=== PATIENT | female | born 2000 | race Caucasian/White ===

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

== ENCOUNTER → 2022-05-02 17:58 | Outpatient (BNVA) | payer MEDICAID, SELFPAY | PROVIDERS: PCP Family Medicine; Visit Provider Emergency Medicine | DX: Z11.3 Encounter for screening for infections with a predominantly sexual mode of transmission (principal); Z20.2 Contact with and (suspected) exposure to infections with a predominantly sexual mode of transmission | CPT/HCPCS: 87491; 87591; 87661 ==

== ENCOUNTER → 2022-05-05 16:13 | Outpatient (BNVA) | payer MEDICAID, SELFPAY | PROVIDERS: PCP Family Medicine; Visit Provider Family Medicine | DX: Z20.2 Contact with and (suspected) exposure to infections with a predominantly sexual mode of transmission (principal); F41.9 Anxiety disorder, unspecified; F19.94 Other psychoactive substance use, unspecified with psychoactive substance-induced mood disorder; Z51.81 Encounter for therapeutic drug level monitoring | CPT/HCPCS: 80053; 85025; 86705; 86706; 86803; 87340; 87491; 87591; 87661; 87806 ==

== ENCOUNTER → 2022-07-01 11:48 | Outpatient (BNVA) | payer BC, MEDICAID, SELFPAY | PROVIDERS: PCP Family Medicine; Visit Provider Registered Nurse | DX: Z79.899 Other long term (current) drug therapy (principal); F19.94 Other psychoactive substance use, unspecified with psychoactive substance-induced mood disorder; F10.10 Alcohol abuse, uncomplicated; F19.10 Other psychoactive substance abuse, uncomplicated | CPT/HCPCS: 80053; 80061; 82306; 82607; 83036; 84443; 85025 ==

== ENCOUNTER → 2022-07-08 11:35 | Outpatient (BNVA) | payer BC, MEDICAID, SELFPAY | PROVIDERS: PCP Family Medicine; Visit Provider Registered Nurse | DX: Z79.899 Other long term (current) drug therapy (principal) | CPT/HCPCS: 80178 ==

== ENCOUNTER → 2022-10-15 15:14 | Outpatient (BNVA) | payer BC, MEDICAID, SELFPAY | PROVIDERS: PCP Family Medicine; Visit Provider Registered Nurse | DX: Z79.899 Other long term (current) drug therapy (principal) | CPT/HCPCS: 80306 ==

== ENCOUNTER 2022-11-21 20:11 | Inpatient (IN) | payer BC, SELFPAY ==
[2022-11-21 20:17] VITALS: BP 131/66; PULSE 61; RESP 18; TEMP 36.9; O2SAT 97
--- NOTE | 2022-11-21 20:18 | W.ED.PSYCHS ---
HPI - Psych General: Chief Complaint: Psychiatric Symptoms Stated Complaint: PARANOID Time Seen by Provider: 11/21/22 20:18 History of Present Illness: Ms. Fong is a 22-year-old lady with history of substance abuse and bipolar disorder presenting to the emergency department for suicidal ideation and paranoia. She reports increased suicidality including overdose on lithium 2 days ago and cutting herself superficially on the left anterior forearm and right thigh. She did these with hopes of dying. She became more upset this evening as her mother did not take her to dinner for some reason. Patient reports being concerned that somebody is bugged her phone and she is adversely involved with a gang who thinks she is in the [employer] gang and they have been tracking her. Intensity symptoms is moderate to severe. Course has worsened. No other specific changes in health, exacerbating, or alleviating factors identified. Onset (ago): day(s) Duration: getting worse History of same: Yes Relieving factors: none Exacerbating factors: none Associated psychiatric symptoms: depression, suicidal ideation, delusions and other If self harm: admits thoughts of self harm, has plan, has acted on plan and intentional overdose Review of Systems General: Reports: 10 or more systems reviewed and unremarkable except in HPI and below PFSH ED PFSH: Medical History Alcohol abuse in remission Bipolar 1 disorder with psychosis History of use of contraceptive intrauterine device (IUD) Psychiatric care Psychiatric disturbance Substance abuse in remission Substance induced mood disorder Social History Smoking and tobacco status: never smoked Female Reproductive History: Spontaneous abortions: No Physical Exam Const: COMMON NORMALS: alert GENERAL APPEARANCE: cooperative and well developed HENMT: COMMON NORMALS: normocephalic and atraumatic HEAD & SCALP: normocephalic and atraumatic Eye: COMMON NORMALS: conjunctivae normal CONJUNCTIVA: Yes conjunctivae normal SCLERA: sclerae normal Neck/C-Spine: COMMON NORMALS: supple GENERAL: Yes trachea midline Resp: COMMON NORMALS: normal respiratory effort EFFORT & INSPECTION: Yes able to speak in complete sentences Cardio: COMMON NORMALS: regular rate and regular rhythm RATE: regular rate RHYTHM: regular rhythm GI: COMMON NORMALS: Soft to palpation PALPATION: Yes Soft to palpation and No Tenderness to palpation present (GI) PERCUSSION: normal to percussion Extremity: GENERAL: Yes normal exam except as noted and No edema Neuro: COMMON NORMALS: moves all extremities SENSORIUM/ORIENTATION: Yes alert and No Orientation impaired Psych: ATTITUDE: Yes paranoid and Yes Withdrawn affect present MOOD & AFFECT: Yes depressed mood INSIGHT: Fair insight present (Psych) JUDGEMENT: Poor judgement present (Psych) Skin: NARRATIVE SKIN EXAM: Superficial lacerations not requiring intervention. Course Vital Signs: Vital signs: Vital Signs Temperature 98.5 F 12/06/22 14:00 Pulse Rate 90 12/06/22 14:00 Respiratory Rate 18 12/06/22 14:00 Blood Pressure 106/65 12/06/22 14:00 Pulse Oximetry 96 12/06/22 14:00 Oxygen Delivery Me thod 12/05/22 22:00 MDM - Psych Medical Decision Making 22-year-old female presenting to the emergency department for suicidal ideation and reported overdose on lithium 2 days ago. Patient is nontoxic in appearance. No obvious toxidrome present. EKG notable for sinus rhythm with bradycardia. Normal axis and intervals, no STEMI. Labs with no significant hematologic or metabolic abnormalities. Toxic ingestions. Urine drug screen positive for only THC. [place] level is nontoxic. Most likely etiology of patient's symptoms is psychosis with suicidal attempt/ideation. Based on ED evaluation at this point there is no obvious condition that would preclude the patient from inpatient management psychiatric concerns/symptoms. The results of ED evaluation were discussed with the patient including plan for admission due to requirement for level of care not available if discharged to prevent significant worsening/deterioration. Patient agreeable with plan. Discussed with psychiatry service who was agreeable to admit patient. Medical Records I reviewed the patient's medical records. Lab Data I reviewed the patient's lab results. 11/21/22 20:40 11/21/22 20:40 Laboratory Results WBC 6.8 10^3/uL (4.5-13.0) 11/21/22 20:40 RBC 5.21 10^6/uL (4.1-5.3) 11/21/22 20:40 Hgb 13.9 g/dL (11.5-15.3) 11/21/22 20:40 Hct 44.1 % (37.0-47.0) 11/21/22 20:40 MCV 84.6 fl (81-99) 11/21/22 20:40 MCH 26.7 pg (28.0-34.0) L 11/21/22 20:40 MCHC 31.5 g/dL (30.0-36.0) 11/21/22 20:40 RDW 13.7 % (12.1-15.1) 11/21/22 20:40 Plt Count 340 10^3/cmm (130-400) 11/21/22 20:40 MPV 10.1 fL (7.4-10.4) 11/21/22 20:40 Neut % (Auto) 61.7 % 11/21/22 20:40 Lymph % (Auto) 26.5 % 11/21/22 20:40 [place] % (Auto) 8.2 % 11/21/22 20:40 Eos % (Auto) 3.1 % 11/21/22 20:40 Baso % (Auto) 0.4 % 11/21/22 20:40 Neut # (Auto) 4.20 10^3/uL (1.8-8.0) 11/21/22 20:40 Lymph # (Auto) 1.8 10^3/uL (1.5-6.5) 11/21/22 20:40 [place] # (Auto) 0.6 10^3/uL (0.2-0.9) 11/21/22 20:40 Eos # (Auto) 0.2 10^3/uL (0.0-0.8) 11/21/22 20:40 Baso # (Auto) 0.0 10^3/uL (0.0-0.1) 11/21/22 20:40 Nucleated RBC % (auto) 0 % 11/21/22 20:40 Nucleated RBCs # 0.0 /100WBC 11/21/22 20:40 Sodium 139 mmol/L (136-145) 11/21/22 20:40 Potassium 3.8 mmol/L (3.5-5.1) 11/21/22 20:40 Chloride 104 mmol/L (98-107) 11/21/22 20:40 Carbon Dioxide 27 mmol/L (22-29) 11/21/22 20:40 Anion Gap 11.8 (5-19) 11/21/22 20:40 BUN 9 mg/dL (6-20) 11/21/22 20:40 Creatinine 0.8 mg/dL (0.5-0.9) 11/21/22 20:40 GFR Calculation 91.4 mL/min (90-130) 11/21/22 20:40 Glucose 71 mg/dL (65-115) 11/21/22 20:40 Calculated Osmolality 285 mOsm/kg (285-295) 11/21/22 20:40 Calcium 9.7 mg/dL (8.5-10.5) 11/21/22 20:40 Total Bilirubin 0.6 mg/dL (0.15-1.2) 11/21/22 20:40 AST 14 U/L (0-32) 11/21/22 20:40 ALT 14 U/L (0-33) 11/21/22 20:40 Alkaline Phosphatase 79 U/L (35-105) 11/21/22 20:40 Total Protein 7.3 g/dL (6.6-8.7) 11/21/22 20:40 Albumin 4.4 g/dL (3.5-5.2) 11/21/22 20:40 Globulin 2.9 g/dL (1.3-4.6) 11/21/22 20:40 TSH 1.57 uIU/mL (0.27-4.20) 11/21/22 20:40 HCG, Qual Negative (Negative) 11/21/22 20:44 Salicylates < 0.3 mg/dL (3-10) L 11/21/22 20:40 Urine Opiates Screen Negative ng/mL (Negative) 11/21/22 20:24 Acetaminophen < 5.0 ug/mL (10-30) L 11/21/22 20:40 Ur Barbiturates Screen Negative ng/mL (Negative) 11/21/22 20:24 Ur Phencyclidine Scrn Negative ng/mL (Negative) 11/21/22 20:24 Ur Amphetamines Screen Negative ng/mL (Negative) 11/21/22 20:24 U Benzodiazepines Scrn Negative ng/mL (Negative) 11/21/22 20:24 [place] 0.2 mmol/L (0.6-1.2) L 11/21/22 20:40 Urine Cocaine Screen Negative ng/mL (Negative) 11/21/22 20:24 U Marijuana (THC) Screen Positive ng/mL (Negative) H 11/21/22 20:24 Ethyl Alcohol < 10 mg/dL (0-10) 11/21/22 20:40 Discharge Plan Discharge Patient Disposition: Admitted As Inpatient Admit Provider: Parth Michael Clinical Impression: Acute psychosis, Suicidal ideation, Drug overdose, intentional, Paranoia Condition: Stable Coding Level of Care Code ED Floriculture Professor for Simone Arreguin
--- NOTE | 2022-11-21 20:30 | ECG_ITS ---
[facility] Test Date: 2022-11-21 Pat Name: Miranda Fong Department: Room: Gender: Female Agricultural Extension Specialist: : 2000 Requested By: William Clark Order Number: [id number] Wu MD: Patrick Dominique M.D. Measurements Intervals [place] Rate: 48 P: 61 GA: 178 QRS: 75 QRSD: 112 T: 56 QT: 418 QTc: 377 Interpretive Statements SINUS BRADYCARDIA MODERATE INTRAVENTRICULAR CONDUCTION DELAY [110+ ms QRS DURATION] No previous ECG available for comparison Electronically Signed On 11-22-2022 12:16:34 STANDARD MACHINE STITCHER by Patrick Dominique M.D. [id number]
[2022-11-21 20:47] LABS: Basophils % 0.4 %; Eosinophils # 0.2 10^3/uL (0.0-0.8); Eosinophils % 3.1 %; Hematocrit 44.1 % (37.0-47.0); Hemoglobin 13.9 g/dL (11.5-15.3); Lymphocytes # 1.8 10^3/uL (1.5-6.5); Lymphocytes % 26.5 %; Mean Corpuscular HGB Conc 31.5 g/dL (30.0-36.0); Mean Corpuscular Hemoglobin 26.7 pg (28.0-34.0); Mean Corpuscular Volume 84.6 fl (81-99); Mean Platelet Volume 10.1 fL (7.4-10.4); Monocytes # 0.6 10^3/uL (0.2-0.9); Monocytes % 8.2 %; Neutrophils % 61.7 %; Nucleated Red Blood Cells % 0 %; Platelet Count 340 10^3/cmm (130-400); Red Blood Count 5.21 10^6/uL (4.1-5.3); Red Cell Distribution Width 13.7 % (12.1-15.1); White Blood Count 6.8 10^3/uL (4.5-13.0)
[2022-11-21 21:08] LABS: Amphetamines Screen Urine Negative (Negative); Barbiturates Screen Urine Negative (Negative); Benzodiazepines Screen Urine Negative (Negative); Cocaine Screen Urine Negative (Negative); Opiate Screen Urine Negative (Negative); PCP Screen Urine Negative (Negative); THC Screen Urine Positive (Negative)
[2022-11-21 21:11] LABS: Alanine Aminotransferase 14 U/L (0-33); Albumin Level 4.4 g/dL (3.5-5.2); Alkaline Phosphatase 79 U/L (35-105); Anion Gap 11.8 (5-19); Aspartate Amino Transferase 14 U/L (0-32); Blood Urea Nitrogen 9 mg/dL (6-20); Calcium 9.7 mg/dL (8.5-10.5); Carbon Dioxide 27 mmol/L (22-29); Chloride 104 mmol/L (98-107); Globulin 2.9 g/dL (1.3-4.6); Glomerular Filtration Rate 91.4 mL/min (90-130); Glucose 71 mg/dL (65-115); Osmolality Calculated 285 mOsm/kg (285-295); Potassium 3.8 mmol/L (3.5-5.1); Sodium 139 mmol/L (136-145); Thyroid Stimulating Hormone 1.57 uIU/mL (0.27-4.20); Total Bilirubin 0.6 mg/dL (0.15-1.2); Total Protein 7.3 g/dL (6.6-8.7)
[2022-11-21 21:12] LABS: Acetaminophen < 5.0 ug/mL (10-30); Alcohol Level < 10 mg/dL (0-10); Salicylate < 0.3 mg/dL (3-10)
[2022-11-21 21:12] LABS: HCG Qualitative Urine. Negative (Negative)
[2022-11-21] MEDS: LORazepam 1 mg Tablet PO (21:45)
--- NOTE | 2022-11-21 23:12 | PC.NURSE ---
Rights of Involuntary Patient was read to patient by myself, Jamison Lebron RN, Plant Physiology Teacher. Halle Michael, motor equipment commanding officer was present at bedside. Patient verbally acknowledges understanding of the same. A copy was given to patient.
[2022-11-21 23:20] LABS: Lithium 0.2 mmol/L (0.6-1.2)
[2022-11-22 00:22] VITALS: BP 106/56; PULSE 55; RESP 16; O2SAT 97
[2022-11-22 02:10] VITALS: BP 134/87; PULSE 80; RESP 17; TEMP 36.9; O2SAT 96
[2022-11-22 06:00] VITALS: BP 82/48; PULSE 53; RESP 16; TEMP 36.7; O2SAT 98
[2022-11-22 14:00] VITALS: BP 111/68; PULSE 76; RESP 20; TEMP 36.6; O2SAT 97
--- NOTE | 2022-11-22 15:11 | P.NPUHP_ITS ---
Providers/Chief Complaint Admitting Physician: Parth Michael MD Primary Care Provider: Carmen Michael MD Chief Complaint: PARANOID HPI NPU History of Present Illness Miranda Fong is a 22 year old female who presented to the emergency department with the following report: Chief Complaint: Psychiatric Symptoms Stated Complaint: PARANOID Time Seen by Provider: 11/21/22 20:18 History of Present Illness: Ms. Fong is a 22-year-old lady with history of substance abuse and bipolar disorder presenting to the emergency department for suicidal ideation and paranoia. She reports increased suicidality including overdose on lithium 2 days ago and cutting herself superficially on the left anterior forearm and right thigh. She did these with hopes of dying. She became more upset this evening as her mother did not take her to dinner for some reason. Patient reports being concerned that somebody is bugged her phone and she is adversely involved with a gang who thinks she is in the [employer] gang and they have been tracking her. Intensity symptoms is moderate to severe. Course has worsened. No other specific changes in health, exacerbating, or alleviating factors identified. She was admitted to the neuropsychiatric unit for definitive treatment of those issues. She presents today reporting that she has been hospitalized at least 7 times. In [facility], [facility] and here. She reports that she had been on Seroquel and Vistaril but that someone stopped her medication. She reports that she last went to [facility] inpatient and they changed things that had been helping but probably needed just to be increased. She reports that over the last 3 days leading up to the hospitalization she was feeling increasingly suicidal. She was drinking, took some pills including lithium, and had cut herself superficially. She reports that she has had at least 22 suicide attempts in her life. She reports that she has had follow-up in [place]. She reports she has been on lots of different medications. She reports that she is down to 1 cigarette or a couple puffs a day. She reports she tried to stop drinking alcohol but does not drink much. She reports she smokes marijuana daily. She reports that she does not use any other illicit drugs and that has been the case for over a year but back when she was using methamphetamine and opiates for the problem. She reports she thinks she does have 1 DUI but denied other charges. She reports she is been having challenges since she was a teen that she has had a history of cutting. She reports that recently she and her mom have had conflicts because she struggles with her behavior. She reports that her mother endorses that she is more aggressive than she should be. She reports that recently she has been staying with her mom's ex because she and her mom cannot get along. She reports she is having some legal problems and that she has an outstanding warrant from not showing up to court about 4 times. She continues to report being heterosexual with her longest relationship being off and on for 3 years. Never been , has not had children never been in the and reports she is affiliated with the [employer]. She is not currently working. An excerpt of her last hospitalization here in March 2021 is included below for context. We discussed the risk benefits and alternatives of resuming some Seroquel at night to help with sleep and to start Invega as a mood stabilizer before considering an antidepressant. Per her 04/21/2021 [facility] inpatient psychiatric evaluation: History of Present Illness Miranda Fong is a 20 year old female who presented to the emergency department with the following report: Chief Complaint: Psychiatric Symptoms Stated Complaint: SI Time Seen by Provider: 04/20/21 21:32 History of Present Illness:?? HPI Narrative: 20-year-old female comes in today with complaints of depression, suicidal thoughts, hearing voices and seeing people watching her.? Patient reports that she has been hearing the voices that have been telling her that they are going to get her and cut her in half with a chainsaw and other various torture.? Patient has been started on citalopram 1 month ago and Seroquel 1 week ago for complaints of depression.? Patient reports that the voices have been going on for 1 to 2 months.? Patient has recently m elizabeth to [place] from [facility] 2 months ago to live near her biological grandparents.? Patient has been on sertraline in the past but was taken off of the medication due to taking too many of the pills as she states it.? Patient is also has had 1 state last August while in [facility] for suicidal thoughts in which she stayed overnight in the hospital.? Patient has poor eye contact during interview. Associated symptoms: Reports auditory hallucinations, visual hallucinations, delusions, depression and suicidal ideation. She was admitted to the neuropsychiatric unit for definitive treatment of those issues.? Patient presents today reporting she is [facility] but has been in outpatient services.? She had medications before including Seroquel but she denies ever having Abilify.? She endorses having a suicide attempt but it was unclear whether she meant September of this year or 2019.? She reports that she vapes but does not alcohol somewhat regularly she denies smoking marijuana or any other illicit drugs.? She never been to rehab and denied having a DUI.? She reports that the reason why she is here is at her family's behest as she continued to have voices in her head reports that she feels like somebody is going to kill her.? She reports that the voices tell her the people are after her that are going to kill her.? We discussed the risk-bene fit and alternatives of starting Abilify and she understood agreed to proceed as is documented in this note. Psychiatric history: As above. Substance abuse history: As above. Family history: Endorses mental health issues on her mother side, addiction issues on her father side denies any suicide attempts or completions in her family which is aware of. Developmental history: There were no problems with the , or delivery, learned to walk and talk and met developmental milestones on time, and denies need for speech therapy, learning support, emotional support or special education classes.? She did later report that she might have been a slow reader. Psychosocial history: She reports that her mother and father were together when she was born and that she has 2 younger sisters that are a product of that same union.? She states is a half sibling through her father but avoid and her mother did have another child was stillborn.? She reports her childhood was good she denies any emotional, physical or sexual abuse.? She does report that when her parents split her dad was overly protective and her mom more or less allowed her to do whatever she wanted.? She reports that she did get into some addictive behavior secondary to the looseness of control.? She alluded to some possible trauma and PTSD type symptoms but did not discuss them with clearly enough to draw an u nderstanding.? She did graduate from high school.? She endorses being bisexual with a long relationship being 2 years.? She has never been , she has never had children, she has never been in the , and she endorses being Mandaen.? Her longest was 3 months.? She reports he lives in a camper with a younger sister outside of family members home. Legal history: Denied. Medical history: Please see ED note for full details but endorses being on control pills. Meds NPU Home Medications Medication Instructions Recorded Confirmed Last Taken Type docusate sodium 100 mg capsule 100 mg PO BID PRN Constipation 05/27/22 11/22/22 Unknown History lumateperone 42 mg capsule 42 mg PO DAILY #30 caps 10/29/22 11/22/22 Unknown Rx (Caplyta) Allergies Allergy/AdvReac Type Severity Reaction Status Date / Time hydrocortisone Allergy rash Verified 08/13/22 07:27 Milk Containing Products AdvReac Severe ADR-Flatule Verified 08/13/22 07:27 nce PFSH NPU PFSH: Medical History Alcohol abuse in remission Bipolar 1 disorder with psychosis History of use of contraceptive intrauterine device (IUD) Psychiatric care Psychiatric disturbance Substance abuse in remission Substance induced mood disorder Social History Smoking and tobacco status: never smoked Female Reproductive History: Spontaneous abortions: No Mental Status Exam MSE Comments: This is a well-nourished, well-developed white female in hospital scrubs with adequate grooming and eye contact. No abnormal movements except for mild psychomotor agitation.. Cooperative with exam in mild distress. Speech was slightly increased rate and normal volume but not quite pressured.. Mood described as a little down. Affect hypomanic. Thought process mostly organized. Thought content: Patient endorsed recent suicidal but deniedhomicidal ideation, there were no delusions noted except for possible mild grandiosity but she did endorse some paranoia, she reported having some auditory hallucinations but denied visual hallucinations. Attention and concentration appeared mostly intact and memory was somewhat reliable but none were formally tested. Alert and oriented x3. Insight and judgment are limited, impulse control is limited. Vitals/I&O/Wt Last Vital Signs Temp 98 F 11/22/22 14:00 Pulse 76 11/22/22 14:00 Resp 20 H 11/22/22 14:00 BP 111/68 11/22/22 14:00 Pulse Ox 97 11/22/22 14:00 O2 Del Method 11/22/22 06:00 Weight last 48 hrs Weight 77.111 kg Data NPU 11/21/22 20:40 11/21/22 20:40 A&P Assessment and plan (1) Acute psychosis: (2) Suicidal ideation: (3) Drug overdose, intentional: (4) Bipolar 1 disorder: Plan This is a 22-year-old white female with a history of significant mental health challenges including question of bipolar disorder significant suicidal tendencies who presents with acute psychosis in the form of hypomania with a history of possible substance use, odd affect who presents open to a trial of medication. 1.? Continue current medication.? Start Invega 3 mg p.o. daily and Seroquel 50 mg p.o. nightly 2.? Continue every 15 minute checks for safety. 3.? Encourage individual, group and milieu therapies. 4.? Encourage sober living treatment after discharge at the highest level of car e to which he is willing to commit. Involuntary Hold Information 96 Hour Hold: 96 Hour Involuntary Admission: Yes 96 Hour Hold Ending Date: 11/27/22 96 Hour Hold Ending Time: 22:00 Attestations NPU 2 Medical Necessity Statement*: Inpatient hospitalization is medically necessary and the clinically appropriate intervention at this time. We will monitor medic ations and make changes as indicated. Patient will be in the hospital for over two midnights. Likely length of stay 4-6 days. Coding Level of Care Code Acute Code for Chg Fwd Diagnoses Acute psychosis F23 Suicidal ideation R45.851 Drug overdose, intentional T50.902A Bipolar 1 disorder F31.9
[2022-11-22] MEDS: nicotine 2 mg Gum BUCCAL (16:15)
[2022-11-22 20:01] VITALS: BP 114/71; PULSE 62; RESP 20; TEMP 36.7; O2SAT 98
[2022-11-22] MEDS: blistex lip oint 7 gm Tube 1 APPLIC TOPICAL (21:06)
[2022-11-22] MEDS: trazodone 50 mg Tablet PO (22:20)
[2022-11-23 06:00] VITALS: BP 100/63; PULSE 76; RESP 18; TEMP 36.3; O2SAT 95
[2022-11-23] MEDS: blistex lip oint 7 gm Tube 1 APPLIC TOPICAL (12:23)
[2022-11-23] MEDS: paliperidone ER 3 mg Tablet PO (12:23)
[2022-11-23 14:00] VITALS: BP 116/72; PULSE 85; RESP 20; TEMP 36.9; O2SAT 95
[2022-11-23] MEDS: hyDROXYzine 25 mg Capsule 50 MG PO (14:29)
[2022-11-23] MEDS: nicotine 2 mg Gum BUCCAL (14:29)
--- NOTE | 2022-11-23 18:45 | W.PM.NPUPNS ---
Subjective NPU Subjective: Patient presented today reporting that she has sleeping better and denied any thoughts from the medication she is getting. She received the morning dose of Invega and denied any current problems with it thus far. She denied any changes in her mood or any new concerns. Mental Status Exam MSE Comments: This is a well-nourished, well-developed white female in hospital scrubs with adequate grooming and eye contact. No abnormal movements except for mild psychomotor agitation. Cooperative with exam in mild distress. Speech was slightly increased rate and normal volume but not quite pressured.. Mood described as okay. Affect hypomanic. Thought process mostly organized. Thought content: Patient endorsed recent suicidal but deniedhomicidal ideation, there were no delusions noted except for possible mild grandiosity but she did endorse some paranoia, she reported having some auditory hallucinations but denied visual hallucinations. Attention and concentration appeared mostly intact and memory was somewhat reliable but none were formally tested. Alert and oriented x3. Insight and judgment are limited, impulse control is limited. Vitals/I&O/Wt Last Vital Signs Temp 97.9 F 11/23/22 20:06 Pulse 68 11/23/22 20:06 Resp 16 11/23/22 20:06 BP 98/59 11/23/22 20:06 Pulse Ox 99 11/23/22 20:06 O2 Del Method 11/22/22 06:00 Weight last 48 hrs Weight 105.324 kg Data NPU 11/21/22 20:40 11/21/22 20:40 A&P Assessment and plan (1) Acute psychosis: (2) Suicidal ideation: (3) Drug overdose, intentional: (4) Bipolar 1 disorder: Plan This is a 22-year-old white female with a history of significant mental health challenges including question of bipolar disorder significant suicidal tendencies who presents with acute psychosis in the form of hypomania with a history of possible substance use, odd affect who presents open to a trial of medication. 1.? Continue current medication.? Started Invega 3 mg p.o. daily and Seroquel 50 mg p.o. nightly 2.? Continue every 15 minute checks for safety. 3.? Encourage individual, group and milieu therapies. 4.? Encourage sober living treatment after discharge at the highest level of care to which he is willing to commit. Involuntary Hold Information 96 Hour Hold: 96 Hour Involuntary Admission: Yes 96 Hour Hold Ending Date: 11/27/22 96 Hour Hold Ending Time: 22:00 Attestations NPU Medical Necessity Statement*: Inpatient hospitalization is medically necessary and the clinically appropriate intervention at this time. We will monitor medications and make changes as indicated. Likely length of stay 3-5 days. Coding Level of Care Code Acute Code for Chg Fwd Diagnoses Acute psychosis F23 Suicidal ideation R45.851 Drug overdose, intentional T50.902A Bipolar 1 disorder F31.9
[2022-11-23 20:06] VITALS: BP 98/59; PULSE 68; RESP 16; TEMP 36.6; O2SAT 99
[2022-11-23] MEDS: quetiapine 25 mg Tablet 50 MG PO (21:09)
[2022-11-24 06:00] VITALS: BP 105/69; PULSE 51; RESP 16; O2SAT 97
[2022-11-24] MEDS: paliperidone ER 3 mg Tablet PO ×3 (08:34→20:28)
[2022-11-24] MEDS: nicotine 2 mg Gum BUCCAL ×5 (11:59→20:41)
[2022-11-24 14:00] VITALS: BP 156/90; PULSE 105; RESP 18; TEMP 36.3; O2SAT 97
[2022-11-24] MEDS: ondansetron 4 MG Tablet PO (16:30)
--- NOTE | 2022-11-24 16:33 | W.PM.NPUPNS ---
Subjective NPU Subjective: Patient presents today reporting that her impulsive behaviors is part of her behavior pattern. She had removed and from a male patient due to their attempts to interact socially. We will lengthy discussion and she reports that her mother says that her bipolar disorder the next those decisions. We discussed the fact that people do often have that as a consequence of the illness. We discussed the risks, benefits and alternatives of increasing her Invega to 6 mg p.o. every morning and she understood and agreed proceed as documented in this note. Mental Status Exam MSE Comments: This is an overweight versus obese white female in hospital scrubs with limited grooming but adequate eye contact. No abnormal movements except for mild psychomotor agitation. Cooperative with exam in mild distress. Speech was slightly increased rate and normal volume but not quite pressured.. Mood described as okay. Affect hypomanic. Thought process mostly organized. Thought content: Patient endorsed recent suicidal but denied homicidal ideation, there were no delusions noted except for possible mild grandiosity and some hypersexuality and she did endorse some paranoia, she reported having some auditory hallucinations but denied visual hallucinations. Attention and concentration appeared mostly intact and memory was somewhat reliable but none were formally tested. Alert and oriented x3. Insight and judgment are limited, impulse control is impaired. Vitals/I&O/Wt Last Vital Signs Temp 97.9 F 11/23/22 20:06 Pulse 51 L 11/24/22 06:00 Resp 16 11/24/22 06:00 BP 105/69 11/24/22 06:00 Pulse Ox 97 11/24/22 06:00 O2 Del Method 11/22/22 06:00 Weight last 48 hrs Weight 105.324 kg Data NPU 11/21/22 20:40 11/21/22 20:40 A&P Assessment and plan (1) Acute psychosis: (2) Suicidal ideation: (3) Drug overdose, intentional: (4) Bipolar 1 disorder: Plan This is a 22-year-old white female with a history of significant mental health challenges including question of bipolar disorder significant suicidal tendencies who presents with acute psychosis in the form of hypomania with a history of possible substance use, odd affect who presents open to a trial of medication. 1.? Continue current medication.? Started Invega 3 mg p.o. daily and Seroquel 50 mg p.o. nightly. Increase Invega to 6 mg p.o. daily. 2.? Continue every 15 minute checks for safety. 3.? Encourage individual, group and milieu therapies. 4.? Encourage sober living treatment after discharge at the highest level of care to which he is willing to commit. Involuntary Hold Information 96 Hour Hold: 96 Hour Involuntary Admission: Yes 96 Hour Hold Ending Date: 11/27/22 96 Hour Hold Ending Time: 22:00 Attestations NPU Medical Necessity Statement*: Inpatient hospitalization is medically necessary and the clinically appropriate intervention at this time. We will monitor medications and make changes as indicated. Likely length of stay 3-5 days. Coding Level of Care Code Acute Code for g Fwd Diagnoses Acute psychosis F23 Suicidal ideation R45.851 Drug overdose, intentional T50.902A Bipolar 1 disorder F31.9
[2022-11-24 20:11] VITALS: BP 129/78; PULSE 97; RESP 16; TEMP 36.7; O2SAT 99
[2022-11-24] MEDS: quetiapine 25 mg Tablet 50 MG PO (20:28)
[2022-11-25 06:00] VITALS: BP 112/72; PULSE 60; RESP 16; TEMP 36.4; O2SAT 99
[2022-11-25] MEDS: paliperidone ER 6 mg Tablet PO (09:09)
[2022-11-25] MEDS: ondansetron 4 MG Tablet PO (09:57)
--- NOTE | 2022-11-25 10:14 | PC.NURSE ---
THIS EVENT HAPPENED YESTERDAY ON 11/24/22 DAWN STOCKTON WAS COMPLETING 15 MINUTE ROUNDS ON THE [facility] WHEN SHE FOUND THIS PT AND A MALE PT IN A ROOM TOGETHER. THEY WERE FOUND IN ROOM 155 IN THE BATHROOM. THE PT WAS UP AGAINST THE WALL AND THE MALE PATIENT WAS PERFORMING ORAL SEX ON HER. MAHIN IMMEDIATELY INTERVENED AND THEM. THIS PT WAS PLACED ON 1:1 BY THIS NURSE AND DID NOT GET OUT OF STAFFS SITE. PT WAS IMMEDIATELY MOVED TO THE [facility] IN ROOM 126. SECURITY, PRODUCTION ENGINE REPAIRER, DR. CASTILLO AND DIRECTOR WAS NOTIFIED. UPON CAMERA REVIEW BOTH PTS ENTERED ROOM 155 AT 1520 AND BOTH EXITED THE ROOM AT 1532 AFTER BEING FOUND BY STAFF.
[2022-11-25] MEDS: nicotine 2 mg Gum BUCCAL ×4 (11:48→19:14)
[2022-11-25] MEDS: hyDROXYzine 25 mg Capsule 50 MG PO (12:15)
--- NOTE | 2022-11-25 13:15 | W.PM.NPUPNS ---
Subjective NPU Subjective: Patient presented today reporting that she was to go home. Discussed the fact that she has been in this hypersexual state, but she just had the Invega increased to 6 mg, and I would like to see her overall affect started to dissipate in energy before also comfortable about discharge. Mental Status Exam MSE Comments: This is an overweight versus obese white female in hospital scrubs with limited grooming but adequate eye contact. No abnormal movements except for mild psychomotor agitation. Cooperative with exam in mild distress. Speech was slightly increased rate and normal volume but not quite pressured. Mood described as okay. Affect hypomanic. Thought process mostly organized. Thought content: Patient endorsed recent suicidal but denied homicidal ideation, there were no delusions noted except for possible mild grandiosity and some hypersexuality and she did endorse some paranoia, she reported having some auditory hallucinations but denied visual hallucinations. Attention and concentration appeared mostly intact and memory was somewhat reliable but none were formally tested. Alert and oriented x3. Insight and judgment are limited, impulse control is impaired. Vitals/I&O/Wt Last Vital Signs Temp 98.0 F 11/24/22 20:11 Pulse 97 11/24/22 20:11 Resp 16 11/24/22 20:11 BP 129/78 11/24/22 20:11 Pulse Ox 99 11/24/22 20:11 O2 Del Method 11/22/22 06:00 Data NPU 11/21/22 20:40 11/21/22 20:40 A&P Assessment and plan (1) Acute psychosis: (2) Suicidal ideation: (3) Drug overdose, intentional: (4) Bipolar 1 disorder: Plan This is a 22-year-old white female with a history of significant mental health challenges including question of bipolar disorder significant suicidal tendencies who presents with acute psychosis in the form of hypomania with a history of possible substance use, odd affect who presents open to a trial of medication. 1.? Continue current medication.? Started Invega 3 mg p.o. daily and Seroquel 50 mg p.o. nightly. Increased Invega to 6 mg p.o. daily. 2.? Continue every 15 minute checks for safety. 3.? Encourage individual, group and milieu therapies. 4.? Encourage sober living treatment after discharge at the highest level of care to which he is willing to commit. Involuntary Hold Information 96 Hour Hold: 96 Hour Involuntary Admission: Yes 96 Hour Hold Ending Date: 11/27/22 96 Hour Hold Ending Time: 22:00 Attestations NPU Medical Necessity Statement*: Inpatient hospitalization is medically necessary and the clinically appropriate intervention at this time. We will monitor medications and make changes as indicated. Likely length of stay 2-4 days. Coding Level of Care Code Acute Code for Chg Fwd Diagnoses Acute psychosis F23 Suicidal ideation R45.851 Drug overdose, intentional T50.902A Bipolar 1 disorder F31.9
[2022-11-25 14:00] VITALS: BP 128/83; PULSE 83; RESP 20; TEMP 36.7; O2SAT 97
[2022-11-25] MEDS: ibuprofen 600 mg Tablet PO (20:17)
[2022-11-25] MEDS: quetiapine 25 mg Tablet 50 MG PO (20:18)
[2022-11-25 20:23] VITALS: BP 132/76; PULSE 87; RESP 17; TEMP 36.6; O2SAT 97
[2022-11-26 06:00] VITALS: BP 106/63; PULSE 76; RESP 18; TEMP 36.9; O2SAT 96
--- NOTE | 2022-11-26 08:28 | PC.NURSE ---
P0T IN BED RESTING, AROUSES TO VOICE. DENIES SI/HI AND AVH AT THIS TIME. PT DENIES PAIN. REPORTS BM 11/24/22. CONTINUES 15 MINUTE CHECKS FOR SI.
[2022-11-26] MEDS: paliperidone ER 6 mg Tablet PO (09:21)
[2022-11-26] MEDS: nicotine 2 mg Gum BUCCAL ×5 (09:21→20:24)
--- NOTE | 2022-11-26 12:08 | W.PM.NPUPNS ---
Subjective NPU Subjective: Patient presented today reporting that she is feeling a little better. Staff reporting less hyperkinetic behavior and she appears less activated. She denies having any hypersexual urges and is focusing on discharging sooner rather than later. We discussed reaching out to her mother and finding out how her mother feels she is doing. She denied any side effects to the increased Invega. Mental Status Exam MSE Comments: This is an overweight versus obese white female in hospital scrubs with limited grooming but adequate eye contact. No abnormal movements except for mild psychomotor retardation. Cooperative with exam in mild distress. Speech was more normal rate and volume. Mood described as okay. Affect appeared more calm. Thought process mostly organized. Thought content: Patient denied suicidal or homicidal ideation, there were no delusions noted except for possible mild grandiosity and some hypersexuality and she did endorse some paranoia, she reported having some auditory hallucinations but denied visual hallucinations. Attention and concentration appeared mostly intact and memory was somewhat reliable but none were formally tested. Alert and oriented x3. Insight and judgment are limited, impulse control is impaired. Vitals/I&O/Wt Last Vital Signs Temp 98.4 F 11/26/22 06:00 Pulse 76 11/26/22 06:00 Resp 18 11/26/22 06:00 BP 106/63 11/26/22 06:00 Pulse Ox 96 11/26/22 06:00 O2 Del Method 11/26/22 06:00 Data NPU 11/21/22 20:40 11/21/22 20:40 A&P Assessment and plan (1) Acute psychosis: (2) Suicidal ideation: (3) Drug overdose, intentional: (4) Bipolar 1 disorder: Plan This is a 22-year-old white female with a history of significant mental health challenges including question of bipolar disorder significant suicidal tendencies who presents with acute psychosis in the form of hypomania with a history of possible substance use, odd affect who presents open to a trial of medication. 1.? Continue current medication.? Started Invega 3 mg p.o. daily and Seroquel 50 mg p.o. nightly. Increased Invega to 6 mg p.o. daily. 2.? Continue every 15 minute checks for safety. 3.? Encourage individual, group and milieu therapies. 4.? Encourage sober living treatment after discharge at the highest level of care to which he is willing to commit. Involuntary Hold Information 96 Hour Hold: 96 Hour Involuntary Admission: Yes 96 Hour Hold Ending Date: 11/27/22 96 Hour Hold Ending Time: 22:00 Attestations NPU Medical Necessity Statement*: Inpatient hospitalization is medically necessary and the clinically appropriate intervention at this time. We will monitor medications and make changes as indicated. Likely length of stay 2-4 days. Will evaluate for need for 21-day hold. Coding Level of Care Code Acute Code for [facility] Fwd Diagnoses Acute psychosis F23 Suicidal ideation R45.851 Drug overdose, intentional T50.902A Bipolar 1 disorder F31.9
[2022-11-26 14:00] VITALS: BP 126/84; PULSE 106; RESP 18; TEMP 36.8; O2SAT 94
[2022-11-26] MEDS: quetiapine 25 mg Tablet 50 MG PO (20:23)
[2022-11-26] MEDS: hyDROXYzine 25 mg Capsule 50 MG PO (20:23)
[2022-11-26] MEDS: trazodone 50 mg Tablet PO (20:23)
[2022-11-26 22:00] VITALS: BP 106/69; PULSE 97; RESP 17; TEMP 36.6; O2SAT 98
[2022-11-27 06:00] VITALS: BP 107/67; PULSE 52; RESP 15; TEMP 36.6; O2SAT 98
[2022-11-27] MEDS: paliperidone ER 6 mg Tablet PO (10:23)
[2022-11-27] MEDS: nicotine 2 mg Gum BUCCAL ×5 (11:57→20:26)
--- NOTE | 2022-11-27 13:28 | W.PM.NPUPNS ---
Subjective NPU Subjective: Patient presented today reporting that she would like to go home. However she was having significant hyperreligious conversation. Reporting that she prays sometimes 2 to 3 hours a day and prays about each finger and toe she wants blessed. We discussed that that might be a bit too long. We discussed a plan to consider the Invega Sustenna discussing the risks, benefits and alternatives and she understood and agreed to proceed as is documented in his note. We talked about maybe doing the shot tomorrow. We also discussed that we would submit the 21-day hold but we are hopeful that with the injection her time here will be short. Mental Status Exam MSE Comments: This is an overweight versus obese white female in hospital scrubs with limited grooming but adequate eye contact. No abnormal movements except for mild psychomotor retardation. Cooperative with exam in mild distress. Speech was more normal rate and volume. Mood described as better I think. Affect appeared more calm. Thought process mostly organized. Thought content: Patient denied suicidal or homicidal ideation, there were no delusions noted except for possible mild grandiosity, hyperreligiousness and possible lessening hypersexuality and she did endorse some paranoia, she reported having some auditory hallucinations but denied visual hallucinations. Attention and concentration appeared mostly intact and memory was somewhat reliable but none were formally tested. Alert and oriented x3. Insight and judgment are limited, impulse control is impaired. Vitals/I&O/Wt Last Vital Signs Temp 97.8 F 11/27/22 06:00 Pulse 52 L 11/27/22 06:00 Resp 15 11/27/22 06:00 BP 107/67 11/27/22 06:00 Pulse Ox 98 11/27/22 06:00 O2 Del Method 11/27/22 06:00 Data NPU 11/21/22 20:40 11/21/22 20:40 A&P Assessment and plan (1) Acute psychosis: (2) Suicidal ideation: (3) Drug overdose, intentional: (4) Bipolar 1 disorder: Plan This is a 22-year-old white female with a history of significant mental health challenges including question of bipolar disorder significant suicidal tendencies who presents with acute psychosis in the form of hypomania with a history of possible substance use, odd affect who presents open to a trial of medication. 1.? Continue current medication.? Started Invega 3 mg p.o. daily and Seroquel 50 mg p.o. nightly. Increased Invega to 6 mg p.o. daily. Consider Invega Sustenna to 34 mg IM loading dose to the deltoid tomorrow if available. 2.? Continue every 15 minute checks for safety. 3.? Encourage individual, group and milieu therapies. 4.? Encourage sober living treatment after discharge at the highest level of care to which he is willing to commit. 5. Filed for 21-day hold. Involuntary Hold Information 96 Hour Hold: 96 Hour Involuntary Admission: Yes 96 Hour Hold Ending Date: 11/27/22 96 Hour Hold Ending Time: 22:00 Attestations NPU Medical Necessity Statement*: Inpatient hospitalization is medically necessary and the clinically appropriate intervention at this time. We will monitor medications and make changes as indicated. Likely length of stay 3-5 days. Will evaluate for need for 21-day hold. Coding Level of Care Code Acute Code for [facility] Fwd Diagnoses Acute psychosis F23 Suicidal ideation R45.851 Drug overdose, intentional T50.902A Bipolar 1 disorder F31.9
[2022-11-27 14:00] VITALS: BP 114/80; PULSE 83; RESP 18; TEMP 36.3; O2SAT 98
[2022-11-27] MEDS: quetiapine 25 mg Tablet 50 MG PO (21:21)
[2022-11-27 22:00] VITALS: BP 108/71; PULSE 131; RESP 18; TEMP 36.7; O2SAT 98
[2022-11-28 06:00] VITALS: BP 99/61; PULSE 58; RESP 15; TEMP 36.8; O2SAT 98
[2022-11-28] MEDS: nicotine 2 mg Gum BUCCAL ×4 (11:14→21:11)
[2022-11-28] MEDS: paliperidone ER 6 mg Tablet PO (11:16)
[2022-11-28] MEDS: paliperidone palmitate 234 mg Syringe IM (11:59)
--- NOTE | 2022-11-28 13:00 | W.PM.NPUPNS ---
Subjective NPU Subjective: Patient presented today reporting that she is doing fine. She received her Invega Sustenna 234 mg IM to the deltoid initial loading dose. She denied any issues with the shot. She was served for her 21-day hold and was meeting with the airworthiness inspector for her hearing. She denied any current challenges and is eating fine and sleeping a little better. Mental Status Exam MSE Comments: This is an overweight versus obese white female in hospital scrubs with limited grooming but adequate eye contact. No abnormal movements except for mild psychomotor retardation. Cooperative with exam in mild distress. Speech was more normal rate and volume. Mood described as getting better. Affect appeared more calm. Thought process mostly organized. Thought content: Patient denied suicidal or homicidal ideation, there were no delusions noted except for possible mild grandiosity, hyperreligiousness and possible lessening hypersexuality and she did endorse some paranoia, she reported having some auditory hallucinations but denied visual hallucinations. Attention and concentration appeared mostly intact and memory was somewhat reliable but none were formally tested. Alert and oriented x3. Insight and judgment are limited, impulse control is impaired. Vitals/I&O/Wt Last Vital Signs Temp 98.2 F 11/28/22 06:00 Pulse 58 L 11/28/22 06:00 Resp 15 11/28/22 06:00 BP 99/61 11/28/22 06:00 Pulse Ox 98 11/28/22 06:00 O2 Del Method 11/28/22 06:00 Data NPU 11/21/22 20:40 11/21/22 20:40 A&P Assessment and plan (1) Acute psychosis: (2) Suicidal ideation: (3) Drug overdose, intentional: (4) Bipolar 1 disorder: Plan This is a 22-year-old white female with a history of significant mental health challenges including question of bipolar disorder significant suicidal tendencies who presents with acute psychosis in the form of hypomania with a history of possible substance use, odd affect who presents open to a trial of medication. 1.? Continue current medication.? Started Invega 3 mg p.o. daily and Seroquel 50 mg p.o. nightly. Increased Invega to 6 mg p.o. daily. Given Invega Sustenna 234 mg IM loading dose to the deltoid 11/28/2022. 2.? Continue every 15 minute checks for safety. 3.? Encourage individual, group and milieu therapies. 4.? Encourage sober living treatment after discharge at the highest level of care to which he is willing to commit. 5. 21-day hold hearing 12/01/2022 at 2:45 PM. Involuntary Hold Information 96 Hour Hold: 96 Hour Involuntary Admission: Yes 96 Hour Hold Ending Date: 11/27/22 96 Hour Hold Ending Time: 22:00 Attestations NPU Medical Necessity Statement*: Inpatient hospitalization is medically necessary and the clinically appropriate intervention at this time. We will monitor medications and make changes as indicated. Likely length of stay 3-5 days. Will evaluate for need for 21-day hold. Coding Level of Care Code Acute Code for [facility] Fwd Diagnoses Acute psychosis F23 Suicidal ideation R45.851 Drug overdose, intentional T50.902A Bipolar 1 disorder F31.9
[2022-11-28 14:00] VITALS: BP 114/76; PULSE 94; RESP 20; TEMP 36.8; O2SAT 97
[2022-11-28] MEDS: trazodone 50 mg Tablet PO (21:10)
[2022-11-28] MEDS: quetiapine 25 mg Tablet 50 MG PO (21:10)
[2022-11-28] MEDS: hyDROXYzine 25 mg Capsule 50 MG PO (21:11)
[2022-11-28 22:00] VITALS: BP 96/60; PULSE 102; RESP 16; TEMP 36.7; O2SAT 97
[2022-11-29 06:00] VITALS: BP 88/51; PULSE 56; RESP 17; TEMP 36.6; O2SAT 98
[2022-11-29] MEDS: nicotine 2 mg Gum BUCCAL ×4 (08:41→21:05)
[2022-11-29] MEDS: paliperidone ER 6 mg Tablet PO (08:41)
--- NOTE | 2022-11-29 09:46 | P.NPUPN_ITS ---
Subjective NPU Subjective: Patient is in today reporting that she is feeling okay. She denies any sequela from her Invega Sustenna injection. We discussed the process of going to the shot only. We discussed the possibility of her mother coming tomorrow and us meeting about how she was doing as well as discharge planning. Otherwise he denied any issues or new concerns. Mental Status Exam MSE Comments: This is an overweight versus obese white female in hospital scrubs with limited grooming but adequate eye contact. No abnormal movements except for mild psychomotor retardation. Cooperative with exam in no acute dist ress. Speech was more normal rate and volume. Mood described as getting better. Affect appeared more calm. Thought process mostly organized. Thought content: Patient denied suicidal or homicidal ideation, there were no delusions noted except for possible mild grandiosity, hyperreligiousness and possible lessening hypersexuality and she did endorse some paranoia, she reported having some auditory hallucinations but denied visual hallucinations. Attention and concentration appeared mostly intact and memory was somewhat reliable but none were formally tested. Alert and oriented x3. Insight and judgment are limited, impulse control is impaired. Vitals/I&O/Wt Last Vital Signs Temp 97.9 F 11/29/22 06:00 Pulse 56 L 11/29/22 06:00 Resp 17 11/29/22 06:00 BP 88/51 11/29/22 06:00 Pulse Ox 98 11/29/22 06:00 O2 Del Method 11/28/22 22:00 Data NPU 11/21/22 20:40 11/21/22 20:40 A&P Assessment and plan (1) Acute psychosis: (2) Suicidal ideation: (3) Drug overdose, intentional: (4) Bipolar 1 disorder: Plan This is a 22-year-old white female with a history of significant mental health challenges including question of bipolar disorder significant suicidal tendencies who presents with acute psychosis in the form of hypomania with a history of possible substance use, odd affect who presents open to a trial of m edication. 1.? Continue current medication.? Started Invega 3 mg p.o. daily and Seroquel 50 mg p.o. nightly. Increased Invega to 6 mg p.o. daily. Given Invega Sustenna 234 mg IM loading dose to the deltoid 11/28/2022. 2.? Continue every 15 minute checks for safety. 3.? Encourage individual, group and milieu therapies. 4.? Encourage sober living treatment after discharge at the highest level of ca re to which he is willing to commit. 5. 21-day hold hearing 12/01/2022 at 2:45 PM. Involuntary Hold Information 96 Hour Hold: 96 Hour Involuntary Admission: Yes 96 Hour Hold Ending Date: 11/27/22 96 Hour Hold Ending Time: 22:00 Attestations NPU Medical Necessity Statement*: Inpatient hospitalization is medically necessary and the clinically appropriate intervention at this time. We will monitor medications and make changes as indicated. Likely length of stay 3-5 days. . Coding Level of Care Code Acute Code for g Fwd Diagnoses Acute psychosis F23 Suicidal ideation R45.851 Drug overdose, intentional T50.902A Bipolar 1 disorder F31.9
[2022-11-29 14:00] VITALS: RESP 16
[2022-11-29] MEDS: quetiapine 25 mg Tablet 50 MG PO (20:19)
[2022-11-29 20:29] VITALS: BP 146/98; PULSE 107; RESP 18; TEMP 36.9; O2SAT 97
[2022-11-30 05:58] VITALS: BP 107/70; PULSE 64; RESP 16; TEMP 36.4; O2SAT 96
[2022-11-30] MEDS: paliperidone ER 6 mg Tablet PO (10:01)
[2022-11-30] MEDS: nicotine 2 mg Gum BUCCAL ×4 (13:32→20:38)
[2022-11-30 13:38] VITALS: BP 103/66; PULSE 85; RESP 17; TEMP 36.5; O2SAT 97
--- NOTE | 2022-11-30 13:48 | W.PM.NPUPNS ---
Subjective NPU Subjective: Patient presented today reporting that she just tried to get some rest. She was lying in her bed without any reported concerns. No concerns reported by staff and she is eating and sleeping better. Continuing to deny any issues related to medication. And we discussed that we would reach out to her mother if she did not come to visit today. Mental Status Exam MSE Comments: This is an overweight versus obese white female in hospital scrubs with limited grooming but adequate eye contact. No abnormal movements except for mild psychomotor retardation. Cooperative with exam in no acute distress. Speech was more normal rate and volume. Mood described as okay. Affect appeared more calm. Thought process mostly organized. Thought content: Patient denied suicidal or homicidal ideation, there were no delusions noted except for possible mild grandiosity, hyperreligiousness and lessening hypersexuality and she did endorse some paranoia, she reported having some diminishing auditory hallucinations but denied visual hallucinations. Attention and concentration appeared mostly intact and memory was somewhat reliable but none were formally tested. Alert and oriented x3. Insight and judgment are limited, impulse control is limited but improving. Vitals/I&O/Wt Last Vital Signs Temp 97.5 F L 11/30/22 20:20 Pulse 124 H 11/30/22 20:20 Resp 18 11/30/22 20:20 BP 119/79 11/30/22 20:20 Pulse Ox 96 11/30/22 20:20 O2 Del Method 11/28/22 22:00 Weight last 48 hrs Weight 106.594 kg Data NPU 11/21/22 20:40 11/21/22 20:40 A&P Assessment and plan (1) Acute psychosis: (2) Suicidal ideation: (3) Drug overdose, intentional: (4) Bipolar 1 disorder: Plan This is a 22-year-old white female with a history of significant mental health challenges including question of bipolar disorder significant suicidal tendencies who presents with acute psychosis in the form of hypomania with a history of possible substance use, odd affect who presents open to a trial of medication. 1.? Continue current medication.? Started Invega 3 mg p.o. daily and Seroquel 50 mg p.o. nightly. Increased Invega to 6 mg p.o. daily. Given Invega Sustenna 234 mg IM loading dose to the deltoid 11/28/2022. 2.? Continue every 15 minute checks for safety. 3.? Encourage individual, group and milieu therapies. 4.? Encourage sober living treatment after discharge at the highest level of care to which he is willing to commit. 5. 21-day hold hearing 12/01/2022 at 2:45 PM. 6. Reach out to mother for collateral information. Involuntary Hold Information 96 Hour Hold: 96 Hour Involuntary Admission: Yes 96 Hour Hold Ending Date: 11/27/22 96 Hour Hold Ending Time: 22:00 Attestations NPU Medical Necessity Statement*: Inpatient hospitalization is medically necessary and the clinically appropriate intervention at this time. We will monitor medications and make changes as indicated. Likely length of stay 2-5 days. . Coding Level of Care Code Acute Code for [facility] Fwd Diagnoses Acute psychosis F23 Suicidal ideation R45.851 Drug overdose, intentional T50.902A Bipolar 1 disorder F31.9
[2022-11-30] MEDS: hyDROXYzine 25 mg Capsule 50 MG PO (14:32)
[2022-11-30] MEDS: acetaminophen 325 mg Tablet 650 MG PO ×2 (14:32→21:02)
[2022-11-30 20:20] VITALS: BP 119/79; PULSE 124; RESP 18; TEMP 36.4; O2SAT 96
[2022-11-30] MEDS: quetiapine 25 mg Tablet 50 MG PO (20:38)
--- NOTE | 2022-11-30 21:00 | PC.NURSE ---
Patient c/o H/A. Rating pain at a 3/10. PRN tylenol offered and taken. Suggested patient go to room and rest. Patient returned to room. VS wnl.
--- NOTE | 2022-12-01 03:52 | PC.NURSE ---
Patient had no further c/o pain. Has been resting quietly in bed with eyes closed during night. No signs of distress present.
[2022-12-01 06:00] VITALS: BP 103/68; PULSE 56; RESP 16; TEMP 36.8; O2SAT 96
[2022-12-01] MEDS: paliperidone ER 6 mg Tablet PO (08:52)
--- NOTE | 2022-12-01 11:50 | W.PM.NPUPNS ---
Subjective NPU Subjective: Patient presented today reporting that she is going to the [facility] for her 21-day hold. She was somewhat cagey about what her thoughts were regarding staying longer. We discussed the fact that it appears she is having improvement in relation to her ta and that that portends well for a shorter stay but that we would take it a day at a time. We discussed our argument to the court about why she needs to stay longer. Had an opportunity to speak to mother who discussed her material nature and the impulsive choices during these periods of poor sleep and increased activity. Discussed some feelings of almost skin crawling. We discussed the possibility of akathisia and the risks, benefits and alternatives of adding Ativan 0.5 mg p.o. twice daily and she understood and agreed to proceed as is documented in this note. Mental Status Exam MSE Comments: This is an overweight versus obese white female in hospital scrubs with limited grooming but adequate eye contact. No abnormal movements except for mild psychomotor retardation. Cooperative with exam in no acute distress. Speech was more normal rate and volume. Mood described as okay. Affect appeared more calm. Thought process mostly organized. Thought content: Patient denied suicidal or homicidal ideation, there were no delusions noted except for possible mild grandiosity, hyperreligiousness and lessening hypersexuality and she did endorse some paranoia, she reported having some diminishing auditory hallucinations but denied visual hallucinations. Attention and concentration appeared mostly intact and memory was somewhat reliable but none were formally tested. Alert and oriented x3. Insight and judgment are limited, impulse control is limited but improving. Vitals/I&O/Wt Last Vital Signs Temp 98.2 F 12/01/22 06:00 Pulse 56 L 12/01/22 06:00 Resp 16 12/01/22 06:00 BP 103/68 12/01/22 06:00 Pulse Ox 96 12/01/22 06:00 O2 Del Method 11/28/22 22:00 Weight last 48 hrs Weight 106.594 kg Data NPU 11/21/22 20:40 11/21/22 20:40 A&P Assessment and plan (1) Acute psychosis: (2) Suicidal ideation: (3) Drug overdose, intentional: (4) Bipolar 1 disorder: Plan This is a 22-year-old white female with a history of significant mental health challenges including question of bipolar disorder significant suicidal tendencies who presents with acute psychosis in the form of hypomania with a history of possible substance use, odd affect who presents open to a trial of medication. 1.? Continue current medication.? Started Invega 3 mg p.o. daily and Seroquel 50 mg p.o. nightly. Increased Invega to 6 mg p.o. daily. Given Invega Sustenna 234 mg IM loading dose to the deltoid 11/28/2022. We will give second injection 12/04/2022. Start Ativan 0.5 mg p.o. twice daily 2.? Continue every 15 minute checks for safety. 3.? Encourage individual, group and milieu therapies. 4.? Encourage sober living treatment after discharge at the highest level of care to which he is willing to commit. 5. 21-day hold hearing today, 12/01/2022 at 2:45 PM. 6. Reach out to mother for collateral information. Involuntary Hold Information 96 Hour Hold: 96 Hour Involuntary Admission: Yes 96 Hour Hold Ending Date: 11/27/22 96 Hour Hold Ending Time: 22:00 Attestations NPU Medical Necessity Statement*: Inpatient hospitalization is medically necessary and the clinically appropriate intervention at this time. We will monitor medications and make changes as indicated. Likely length of stay 2-5 days. . Coding Level of Care Code Acute Code for [facility] Fwd Diagnoses Acute psychosis F23 Suicidal ideation R45.851 Drug overdose, intentional T50.902A Bipolar 1 disorder F31.9
[2022-12-01] MEDS: blistex lip oint 7 gm Tube 1 APPLIC TOPICAL (12:12)
[2022-12-01] MEDS: nicotine 2 mg Gum BUCCAL ×3 (13:00→19:55)
[2022-12-01 14:00] VITALS: BP 142/72; PULSE 104; RESP 16; TEMP 36.5; O2SAT 97
[2022-12-01] MEDS: acetaminophen 325 mg Tablet 650 MG PO (15:45)
--- NOTE | 2022-12-01 17:21 | PC.NURSE ---
pt up at nurses station stating per her mother pt is going to commit suicide while in here. sports broadcaster destiney attempted to let pt know we will keep her safe while she is at our facility pt stated no I will do it while i am here. pt then walked away from nurses station sean cabello informed staff of incident. pt back up to nurses station requesting a snack. spoke to patient about her statement to sean pt stated yes this is true I meant it. I have to stay here for 21 days and no one is going to tell me what to do. .
[2022-12-01] MEDS: quetiapine 25 mg Tablet 50 MG PO (19:55)
[2022-12-01] MEDS: LORazepam 0.5 mg Tablet PO (19:56)
[2022-12-01 21:06] VITALS: BP 121/73; PULSE 88; RESP 17; TEMP 36.8; O2SAT 98
[2022-12-02 06:00] VITALS: BP 106/72; PULSE 98; RESP 16; TEMP 36.4; O2SAT 96
[2022-12-02] MEDS: paliperidone ER 6 mg Tablet PO (09:19)
[2022-12-02] MEDS: LORazepam 0.5 mg Tablet PO ×2 (09:19→17:45)
[2022-12-02] MEDS: nicotine 2 mg Gum BUCCAL ×4 (13:12→20:12)
--- NOTE | 2022-12-02 13:52 | P.NPUPN_ITS ---
Subjective NPU Subjective: Patient presented today reporting that she is feeling better with the addition of the Ativan. We discussed the purpose of the medication. We discussed her future plans and how able to get better order in her life by creating a more regimented schedule. We also discussed her getting her next injection in the next couple of days. Mental Status Exam MSE Comments: This is an overweight versus obese white female in hospital scrubs with limited grooming but adequate eye contact. No abnormal movements except for mild psychomotor retardation. Cooperative with exam in no acute distress. Speech was more normal rate and volume. Mood described as a little better. Affect appeared more calm. Thought process mostly organized. Thought content: Patient denied suicidal or homicidal ideation, there were no delusions noted except for possible mild grandiosity, hyperreligiousness and lessening hyp ersexuality and she did endorse some paranoia, she reported having some diminishing auditory hallucinations but denied visual hallucinations. Attention and concentration appeared mostly intact and memory was somewhat reliable but none were formally tested. Alert and oriented x3. Insight and judgment are limited, impulse control is limited but improving. Vitals/I&O/Wt Last Vital Signs Temp 97.6 F 12/02/22 06:00 Pulse 98 12/02/22 06:00 Resp 16 12/02/22 06:00 BP 106/72 12/02/22 06:00 Pulse Ox 96 12/02/22 06:00 O2 Del Method 12/02/22 06:00 Data NPU 11/21/22 20:40 11/21/22 20:40 A&P Assessment and plan (1) Acute psychosis: (2) Suicidal ideation: (3) Drug overdose, intentional: (4) Bipolar 1 disorder: Plan This is a 22-year-old white female with a history of significant mental health challenges including question of bipolar disorder significant suicidal tendencies who presents with acute psychosis in the form of hypomania with a history of possible substance use, odd affect who presents open to a trial of medication. 1.? Continue current medication.? Started Invega 3 mg p.o. daily and Seroquel 50 mg p.o. nightly. Increased Invega to 6 mg p.o. daily. Given Invega Sustenna 234 mg IM loading dose to the deltoid 11/28/2022. We will give second injection 12/05/2022. Start Ativan 0.5 mg p.o. twice daily 2.? Continue every 15 minute checks for safety. 3.? Encourage individual, group and milieu therapies. 4.? Encourage sober living treatment after discharge at the highest level of care to which he is willing to commit. 5. 21-day hold granted 12/01/2022. Involuntary Hold Information 96 Hour Hold: 96 Hour Involuntary Admission: Yes 96 Hour Hold Ending Date: 11/27/22 96 Hour Hold Ending Time: 22:00 Attestations NPU Medical Necessity Statement*: Inpatient hospitalization is medically necessary and the clinically appropriate intervention at this time. We will monitor medications and make changes as indicated. Likely length of stay 2-5 days. . Coding Level of Care Code Acute Code for [facility] Fwd Diagnoses Acute psychosis F23 Suicidal ideation R45.851 Drug overdose, intentional T50.902A Bipolar 1 disorder F31.9
[2022-12-02 14:00] VITALS: BP 110/63; PULSE 113; RESP 16; TEMP 36.6; O2SAT 98
[2022-12-02] MEDS: hyDROXYzine 25 mg Capsule 50 MG PO (15:28)
[2022-12-02] MEDS: quetiapine 25 mg Tablet 50 MG PO (20:09)
[2022-12-02 21:54] VITALS: BP 138/75; PULSE 89; RESP 16; TEMP 36.6; O2SAT 98
[2022-12-03 06:00] VITALS: BP 79/46; PULSE 63; RESP 17; TEMP 36.4; O2SAT 97
[2022-12-03] MEDS: nicotine 2 mg Gum BUCCAL ×4 (08:37→18:46)
[2022-12-03] MEDS: paliperidone ER 6 mg Tablet PO (09:01)
[2022-12-03] MEDS: LORazepam 0.5 mg Tablet PO ×2 (09:01→18:29)
[2022-12-03 14:00] VITALS: BP 97/72; PULSE 93; RESP 18; TEMP 36.7; O2SAT 97
--- NOTE | 2022-12-03 16:10 | P.NPUPN_ITS ---
Subjective NPU Subjective: Patient presented today reporting that things were going fairly well. We discussed the risk benefits and alternatives of initiating Depakote and she understood and agreed to proceed as is documented in this note. She is having a positive social experience here on the unit and we discussed ways for her to carry that forward outpatient. We discussed the importance of age- appropriate challenges. She had several goals she wanted to accomplish. We discussed the importance of her probably having a manager of case management to keep an eye on her progress and help her prioritize needs and follow through. Mental Status Exam MSE Comments: This is an overweight versus obese white female in hospital scrubs with limited grooming but adequate eye contact. No abnormal movements except for mild psychomotor retardation. Cooperative with exam in no acute distress. Speech was more normal rate and volume. Mood described as a little better. Affect appeared more calm. Thought process mostly organized. Thought content: Patient denied suicidal or homicidal ideation, there were no delusions noted except for possible mild grandiosity, hyperreligiousness and lessening hypersexuality and she did endorse some paranoia, she reported having some diminishing auditory hallucinations but denied visual hallucinations. Attention and concentration appeared mostly intact and memory was somewhat reliable but none were formally tested. Alert and oriented x3. Insight and judgment are limited, impulse control is limited but improving. Vitals/I&O/Wt Last Vital Signs Temp 98.0 F 12/03/22 14:00 Pulse 93 12/03/22 14:00 Resp 18 12/03/22 14:00 BP 97/72 12/03/22 14:00 Pulse Ox 97 12/03/22 14:00 O2 Del Method 12/03/22 06:00 Data NPU 11/21/22 20:40 11/21/22 20:40 A&P Assessment and plan (1) Acute psychosis: (2) Suicidal ideation: (3) Drug overdose, intentional: (4) Bipolar 1 disorder: Plan This is a 22-year-old white female with a history of significant mental health challenges including question of bipolar disorder significant suicidal tendencies who presents with acute psychosis in the form of hypomania with a history of possible substance use, odd affect who presents open to a trial of medication. 1.? Continue current medication.? Started Invega 3 mg p.o. daily and Seroquel 50 mg p.o. nightly. Increased Invega to 6 mg p.o. daily. Given Invega Sustenna 234 mg IM loading dose to the deltoid 11/28/2022. We will give second injection 12/05/2022. Start Ativan 0.5 mg p.o. twice daily. Consider Depakote 500 mg p.o. twice daily. 2.? Continue every 15 minute checks for safety. 3.? Encourage individual, group and milieu therapies. 4.? Encourage sober living treatment after discharge at the highest level of care to which he is willing to commit. 5. 21-day hold granted 12/01/2022. Involuntary Hold Information 96 Hour Hold: 96 Hour Involuntary Admission: Yes 96 Hour Hold Ending Date: 11/27/22 96 Hour Hold Ending Time: 22:00 Attestations NPU Medical Necessity Statement*: Inpatient hospitalization is medically necessary and the clinically appropriate intervention at this time. We will monitor medications and make changes as indicated. Likely length of stay 2-5 days. . Coding Level of Care Code Acute Code for [facility] Fwd Diagnoses Acute psychosis F23 Suicidal ideation R45.851 Drug overdose, intentional T50.902A Bipolar 1 disorder F31.9
[2022-12-03] MEDS: quetiapine 25 mg Tablet 50 MG PO (20:57)
[2022-12-03] MEDS: trazodone 50 mg Tablet PO (20:57)
[2022-12-03] MEDS: hyDROXYzine 25 mg Capsule 50 MG PO (20:57)
[2022-12-03] MEDS: nicotine 4 mg lozenge MUCOUS MEM (20:58)
[2022-12-03 21:09] VITALS: BP 115/78; PULSE 107; RESP 16; TEMP 36.8; O2SAT 98
--- NOTE | 2022-12-03 23:00 | PC.NURSE ---
Trazadone 50 mg PO and Vistaril 50MG requested for sleep and anxiety. Both given with HS meds with good results.
[2022-12-04 06:00] VITALS: BP 116/81; PULSE 98; RESP 17; TEMP 36.6; O2SAT 97
[2022-12-04] MEDS: LORazepam 0.5 mg Tablet PO ×2 (09:06→17:37)
[2022-12-04] MEDS: nicotine 4 mg lozenge MUCOUS MEM ×4 (09:07→21:05)
[2022-12-04] MEDS: paliperidone ER 6 mg Tablet PO (09:07)
[2022-12-04] MEDS: divalproex DR 500 mg Tablet PO ×2 (09:26→17:37)
[2022-12-04 14:00] VITALS: BP 129/81; PULSE 96; RESP 18; O2SAT 99
--- NOTE | 2022-12-04 15:40 | P.NPUPN_ITS ---
Subjective NPU Subjective: Patient presented today reporting a desire for discharge sooner rather than later. And wondering about the specifics of how we would know when she was ready for discharge. We have discussed the risks, benefits and alternatives of initiating Depakote and she understood and agreed to proceed as is documented in this note. We talked about her lack of a filter and the things that she says which she reports is baseline but it is unclear whether that is true. We will look to reach out to mom and see what mom feels is baseline versus where she is currently and monitor her improvement on the new medication. Mental Status Exam MSE Comments: This is an overweight versus obese white female in hospital scrubs with limited grooming but adequate eye contact. No abnormal movements except for mild psychomotor retardation. Cooperative with exam in no acute distress. Speech was more normal rate and volume. Mood described as a little better. Affect appeared more calm. Thought process mostly organized. Thought content: Patient denied suicidal or homicidal ideation, there were no delusions noted except for possible mild grandiosity, hyperreligiousness and lessening hypersexuality and she did endorse some paranoia, she reported having some diminishing auditory hallucinations but denied visual hallucinations. Attention and concentration appeared mostly intact and memory was somewhat reliable but none were formally tested. Alert and oriented x3. Insight and judgment are limited, impulse control is limited but improving. Vitals/I&O/Wt Last Vital Signs Temp 97.8 F 12/04/22 06:00 Pulse 96 12/04/22 14:00 Resp 18 12/04/22 14:00 BP 129/81 12/04/22 14:00 Pulse Ox 99 12/04/22 14:00 O2 Del Method 12/04/22 06:00 Data NPU 11/21/22 20:40 11/21/22 20:40 A&P Assessment and plan (1) Acute psychosis: (2) Suicidal ideation: (3) Drug overdose, intentional: (4) Bipolar 1 disorder: Plan This is a 22-year-old white female with a history of significant mental health challenges including question of bipolar disorder significant suicidal tendencies who presents with acute psychosis in the form of hypomania with a history of possible substance use, odd affect who presents open to a trial of medication. 1.? Continue current medication.? Started Invega 3 mg p.o. daily and Seroquel 50 mg p.o. nightly. Increased Invega to 6 mg p.o. daily. Given Invega Sustenna 234 mg IM loading dose to the deltoid 11/28/2022. We will give second injection 12/05/2022. Start Ativan 0.5 mg p.o. twice daily. Consider Depakote 500 mg p.o. twice daily. 2.? Continue every 15 minute checks for safety. 3.? Encourage individual, group and milieu therapies. 4.? Encourage sober living treatment after discharge at the highest level of care to which he is willing to commit. 5. 21-day hold granted 12/01/2022. Involuntary Hold Information 96 Hour Hold: 96 Hour Involuntary Admission: Yes 96 Hour Hold Ending Date: 11/27/22 96 Hour Hold Ending Time: 22:00 Attestations NPU Medical Necessity Statement*: Inpatient hospitalization is medically necessary and the clinically appropriate intervention at this time. We will monitor medications and make changes as indicated. Likely length of stay 2-5 days. . Coding Level of Care Code Acute Code for [facility] Fwd Diagnoses Acute psychosis F23 Suicidal ideation R45.851 Drug overdose, intentional T50.902A Bipolar 1 disorder F31.9
[2022-12-04] MEDS: ibuprofen 600 mg Tablet PO (18:41)
[2022-12-04 19:57] VITALS: BP 125/82; PULSE 92; RESP 18; TEMP 36.7; O2SAT 98
[2022-12-04] MEDS: quetiapine 25 mg Tablet 50 MG PO (21:04)
[2022-12-04] MEDS: hyDROXYzine 25 mg Capsule 50 MG PO (21:05)
[2022-12-04] MEDS: trazodone 50 mg Tablet PO ×2 (21:05→22:20)
[2022-12-05 06:00] VITALS: BP 92/56; PULSE 84; RESP 16; TEMP 36.9; O2SAT 94
[2022-12-05] MEDS: LORazepam 0.5 mg Tablet PO ×2 (09:02→17:48)
[2022-12-05] MEDS: divalproex DR 500 mg Tablet PO ×2 (09:02→17:48)
[2022-12-05] MEDS: paliperidone ER 6 mg Tablet PO (09:02)
[2022-12-05] MEDS: nicotine 4 mg lozenge MUCOUS MEM ×3 (09:02→13:43)
--- NOTE | 2022-12-05 12:55 | P.NPUPN_ITS ---
Subjective NPU Subjective: Patient presented today endorsing a desire to discharge sooner rather than later. She spoke to her mother and got her mother schedule over the next few days. We discussed her slow improvement in her having a decrease in the odd silliness that she would be having. We talked about humor being okay but there was a strange way she would behave that seems to be diminishing with the Depakote. She suggests that her mother is fine with her discharging at any time. We will have the treatment team reach out to mom and see how she truly feels things are going. Mental Status Exam MSE Comments: This is an overweight versus obese white female in hospital scrubs with limited grooming but adequate eye contact. No abnormal movements except for mild psychomotor retardation. Cooperative with exam in no acute distress. Speech was more normal rate and volume. Mood described as a little better. Affect appeared more calm. Thought process mostly organized. Thought content: Patient denied suicidal or homicidal ideation, there were no delusions noted except for possible mild grandiosity, hyperreligiousness and lessening hypersexuality and she did endorse some paranoia, she reported having some diminishing auditory hallucinations but denied visual hallucinations. Attention and concentration appeared mostly intact and memory was somewhat reliable but none were formally tested. Alert and oriented x3. Insight and judgment are limited, impulse control is limited but improving. Vitals/I&O/Wt Last Vital Signs Temp 98.5 F 12/05/22 06:00 Pulse 84 12/05/22 06:00 Resp 16 12/05/22 06:00 BP 92/56 12/05/22 06:00 Pulse Ox 94 12/05/22 06:00 O2 Del Method 12/04/22 06:00 Data NPU 11/21/22 20:40 11/21/22 20:40 A&P Assessment and plan (1) Acute psychosis: (2) Suicidal ideation: (3) Drug overdose, intentional: (4) Bipolar 1 disorder: Plan This is a 22-year-old white female with a history of significant mental health challenges including question of bipolar disorder significant suicidal tendencies who presents with acute psychosis in the form of hypomania with a history of possible substance use, odd affect who presents open to a trial of medication. 1.? Continue current medication.? Started Invega 3 mg p.o. daily and Seroquel 50 mg p.o. nightly. Increased Invega to 6 mg p.o. daily. Plan to discontinue af ter second injection. Given Invega Sustenna 234 mg IM loading dose to the deltoid 11/28/2022. We will give second injection today, 12/05/2022. Start Ativan 0.5 mg p.o. twice daily. Started Depakote 500 mg p.o. twice daily. 2.? Continue every 15 minute checks for safety. 3.? Encourage individual, group and milieu therapies. 4.? Encourage sober living treatment after discharge at the highest level of care to which he is willing to commit. 5. 21-day hold granted 12/01/2022. Involuntary Hold Information 96 Hour Hold: 96 Hour Involuntary Admission: Yes 96 Hour Hold Ending Date: 11/27/22 96 Hour Hold Ending Time: 22:00 Attestations NPU Medical Necessity Statement*: Inpatient hospitalization is medically necessary and the clinically appropriate intervention at this time. We will monitor medications and make changes as indicated. Likely length of stay 2-5 days. . Coding Level of Care Code Acute Code for [facility] Fwd Diagnoses Acute psychosis F23 Suicidal ideation R45.851 Drug overdose, intentional T50.902A Bipolar 1 disorder F31.9
[2022-12-05 14:00] VITALS: BP 114/78; PULSE 96; RESP 20; TEMP 36.9; O2SAT 99
[2022-12-05] MEDS: ibuprofen 600 mg Tablet PO (14:07)
[2022-12-05] MEDS: paliperidone palmitate 156 mg Syringe IM (17:13)
[2022-12-05] MEDS: nicotine 2 mg Gum BUCCAL (19:18)
[2022-12-05] MEDS: quetiapine 25 mg Tablet 50 MG PO (20:30)
[2022-12-05 22:00] VITALS: BP 120/80; PULSE 99; RESP 16; TEMP 36.6; O2SAT 98
[2022-12-06 06:00] VITALS: BP 110/64; PULSE 68; RESP 16; TEMP 36.4; O2SAT 96
[2022-12-06] MEDS: divalproex DR 500 mg Tablet PO ×2 (09:16→17:32)
[2022-12-06] MEDS: LORazepam 0.5 mg Tablet PO ×2 (09:16→17:32)
[2022-12-06] MEDS: paliperidone ER 6 mg Tablet PO (09:16)
[2022-12-06 14:00] VITALS: BP 106/65; PULSE 90; RESP 18; TEMP 36.9; O2SAT 96
--- NOTE | 2022-12-06 17:43 | P.NPUPN_ITS ---
Subjective NPU Subjective: Patient presented today reporting a desire to go home but is understanding that this takes time. She is reporting is doing better on the Depakote and being less erratic in her behavior. We discussed the fact that likely will be discharged early next week and that Dr. Rojas would be in on Mo nday with a fresh set of eyes. She denies any side effects of the medication but does report she prefers the energetic aspect of her ta. Mental Status Exam MSE Comments: This is an overweight versus obese white female in hospital scrubs with limited grooming but adequate eye contact. No abnormal movements except for mild psychomotor retardation. Cooperative with exam in no acute distress. Speech was more normal rate and volume. Mood described as I think I am ready to go. Affect appeared more calm. Thought process mostly organized. Thought content: Patient denied suicidal or homicidal ideation, there were no delusions noted except for possible mild grandiosity, and she denied having aud itory or visual hallucinations. Attention and concentration appeared mostly intact and memory was somewhat reliable but none were formally tested. Alert and oriented x3. Insight and judgment are limited, impulse control is limited but improving. Vitals/I&O/Wt Last Vital Signs Temp 98.0 F 12/06/22 20:42 Pulse 93 12/06/22 20:42 Resp 18 12/06/22 20:42 BP 113/76 12/06/22 20:42 Pulse Ox 100 12/06/22 20:42 O2 Del Method 12/06/22 20:42 Weight last 48 hrs Weight 109.372 kg Data NPU 11/21/22 20:40 11/21/22 20:40 A&P Assessment and plan (1) Acute psychosis: (2) Suicidal ideation: (3) Drug overdose, intentional: (4) Bipolar 1 disorder: Plan This is a 22-year-old white female with a history of significant mental health challenges including question of bipolar disorder significant suicidal tendencies who presents with acute psychosis in the form of hypomania with a history of possible substance use, odd affect who presents open to a trial of medication. 1.? Continue current medication.? Started Invega 3 mg p.o. daily and Seroquel 50 mg p.o. nightly. Increased Invega to 6 mg p.o. daily. Plan to discontinue after second injection. Given Invega Sustenna 234 mg IM loading dose to the deltoid 11/28/2022. Second injection 12/05/2022. Started Ativan 0.5 mg p.o. twice daily. Started Depakote 500 mg p.o. twice daily. 2.? Continue every 15 minute checks for safety. 3.? Encourage individual, group and milieu therapies. 4.? Encourage sober living treatment after discharge at the highest level of care to which he is willing to commit. 5. 21-day hold granted 12/01/2022. Involuntary Hold Information 96 Hour Hold: 96 Hour Involuntary Admission: Yes 96 Hour Hold Ending Date: 11/27/22 96 Hour Hold Ending Time: 22:00 Attestations NPU 2 Medical Necessity Statement*: Inpatient hospitalization is medically necessary and the clinically appropriate intervention at this time. We will monitor medic ations and make changes as indicated. Likely length of stay 2-5 days. . Coding Level of Care Code Acute Code for [facility] Fwd Diagnoses Acute psychosis F23 Suicidal ideation R45.851 Drug overdose, intentional T50.902A Bipolar 1 disorder F31.9
[2022-12-06] MEDS: nicotine 2 mg Gum BUCCAL (17:52)
[2022-12-06] MEDS: ibuprofen 600 mg Tablet PO (18:33)
--- NOTE | 2022-12-06 20:31 | PC.NURSE ---
12/05/22 Seroquil 50mg dose was given on time(20:30) however did not save and or scan.
[2022-12-06] MEDS: quetiapine 25 mg Tablet 50 MG PO (20:33)
[2022-12-06] MEDS: hyDROXYzine 25 mg Capsule 50 MG PO (20:34)
[2022-12-06] MEDS: trazodone 50 mg Tablet PO (20:36)
[2022-12-06] MEDS: nicotine 4 mg lozenge MUCOUS MEM (20:37)
[2022-12-06 20:42] VITALS: BP 113/76; PULSE 93; RESP 18; TEMP 36.7; O2SAT 100; BMI 37.8
[2022-12-06] MEDS: OLANZapine 5 mg ODT PO (22:13)
[2022-12-07 06:00] VITALS: BP 100/58; PULSE 61; RESP 16; TEMP 36.5; O2SAT 97
--- NOTE | 2022-12-07 06:43 | W.PM.NPUPNS ---
Subjective NPU Subjective: Patient is in today reporting that she is a little tired but doing okay. We agreed there were no recent medication changes and the she would work with the treatment team tomorrow to start exploring safety for discharge. She denied any new or pressing issues. Mental Status Exam MSE Comments: This is an overweight versus obese white female in hospital scrubs with limited grooming but adequate eye contact. No abnormal movements except for mild psychomotor retardation. Cooperative with exam in no acute distress. Speech was more normal rate and volume. Mood described as okay but little tired. Affect appeared more calm. Thought process mostly organized. Thought content: Patient denied suicidal or homicidal ideation, there were no delusions noted except for possible mild grandiosity, and she denied having auditory or visual hallucinations. Attention and concentration appeared mostly intact and memory was somewhat reliable but none were formally tested. Alert and oriented x3. Insight and judgment are limited, impulse control is limited but improving. Vitals/I&O/Wt Last Vital Signs Temp 97.7 F 12/07/22 06:00 Pulse 61 12/07/22 06:00 Resp 16 12/07/22 06:00 BP 100/58 12/07/22 06:00 Pulse Ox 97 12/07/22 06:00 O2 Del Method 12/06/22 20:42 Weight last 48 hrs Weight 109.372 kg Data NPU 11/21/22 20:40 11/21/22 20:40 A&P Assessment and plan (1) Acute psychosis: (2) Suicidal ideation: (3) Drug overdose, intentional: (4) Bipolar 1 disorder: Plan This is a 22-year-old white female with a history of significant mental health challenges including question of bipolar disorder significant suicidal tendencies who presents with acute psychosis in the form of hypomania with a history of possible substance use, odd affect who presents open to a trial of medication. 1.? Continue current medication.? Started Invega 3 mg p.o. daily and Seroquel 50 mg p.o. nightly. Increased Invega to 6 mg p.o. daily. Plan to discontinue after second injection. Given Invega Sustenna 234 mg IM loading dose to the deltoid 11/28/2022. Second injection 12/05/2022. Started Ativan 0.5 mg p.o. twice daily. Started Depakote 500 mg p.o. twice daily. 2.? Continue every 15 minute checks for safety. 3.? Encourage individual, group and milieu therapies. 4.? Encourage sober living treatment after discharge at the highest level of care to which he is willing to commit. 5. 21-day hold granted 12/01/2022. Involuntary Hold Information 96 Hour Hold: 96 Hour Involuntary Admission: Yes 96 Hour Hold Ending Date: 11/27/22 96 Hour Hold Ending Time: 22:00 Attestations NPU Medical Necessity Statement*: Inpatient hospitalization is medically necessary and the clinically appropriate intervention at this time. We will monitor medications and make changes as indicated. Likely length of stay 1-3 days. Coding Level of Care Code Acute Code for [facility] Fwd Diagnoses Acute psychosis F23 Suicidal ideation R45.851 Drug overdose, intentional T50.902A Bipolar 1 disorder F31.9
[2022-12-07] MEDS: paliperidone ER 6 mg Tablet PO (09:28)
[2022-12-07] MEDS: divalproex DR 500 mg Tablet PO ×2 (09:28→17:48)
[2022-12-07] MEDS: LORazepam 0.5 mg Tablet PO ×2 (09:28→17:48)
[2022-12-07 14:00] VITALS: BP 100/63; PULSE 77; RESP 18; TEMP 36.9; O2SAT 96
[2022-12-07] MEDS: nicotine 2 mg Gum BUCCAL ×2 (17:48→20:50)
[2022-12-07] MEDS: trazodone 50 mg Tablet PO (21:59)
[2022-12-07] MEDS: hyDROXYzine 25 mg Capsule 50 MG PO (21:59)
[2022-12-07] MEDS: quetiapine 25 mg Tablet 50 MG PO (21:59)
[2022-12-07 22:00] VITALS: BP 138/84; PULSE 113; RESP 16; TEMP 36.6; O2SAT 97
[2022-12-08 06:00] VITALS: BP 105/60; PULSE 68; RESP 18; TEMP 36.5
[2022-12-08] MEDS: paliperidone ER 6 mg Tablet PO (08:57)
[2022-12-08] MEDS: LORazepam 0.5 mg Tablet PO ×2 (08:58→17:46)
[2022-12-08] MEDS: divalproex DR 500 mg Tablet PO ×2 (08:58→17:46)
[2022-12-08 14:00] VITALS: BP 117/81; PULSE 96; RESP 17; TEMP 36.6; O2SAT 98
--- NOTE | 2022-12-08 14:43 | P.NPUPN_ITS ---
Subjective NPU Subjective: Patient is a 22-year-old white female with a history of paranoia admitted with psychotic symptoms with a history of suicidality ideation auditory and visual hallucinations and depression. She had reported history of numerous hospitalizations. She had reported that she had problems with managing her anger and stated that she continued to struggle with managing her anger at home. She had reported an extended history of difficulties with being around other people since she was a child. 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 Mental Status Exam MSE Comments: This is an overweight versus obese white female in hospital scrubs with limited grooming but adequate eye contact. No abnormal movements except for mild psychomotor retardation. Cooperative with exam in no acute distress. Speech was more normal rate and volume. Mood described as better. Affect appeared labile and tearful at times. Her thought process mostly organized. Thought content: Patient denied suicidal or homicidal ideation, there were no delusions noted except for possible mild grandiosity, and she denied having auditory or visual hallucinations. Attention and concentration appeared mostly intact and memory was somewhat reliable but none were formally tested. Alert and oriented x3. Insight and judgment are limited, impulse control is limited but improving. Vitals/I&O/Wt Last Vital Signs Temp 97.7 F 12/08/22 06:00 Pulse 68 12/08/22 06:00 Resp 18 12/08/22 06:00 BP 105/60 12/08/22 06:00 Pulse Ox 97 12/07/22 22:00 O2 Del Method 12/08/22 06:00 Weight last 48 hrs Weight 109.372 kg Data NPU 11/21/22 20:40 11/21/22 20:40 A&P Assessment and plan (1) Acute psychosis: (2) Suicidal ideation: (3) Drug overdose, intentional: (4) Bipolar 1 disorder: Plan This is a 22-year-old white female with a history of significant mental health challenges including question of bipolar disorder significant suicidal tende ncies who presents with acute psychosis in the form of hypomania with a history of possible substance use, odd affect who presents open to a trial of medication. 1.? Continue Seroquel 50 mg p.o. nightly. Decrease Invega 3mg at night. Plan to discontinue after second injection. Given Invega Sustenna 234 mg IM loading dose to the deltoid 11/28/2022. Second injection 12/05/2022. Started Ativan 0.5 mg p.o. twice daily. Continue Depakote 500 mg p.o. twice daily. 2.? Continue every 15 minute checks for safety. 3.? Encourage individual, group and milieu therapies. 4.? Encourage sober living treatment after discharge at the highest level of care to which he is willing to commit. 5. 21-day hold granted 12/01/2022. Involuntary Hold Information 96 Hour Hold: 96 Hour Involuntary Admission: Yes 96 Hour Hold Ending Date: 11/27/22 96 Hour Hold Ending Time: 22:00 Attestations NPU Medical Necessity Statement*: Inpatient hospitalization is medically necessary and the clinically appropriate intervention at this time. We will monitor medications and make changes as indicated. Likely length of stay 1-3 days. Coding Level of Care Code Acute Code for [facility] Fwd Diagnoses Acute psychosis F23 Suicidal ideation R45.851 Drug overdose, intentional T50.902A Bipolar 1 disorder F31.9
[2022-12-08] MEDS: nicotine 2 mg Gum BUCCAL (16:04)
[2022-12-08] MEDS: quetiapine 25 mg Tablet 50 MG PO (20:25)
[2022-12-08] MEDS: nicotine 4 mg lozenge MUCOUS MEM (20:26)
[2022-12-08 20:39] VITALS: BP 98/63; PULSE 83; RESP 16; TEMP 36.7; O2SAT 98
[2022-12-08] MEDS: hyDROXYzine 25 mg Capsule 50 MG PO (21:30)
[2022-12-08] MEDS: trazodone 50 mg Tablet PO (22:27)
[2022-12-09 06:00] VITALS: BP 104/65; PULSE 64; RESP 17; TEMP 37.1; O2SAT 97
[2022-12-09] MEDS: paliperidone ER 3 mg Tablet PO (08:35)
[2022-12-09] MEDS: divalproex DR 500 mg Tablet PO ×2 (08:35→17:03)
[2022-12-09 08:39] LABS: Basophils % 0.5 %; Eosinophils # 0.3 10^3/uL (0.0-0.8); Eosinophils % 4.2 %; Hematocrit 40.4 % (37.0-47.0); Hemoglobin 12.8 g/dL (11.5-15.3); Lymphocytes % 30.9 %; Mean Corpuscular HGB Conc 31.7 g/dL (30.0-36.0); Mean Corpuscular Hemoglobin 27.5 pg (28.0-34.0); Mean Corpuscular Volume 86.9 fl (81-99); Mean Platelet Volume 10.9 fL (7.4-10.4); Monocytes # 0.5 10^3/uL (0.2-0.9); Monocytes % 8.2 %; Nucleated Red Blood Cells % 0 %; Platelet Count 254 10^3/cmm (130-400); Red Blood Count 4.65 10^6/uL (4.1-5.3); Red Cell Distribution Width 13.7 % (12.1-15.1); White Blood Count 6.6 10^3/uL (4.5-13.0)
[2022-12-09 08:58] LABS: Albumin Level 3.5 g/dL (3.5-5.2); Blood Urea Nitrogen 11 mg/dL (6-20); Calcium 8.6 mg/dL (8.5-10.5); Carbon Dioxide 19 mmol/L (22-29); Chloride 104 mmol/L (98-107); Glomerular Filtration Rate 127.5 mL/min (90-130); Glucose 90 mg/dL (65-115); Phosphorus 3.8 mg/dL (2.5-4.5); Sodium 137 mmol/L (136-145)
[2022-12-09 08:59] LABS: Anion Gap 18.1 (5-19); Potassium 4.1 mmol/L (3.5-5.1)
[2022-12-09] MEDS: nicotine 4 mg lozenge MUCOUS MEM ×3 (12:09→16:40)
[2022-12-09 14:00] VITALS: BP 111/73; PULSE 115; RESP 17; TEMP 36.4; O2SAT 96
--- NOTE | 2022-12-09 14:31 | P.NPUDS_ITS ---
Diagnoses at Discharge Discharge Diagnosis (1) Acute psychosis: Status: Acute (2) Suicidal ideation: Status: Acute (3) Drug overdose, intentional: Status: Acute (4) Bipolar 1 disorder: Status: Acute Permanent problem details: with psychosis Reason for Visit Reason for Visit: PARANOID Brief History: History of Present Illness Miranda Fong is a 22 year old female who presented to the emergency dep artment with the following report: Chief Complaint: Psychiatric Symptoms Stated Complaint: PARANOID Time Seen by Provider: 11/21/22 20:18 History of Present Illness:?? Ms. Fong is a 22-year-old lady with history of substance abuse and bipolar disorder presenting to the emergency department for suicidal ideation and paranoia.? She reports increased suicidality including overdose on lithium 2 days ago and cutting herself superficially on the left anterior forearm and right thigh.? She did these with hopes of dying.? She became more upset this evening as her mother did not take her to dinner for some reason.? Patient reports being concerned that somebody is bugged her phone and she is adversely involved with a gang who thinks she is in the [employer] gang and they have been tracking her.? Intensity symptoms is moderate to severe.? Course has worsened.? No other specific changes in health, exacerbating, or alleviating factors identified. She was admitted to the neuropsychiatric unit for definitive treatment of those issues.? She presents today reporting that she has been hospitalized at least 7 times.? In [facility], [facility] and here.? She reports that she had been on Seroquel and Vistaril but that someone stopped her medication.? She reports that she last went to [facility] inpatient and they changed things that had been helping but probably needed just to be increased.? She reports that over the last 3 days leading up to the hospitalization she was feeling increasingly suicidal.? She was drinking, took some pills including lithium, and had cut herself superficially.? She reports that she has had at least 22 suicide attempts in her life.? She reports that she has had follow-up in [place].? She reports she has been on lots of different medications.? She reports that she is down to 1 cigarette or a couple puffs a day.? She reports she tried to stop drinking alcohol but does not drink much.? She reports she smokes marijuana daily.? She reports that she does not use any other illicit drugs and that has been the case for over a year but back when she was using methamphetamine and opiates for the problem.? She reports she thinks she does have 1 DUI but denied other charges.? She reports she is been having challenges since she was a teen that she has had a history of cutting.? She reports that recently she and her mom have had conflicts because she struggles with her behavior.? She reports that her mother endorses that she is more aggressive than she should be.? She reports that recently she has been staying with her mom's ex because she and her mom cannot get along.? She reports she is having some legal problems and that she has an outstanding warrant from not showing up to court about 4 times.? She continues to report being heterosexual with her longest relationship being off and on for 3 years.? Never been , has not had children never been in the and reports she is affiliated with the [employer].? She is not currently working.? An excerpt of her last hospitalization here in March 2021 is included below for context.? We discussed the risk benefits and alternatives of resuming some Seroquel at night to help with sleep and to start Invega as a mood stabilizer before considering an antidepressant. Per her 04/21/2021 [facility] inpatient psychiatric evaluation: History of Present Illness Miranda Fong is a 20 year old female who presented to the emergency department with the following report: Chief Complaint: Psychiatric Symptoms Stated Complaint: SI Time Seen by Provider: 04/20/21 21:32 History of Present Illness:?? HPI Narrative: 20-year-old female comes in today with complaints of depression, suicidal thoughts, hearing voices and seeing people watching her.? Patient reports that she has been hearing the voices that have been telling her that they are going to get her and cut her in half with a chainsaw and other various torture.? Patient has been started on citalopram 1 month ago and Seroquel 1 week ago for complaints of depression.? Patient reports that the voices have been going on for 1 to 2 months.? Patient has recently moved to [place] from [facility] 2 months ago to live near her biological grandparents.? Patient has been on sertraline in the past but was taken off of the medication due to taking too many of the pills as she states it.? Patient is also has had 1 state last August while in [facility] for suicidal thoughts in which she stayed overnight in the hospital.? Patient has poor eye contact during interview. Associated symptoms: Reports auditory hallucinations, visual hallucinations, delusions, depression and suicidal ideation. She was admitted to the neuropsychiatric unit for definitive treatment of those issues.? Patient presents today reporting she is never been in a psychiatric hospital but has been in outpatient services.? She had medications before including Seroquel but she denies ever having Abilify.? She endorses having a suicide attempt but it was unclear whether she meant September of this year or 2019.? She reports that she vapes but does not alcohol somewhat regularly she denies smoking marijuana or any other illicit drugs.? She never been to rehab and denied having a DUI.? She reports that the reason why she is here is at her family's behest as she continued to have voices in her head reports that she feels like somebody is going to kill her.? She reports that the voices tell her the people are after her that are going to kill her.? We discussed the risk- benefit and alternatives of starting Abilify and she understood agreed to proceed as is documented in this note. Psychiatric history: As above. Substance abuse history: As above. Family history: Endorses mental health issues on her mother side, addiction issues on her father side denies any suicide attempts or completions in her family which is aware of. Developmental history: There were no problems with the , or delivery, learned to walk and talk and met developmental milestones on time, and denies need for speech therapy, learning support, emotional support or special education classes.? She did later report that she might have been a slow reader. Psychosocial history: She reports that her mother and father were together when she was born and that she has 2 younger sisters that are a product of that same union.? She states is a half sibling through her father but avoid and her mother did have another child was stillborn.? She reports her childhood was good she denies any emotional, physical or sexual abuse.? She does report that when her parents split her dad was overly protective and her mom more or less allowed her to do whatever she wanted.? She reports that she did get into some addictive behavior secondary to the looseness of control.? She alluded to some possible trauma and PTSD type symptoms but did not discuss them with clearly enough to draw an understanding.? She did graduate from high school.? She endorses being bisexual with a long relationship being 2 years.? She has never been , she has n ever had children, she has never been in the , and she endorses being Druze.? Her longest was 3 months.? She reports he lives in a camper with a younger sister outside of family members home. Legal history: Denied. Medical history: Please see ED note for full details but endorses being on control pills. docusate sodium 10 0 mg capsule 100 mg PO BID PRN Constipation 05/27/22 11/22/22 Unknown History lumateperone 42 mg capsule 42 mg PO DAILY #3 0 caps 10/29/22 11/22/22 Unknown Rx (Caplyta) ? ?B ? Hospital Course Hospital Course Discharge Summary: During the hospitalization, patient had routine laboratory studies which were within normal limits except for few outliers. Additionally there was a general medical evaluation which was also within normal limits and revealed no new acute processes. At the time of discharge, lethality was denied and psychosis was resolving. Mood and anxiety were well managed. Patient endorsed a plan to avoid all drugs of abuse and follow-up with the aftercare recommendations of the treatment team. Patient was evaluated and deemed to be absent credible lethality, and had achieved the maximum benefit from an inpatient hospitalization, so was discharged. She had appeared floridly manic and appeared significantly less psychotic with a reduction in ta with the initiation of invega sustenna after first initiating the oral invega. She was agreeable to receiving invega sustenna on a monthly basis upon discharge while continuing to take her depakote. Involuntary Hold Information 96 Hour Hold: 96 Hour Involuntary Admission: Yes 96 Hour Hold Ending Date: 11/27/22 96 Hour Hold Ending Time: 22:00 Mental Status Exam MSE Comments: This is an overweight versus obese white female in hospital scrubs with fair grooming and adequate eye contact. No abnormal movements noted or stereotypies. Cooperative with exam in no acute distress. She was immature. Speech was more normal in rate and volume with monotone speech Mood described as good. Affect appeared brighter with decreased lability noted. Her thought process was linear and organized. Thought content: Patient denied suicidal or homicidal ideation, there were no delusions noted and no grandiosity. She denied any auditory or visual hallucinations. Attention and concentration appeared mostly intact and memory was somewhat reliable but none were formally tested. Alert and oriented x3. Insight and judgment are limited, impulse control appeared improved. Discharge Data Studies Completed and Pending: Laboratory Results WBC 6.6 10^3/uL (4.5- 13.0) 12/09/22 07:58 RBC 4.65 10^6/uL (4.1 -5.3) 12/09/22 07:58 Hgb 12.8 g/dL (11.5-1 5.3) 12/09/22 07:58 Hct 40.4 % (37.0-47.0 ) 12/09/22 07:58 MCV 86.9 fl (81-99) 12/09/22 07:58 MCH 27.5 pg (28.0-34. 0) L 12/09/22 07:58 MCHC 31.7 g/dL (30.0-3 6.0) 12/09/22 07:58 RDW 13.7 % (12.1-15.1 ) 12/09/22 07:58 Plt Count 254 10^3/cmm (130 -400) 12/09/22 07:58 MPV 10.9 fL (7.4-10.4 ) H 12/09/22 07:58 Neut % (Auto) 56.0 % 12/09/22 07:58 Lymph % (Auto) 30.9 % 12/09/22 07:58 [place] % (Auto) 8.2 % 12/09/22 07:58 Eos % (Auto) 4.2 % 12/09/22 07:58 Baso % (Auto) 0.5 % 12/09/22 07:58 Neut # (Auto) 3.70 10^3/uL (1.8 -8.0) 12/09/22 07:58 Lymph # (Auto) 2.0 10^3/uL (1.5- 6.5) 12/09/22 07:58 [place] # (Auto) 0.5 10^3/uL (0.2- 0.9) 12/09/22 07:58 Eos # (Auto) 0.3 10^3/uL (0.0- 0.8) 12/09/22 07:58 Baso # (Auto) 0.0 10^3/uL (0.0- 0.1) 12/09/22 07:58 Nucleated RBC % (a uto) 0 % 12/09/22 07:58 Nucleated RBCs # 0.0 /100WBC 12/09/22 07:58 Sodium 137 mmol/L (136-1 45) 12/09/22 07:58 Potassium 4.1 mmol/L (3.5-5 .1) 12/09/22 07:58 Chloride 104 mmol/L (98-10 7) 12/09/22 07:58 Carbon Dioxide 19 mmol/L (22-29) L 12/09/22 07:58 Anion Gap 18.1 (5-19) 12/09/22 07:58 BUN 11 mg/dL (6-20) 12/09/22 07:58 Creatinine 0.6 mg/dL (0.5-0. 9) 12/09/22 07:58 GFR Calculation 127.5 mL/min (90- 130) 12/09/22 07:58 Glucose 90 mg/dL (65-115) 12/09/22 07:58 Calculated Osmolal ity 285 mOsm/kg (285- 295) 11/21/22 20:40 Calcium 8.6 mg/dL (8.5-10 .5) 12/09/22 07:58 Phosphorus 3.8 mg/dL (2.5-4. 5) 12/09/22 07:58 Total Bilirubin 0.6 mg/dL (0.15-1 .2) 11/21/22 20:40 AST 14 U/L (0-32) 11/21/22 20:40 ALT 14 U/L (0-33) 11/21/22 20:40 Alkaline Phosphata se 79 U/L (35-105) 11/21/22 20:40 Total Protein 7.3 g/dL (6.6-8.7 ) 11/21/22 20:40 Albumin 3.5 g/dL (3.5-5.2 ) 12/09/22 07:58 Globulin 2.9 g/dL (1.3-4.6 ) 11/21/22 20:40 TSH 1.57 uIU/mL (0.27 -4.20) 11/21/22 20:40 HCG, Qual Negative (Negati ve) 11/21/22 20:44 Salicylates < 0.3 mg/dL (3-10 ) L 11/21/22 20:40 Urine Opiates Scre en Negative ng/mL (N egative) 11/21/22 20:24 Acetaminophen < 5.0 ug/mL (10-3 0) L 11/21/22 20:40 Ur Barbiturates Sc reen Negative ng/mL (N egative) 11/21/22 20:24 Valproic Acid 41.0 ug/mL (50-10 0) L 12/09/22 07:58 Ur Phencyclidine S crn Negative ng/mL (N egative) 11/21/22 20:24 Ur Amphetamines Sc reen Negative ng/mL (N egative) 11/21/22 20:24 U Benzodiazepines Scrn Negative ng/mL (N egative) 11/21/22 20:24 [place] 0.2 mmol/L (0.6-1 .2) L 11/21/22 20:40 Urine Cocaine Scre en Negative ng/mL (N egative) 11/21/22 20:24 U Marijuana (THC) Screen Positive ng/mL (N egative) H 11/21/22 20:24 Ethyl Alcohol < 10 mg/dL (0-10) 11/21/22 20:40 Vitals: Last Vital Signs Temp 98.7 F 12/09/22 06:00 Pulse 64 12/09/22 06:00 Resp 17 12/09/22 06:00 BP 104/65 12/09/22 06:00 Pulse Ox 97 12/09/22 06:00 O2 Del Method 12/09/22 06:00 Discharge Plan Discharge Patient Disposition: Home Condition: Stable Prescriptions: New divalproex 500 mg Tablet,Delayed Release (Dr/Ec) 500 mg PO BID 30 Days Qty: 60 1RF quetiapine 25 mg Tablet 50 mg PO BEDTIME 30 Days Qty: 30 1RF Invega Sustenna 156 mg/mL syringe 156 mg IM Q30D Qty: 1 1RF Rx Instructions: Due date for next dose is December 02-November Discontinued docusate sodium 100 mg capsule 100 mg PO BID PRN (Reason: Constipation) Caplyta 42 mg capsule 42 mg PO DAILY Qty: 30 0RF Rx Instructions: PATIENT SAYS SHE HAS NOT TAKEN MED FOR FOUR WEEKS. Discharge Orders: Discharge Order (Routine); Ordered 12/09/22 Ordered By: Seth Rojas Referrals: [employer] [Other] Rosalie Beverly [Staff Physician] - 12/18/22 9:15 am (Follow up) Carmen Michael MD [Primary Care Provider] - 12/15/22 1:45 pm (Follow up) Discharge Diet: Advance as tolerated Discharge Activity: Resume usual activity Patient Instructions: Quetiapine (By mouth) (Seroquel, Seroquel XR, Seroquel XR 14-Day..., Psychotic Disorder (DC), Opioid Safety Discharge Attestations NPU Time Spent in Discharge Care*: less than 30 min Specific Discharge Activities: Specific discharge activities: educating patie nt, discussing with case making machine operator/social workers/dc planners, documenting/other paperwork and evaluating patient/reviewing data Coding Level of Care Code Acute Chg FW DC note Diagnoses Acute psychosis F23 Suicidal ideation R45.851 Drug overdose, intentional T50.902A Bipolar 1 disorder F31.9
[2022-12-09 14:37] VITALS: BP 104/65; PULSE 64; RESP 17; TEMP 37.1; O2SAT 97
== END 2022-12-09 17:20 | disposition home or self-care (01) | DRG 885 ==
LOC: ER 22:54 → ER IP 23:24 → NP 11-22 00:19
PROVIDERS: Psychiatry & Neurology Psychiatry; Admitting Provider Psychiatry & Neurology Psychiatry; Emergency Provider Emergency Medicine; PCP Family Medicine; Visit Provider Psychiatry & Neurology Psychiatry
DX: F31.9 Bipolar disorder, unspecified (principal); R45.851 Suicidal ideations; T43.596A Underdosing of other antipsychotics and neuroleptics, initial encounter; F17.210 Nicotine dependence, cigarettes, uncomplicated; F10.10 Alcohol abuse, uncomplicated; F12.90 Cannabis use, unspecified, uncomplicated
CPT/HCPCS: 36415; 80053; 80069; 80164; 80178; 80306; 80307; 81025; 84443; 85025; 93005; 96372; 97150; 97165; 99238; 99285; Q0162

== ENCOUNTER → 2022-12-25 11:17 | Outpatient (BNVA) | payer BC, MEDICAID, SELFPAY | PROVIDERS: PCP Family Medicine; Visit Provider Family Medicine | DX: Z72.51 High risk heterosexual behavior (principal); Z30.42 Encounter for surveillance of injectable contraceptive; M25.552 Pain in left hip; M25.551 Pain in right hip | CPT/HCPCS: 73523; 81025; 87491; 87591; 87661 ==

== ENCOUNTER → 2023-01-22 12:33 | Outpatient (BNVA) | payer BC, MEDICAID, SELFPAY | PROVIDERS: PCP Family Medicine; Visit Provider Registered Nurse | DX: Z79.899 Other long term (current) drug therapy (principal) | CPT/HCPCS: 80053; 80061; 80164; 82306; 82607; 83036; 85025 ==

== ENCOUNTER → 2023-05-27 10:16 | Outpatient (BNVA) | payer BC, SELFPAY ==
[2023-03-20 11:48] VITALS: BP 124/78; BMI 39.9
== END ==
PROVIDERS: PCP Family Medicine; Visit Provider Family Medicine
DX: R32 Unspecified urinary incontinence (principal)
CPT/HCPCS: 81000

== ENCOUNTER → 2023-08-19 09:19 | Outpatient (BNVA) | payer BC, SELFPAY ==
[2023-03-20 11:48] VITALS: BP 124/78; BMI 39.9
== END ==
PROVIDERS: PCP Family Medicine; Visit Provider Family Medicine
DX: N89.8 Other specified noninflammatory disorders of vagina (principal); Z20.2 Contact with and (suspected) exposure to infections with a predominantly sexual mode of transmission
CPT/HCPCS: 87491; 87591

== ENCOUNTER → 2023-11-18 09:34 | Outpatient (BNVA) | payer BC, SELFPAY ==
[2023-03-20 11:48] VITALS: BP 124/78; BMI 39.9
== END ==
PROVIDERS: PCP Family Medicine; Visit Provider Family Medicine
DX: Z30.42 Encounter for surveillance of injectable contraceptive (principal); Z30.09 Encounter for other general counseling and advice on contraception; F31.9 Bipolar disorder, unspecified; Z91.148 Patient's other noncompliance with medication regimen for other reason
CPT/HCPCS: 81025

== ENCOUNTER 2024-03-11 14:28 | Inpatient (IN) | payer BC, SELFPAY ==
[2023-03-20 11:48] VITALS: BP 124/78; BMI 39.9
[2024-03-11 14:33] VITALS: BP 137/67; PULSE 82; TEMP 36.8; O2SAT 97
--- NOTE | 2024-03-11 14:42 | W.ED.PSYCHS ---
Documented by User: MICHOACANO Chavez 03/11/24 15:57 HPI - Psych General: Chief Complaint: Psychiatric Symptoms Stated Complaint: MAG Time Seen by Provider: 03/11/24 14:41 Source: patient and family (mother) Mode of arrival: ambulatory Limitations: no limitations History of Present Illness: Patient is a 23-year-old female presents to ED today along with her mother for evaluation of mental health issues. Patient states she has a history of bipolar and schizophrenia. She is here stating her auditory and visual hallucinations are worsening. Patient is tearful stating that the voices are becoming increasingly more commanding and are telling her what she can and cannot do throughout the day. Mother feels like her meds are working really well over the past several months but states over the past several weeks they have seemed to be less effective. Mother states she herself has been working long hours and thinks that the longer hours are putting added stress on the patient as they live together. Patient states that she is not suicidal but states she does not feel like she can be alone with her current mental state. complaint: other (hallucinations) Onset (ago): day(s) Duration: getting worse History of same: Yes Relieving factors: medication Exacerbating factors: none Context: significant life stressor Associated psychiatric symptoms: auditory hallucinations and visual hallucinations Associated symptoms: Reports auditory hallucinations, visual hallucinations and depression; Deny homicidal ideation or suicidal ideation Treatments prior to arrival: none Review of Systems Const: Denies: fever(s) or chills Card: Denies: chest pain, palpitations, lightheadedness or syncope Resp: Denies: dyspnea GI: Denies: abdominal pain, nausea, vomiting or diarrhea Skin/Breast: Denies: rash Neuro: Denies: headache(s) Psych: Reports: depression, visual hallucinations and auditory hallucinations; Denies: anxiety, suicidal ideation or homicidal ideation [facility] ED PFSH: Medical History Insomnia H/O medication noncompliance Psychiatric disturbance Bipolar 1 disorder with psychosis History of use of contraceptive intrauterine device (IUD) Psychiatric care 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 Family History Other CAD (coronary artery disease) Diabetes Psychiatric illness Social History Smoking and tobacco/nicotine status: former use of tobacco/nicotine Quit status (tobacco/nicotine): has quit using Former quit date comment: recent Alcohol intake: former Substance/Drug Use: former Adopted: No Caregiver/support person: No Lives independently: Yes Household members: family Housing: House Marital status: Single Number of children: 0 Highest education level completed: High School Graduate Current occupational status: unemployed Pets and animals: Yes Pets & animals: cat(s), dog(s) and bird(s) Leisure activites: art and other Leisure activities details: Social Media Sexually active: No Do you think of yourself as: Straight/Heterosexual Current gender identity: Female Meagan/Christianity: Oriental Orthodox Special meagan needs: No Agree to transfusion: Yes Female Reproductive History: Spontaneous abortions: No Physical Exam Const: COMMON NORMALS: no acute distress, patient oriented x3, no limitations, alert and well nourished GENERAL APPEARANCE: cooperative NUTRITIONAL APPEARANCE: obese ORIENTATION/CONSCIOUSNESS: Yes awake, Yes oriented to person, Yes oriented to place and Yes oriented to time OTHER: acts much younger than stated age Resp: COMMON NORMALS: normal respiratory effort and clear to auscultation bilaterally AUSCULTATION: clear to auscultation bilaterally Cardio: COMMON NORMALS: regular rate and regular rhythm RATE: regular rate RHYTHM: regular rhythm Extremity: GENERAL: Yes normal exam except as noted Neuro: COMMON NORMALS: patient oriented x3 SENSORIUM/ORIENTATION: Yes alert, Yes oriented to person, Yes oriented to place and Yes oriented to time Psych: COMMON NORMALS: cooperative, activity/motor behavior normal, denies homicidal ideation and denies suicidal ideation APPEARANCE: Yes grossly normal ACTIVITY/MOTOR BEHAVIOR: No psychomotor agitation and Yes Avoids eye contact (attititude/behavior) SPEECH: Yes Other speech symptoms (speech inflection sounds much younger than stated age) MOOD & AFFECT: Yes tearful THOUGHT CONTENT: Yes Normal thought content present MEMORY/COGNITION: Yes memory grossly intact and Yes cognition grossly intact INSIGHT: Fair insight present (Psych) JUDGEMENT: Fair judgement present (Psych) Course Consultations: Consultation #1: Dr. Michael-accepts to NPU Vital Signs: Vital signs: Vital Signs Temperature 97.9 F 03/11/24 22:11 Pulse Rate 60 03/12/24 06:00 Respiratory Rate 16 03/12/24 06:00 Blood Pressure 95/59 03/12/24 06:00 Pulse Oximetry 98 03/12/24 06:00 Oxygen Delivery Me thod Room Air 03/12/24 06:00 MDM - Psych Medical Decision Making Patient will be an admit to NPU to Dr. Michael for treatment/evaluation of her acute psychosis schizophrenia. Medical Records I reviewed the patient's medical records. Lab Data I reviewed the patient's lab results. 03/11/24 15:23 03/11/24 15:23 Laboratory Results WBC 7.79 10^3/uL (3.29-11.43) 03/11/24 15:23 RBC 4.97 10^6/uL (3.85-5.65) 03/11/24 15: Hgb 14.40 g/dL (11.27-16.99) 03/11/24 15:23 Hct 41.0 % (36-47) 03/11/24 15: MCV 82.5 fl (85-98) L 03/11/24 15:23 MCH 29.0 pg (27-33) 03/11/24 15:23 MCHC 35.1 g/dL (30-55) 03/11/24 15: RDW 12.8 % (12.1-15.1) 03/11/24 15: Plt Count 287 10^3/cmm (157-399) 03/11/24 15:23 MPV 10.8 fL (7.4-10.4) H 03/11/24 15:23 Neut % (Auto) 64.1 % 03/11/24 15:23 Lymph % (Auto) 27.3 % 03/11/24 15:23 [place] % (Auto) 6.9 % 03/11/24 15:23 Eos % (Auto) 1.0 % 03/11/24 15:23 Baso % (Auto) 0.4 % 03/11/24 15:23 Neut # (Auto) 4.99 10^3/uL (1.8-7.7) 03/11/24 15:23 Lymph # (Auto) 2.1 10^3/uL (0.8-4.8) 03/11/24 15:23 [place] # (Auto) 0.5 10^3/uL (0.2-0.9) 03/11/24 15:23 Eos # (Auto) 0.1 10^3/uL (0.0-0.8) 03/11/24 15:23 Baso # (Auto) 0.0 10^3/uL (0.0-0.1) 03/11/24 15:23 Nucleated RBC % (auto) 0 % 03/11/24 15:23 Nucleated RBCs # 0.0 /100WBC 03/11/24 15:23 Sodium 137 mmol/L (136-145) 03/11/24 15:23 Potassium 4.0 mmol/L (3.5-5.1) 03/11/24 15:23 Chloride 104 mmol/L (98-107) 03/11/24 15:23 Carbon Dioxide 18 mmol/L (22-29) L 03/11/24 15:23 Anion Gap 19.0 (5-19) 03/11/24 15:23 BUN 5 mg/dL (6-20) L 03/11/24 15:23 Creatinine 0.6 mg/dL (0.5-0.9) 03/11/24 15:23 GFR Calculation 126.2 mL/min (90-130) 03/11/24 15:23 Glucose 105 mg/dL (65-115) 03/11/24 15:23 Calculated Osmolality 282 mOsm/kg (285-295) L 03/11/24 15:23 Calcium 9.1 mg/dL (8.5-10.5) 03/11/24 15:23 Total Bilirubin 0.2 mg/dL (0.15-1.2) 03/11/24 15:23 AST 15 U/L (0-32) 03/11/24 15:23 ALT 15 U/L (0-33) 03/11/24 15:23 Alkaline Phosphatase 83 U/L (35-105) 03/11/24 15:23 Total Protein 7.4 g/dL (6.6-8.7) 03/11/24 15:23 Albumin 3.8 g/dL (3.5-5.2) 03/11/24 15:23 Globulin 3.6 g/dL (1.3-4.6) 03/11/24 15:23 HCG, Qual Negative (Negative) 03/11/24 15:23 Salicylates < 0.3 mg/dL (3-10) L 03/11/24 15:23 Acetaminophen < 5.0 ug/mL (10-30) L 03/11/24 15:23 Ethyl Alcohol < 10 mg/dL (0-10) 03/11/24 15:23 No radiology studies performed this visit Discharge Plan Discharge Patient Disposition: Admitted As Inpatient Admit Provider: Parth Michael Clinical Impression: Psychiatric disturbance, Schizophrenia Condition: Stable Coding Level of Care Code ED Counter Professional for Chg Fwd Documented by User: Marino Siu DO 03/12/24 06:52 HPI - Psych General: Chief Complaint: Psychiatric Symptoms Stated Complaint: MAG Time Seen by Provider: 03/11/24 14:41 PFSH ED PFSH: Medical History Insomnia H/O medication noncompliance Psychiatric disturbance Bipolar 1 disorder with psychosis History of use of contraceptive intrauterine device (IUD) Psychiatric care 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 Family History Other CAD (coronary artery disease) Diabetes Psychiatric illness Social History Smoking and tobacco/nicotine status: former use of tobacco/nicotine Quit status (tobacco/nicotine): has quit using Former quit date comment: recent Alcohol intake: former Substance/Drug Use: former Adopted: No Caregiver/support person: No Lives independently: Yes Household members: family Housing: House Marital status: Single Number of children: 0 Highest education level completed: High School Graduate Current occupational status: unemployed Pets and animals: Yes Pets & animals: cat(s), dog(s) and bird(s) Leisure activites: art and other Leisure activities details: Social Media Sexually active: No Do you think of yourself as: Straight/Heterosexual Current gender identity: Female Meagan/Christianity: Oriental Orthodox Special meagan needs: No Agree to transfusion: Yes Course Vital Signs: Vital signs: Vital Signs Temperature 97.9 F 03/11/24 22:11 Pulse Rate 60 03/12/24 06:00 Respiratory Rate 16 03/12/24 06:00 Blood Pressure 95/59 03/12/24 06:00 Pulse Oximetry 98 03/12/24 06:00 Oxygen Delivery Me thod Room Air 03/12/24 06:00 MDM - Psych Medical Decision Making Patient will be an admit to NPU to Dr. Michael for treatment/evaluation of her acute psychosis schizophrenia. Chart reviewed and patient discussed with midlevel. Agree with assessment and plan. Lab Data 03/11/24 15:23 03/11/24 15:23 Laboratory Results WBC 7.79 10^3/uL (3.29-11.43) 03/11/24 15:23 RBC 4.97 10^6/uL (3.85-5.65) 03/11/24 15:23 Hgb 14.40 g/dL (11.27-16.99) 03/11/24 15:23 Hct 41.0 % (36-47) 03/11/24 15:23 MCV 82.5 fl (85-98) L 03/11/24 15:23 MCH 29.0 pg (27-33) 03/11/24 15:23 MCHC 35.1 g/dL (30-55) 03/11/24 15:23 RDW 12.8 % (12.1-15.1) 03/11/24 15:23 Plt Count 287 10^3/cmm (157-399) 03/11/24 15:23 MPV 10.8 fL (7.4-10.4) H 03/11/24 15:23 Neut % (Auto) 64.1 % 03/11/24 15:23 Lymph % (Auto) 27.3 % 03/11/24 15:23 [place] % (Auto) 6.9 % 03/11/24 15:23 Eos % (Auto) 1.0 % 03/11/24 15:23 Baso % (Auto) 0.4 % 03/11/24 15:23 Neut # (Auto) 4.99 10^3/uL (1.8-7.7) 03/11/24 15:23 Lymph # (Auto) 2.1 10^3/uL (0.8-4.8) 03/11/24 15:23 [place] # (Auto) 0.5 10^3/uL (0.2-0.9) 03/11/24 15:23 Eos # (Auto) 0.1 10^3/uL (0.0-0.8) 03/11/24 15:23 Baso # (Auto) 0.0 10^3/uL (0.0-0.1) 03/11/24 15:23 Nucleated RBC % (auto) 0 % 03/11/24 15:23 Nucleated RBCs # 0.0 /100WBC 03/11/24 15:23 Sodium 137 mmol/L (136-145) 03/11/24 15:23 Potassium 4.0 mmol/L (3.5-5.1) 03/11/24 15:23 Chloride 104 mmol/L (98-107) 03/11/24 15:23 Carbon Dioxide 18 mmol/L (22-29) L 03/11/24 15:23 Anion Gap 19.0 (5-19) 03/11/24 15:23 BUN 5 mg/dL (6-20) L 03/11/24 15:23 Creatinine 0.6 mg/dL (0.5-0.9) 03/11/24 15:23 GFR Calculation 126.2 mL/min (90-130) 03/11/24 15:23 Glucose 105 mg/dL (65-115) 03/11/24 15:23 Calculated Osmolality 282 mOsm/kg (285-295) L 03/11/24 15:23 Calcium 9.1 mg/dL (8.5-10.5) 03/11/24 15:23 Total Bilirubin 0.2 mg/dL (0.15-1.2) 03/11/24 15:23 AST 15 U/L (0-32) 03/11/24 15:23 ALT 15 U/L (0-33) 03/11/24 15:23 Alkaline Phosphatase 83 U/L (35-105) 03/11/24 15:23 Total Protein 7.4 g/dL (6.6-8.7) 03/11/24 15:23 Albumin 3.8 g/dL (3.5-5.2) 03/11/24 15:23 Globulin 3.6 g/dL (1.3-4.6) 03/11/24 15:23 HCG, Qual Negative (Negative) 03/11/24 15:23 Salicylates < 0.3 mg/dL (3-10) L 03/11/24 15:23 Acetaminophen < 5.0 ug/mL (10-30) L 03/11/24 15:23 Ethyl Alcohol < 10 mg/dL (0-10) 03/11/24 15:23 Discharge Plan Discharge Patient Disposition: Admitted As Inpatient Admit Provider: Parth Michael Clinical Impression: Psychiatric disturbance, Schizophrenia Condition: Stable Coding Level of Care Code ED Counter Professional for Simone Arreguin
[2024-03-11 15:29] LABS: Basophils % 0.4 %; Eosinophils # 0.1 10^3/uL (0.0-0.8); Lymphocytes # 2.1 10^3/uL (0.8-4.8); Lymphocytes % 27.3 %; Mean Corpuscular HGB Conc 35.1 g/dL (30-55); Mean Corpuscular Volume 82.5 fl (85-98); Mean Platelet Volume 10.8 fL (7.4-10.4); Monocytes # 0.5 10^3/uL (0.2-0.9); Monocytes % 6.9 %; Neutrophils # 4.99 10^3/uL (1.8-7.7); Neutrophils % 64.1 %; Nucleated Red Blood Cells % 0 %; Platelet Count 287 10^3/cmm (157-399); Red Blood Count 4.97 10^6/uL (3.85-5.65); Red Cell Distribution Width 12.8 % (12.1-15.1); White Blood Count 7.79 10^3/uL (3.29-11.43)
[2024-03-11 15:44] LABS: Alanine Aminotransferase 15 U/L (0-33); Albumin Level 3.8 g/dL (3.5-5.2); Alkaline Phosphatase 83 U/L (35-105); Aspartate Amino Transferase 15 U/L (0-32); Blood Urea Nitrogen 5 mg/dL (6-20); Calcium 9.1 mg/dL (8.5-10.5); Carbon Dioxide 18 mmol/L (22-29); Chloride 104 mmol/L (98-107); Creatinine Clr Calc Pharmacy 192.7451; Globulin 3.6 g/dL (1.3-4.6); Glomerular Filtration Rate 126.2 mL/min (90-130); Glucose 105 mg/dL (65-115); Osmolality Calculated 282 mOsm/kg (285-295); Sodium 137 mmol/L (136-145); Total Bilirubin 0.2 mg/dL (0.15-1.2); Total Protein 7.4 g/dL (6.6-8.7)
[2024-03-11 15:53] LABS: Acetaminophen < 5.0 ug/mL (10-30); Alcohol Level < 10 mg/dL (0-10); HCG, Serum Qual Negative (Negative); Salicylate < 0.3 mg/dL (3-10)
[2024-03-11 16:20] VITALS: BP 125/81; PULSE 83; RESP 18; TEMP 37.1; O2SAT 98
--- NOTE | 2024-03-11 17:22 | PC.NURSE ---
pt moved into room 9 @1722, this nurse assumed care.
[2024-03-11 17:45] VITALS: RESP 15
[2024-03-11] MEDS: nicotine 21 mg Patch 1 PATCH TRANSDERMA (18:09)
--- NOTE | 2024-03-11 18:39 | PC.NURSE ---
Assumed care from Laxmi CHANEL.
[2024-03-11 22:11] VITALS: BP 114/80; PULSE 71; RESP 17; TEMP 36.6; O2SAT 98
[2024-03-12 06:00] VITALS: BP 95/59; PULSE 60; RESP 16; O2SAT 98
--- NOTE | 2024-03-12 08:11 | PC.NURSE ---
IN BED RESTING, AROUSES TO VOICE. PT IS EVASIVE WITH ASSESSMENT. PT DENIES SI/HI AND AVH AT THIS TIME. RATES ANXIETY 0/10 AND DEPRESSION 8/10. PT STATES HER GOAL FOR THE DAY IS TO EAT FOOD, PT WAS ENCOURAGED TO GET UP AND EAT BREAKFAST BUT STAYED IN BED TO SLEEP. SUPPORT VOICED.
--- NOTE | 2024-03-12 11:47 | W.PM.NPUH&PS ---
Providers/Chief Complaint Admitting Physician: Parth Michael MD Primary Care Provider: Carmen Michael MD Chief Complaint: MHE HPI NPU History of Present Illness Miranda Fong is a 23 year old female who presented to the emergency department with the following report: Chief Complaint: Psychiatric Symptoms Stated Complaint: MAG Time Seen by Provider: 03/11/24 14:41 Source: patient and family (mother) Mode of arrival: ambulatory Limitations: no limitations History of Present Illness: Patient is a 23-year-old female presents to ED today along with her mother for evaluation of mental health issues. Patient states she has a history of bipolar and schizophrenia. She is here stating her auditory and visual hallucinations are worsening. Patient is tearful stating that the voices are becoming increasingly more commanding and are telling her what she can and cannot do throughout the day. Mother feels like her meds are working really well over the past several months but states over the past several weeks they have seemed to be less effective. Mother states she herself has been working long hours and thinks that the longer hours are putting added stress on the patient as they live together. Patient states that she is not suicidal but states she does not feel like she can be alone with her current mental state. complaint: other (hallucinations) Onset (ago): day(s) Duration: getting worse History of same: Yes Relieving factors: medication Exacerbating factors: none Context: significant life stressor Associated psychiatric symptoms: auditory hallucinations and visual hallucinations Associated symptoms: Reports auditory hallucinations, visual hallucinations and depression; Deny homicidal ideation or suicidal ideation Treatments prior to arrival: none. She was admitted to the neuropsychiatric unit for definitive treatment of those issues. She is known to the unit through inpatient services the last of which was 12/09/2022 an excerpt of that discharge summary is included below for history and context. Additionally she has had outpatient services consistently at [facility] [place] since then. She presents today reporting: Chief complaint Patient reports feeling distressed due to a recent breakup and ongoing conflict with her mother. She was admitted to the hospital after an episode of uncontrollable crying and expressing hatred towards her mother. History of the present complaint The patient, Ana, reported that she was brought to the hospital due to an emotional breakdown where she was unable to stop crying and expressed strong negative feelings towards her mother. This is not her first time in a psychiatric hospital, having been admitted 3-4 times before, with the last admission being approximately a year to a year and a half ago. Ana is currently going through a breakup, which has been a significant event for her as she had been in a relationship with the individual since February of the previous year. She also mentioned a change in her living situation, now residing at her mother's house as opposed to her mother's ex-boyfriend's house where she was living during her last admission. She reported having lost her driving license due to an incident where she was suspected of driving under the influence of drugs. However, she insists that she was not using drugs at the time of the incident. She also mentioned experiencing back pain, although she did not seem to consider it a significant health concern. Ana admitted to heavy tobacco use, stating that she smokes 24/7 and consumes about a pack to a pack and a half of puff bars (vapes) daily. She also reported that she had started drinking alcohol again after two years of abstinence, having had a drink at a social gathering the previous week. She has not used marijuana for about two months but acknowledged that it is something she used to do often. She denied using other drugs such as cocaine or methamphetamine. Ana reported hearing voices in her head, which seem to be causing conflict with her mother. She hears her mother saying negative things about her, which her mother denies, causing further distress. Despite being on medication, which she has been taking regularly as prescribed by Dr. Michael in [place], she has been struggling with these symptoms. She attributed the increased stress to her mother working a lot and her recent breakup. Mental health history Patient has been admitted to a psychiatric hospital 3-4 times, with the last admission being approximately a year to a year and a half ago. She is currently on medication, including Hand ( control) and a sleeping medicine. She has been prescribed these medications by Dr. Michael in [place]. She reports that the medications have been effective but seem less so recently due to increased stressors in her life. Social history Patient is currently living with her mother and their dogs. She was previously living at her mother's ex-boyfriend's house. She is not currently working and is in the process of applying for disability. She has lost her driving license due to a suspected drug-related incident. She has been smoking heavily (vaping) and recently started drinking alcohol again after two years of abstinence. She also reports using cannabis but has not used it for the past two months. She denies using other drugs such as cocaine or methamphetamine. Per her 12/09/2022 [place] inpatient psychiatric discharge summary: Discharge Diagnosis (1) Acute psychosis: Status: Acute (2) Suicidal ideation: Status: Acute (3) Drug overdose, intentional: Status: Acute (4) Bipolar 1 disorder: Status: Acute Permanent problem details: with psychosis Reason for Visit Reason for Visit: PARANOID Brief History: History of Present Illness Miranda Fong is a 22 year old female who presented to the emergency department with the following report: Chief Complaint: Psychiatric Symptoms Stated Complaint: PARANOID Time Seen by Provider: 11/21/22 20:18 History of Present Illness: Ms. Fong is a 22-year-old lady with history of substance abuse and bipolar disorder presenting to the emergency department for suicidal ideation and paranoia. She reports increased suicidality including overdose on lithium 2 days ago and cutting herself superficially on the left anterior forearm and right thigh. She did these with hopes of dying. She became more upset this evening as her mother did not take her to dinner for some reason. Patient reports being concerned that somebody is bugged her phone and she is adversely involved with a gang who thinks she is in the [employer] gang and they have been tracking her. Intensity symptoms is moderate to severe. Course has worsened. No other specific changes in health, exacerbating, or alleviating factors identified. She was admitted to the neuropsychiatric unit for definitive treatment of those issues. She presents today reporting that she has been hospitalized at least 7 times. In [facility], [facility] and here. She reports that she had been on Seroquel and Vistaril but that someone stopped her medication. She reports that she last went to [facility] inpatient and they changed things that had been helping but probably needed just to be increased. She reports that over the last 3 days leading up to the hospitalization she was feeling increasingly suicidal. She was drinking, took some pills including lithium, and had cut herself superficially. She reports that she has had at least 22 suicide attempts in her life. She reports that she has had follow-up in [place]. She reports she has been on lots of different medications. She reports that she is down to 1 cigarette or a couple puffs a day. She reports she tried to stop drinking alcohol but does not drink much. She reports she smokes marijuana daily. She reports that she does not use any other illicit drugs and that has been the case for over a year but back when she was using methamphetamine and opiates for the problem. She reports she thinks she does have 1 DUI but denied other charges. She reports she is been having challenges since she was a teen that she has had a history of cutting. She reports that recently she and her mom have had conflicts because she struggles with her behavior. She reports that her mother endorses that she is more aggressive than she should be. She reports that recently she has been staying with her mom's ex because she and her mom cannot get along. She reports she is having some legal problems and that she has an outstanding warrant from not showing up to court about 4 times. She continues to report being heterosexual with her longest relationship being off and on for 3 years. Never been , has not had children never been in the and reports she is affiliated with the [employer]. She is not currently working. An excerpt of her last hospitalization here in March 2021 is included below for context. We discussed the risk benefits and alternatives of resuming some Seroquel at night to help with sleep and to start Invega as a mood stabilizer before considering an antidepressant. Per her 04/21/2021 [facility] inpatient psychiatric evaluation: History of Present Illness Miranda Fong is a 20 year old female who presented to the emergency department with the following report: Chief Complaint: Psychiatric Symptoms Stated Complaint: SI Time Seen by Provider: 04/20/21 21:32 History of Present Illness: HPI Narrative: 20-year-old female comes in today with complaints of depression, suicidal thoughts, hearing voices and seeing people watching her. Patient reports that she has been hearing the voices that have been telling her that they are going to get her and cut her in half with a chainsaw and other various torture. Patient has been started on citalopram 1 month ago and Seroquel 1 week ago for complaints of depression. Patient reports that the voices have been going on for 1 to 2 months. Patient has recently moved to [place] from [facility] 2 months ago to live near her biological grandparents. Patient has been on sertraline in the past but was taken off of the medication due to taking too many of the pills as she states it. Patient is also has had 1 state last August while in [facility] for suicidal thoughts in which she stayed overnight in the hospital. Patient has poor eye contact during interview. Associated symptoms: Reports auditory hallucinations, visual hallucinations, delusions, depression and suicidal ideation. She was admitted to the neuropsychiatric unit for definitive treatment of those issues. Patient presents today reporting she is never been in a psychiatric hospital but has been in outpatient services. She had medications before including Seroquel but she denies ever having Abilify. She endorses having a suicide attempt but it was unclear whether she meant September of this year or 2019. She reports that she vapes but does not alcohol somewhat regularly she denies smoking marijuana or any other illicit drugs. She never been to rehab and denied having a DUI. She reports that the reason why she is here is at her family's behest as she continued to have voices in her head reports that she feels like somebody is going to kill her. She reports that the voices tell her the people are after her that are going to kill her. We discussed the risk-benefit and alternatives of starting Abilify and she understood agreed to proceed as is documented in this note. Psychiatric history: As above. Substance abuse history: As above. Family history: Endorses mental health issues on her mother side, addiction issues on her father side denies any suicide attempts or completions in her family which is aware of. Developmental history: There were no problems with the , or delivery, learned to walk and talk and met developmental milestones on time, and denies need for speech therapy, learning support, emotional support or special education classes. She did later report that she might have been a slow reader. Psychosocial history: She reports that her mother and father were together when she was born and that she has 2 younger sisters that are a product of that same union. She states is a half sibling through her father but avoid and her mother did have another child was stillborn. She reports her childhood was good she denies any emotional, physical or sexual abuse. She does report that when her parents split her dad was overly protective and her mom more or less allowed her to do whatever she wanted. She reports that she did get into some addictive behavior secondary to the looseness of control. She alluded to some possible trauma and PTSD type symptoms but did not discuss them with clearly enough to draw an understanding. She did graduate from high school. She endorses being bisexual with a long relationship being 2 years. She has never been , she has never had children, she has never been in the , and she endorses being Anabaptist. Her longest was 3 months. She reports he lives in a camper with a younger sister outside of family members home. Legal history: Denied. Medical history: Please see ED note for full details but endorses being on control pills. docusate sodium 10 0 mg capsule 100 mg PO BID PRN Constipation 05/27/22 11/22/22 Unknown History lumateperone 42 mg capsule 42 mg PO DAILY #3 0 caps 10/29/22 11/22/22 Unknown Rx (Caplyta) Hospital Course Discharge Summary: During the hospitalization, patient had routine laboratory studies which were within normal limits except for few outliers. Additionally there was a general medical evaluation which was also within normal limits and revealed no new acute processes. At the time of discharge, lethality was denied and psychosis was resolving. Mood and anxiety were well managed. Patient endorsed a plan to avoid all drugs of abuse and follow-up with the aftercare recommendations of the treatment team. Patient was evaluated and deemed to be absent credible lethality, and had achieved the maximum benefit from an inpatient hospitalization, so was discharged. She had appeared floridly manic and appeared significantly less psychotic with a reduction in ta with the initiation of invega sustenna after first initiating the oral invega. She was agreeable to receiving invega sustenna on a monthly basis upon discharge while continuing to take her depakote. Meds NPU Home Medications Medication Instructions Recorded Confirmed Last Taken Type ramelteon 8 mg tablet 8 mg PO .at bedtime PRN sleep #30 10/29/23 03/11/24 03/10/24 Rx tabs norgestimate 0.25 mg-ethinyl 1 tab PO DAILY #84 tabs 11/27/23 03/11/24 03/10/24 Rx estradiol 35 mcg tablet (Sprintec (28)) paliperidone 3 mg tablet,extended 3 mg PO QAM #30 tabs 12/11/23 03/11/24 03/10/24 Rx release 24 hr (Invega) divalproex 500 mg tablet,delayed 500 mg PO BID 03/11/24 03/11/24 03/10/24 History release Allergies Allergy/AdvReac Type Severity Reaction Status Date / Time hydrocortisone Allergy rash Verified 03/11/24 14:39 haloperidol AdvReac Severe Unconscious Verified 03/11/24 14:39 Milk Containing Products AdvReac Severe ADR-Flatule Verified 03/11/24 14:39 (Dairy) nce [Milk Containing Products] PFSH NPU PFSH: Medical History Insomnia H/O medication noncompliance Psychiatric disturbance Bipolar 1 disorder with psychosis History of use of contraceptive intrauterine device (IUD) Psychiatric care 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 Family History Other CAD (coronary artery disease) Diabetes Psychiatric illness Social History Smoking and tobacco/nicotine status: former use of tobacco/nicotine Quit status (tobacco/nicotine): has quit using Former quit date comment: recent Alcohol intake: former Substance/Drug Use: former Adopted: No Caregiver/support person: No Lives independently: Yes Household members: family Housing: House Marital status: Single Number of children: 0 Highest education level completed: High School Graduate Current occupational status: unemployed Pets and animals: Yes Pets & animals: cat(s), dog(s) and bird(s) Leisure activites: art and other Leisure activities details: Social Media Sexually active: No Do you think of yourself as: Straight/Heterosexual Current gender identity: Female Meagan/Evangelical: Mormon Special meagan needs: No Agree to transfusion: Yes Female Reproductive History: Spontaneous abortions: No Mental Status Exam MSE Comments: This is an obese versus morbidly obese white female in hospital scrubs with adequate grooming and eye contact. No abnormal movements except for psychomotor retardation. Cooperative with exam in mild to moderate distress. Speech was decreased rate and volume. Mood described as depressed. Affect congruent. Thought process mostly organized. Thought content: Patient endorsed recent suicidal but denied homicidal ideation, there were no delusions noted but she did endorse some paranoia, she reported having some auditory hallucinations but denied visual hallucinations. Patient reports hearing voices in her head that influence her behavior and perception of her mother. She describes a discrepancy between what her mother says and what she hears, suggesting possible auditory hallucinations. Attention and concentration appeared mostly intact and memory was somewhat reliable but none were formally tested. Alert and oriented x3. Insight and judgment are limited, impulse control is limited. Vitals/I&O/Wt Last Vital Signs Temp 97.9 F 03/11/24 22:11 Pulse 60 03/12/24 06:00 Resp 16 03/12/24 06:00 BP 95/59 03/12/24 06:00 Pulse Ox 98 03/12/24 06:00 O2 Del Method Room Air 03/12/24 06:00 Weight last 48 hrs Weight 113.398 kg Data NPU 03/11/24 15:23 03/11/24 15:23 A&P Assessment and plan (1) Acute psychosis: (2) Suicidal ideation: (3) Drug overdose, intentional: (4) Bipolar 1 disorder: (5) Cannabis use disorder: (6) Parent-child relational problem: Plan This is a 23-year-old white female who was seen in the past with a history of significant mental health challenges including question of bipolar disorder significant suicidal tendencies who presents with reports of a conflict with her mother and auditory hallucinations reporting she is currently adherent with her medications. 1.? Continue current medication.? Increase Invega to 6 mg p.o. daily. 2.? Continue every 15 minute checks for safety. 3.? Encourage individual, group and milieu therapies. 4.? Encourage sober living treatment after discharge at the highest level of care to which she is willing to commit. Involuntary Hold Information 96 Hour Hold: 96 Hour Involuntary Admission: No 96 Hour Hold Ending Date: 11/27/22 96 Hour Hold Ending Time: 22:00 Attestations NPU Medical Necessity Statement*: Inpatient hospitalization is medically necessary and the clinically appropriate intervention at this time. We will monitor medications and make changes as indicated. Patient will be in the hospital for over two midnights. Likely length of stay 4-6 days. Coding Level of Care Code Acute Code for Chg Fwd Diagnoses Acute psychosis F23 Suicidal ideation R45.851 Drug overdose, intentional T50.902A Bipolar 1 disorder F31.9 Cannabis use disorder F12.90 Parent-child relational problem Z62.820
[2024-03-12 14:00] VITALS: BP 92/55; PULSE 56; RESP 20; TEMP 36.8; O2SAT 96
[2024-03-12] MEDS: paliperidone ER 6 mg Tablet PO (14:47)
[2024-03-12 18:27] LABS: Amphetamines Screen Urine Negative (Negative); Barbiturates Screen Urine Negative (Negative); Benzodiazepines Screen Urine Negative (Negative); Cocaine Screen Urine Negative (Negative); Opiate Screen Urine Negative (Negative); PCP Screen Urine Negative (Negative); THC Screen Urine Positive (Negative)
[2024-03-12 19:42] VITALS: BP 106/56; PULSE 60; RESP 16; TEMP 36.6; O2SAT 97
[2024-03-12] MEDS: divalproex DR 500 mg Tablet PO (20:50)
[2024-03-12] MEDS: OLANZapine 5 mg ODT PO (20:50)
[2024-03-13 06:00] VITALS: BP 96/57; PULSE 52; RESP 15; O2SAT 98
--- NOTE | 2024-03-13 08:43 | PC.NURSE ---
Patient denies si/hi and vh. She does endorse hearing voices ttelling her what to do. Patient very flat in affect and mumbled several incoherent statements during morning shift assessment. States she slept okay. No needs at this time.
[2024-03-13] MEDS: divalproex DR 500 mg Tablet PO ×2 (09:50→20:47)
[2024-03-13] MEDS: paliperidone ER 6 mg Tablet PO (09:50)
--- NOTE | 2024-03-13 12:41 | P.NPUPN_ITS ---
Subjective NPU 2 Subjective: Patient presented today reporting that she is resting and doing all right at this time. We discussed the increase in Invega to 6 mg p.o. daily and she reports that she feels that might be helping to level her out. We discussed the social work team returning tomorrow on full force and that we could utilize them to assist her in identifying resources and making sure that she is connected to outpatient services. She denied any side effects to the medication. Mental Status Exam 2 MSE Comments: This is an obese versus morbidly obese white female in hospital scrubs with adequate grooming and eye contact. No abnormal movements except for psychomotor retardation. Cooperative with exam in mild to moderate distress. Speech was decreased rate and volume. Mood described as depressed. Affect congruent. Thought process mostly organized. Thought content: Patient endorsed recent suicidal but denied homicidal ideation, there were no delusions noted but she did endorse some paranoia, she reported having some auditory hallucinations but denied visual hallucinations. Patient reports hearing voices in her head that influence her behavior and perception of her mother. She describes a discrepancy between what her mother says and what she hears, suggesting possible auditory hallucinations. Attention and concentration appeared mostly intact and memory was somewhat reliable but none were formally tested. Alert and oriented x3. Insight and judgment are limited, impulse control is limited. Vitals/I&O/Wt Last Vital Signs Temp 97.9 F 03/12/24 19:42 Pulse 52 L 03/13/24 06:00 Resp 15 03/13/24 06:00 BP 96/57 03/13/24 06:00 Pulse Ox 98 03/13/24 06:00 O2 Del Method Room Air 03/13/24 06:00 Weight last 48 hrs Weight 122.583 kg Weight 113.398 kg Data NPU 03/11/24 15:23 03/11/24 15:23 A&P Assessment and plan (1) Acute psychosis: (2) Suicidal ideation: (3) Drug overdose, intentional: (4) Bipolar 1 disorder: (5) Cannabis use disorder: (6) Parent-child relational problem: Plan This is a 23-year-old white female who was seen in the past with a history of significant mental health challenges including question of bipolar disorder significant suicidal tendencies who presents with reports of a conflict with her mother and auditory hallucinations reporting she is currently adherent with her medications. 1.? Continue current medication.? Increase Invega to 6 mg p.o. daily. 2.? Continue every 15 minute checks for safety. 3.? Encourage individual, group and milieu therapies. 4.? Encourage sober living treatment after discharge at the highest level of care to which she is willing to commit. Involuntary Hold Information 2 96 Hour Hold: 96 Hour Involuntary Admission: No 96 Hour Hold Ending Date: 0 11/27/22 96 Hour Hold Ending Time: 22:00 Attestations NPU 2 Medical Necessity Statement*: Inpatient hospitalization is medically necessary and the clinically appropriate intervention at this time. We will monitor medications and make changes as indicated. Likely length of stay 3-5 days. Coding Level of Care Code Acute Code for [facility] Fwd Diagnoses Acute psychosis F23 Suicidal ideation R45.851 Drug overdose, intentional T50.902A Bipolar 1 disorder F31.9 Cannabis use disorder F12.90 Parent-child relational problem Z62.820
[2024-03-13 14:00] VITALS: BP 119/84; PULSE 83; RESP 20; TEMP 36.5; O2SAT 96
[2024-03-13] MEDS: nicotine 2 mg Gum BUCCAL (19:40)
[2024-03-13 19:57] VITALS: BP 115/75; PULSE 86; RESP 18; TEMP 36.5; O2SAT 97
[2024-03-13] MEDS: OLANZapine 5 mg ODT PO (20:47)
[2024-03-14 06:00] VITALS: BP 94/59; PULSE 52; RESP 15; O2SAT 98
[2024-03-14] MEDS: divalproex DR 500 mg Tablet PO ×2 (08:28→20:18)
[2024-03-14] MEDS: paliperidone ER 6 mg Tablet PO (08:28)
--- NOTE | 2024-03-14 11:30 | P.NPUPN_ITS ---
Subjective NPU 2 Subjective: Patient presented today reporting that she is feeling okay. She reports she feels somewhat loopy but she feels that is just adjusting to the new medication. She reports that she has not spoken to her mother but that she plans on talking to her today. She reports that it is her understanding that she has her next appointment with Dr. Castle in 3 days possibly. She reports that she is hopeful that she will be well enough to make that appointment. We discussed making vet at goal. She reports that she is unclear if she spoke to the social media assistant yet but we discussed making sure that they are aware of her situation and what her needs are. She denied any additional side effects to medications. Mental Status Exam 2 MSE Comments: This is an obese versus morbidly obese white female in hospital scrubs with adequate grooming and eye contact. No abnormal movements except for psychomotor retardation. Cooperative with exam in mild to moderate distress. Speech was decreased rate and volume. Mood described as depressed. Affect congruent. Thought process mostly organized. Thought content: Patient endorsed recent suicidal but denied homicidal ideation, there were no delusions noted but she did endorse some paranoia, she reported having some auditory hallucinations but denied visual hallucinations. Patient reports hearing voices in her head that influence her behavior and perception of her mother. She describes a discrepancy between what her mother says and what she hears, suggesting possible auditory hallucinations. Attention and concentration appeared mostly intact and memory was somewhat reliable but none were formally tested. Alert and oriented x3. Insight and judgment are limited, impulse control is limited. Vitals/I&O/Wt Last Vital Signs Temp 97.7 F 03/13/24 19:57 Pulse 52 L 03/14/24 06:00 Resp 15 03/14/24 06:00 BP 94/59 03/14/24 06:00 Pulse Ox 98 03/14/24 06:00 O2 Del Method Room Air 03/14/24 06:00 Weight last 48 hrs Weight 122.583 kg Data NPU 03/11/24 15:23 03/11/24 15:23 A&P Assessment and plan (1) Acute psychosis: (2) Suicidal ideation: (3) Drug overdose, intentional: (4) Bipolar 1 disorder: (5) Cannabis use disorder: (6) Parent-child relational problem: Plan This is a 23-year-old white female who was seen in the past with a history of significant mental health challenges including question of bipolar disorder significant suicidal tendencies who presents with reports of a conflict with her mother and auditory hallucinations reporting she is currently adherent with her medications. 1.? Continue current medication.? Increased Invega to 6 mg p.o. daily. 2.? Continue every 15 minute checks for safety. 3.? Encourage individual, group and milieu therapies. 4.? Encourage sober living treatment after discharge at the highest level of care to which she is willing to commit. Involuntary Hold Information 2 96 Hour Hold: 96 Hour Involuntary Admission: No 96 Hour Hold Ending Date: 0 11/27/22 96 Hour Hold Ending Time: 22:00 Attestations NPU 2 Medical Necessity Statement*: Inpatient hospitalization is medically necessary and the clinically appropriate intervention at this time. We will monitor medications and make changes as indicated. Likely length of stay 2-4 days. Coding Level of Care Code Acute Code for g Fwd Diagnoses Acute psychosis F23 Suicidal ideation R45.851 Drug overdose, intentional T50.902A Bipolar 1 disorder F31.9 Cannabis use disorder F12.90 Parent-child relational problem Z62.820
[2024-03-14 14:00] VITALS: BP 90/50; PULSE 74; RESP 16; O2SAT 97
[2024-03-14] MEDS: nicotine 2 mg Gum BUCCAL ×2 (17:54→20:18)
--- NOTE | 2024-03-14 18:05 | PC.NURSE ---
STAFF PERFORMED RANDOM ROOM CHECK. NO OUTSIDE CONTRABAND WAS FOUND IN PT ROOM OR AREA. PT WAS COOPERATIVE WITH ROOM SEARCH.
[2024-03-14] MEDS: OLANZapine 5 mg ODT PO (21:02)
[2024-03-14 21:10] VITALS: BP 121/81; PULSE 77; RESP 19; TEMP 36.2; O2SAT 96
[2024-03-15 06:00] VITALS: BP 99/59; PULSE 62; RESP 17; TEMP 36.3; O2SAT 97
--- NOTE | 2024-03-15 06:50 | P.NPUPN_ITS ---
Subjective NPU 2 Subjective: Patient presented today reporting that she is feeling better. We discussed finally being able to get a hold of her mother and mother was in agreement that things are moving in the right direction was open to her returning. We discussed her having some better connection to outpatient treatment. She denied any side effects of the medication and we discussed the likelihood of discharge in the morning. Mental Status Exam 2 MSE Comments: This is an obese versus morbidly obese white female in hospital scrubs with adequate grooming and eye contact. No abnormal movements except for psychomotor retardation. Cooperative with exam in mild to moderate distress. Speech was more normal rate and volume. Mood described as better. Affect congruent. Thought process mostly organized. Thought content: Patient endorsed recent suicidal but denied homicidal ideation, there were no delusions noted but she did endorse some paranoia, she reported having some auditory hallucinations but denied visual hallucinations. Patient reports hearing voices in her head that influence her behavior and perception of her mother. She describes a discrepancy between what her mother says and what she hears, suggesting possible auditory hallucinations. Attention and concentration appeared mostly intact and memory was somewhat reliable but none were formally tested. Alert and oriented x3. Insight and judgment are limited, impulse control is limited. Vitals/I&O/Wt Last Vital Signs Temp 97.4 F L 03/15/24 06:00 Pulse 62 03/15/24 06:00 Resp 17 03/15/24 06:00 BP 99/59 03/15/24 06:00 Pulse Ox 97 03/15/24 06:00 O2 Del Method Room Air 03/15/24 06:00 Data NPU 03/11/24 15:23 03/11/24 15:23 A&P Assessment and plan (1) Acute psychosis: (2) Suicidal ideation: (3) Drug overdose, intentional: (4) Bipolar 1 disorder: (5) Cannabis use disorder: (6) Parent-child relational problem: Plan This is a 23-year-old white female who was seen in the past with a history of significant mental health challenges including question of bipolar disorder significant suicidal tendencies who presents with reports of a conflict with her mother and auditory hallucinations reporting she is currently adherent with her medications. 1.? Continue current medication.? Increased Invega to 6 mg p.o. daily. 2.? Continue every 15 minute checks for safety. 3.? Encourage individual, group and milieu therapies. 4.? Encourage sober living treatment after discharge at the highest level of care to which she is willing to commit. Involuntary Hold Information 2 96 Hour Hold: 96 Hour Involuntary Admission: No 96 Hour Hold Ending Date: 0 11/27/22 96 Hour Hold Ending Time: 22:00 Attestations NPU 2 Medical Necessity Statement*: Inpatient hospitalization is medically necessary and the clinically appropriate intervention at this time. We will monitor medications and make changes as indicated. Likely length of stay 1-3 days. Coding Level of Care Code Acute Code for Chg Fwd Diagnoses Acute psychosis F23 Suicidal ideation R45.851 Drug overdose, intentional T50.902A Bipolar 1 disorder F31.9 Cannabis use disorder F12.90 Parent-child relational problem Z62.820
[2024-03-15] MEDS: paliperidone ER 6 mg Tablet PO (08:08)
[2024-03-15] MEDS: divalproex DR 500 mg Tablet PO ×2 (08:08→20:26)
[2024-03-15] MEDS: nicotine 2 mg Gum BUCCAL ×3 (12:49→20:26)
[2024-03-15 14:00] VITALS: BP 125/78; PULSE 84; RESP 18; TEMP 36.5; O2SAT 99
[2024-03-15] MEDS: OLANZapine 5 mg ODT PO (18:17)
--- NOTE | 2024-03-15 18:18 | PC.NURSE ---
PRN ZYPREXA ZYDIS 5 MG GIVEN PO PER PT C/O STATED ANXIETY. DOES NOT APPEAR ANXIOUS CURRENTLY, VOICE IS LOW & STEADY
[2024-03-15 19:43] VITALS: BP 109/70; PULSE 76; RESP 18; TEMP 36.7; O2SAT 98
[2024-03-16 06:00] VITALS: BP 112/72; PULSE 60; RESP 14; O2SAT 99
--- NOTE | 2024-03-16 07:49 | PC.NURSE ---
RESTING IN BED, AROUSES TO VOICE. DENIES SI/HI AND AVH AT THIS TIME. DENIES PAIN. RATES ANXIETY 12/05 AND DEPRESSION 10/07. PT CONTINUES TO HAVE FLAT AFFECT THIS AM. REPORTS SHE SLEPT WELL. STATES GOAL FOR THE DAY IS TO BE HAPPY. DISCHARGE IS ANTICIPATED TODAY. SUPPORT VOICED.
--- NOTE | 2024-03-16 08:21 | P.NPUDS_ITS ---
Diagnoses at Discharge Discharge Diagnosis (1) Acute psychosis: Status: Resolved (2) Suicidal ideation: Status: Resolved (3) Drug overdose, intentional: Status: Resolved (4) Bipolar 1 disorder: Status: Acute Permanent problem details: with psychosis (5) Cannabis use disorder: Status: Acute (6) Parent-child relational problem: Status: Acute Reason for Visit Reason for Visit: MHE Involuntary Hold Information 96 Hour Hold: 96 Hour Involuntary Admission: No 96 Hour Hold Ending Date: 11/27/22 96 Hour Hold Ending Time: 22:00 Mental Status Exam MSE Comments: This is an obese versus morbidly obese white female in hospital scrubs with adequate grooming and eye contact. No abnormal movements except for psychomotor retardation. Cooperative with exam in mild to moderate distress. Speech was more normal rate and volume. Mood described as better. Affect congruent. Thought process mostly organized. Thought content: Patient endorsed recent suicidal but denied homicidal ideation, there were no delusions noted but she did endorse some paranoia, she reported having some auditory hallucinations but denied visual hallucinations. Patient reports hearing voices in her head that influence her behavior and perception of her mother. She describes a discrepancy between what her mother says and what she hears, suggesting possible auditory hallucinations. Attention and concentration appeared mostly intact and memory was somewhat reliable but none were formally tested. Alert and oriented x3. Insight and judgment are limited, impulse control is limited. Discharge Data Studies Completed and Pending: Laboratory Results WBC 7.79 10^3/uL (3.2 9-11.43) 03/11/24 15:23 RBC 4.97 10^6/uL (3.8 5-5.65) 03/11/24 15:23 Hgb 14.40 g/dL (11.27 -16.99) 03/11/24 15:23 Hct 41.0 % (36-47) 03/11/24 15:23 MCV 82.5 fl (85-98) L 03/11/24 15:23 MCH 29.0 pg (27-33) 03/11/24 15:23 MCHC 35.1 g/dL (30-55) 03/11/24 15:23 RDW 12.8 % (12.1-15.1 ) 03/11/24 15:23 Plt Count 287 10^3/cmm (157 -399) 03/11/24 15:23 MPV 10.8 fL (7.4-10.4 ) H 03/11/24 15:23 Neut % (Auto) 64.1 % 03/11/24 15:23 Lymph % (Auto) 27.3 % 03/11/24 15:23 [place] % (Auto) 6.9 % 03/11/24 15:23 Eos % (Auto) 1.0 % 03/11/24 15:23 Baso % (Auto) 0.4 % 03/11/24 15:23 Neut # (Auto) 4.99 10^3/uL (1.8 -7.7) 03/11/24 15:23 Lymph # (Auto) 2.1 10^3/uL (0.8- 4.8) 03/11/24 15:23 [place] # (Auto) 0.5 10^3/uL (0.2- 0.9) 03/11/24 15:23 Eos # (Auto) 0.1 10^3/uL (0.0- 0.8) 03/11/24 15:23 Baso # (Auto) 0.0 10^3/uL (0.0- 0.1) 03/11/24 15:23 Nucleated RBC % (a uto) 0 % 03/11/24 15: Nucleated RBCs # 0.0 /100WBC 03/11/24 15:23 Sodium 137 mmol/L (136-1 45) 03/11/24 15:23 Potassium 4.0 mmol/L (3.5-5 .1) 03/11/24 15:23 Chloride 104 mmol/L (98-10 7) 03/11/24 15:23 Carbon Dioxide 18 mmol/L (22-29) L 03/11/24 15:23 Anion Gap 19.0 (5-19) 03/11/24 15:23 BUN 5 mg/dL (6-20) L 03/11/24 15:23 Creatinine 0.6 mg/dL (0.5-0. 9) 03/11/24 15:23 GFR Calculation 126.2 mL/min (90- 130) 03/11/24 15:23 Glucose 105 mg/dL (65-115 ) 03/11/24 15:23 Calculated Osmolal ity 282 mOsm/kg (285- 295) L 03/11/24 15:23 Calcium 9.1 mg/dL (8.5-10 .5) 03/11/24 15:23 Total Bilirubin 0.2 mg/dL (0.15-1 .2) 03/11/24 15:23 AST 15 U/L (0-32) 03/11/24 15:23 ALT 15 U/L (0-33) 03/11/24 15:23 Alkaline Phosphata se 83 U/L (35-105) 03/11/24 15:23 Total Protein 7.4 g/dL (6.6-8.7 ) 03/11/24 15:23 Albumin 3.8 g/dL (3.5-5.2 ) 03/11/24 15: Globulin 3.6 g/dL (1.3-4.6 ) 03/11/24 15:23 HCG, Qual Negative (Negati ve) 03/11/24 15: Salicylates < 0.3 mg/dL (3-10 ) L 03/11/24 15:23 Urine Opiates Scre en Negative ng/mL (N egative) 03/12/24 17:55 Acetaminophen < 5.0 ug/mL (10-3 0) L 03/11/24 15:23 Ur Barbiturates Sc reen Negative ng/mL (N egative) 03/12/24 17:55 Ur Phencyclidine S crn Negative ng/mL (N egative) 03/12/24 17:55 Ur Amphetamines Sc reen Negative ng/mL (N egative) 03/12/24 17:55 U Benzodiazepines Scrn Negative ng/mL (N egative) 03/12/24 17:55 Urine Cocaine Scre en Negative ng/mL (N egative) 03/12/24 17:55 U Marijuana (THC) Screen Positive ng/mL (N egative) H 03/12/24 17:55 Ethyl Alcohol < 10 mg/dL (0-10) 03/11/24 15: Vitals: Last Vital Signs Temp 98.0 F 03/15/24 19:43 Pulse 60 03/16/24 06:00 Resp 14 03/16/24 06:00 BP 112/72 03/16/24 06:00 Pulse Ox 99 03/16/24 06:00 O2 Del Method Room Air 03/16/24 06:00 Discharge Plan Discharge Patient Disposition: Home Condition: Stable Prescriptions: New paliperidone 6 mg Tablet Extended Release 24hr 6 mg PO DAILY 30 Days Qty: 30 1RF Continued ramelteon 8 mg tablet 8 mg PO .at bedtime PRN (Reason: sleep) Qty: 30 5RF norgestimate-ethinyl estradiol [Sprintec (28)] 0.25-35 mg-mcg tablet 1 tab PO DAILY Qty: 84 3RF Changed divalproex 500 mg tablet,delayed release (DR/EC) 500 mg PO BID 30 Days Qty: 60 1RF Discontinued paliperidone [Invega] 3 mg tablet extended release 24hr 3 mg PO QAM Qty: 30 5RF Discharge Orders: Discharge Order (Routine); Ordered 03/16/24 Ordered By: Parth Michael Referrals: Charlene Maher MD [Physician] - Carmen Michael MD [Primary Care Provider] - Discharge Diet: Regular Discharge Activity: Resume usual activity Patient Instructions: Opioid Safety Discharge Attestations NPU Time Spent in Discharge Care*: less than 30 min Specific Discharge Activities: Specific discharge activities: educating patient, discussing with wrapper caser/social workers/dc planners, documenting/other paperwork and evaluating patient/reviewing data Coding Level of Care Code Acute Code for g Fwd Diagnoses Acute psychosis F23 Suicidal ideation R45.851 Drug overdose, intentional T50.902A Bipolar 1 disorder F31.9 Cannabis use disorder F12.90 Parent-child relational problem Z62.820
[2024-03-16] MEDS: divalproex DR 500 mg Tablet PO (08:27)
[2024-03-16] MEDS: paliperidone ER 6 mg Tablet PO (08:27)
[2024-03-16] MEDS: nicotine 2 mg Gum BUCCAL ×2 (08:30→10:32)
[2024-03-16 08:42] VITALS: BP 112/72; PULSE 60; RESP 14; TEMP 37.2; O2SAT 99
== END 2024-03-16 11:40 | disposition home or self-care (01) | DRG 885 ==
LOC: ER 16:53 → NP 18:35
PROVIDERS: Admitting Provider Psychiatry & Neurology Psychiatry; Emergency Provider Physician Assistant; PCP Family Medicine; Visit Provider Psychiatry & Neurology Psychiatry
DX: F31.9 Bipolar disorder, unspecified (principal); R45.851 Suicidal ideations; F20.9 Schizophrenia, unspecified; Z87.891 Personal history of nicotine dependence; F12.10 Cannabis abuse, uncomplicated; Z62.820 Parent-biological child conflict
CPT/HCPCS: 36415; 80053; 80306; 80307; 84703; 85025; 97150; 97165; 99285

== ENCOUNTER → 2024-03-16 12:49 | Outpatient (BNVA) | payer BC, SELFPAY ==
[2023-03-20 11:48] VITALS: BP 124/78; BMI 39.9
== END ==
PROVIDERS: PCP Family Medicine; Visit Provider Psychiatry & Neurology Psychiatry
DX: F20.9 Schizophrenia, unspecified (principal); Z79.899 Other long term (current) drug therapy
CPT/HCPCS: 80061; 83036

== ENCOUNTER → 2024-07-11 16:31 | Outpatient (BNVA) | payer BC, SELFPAY ==
[2024-03-22 13:38] VITALS: BP 133/89; BMI 42.1
== END ==
PROVIDERS: PCP Family Medicine; Visit Provider Psychiatry & Neurology Psychiatry
DX: Z79.899 Other long term (current) drug therapy (principal)
CPT/HCPCS: 80164

== ENCOUNTER 2024-08-15 15:25 | Outpatient (CLI) | payer BC, MEDICAID, SELFPAY ==
[2024-03-22 13:38] VITALS: BP 133/89; BMI 42.1
--- NOTE | 2024-08-15 16:00 | MR_ITS ---
WS: [id number] MRI BRAIN WITHOUT CONTRAST HISTORY: R41.3 - Other amnesia COMPARISON: None available. TECHNIQUE: Diffusion imaging, multiplanar T1, T2 and FLAIR imaging obtained. No evidence for acute infarct or hemorrhage. Tolbert-white matter differentiation is normal. No remote or acute infarcts are volume loss. Ventricles and extra-axial spaces are normal. No inferior displacement of cerebellar tonsils. The sella turcica and pituitary gland are unremarkabl e. Dural venous sinuses and [place] demonstrate no abnormality on this unenhanced studies. Paranasal sinuses: Clear. Mastoid air cells: Normal. Calvarium and scalp: Intact. MR/MR head wo con* [id number] IMPRESSION: 1. Unremarkable noncontrast MRI brain. 2. No prior infarct or small vessel disease. No foci within the brain associat ed with demyelination, migraines or diabetes.
== END 2024-08-15 15:26 | disposition home or self-care (01) ==
LOC: RAD 15:25
PROVIDERS: PCP Family Medicine; Visit Provider Family Medicine
DX: R41.3 Other amnesia (principal); R25.9 Unspecified abnormal involuntary movements; S09.90XA Unspecified injury of head, initial encounter; X58.XXXA Exposure to other specified factors, initial encounter
CPT/HCPCS: 70551

== ENCOUNTER 2024-09-27 00:06 | Inpatient (IN) | payer BC, MEDICAID, SELFPAY ==
[2024-03-22 13:38] VITALS: BP 133/89; BMI 42.1
[2024-09-27 00:14] VITALS: BP 131/94; PULSE 96; RESP 18; TEMP 36.6; O2SAT 98; BMI 39.1
[2024-09-27 00:44] LABS: Basophils # 0.1 10^3/uL (0.0-0.1); Basophils % 0.6 %; Eosinophils # 0.1 10^3/uL (0.0-0.8); Eosinophils % 1.5 %; Lymphocytes # 2.3 10^3/uL (0.8-4.8); Lymphocytes % 26.1 %; Mean Corpuscular HGB Conc 32.4 g/dL (30-55); Mean Corpuscular Hemoglobin 28.4 pg (27-33); Mean Corpuscular Volume 87.8 fl (85-98); Mean Platelet Volume 10.8 fL (7.4-10.4); Monocytes # 0.8 10^3/uL (0.2-0.9); Monocytes % 9.4 %; Neutrophils % 62.3 %; Nucleated Red Blood Cells % 0 %; Platelet Count 278 10^3/cmm (157-399); Red Blood Count 5.24 10^6/uL (3.85-5.65); Red Cell Distribution Width 13.4 % (12.1-15.1); White Blood Count 8.66 10^3/uL (3.29-11.43)
[2024-09-27 00:52] LABS: Alanine Aminotransferase 15 U/L (0-33); Albumin Level 4.6 g/dL (3.5-5.2); Alkaline Phosphatase 82 U/L (35-105); Anion Gap 15.6 (5-19); Aspartate Amino Transferase 15 U/L (0-32); Blood Urea Nitrogen 8 mg/dL (6-20); Calcium 9.8 mg/dL (8.5-10.5); Carbon Dioxide 23 mmol/L (22-29); Chloride 104 mmol/L (98-107); Creatinine Clr Calc Pharmacy 163.8217; Globulin 3.2 g/dL (1.3-4.6); Glomerular Filtration Rate 104.6 mL/min (90-130); Glucose 106 mg/dL (65-115); Osmolality Calculated 287 mOsm/kg (285-295); Potassium 3.6 mmol/L (3.5-5.1); Sodium 139 mmol/L (136-145); Total Bilirubin 0.4 mg/dL (0.15-1.2); Total Protein 7.8 g/dL (6.6-8.7)
[2024-09-27 00:53] LABS: Acetaminophen < 5.0 ug/mL (10-30); Alcohol Level < 10 mg/dL (0-10); Salicylate < 0.3 mg/dL (3-10)
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
[2024-09-27 01:49] LABS: HCG, Serum Qual Negative (Negative)
[2024-09-27 01:55] VITALS: BP 129/97; PULSE 78; RESP 18; TEMP 36.9; O2SAT 96
[2024-09-27] MEDS: acetaminophen 325 mg Tablet 650 MG PO (02:43)
[2024-09-27 03:44] LABS: Bilirubin Urine Negative (Negative); Blood Urine 3+ (Negative); Glucose Urine UA Negative (Normal); Ketones Urine Trace (Negative); Leukocyte Esterase Urine Negative (Negative); Nitrate Urine Negative (Negative); Protein Urine 1+ (Negative); Urine Appearance Cloudy (CLEAR); Urine Color Yellow (Yellow); pH Urine 5.5 (5-7)
[2024-09-27 03:49] LABS: Add Urine Microscopic? YES; Bacteria Urine 2+ /hpf; Hyaline Casts Urine 2.05 /lpf; RBC Urine 51-100 /hpf (0-2); WBC Urine 0-5 /hpf (0-5)
[2024-09-27 03:51] LABS: Specific Gravity, Urine 1.033 (1.005-1.030)
[2024-09-27 04:02] LABS: UA Slide Review UA Slide Review Perf
[2024-09-27 04:03] LABS: Add Urine Culture? No; Amphetamines Screen Urine Negative (Negative); Barbiturates Screen Urine Negative (Negative); Benzodiazepines Screen Urine Negative (Negative); Cocaine Screen Urine Negative (Negative); Mucus Urine 2+ /hpf; Opiate Screen Urine Negative (Negative); PCP Screen Urine Negative (Negative); THC Screen Urine Positive (Negative)
[2024-09-27 06:00] VITALS: RESP 18
--- NOTE | 2024-09-27 06:15 | PC.NURSE ---
Patient refused nurse notified.
[2024-09-27] MEDS: nicotine 21 mg Patch 1 PATCH TRANSDERMA (08:41)
[2024-09-27] MEDS: OLANZapine 5 mg ODT PO (08:41)
--- NOTE | 2024-09-27 09:30 | PC.NURSE ---
Morning assessment Patient evasive during morning assessment. Patient's speech is delayed. Patient reports anxiety 07/07. Patient endorses auditory hallucinations. When this nurse asked how to pronounce her name, patient said I don't know . Patient given zyprexa 5mg ODT and nicotine patch. Patient did not get up for breakfast despite numerous attempts by staff. Calm, detatched.
[2024-09-27 14:00] VITALS: BP 94/60; PULSE 52; RESP 16; TEMP 36.6; O2SAT 99
[2024-09-27] MEDS: paliperidone ER 6 mg Tablet PO (14:53)
[2024-09-27 19:44] VITALS: BP 127/83; PULSE 94; RESP 17; TEMP 36.5; O2SAT 97
--- NOTE | 2024-09-27 20:15 | W.PM.NPUH&PS ---
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 and animals: Yes Pets & animals: cat(s), dog(s) and bird(s) Leisure activites: art and other Leisure activities details: Social Media Sexually active: No Do you think of yourself as: Straight/Heterosexual Current gender identity: Female Meagan/Yazidism: Anglican Special meagan needs: No Agree to transfusion: Yes Female Reproductive History: Spontaneous abortions: No Mental Status Exam MSE Comments: This is an obese versus morbidly obese white female in hospital scrubs with adequate grooming and limited eye contact. No abnormal movements except for significant psychomotor retardation. Cooperative with exam in mild to moderate distress. Speech was decreased rate and volume. Mood described as frustrated. Affect congruent but subdued. Thought process mostly organized. Thought content: Patient denied suicidal or homicidal ideation but did identify that she had some aggressive interactions with her mother, there were no delusions reported or noted, she denied significant auditory or visual hallucinations. Attention and concentration appeared mostly intact and memory was somewhat reliable but none were formally tested. Alert and oriented x3. Insight and judgment are limited, impulse control is limited. Vitals/I&O/Wt Last Vital Signs Temp 97.7 F 09/27/24 19:44 Pulse 94 09/27/24 19:44 Resp 17 09/27/24 19:44 BP 127/83 09/27/24 19:44 Pulse Ox 97 09/27/24 19:44 O2 Del Method Room Air 09/27/24 19:44 09/27/24 09/27/24 09/27/24 06:59 14:59 22:59 Intake Total 0 / 0 0 / 0 Balance 0 / 0 0 / 0 Weight last 48 hrs Weight 113.398 kg Data NPU 09/27/24 00:21 09/27/24 00:21 A&P Assessment and plan (1) Acute psychosis: (2) Suicidal ideation: (3) Drug overdose, intentional: (4) Bipolar 1 disorder: (5) Cannabis use disorder: (6) Parent-child relational problem: Plan This is a 23-year-old white female who was seen in the past with a history of significant mental health challenges including question of bipolar disorder with significant suicidal tendencies, last seen in February of this year who presents like she did last time with reports of a conflict with her mother and reporting she is currently adherent with her medications. 1.? Continue off medication but she reports she is off of medication because her outpatient provider said she did not need it anymore. 2.? Continue every 15 minute checks for safety. 3.? Encourage individual, group and milieu therapies. 4.? Encourage sober living treatment after discharge at the highest level of care to which she is willing to commit. 5. Obtain collateral information from outpatient team to understand what transpired between February when she left on the Invega and now when she presents on no medication. Involuntary Hold Information 96 Hour Hold: 96 Hour Involuntary Admission: No Attestations NPU Medical Necessity Statement*: Inpatient hospitalization is medically necessary and the clinically appropriate intervention at this time. We will monitor medications and make changes as indicated. Patient will be in the hospital for over two midnights. Likely length of stay 4-6 days. Coding Level of Care Code Acute Code for [facility] Fwd Diagnoses Acute psychosis F23 Suicidal ideation R45.851 Drug overdose, intentional T50.902A Bipolar 1 disorder F31.9 Cannabis use disorder F12.90 Parent-child relational problem Z62.820
[2024-09-28 06:00] VITALS: BP 103/65; PULSE 56; RESP 17; TEMP 36.5; O2SAT 97
--- NOTE | 2024-09-28 07:45 | P.NPUPN_ITS ---
Subjective NPU 2 Subjective: Patient presented today reporting that she is doing fine but not acknowledging rationally the circumstance that she had been in. She reports that she is sleeping well here and sleeping a lot because she had not slept a lot since she left and when asked why had not she slept she reported it was because the voices are so disturbing that she cannot sleep but here with some medication she has gotten she is able to sleep but she reports that she does not need to take something for the voices because she is gotten the rest she needs now. We discussed the risks, benefits and alternatives of getting her mom's opinion about the situation and utilizing that to identify where to go from here and she understood and agreed to proceed as is documented in this note. We did discuss that it might make sense to get her on a long-acting injectable so that she would not have to worry about daily med taking but she did report that she at some level would rather not take medication. Mental Status Exam 2 MSE Comments: This is an obese versus morbidly obese white female in hospital scrubs with adequate grooming and limited eye contact. No abnormal movements except for significant psychomotor retardation. Cooperative with exam in mild to moderate distress. Speech was decreased rate and volume. Mood described as frustrated. Affect congruent but subdued. Thought process mostly organized. Thought content: Patient denied suicidal or homicidal ideation but did identify that she had some aggressive interactions with her mother, there were no delusions reported or noted, she denied significant auditory or visual hallucinations. Attention and concentration appeared mostly intact and memory was somewhat reliable but none were formally tested. Alert and oriented x3. Insight and judgment are limited, impulse control is limited. Vitals/I&O/Wt Last Vital Signs Temp 97.7 F 09/28/24 06:00 Pulse 56 L 09/28/24 06:00 Resp 17 09/28/24 06:00 BP 103/65 09/28/24 06:00 Pulse Ox 97 09/28/24 06:00 O2 Del Method Room Air 09/28/24 06:00 09/27/24 09/28/24 09/28/24 22:59 06:59 14:59 Intake Total 0 / 0 Balance 0 / 0 Weight last 48 hrs Weight 113.398 kg Data NPU 09/27/24 00:21 09/27/24 00:21 A&P Assessment and plan (1) Acute psychosis: (2) Suicidal ideation: (3) Drug overdose, intentional: (4) Bipolar 1 disorder: (5) Cannabis use disorder: (6) Parent-child relational problem: Plan This is a 23-year-old white female who was seen in the past with a history of significant mental health challenges including question of bipolar disorder with significant suicidal tendencies, last seen in February of this year who presents like she did last time with reports of a conflict with her mother and reporting she is currently adherent with her medications. 1.? Continue off medication but she reports she is off of medication because her outpatient provider said she did not need it anymore. However provider only acknowledge she was not taking her medication and excepted that prescribing it would not change that reality. 2.? Continue every 15 minute checks for safety. 3.? Encourage individual, group and milieu therapies. 4.? Encourage sober living treatment after discharge at the highest level of care to which she is willing to commit. 5. Obtain collateral information from outpatient team to understand what transpired between February when she left on the Invega and now when she presents on no medication. Involuntary Hold Information 2 96 Hour Hold: 96 Hour Involuntary Admission: No Attestations NPU 2 Medical Necessity Statement*: Inpatient hospitalization is medically necessary and the clinically appropriate intervention at this time. We will monitor medications and make changes as indicated. Likely length of stay 4-6 days. Coding Level of Care Code Acute Code for [facility] Fwd Diagnoses Acute psychosis F23 Suicidal ideation R45.851 Drug overdose, intentional T50.902A Bipolar 1 disorder F31.9 Cannabis use disorder F12.90 Parent-child relational problem Z62.820
[2024-09-28] MEDS: paliperidone ER 6 mg Tablet PO (09:16)
[2024-09-28 14:00] VITALS: BP 106/71; PULSE 68; RESP 17; TEMP 36.7; O2SAT 97
[2024-09-28] MEDS: acetaminophen 325 mg Tablet 650 MG PO (19:49)
[2024-09-28] MEDS: OLANZapine 5 mg ODT PO (19:55)
[2024-09-28 22:00] VITALS: BP 121/80; PULSE 71; RESP 17; TEMP 36.6; O2SAT 97
[2024-09-29 06:00] VITALS: BP 105/71; PULSE 73; RESP 16; TEMP 36.7; O2SAT 100
[2024-09-29] MEDS: paliperidone ER 6 mg Tablet PO (09:18)
[2024-09-29 14:00] VITALS: BP 120/74; PULSE 70; RESP 16; TEMP 37; O2SAT 96
[2024-09-29] MEDS: OLANZapine 5 mg ODT PO (15:38)
--- NOTE | 2024-09-29 18:58 | W.PM.NPUPNS ---
Subjective NPU Subjective: Patient presented today reporting that she is doing all right. She acknowledged that her plan to not take medication as problematic as we discussed a conversation with her mom and her mom's concern about her behaviors and her being off of medication. We discussed the risks, benefits and alternatives of restarting Invega and going to the long-acting injectable and she understood and agreed to proceed as is documented in this note. She also reports doing well on the PRN Zyprexa Zydis. She denied any side effects to the medication. Mental Status Exam MSE Comments: This is an obese versus morbidly obese white female in hospital scrubs with adequate grooming and limited eye contact. No abnormal movements except for significant psychomotor retardation. Cooperative with exam in mild to moderate distress. Speech was decreased rate and volume. Mood described as frustrated. Affect congruent but subdued. Thought process mostly organized. Thought content: Patient denied suicidal or homicidal ideation but did identify that she had some aggressive interactions with her mother, there were no delusions reported or noted, she denied significant auditory or visual hallucinations. Attention and concentration appeared mostly intact and memory was somewhat reliable but none were formally tested. Alert and oriented x3. Insight and judgment are limited, impulse control is limited. Vitals/I&O/Wt Last Vital Signs Temp 98.6 F 09/29/24 14:00 Pulse 70 09/29/24 14:00 Resp 16 09/29/24 14:00 BP 120/74 09/29/24 14:00 Pulse Ox 96 09/29/24 14:00 O2 Del Method Room Air 09/29/24 14:00 09/29/24 09/29/24 09/29/24 06:59 14:59 22:59 Intake Total 0 / 0 Balance 0 / 0 Data NPU 09/27/24 00:21 09/27/24 00:21 A&P Assessment and plan (1) Acute psychosis: (2) Suicidal ideation: (3) Drug overdose, intentional: (4) Bipolar 1 disorder: (5) Cannabis use disorder: (6) Parent-child relational problem: Plan This is a 23-year-old white female who was seen in the past with a history of significant mental health challenges including question of bipolar disorder with significant suicidal tendencies, last seen in February of this year who presents like she did last time with reports of a conflict with her mother and reporting she is currently adherent with her medications. 1.? Restarted Invega 6 mg p.o. daily with a plan to move to the long-acting injectable. 2.? Continue every 15 minute checks for safety. 3.? Encourage individual, group and milieu therapies. 4.? Encourage sober living treatment after discharge at the highest level of care to which she is willing to commit. 5. Obtain collateral information from outpatient team to understand what transpired between February when she left on the Invega and now when she presents on no medication. Involuntary Hold Information 96 Hour Hold: 96 Hour Involuntary Admission: No Other Hold: Hold End Date: 10/03/24 Attestations U Medical Necessity Statement*: Inpatient hospitalization is medically necessary and the clinically appropriate intervention at this time. We will monitor medications and make changes as indicated. Likely length of stay 4-6 days. Coding Level of Care Code Acute Code for [facility] Fwd Diagnoses Acute psychosis F23 Suicidal ideation R45.851 Drug overdose, intentional T50.902A Bipolar 1 disorder F31.9 Cannabis use disorder F12.90 Parent-child relational problem Z62.820
[2024-09-29 20:19] VITALS: BP 97/60; PULSE 65; RESP 16; TEMP 37; O2SAT 99
[2024-09-30 06:00] VITALS: BP 110/72; PULSE 58; RESP 16; TEMP 36.9; O2SAT 99
[2024-09-30] MEDS: paliperidone ER 6 mg Tablet PO (08:43)
[2024-09-30 14:00] VITALS: BP 88/53; PULSE 56; RESP 16; TEMP 36.8; O2SAT 99
--- NOTE | 2024-09-30 18:35 | P.NPUPN_ITS ---
Subjective NPU 2 Subjective: Patient presented today reporting that she is doing fine. She reports that she is taking her medication as prescribed and wanting to consider discharge and even talked about her friend that was going back to [facility] and wondering if she is going to be out in time. We talked about that she probably should not be making hasty decisions and traveling across country without having a plan for how she can manage her medication or treatment. We discussed the risks, benefits and alternatives of initiating the long-acting injectable and she understood and agreed to proceed as is documented in this note. She denied any side effects to the medication. She was somewhat resistant to taking the injection but we talked about the difficulty she is having with her mom and the fact that being on the injection would allow clear knowledge of her adherence to her medication so that that is not seen as the problem. Mental Status Exam 2 MSE Comments: This is an obese versus morbidly obese white female in hospital scrubs with adequate grooming and limited eye contact. No abnormal movements except for significant psychomotor retardation. Cooperative with exam in mild to moderate distress. Speech was decreased rate and volume. Mood described as frustrated. Affect congruent but subdued. Thought process mostly organized. Thought content: Patient denied suicidal or homicidal ideation but did identify that she had some aggressive interactions with her mother, there were no delusions reported or noted, she denied significant auditory or visual hallucinations. Attention and concentration appeared mostly intact and memory was somewhat reliable but none were formally tested. Alert and oriented x3. Insight and judgment are limited, impulse control is limited. Vitals/I&O/Wt Last Vital Signs Temp 98.3 F 09/30/24 14:00 Pulse 56 L 09/30/24 14:00 Resp 16 09/30/24 14:00 BP 88/53 09/30/24 14:00 Pulse Ox 99 09/30/24 14:00 O2 Del Method Room Air 09/30/24 14:00 09/30/24 09/30/24 09/30/24 06:59 14:59 22:59 Intake Total 0 / 0 Balance 0 / 0 Data NPU 09/27/24 00:21 09/27/24 00:21 A&P Assessment and plan (1) Acute psychosis: (2) Suicidal ideation: (3) Drug overdose, intentional: (4) Bipolar 1 disorder: (5) Cannabis use disorder: (6) Parent-child relational problem: Plan This is a 23-year-old white female who was seen in the past with a history of significant mental health challenges including question of bipolar disorder with significant suicidal tendencies, last seen in February of this year who presents like she did last time with reports of a conflict with her mother and reporting she is currently adherent with her medications. 1.? Restarted Invega 6 mg p.o. daily with a plan to move to the long-acting injectable. Start Invega Sustenna 234 mg IM to the deltoid for loading dose. Will plan for second injection in 4 days which is the earliest he can be given with a plan to explore discharge next week. 2.? Continue every 15 minute checks for safety. 3.? Encourage individual, group and milieu therapies. 4.? Encourage sober living treatment after discharge at the highest level of care to which she is willing to commit. 5. Obtain collateral information from outpatient team to understand what transpired between February when she left on the Invega and now when she presents on no medication. Involuntary Hold Information 2 96 Hour Hold: 96 Hour Involuntary Admission: No Other Hold: Hold End Date: 10/03/24 Attestations NPU 2 Medical Necessity Statement*: Inpatient hospitalization is medically necessary and the clinically appropriate intervention at this time. We will monitor medications and make changes as indicated. Likely length of stay 4-6 days. Coding Level of Care Code Acute Code for g Fwd Diagnoses Acute psychosis F23 Suicidal ideation R45.851 Drug overdose, intentional T50.902A Bipolar 1 disorder F31.9 Cannabis use disorder F12.90 Parent-child relational problem Z62.820
[2024-09-30] MEDS: nicotine 2 mg Gum BUCCAL (19:42)
[2024-09-30 20:56] VITALS: BP 127/88; PULSE 105; RESP 18; TEMP 36.7; O2SAT 97
[2024-09-30] MEDS: paliperidone palmitate 234 mg Syringe IM (21:02)
[2024-10-01 06:00] VITALS: BP 113/65; PULSE 58; RESP 16; O2SAT 100
[2024-10-01] MEDS: paliperidone ER 6 mg Tablet PO (09:01)
[2024-10-01] MEDS: OLANZapine 5 mg ODT PO ×2 (13:27→21:03)
[2024-10-01 14:00] VITALS: BP 120/78; PULSE 66; RESP 16; TEMP 37; O2SAT 98
--- NOTE | 2024-10-01 15:19 | P.NPUPN_ITS ---
Subjective NPU 2 Subjective: Patient presented today reporting that she is tolerating the injection but that she is a little tired. She continued to focus on the possibility of discharge. We discussed a plan to discharge after she gets the second injection. Other than being a little tired she denied any side effects to the medication. Mental Status Exam 2 MSE Comments: This is an obese versus morbidly obese white female in hospital scrubs with adequate grooming and limited eye contact. No abnormal movements except for mild psychomotor retardation. Cooperative with exam in mild to moderate distress. Speech was decreased rate and volume. Mood described as a little better. Affect congruent but slightly subdued. Thought process mostly organized. Thought content: Patient denied suicidal or homicidal ideation but did identify that she had some aggressive interactions with her mother, there were no delusions reported or noted, she denied significant auditory or visual hallucinations. Attention and concentration appeared mostly intact and memory was somewhat reliable but none were formally tested. Alert and oriented x3. Insight and judgment are limited, impulse control is limited. Vitals/I&O/Wt Last Vital Signs Temp 98.6 F 10/01/24 14:00 Pulse 66 10/01/24 14:00 Resp 16 10/01/24 14:00 BP 120/78 10/01/24 14:00 Pulse Ox 98 10/01/24 14:00 O2 Del Method Room Air 10/01/24 14:00 Data NPU 09/27/24 00:21 09/27/24 00:21 A&P Assessment and plan (1) Acute psychosis: (2) Suicidal ideation: (3) Drug overdose, intentional: (4) Bipolar 1 disorder: (5) Cannabis use disorder: (6) Parent-child relational problem: Plan This is a 23-year-old white female who was seen in the past with a history of significant mental health challenges including question of bipolar disorder with significant suicidal tendencies, last seen in February of this year who presents like she did last time with reports of a conflict with her mother and reporting she is currently adherent with her medications. 1.? Restarted Invega 6 mg p.o. daily with a plan to move to the long-acting injectable. Started Invega Sustenna 234 mg IM to the deltoid for loading dose 09/30/24. Will plan for second injection in 3 days which is the earliest she can be given with a plan to explore discharge next week. 2.? Continue every 15 minute checks for safety. 3.? Encourage individual, group and milieu therapies. 4.? Encourage sober living treatment after discharge at the highest level of care to which she is willing to commit. 5. Obtain collateral information from outpatient team to understand what transpired between February when she left on the Invega and now when she presents on no medication. Involuntary Hold Information 2 96 Hour Hold: 96 Hour Involuntary Admission: No Other Hold: Hold End Date: 10/03/24 Attestations NPU 2 Medical Necessity Statement*: Inpatient hospitalization is medically necessary and the clinically appropriate intervention at this time. We will monitor medications and make changes as indicated. Likely length of stay 3-5 days. Coding Level of Care Code Acute Code for [facility] Fwd Diagnoses Acute psychosis F23 Suicidal ideation R45.851 Drug overdose, intentional T50.902A Bipolar 1 disorder F31.9 Cannabis use disorder F12.90 Parent-child relational problem Z62.820
[2024-10-01] MEDS: nicotine 2 mg Gum BUCCAL (18:55)
[2024-10-01 19:55] VITALS: BP 109/76; PULSE 109; RESP 18; TEMP 36.7; O2SAT 99
[2024-10-02 06:00] VITALS: BP 90/57; PULSE 53; RESP 16; O2SAT 98
[2024-10-02] MEDS: paliperidone ER 6 mg Tablet PO (09:12)
--- NOTE | 2024-10-02 10:36 | P.NPUPN_ITS ---
Subjective NPU 2 Subjective: Patient presents today reporting that she has talked to her mother and her mother is wondering about when she will be home. We discussed the fact that we are on a course to get her second injection before she leaves and then continue her on the Invega Sustenna. We also discussed the 3-month and 6-month versions that would allow her to get those shots either 4 times a year or twice a year which is her ultimate goal. She identifies that she has some difficulties with adherence. She denies any side effects or medications. She does report having a little challenging with her roommate reporting that she messes with my stuff. Talking about her opening a bag of potato chips at 1 point and then also her may be taking her blanket off of her during the night. Mental Status Exam 2 MSE Comments: This is an obese versus morbidly obese white female in hospital scrubs with adequate grooming and limited eye contact. No abnormal movements except for mild psychomotor retardation. Cooperative with exam in mild to moderate distress. Speech was decreased rate and volume. Mood described as a little better. Affect congruent but slightly subdued. Thought process mostly organized. Thought content: Patient denied suicidal or homicidal ideation but did identify that she had some aggressive interactions with her mother, there were no delusions reported or noted, she denied significant auditory or visual hallucinations. Attention and concentration appeared mostly intact and memory was somewhat reliable but none were formally tested. Alert and oriented x3. Insight and judgment are limited, impulse control is limited. Vitals/I&O/Wt Last Vital Signs Temp 98.1 F 10/01/24 19:55 Pulse 53 L 10/02/24 06:00 Resp 16 10/02/24 06:00 BP 90/57 10/02/24 06:00 Pulse Ox 98 10/02/24 06:00 O2 Del Method Room Air 10/01/24 14:00 Weight last 48 hrs Weight 114.986 kg Data NPU 09/27/24 00:21 09/27/24 00:21 A&P Assessment and plan (1) Acute psychosis: (2) Suicidal ideation: (3) Drug overdose, intentional: (4) Bipolar 1 disorder: (5) Cannabis use disorder: (6) Parent-child relational problem: Plan This is a 23-year-old white female who was seen in the past with a history of significant mental health challenges including question of bipolar disorder with significant suicidal tendencies, last seen in February of this year who presents like she did last time with reports of a conflict with her mother and reporting she is currently adherent with her medications. 1.? Restarted Invega 6 mg p.o. daily with a plan to move to the long-acting injectable. Started Invega Sustenna 234 mg IM to the deltoid for loading dose 09/30/24. Will plan for second injection on 10/04/2024 most likely which is the earliest she can be given with a plan to explore discharge after the injection is given. 2.? Continue every 15 minute checks for safety. 3.? Encourage individual, group and milieu therapies. 4.? Encourage sober living treatment after discharge at the highest level of care to which she is willing to commit. 5. Obtain collateral information from outpatient team to understand what transpired between February when she left on the Invega and now when she presents on no medication. Involuntary Hold Information 2 96 Hour Hold: 96 Hour Involuntary Admission: No Attestations NPU 2 Medical Necessity Statement*: Inpatient hospitalization is medically necessary and the clinically appropriate intervention at this time. We will monitor medications and make changes as indicated. Likely length of stay 2-4 days. Coding Level of Care Code Acute Code for g Fwd Diagnoses Acute psychosis F23 Suicidal ideation R45.851 Drug overdose, intentional T50.902A Bipolar 1 disorder F31.9 Cannabis use disorder F12.90 Parent-child relational problem Z62.820
[2024-10-02] MEDS: OLANZapine 5 mg ODT PO ×2 (13:12→20:24)
[2024-10-02] MEDS: nicotine 2 mg Gum BUCCAL ×4 (13:28→21:18)
[2024-10-02 13:42] VITALS: BP 127/84; PULSE 124; RESP 18; TEMP 36.4; O2SAT 98
[2024-10-02 21:10] VITALS: BP 108/75; PULSE 109; RESP 17; TEMP 36.7; O2SAT 98
[2024-10-02] MEDS: LORazepam 2 mg Tablet PO (21:19)
[2024-10-03 06:00] VITALS: BP 108/70; PULSE 56; RESP 16; O2SAT 99
[2024-10-03] MEDS: paliperidone ER 6 mg Tablet PO (08:17)
[2024-10-03] MEDS: nicotine 2 mg Gum BUCCAL ×4 (08:17→20:58)
--- NOTE | 2024-10-03 13:31 | P.NPUPN_ITS ---
Subjective NPU 2 Subjective: Patient presented today reporting that she is feeling better. She is hopeful that she can get her second injection today but we explained that it needed to be 4 days at least after the first injection. So we discussed the risks, benefits and alternatives of her getting her second loading dose of Invega Sustenna tomorrow and she understood and agreed to proceed as is documented in this note. We talked about the likelihood of discharge after the medication is given. She denied any side effects to the medication. Mental Status Exam 2 MSE Comments: This is an obese versus morbidly obese white female in hospital scrubs with adequate grooming and limited eye contact. No abnormal movements except for mild psychomotor retardation. Cooperative with exam in mild to moderate distress. Speech was decreased rate and volume. Mood described as a little better. Affect congruent but slightly subdued. Thought process mostly organized. Thought content: Patient denied suicidal or homicidal ideation but did identify that she had some aggressive interactions with her mother, there were no delusions reported or noted, she denied significant auditory or visual hallucinations. Attention and concentration appeared mostly intact and memory was somewhat reliable but none were formally tested. Alert and oriented x3. Insight and judgment are limited, impulse control is limited. Vitals/I&O/Wt Last Vital Signs Temp 98.0 F 10/02/24 21:10 Pulse 56 L 10/03/24 06:00 Resp 16 10/03/24 06:00 BP 108/70 10/03/24 06:00 Pulse Ox 99 10/03/24 06:00 O2 Del Method Room Air 10/02/24 13:42 Weight last 48 hrs Weight 114.986 kg Data NPU 09/27/24 00:21 09/27/24 00:21 A&P Assessment and plan (1) Acute psychosis: (2) Suicidal ideation: (3) Drug overdose, intentional: (4) Bipolar 1 disorder: (5) Cannabis use disorder: (6) Parent-child relational problem: Plan This is a 23-year-old white female who was seen in the past with a history of significant mental health challenges including question of bipolar disorder with significant suicidal tendencies, last seen in February of this year who presents like she did last time with reports of a conflict with her mother and reporting she is currently adherent with her medications. 1.? Restarted Invega 6 mg p.o. daily with a plan to move to the long-acting injectable. Started Invega Sustenna 234 mg IM to the deltoid for loading dose 09/30/24. Will plan for second injection tomorrow, 10/04/2024 which is the earliest she can be given with a plan to explore discharge after the injection is given. 2.? Continue every 15 minute checks for safety. 3.? Encourage individual, group and milieu therapies. 4.? Encourage sober living treatment after discharge at the highest level of care to which she is willing to commit. 5. Obtain collateral information from outpatient team to understand what transpired between February when she left on the Invega and now when she presents on no medication. Involuntary Hold Information 2 96 Hour Hold: 96 Hour Involuntary Admission: No Attestations NPU 2 Medical Necessity Statement*: Inpatient hospitalization is medically necessary and the clinically appropriate intervention at this time. We will monitor medications and make changes as indicated. Likely length of stay 1-3 days. Coding Level of Care Code Acute Code for [facility] Fwd Diagnoses Acute psychosis F23 Suicidal ideation R45.851 Drug overdose, intentional T50.902A Bipolar 1 disorder F31.9 Cannabis use disorder F12.90 Parent-child relational problem Z62.820
[2024-10-03 14:00] VITALS: BP 118/74; PULSE 64; RESP 16; TEMP 36.6; O2SAT 99
[2024-10-03] MEDS: OLANZapine 5 mg ODT PO ×2 (16:16→20:58)
[2024-10-03 20:33] VITALS: BP 166/88; PULSE 110; RESP 16; TEMP 37.1; O2SAT 98
[2024-10-04 05:57] VITALS: BP 92/59; PULSE 58; RESP 16; TEMP 36.4; O2SAT 99
[2024-10-04] MEDS: paliperidone ER 6 mg Tablet PO (08:23)
[2024-10-04] MEDS: docusate sodium 100 mg Capsule 200 MG PO (08:23)
[2024-10-04] MEDS: nicotine 2 mg Gum BUCCAL (12:49)
[2024-10-04 12:51] VITALS: BP 92/59; PULSE 58; RESP 16; TEMP 36.4; O2SAT 99
[2024-10-04] MEDS: paliperidone palmitate 156 mg Syringe IM (13:15)
[2024-10-04 14:00] VITALS: BP 108/68; PULSE 70; RESP 16; TEMP 36.9; O2SAT 96
== END 2024-10-04 16:38 | disposition home or self-care (01) | DRG 885 ==
LOC: ER 01:26 → NP 01:42
PROVIDERS: Admitting Provider Psychiatry & Neurology Psychiatry; Emergency Provider Emergency Medicine; PCP Family Medicine; Visit Provider Psychiatry & Neurology Psychiatry
DX: F31.89 Other bipolar disorder (principal); R45.851 Suicidal ideations; F29 Unspecified psychosis not due to a substance or known physiological condition; Z62.820 Parent-biological child conflict; E66.01 Morbid (severe) obesity due to excess calories; Z68.39 Body mass index [BMI] 39.0-39.9, adult; F17.290 Nicotine dependence, other tobacco product, uncomplicated; T50.906A Underdosing of unspecified drugs, medicaments and biological substances, initial encounter; Z91.141 Patient's other noncompliance with medication regimen due to financial hardship
CPT/HCPCS: 80053; 80306; 80307; 81001; 84703; 85025; 96372; 97150; 97165; 99285

== ENCOUNTER → 2024-10-11 11:40 | Outpatient (BNVA) | payer BC, MEDICAID, SELFPAY ==
[2024-03-22 13:38] VITALS: BP 133/89; BMI 42.1
== END ==
PROVIDERS: PCP Family Medicine; Visit Provider Family Medicine
DX: Z72.51 High risk heterosexual behavior (principal); Z20.2 Contact with and (suspected) exposure to infections with a predominantly sexual mode of transmission
CPT/HCPCS: 80074; 86592; 87491; 87591; 87661; 87806

== ENCOUNTER → 2024-10-12 11:39 | Outpatient (BNVA) | payer BC, MEDICAID, SELFPAY ==
[2024-03-22 13:38] VITALS: BP 133/89; BMI 42.1
== END ==
PROVIDERS: PCP Family Medicine; Visit Provider Family Medicine
DX: Z72.51 High risk heterosexual behavior (principal); Z20.2 Contact with and (suspected) exposure to infections with a predominantly sexual mode of transmission
CPT/HCPCS: 87491; 87591; 87661

== ENCOUNTER 2024-11-04 11:27 | Inpatient (IN) | payer BC, SELFPAY ==
[2024-03-22 13:38] VITALS: BP 133/89; BMI 42.1
--- NOTE | 2024-11-04 11:35 | ED.C_ITS ---
Documented by User: MICHOACANO Chavez 11/04/24 12:27 HPI - Psych 2 General: Chief Complaint: Psychiatric Symptoms Stated Complaint: MHE Time Seen by Provider: 11/04/24 11:29 Source: patient Mode of arrival: ambulatory Limitations: no limitations History of Present Illness: Patient is a 24-year-old female presents to ED today after being brought here by her mother. Patient is here for mental health assessment. Patient tells me that she is suicidal. She states she is hearing voices in her head telling her to kill herself. Patient acts much younger than stated age. Her speech is very illogical and tangential. She goes from wanting a cigarette to telling me to chop off her leg. She laughs and raises her voice inappropriately. Patient has multiple NPU visits. She apparently is her own guardian. Mother states she is not taking her medications. MD complaint: suicidal ideation and other (psychosis) Onset (ago): day(s) Duration: constant History of same: Yes Relieving factors: none Exacerbating factors: none Associated symptoms: Reports depression and suicidal ideation; Deny auditory hallucinations, visual hallucinations or homicidal ideation Treatments prior to arrival: none If self harm: admits thoughts of self harm Related Data Previous Rx's ?Medication ?Instructions ?Recorded norgestimate 0.25 mg-ethinyl 1 tab PO DAILY #84 tabs 0 11/27/23 estradiol 35 mcg tablet (Sprintec (28)) olanzapine 5 mg disintegrating 5 mg PO Q4H PRN 5 tablet Agitation/Psychosis 30 days #30 tabs paliperidone palmitate 234 mg/1.5 234 mg (1.5 mL) IM Q 30D 30 days 11/03/24 mL intramuscular syringe #1.5 mL Allergies Allergy/AdvReac Type Severity Reaction Status Date / Time hydrocortisone Allergy rash Verified 10/11/24 10:42 haloperidol AdvReac Severe Unconscious Verified 10/11/24 10:42 Milk Containing Products AdvReac Severe ADR-Flatule Verified 10/11/24 10:42 (Dairy) (Milk Containing nce Products) Review of Systems 2 Const: Denies: fever(s) or chills Card: Denies: chest pain, palpitations, lightheadedness or syncope Resp: Denies: dyspnea GI: Denies: abdominal pain, nausea, vomiting or diarrhea Skin/Breast: Denies: rash Neuro: Denies: headache(s) Psych: Reports: depression and suicidal ideation; Denies: anxiety, visual hallucinations, auditory hallucinations or homicidal ideation PFSH ED 2 PFSH: Medical History Schizophrenia Insomnia H/O medication noncompliance Psychiatric disturbance Bipolar 1 disorder with psychosis History of use of contraceptive intrauterine device (IUD) Psychiatric care 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 Family History Other CAD (coronary artery disease) Diabetes Psychiatric illness Social History Smoking and tobacco/nicotine status: current every day tobacco/nicotine user (vapes) Quit status (tobacco/nicotine): has quit using Former quit date comment: recent Alcohol intake: former Substance/Drug Use: former Adopted: No Caregiver/support person: No Lives independently: Yes Household members: family Housing: House Marital status: Single Number of children: 0 Highest education level completed: High School Graduate Current occupational status: unemployed Pets and animals: Yes Pets & animals: cat(s), dog(s) and bird(s) Leisure activites: art and other Leisure activities details: Social Media Sexually active: No Do you think of yourself as: Straight/Heterosexual Current gender identity: Female Meagan/Roman Catholic: Congregational Special meagan needs: No Agree to transfusion: Yes Female Reproductive History: Spontaneous abortions: No Physical Exam 2 Const: COMMON NORMALS: no acute distress, patient oriented x3, no limitations, alert and well nourished GENERAL APPEARANCE: cooperative NUTRITIONAL APPEARANCE: obese HENMT: COMMON NORMALS: normocephalic and atraumatic HEAD & SCALP: normal to inspection, normocephalic and atraumatic Resp: COMMON NORMALS: normal respiratory effort and clear to auscultation bilaterally AUSCULTATION: clear to auscultation bilaterally Cardio: COMMON NORMALS: regular rate and regular rhythm RATE: regular rate RHYTHM: regular rhythm Neuro: COMMON NORMALS: patient oriented x3, moves all extremities, no focal motor deficits and no sensory deficits noted SENSORIUM/ORIENTATION: Yes alert Psych: COMMON NORMALS: mental status grossly normal, cooperative, activity/motor behavior normal, denies hallucinations and denies homicidal ideation APPEARANCE: Yes grossly normal ACTIVITY/MOTOR BEHAVIOR: Yes appropriate eye contact and No psychomotor agitation SPEECH: Yes loud T HOUGHT PROCESS: Illogical thought process present INSIGHT: Limited insight present (Psych) JUDGEMENT: Limited judgement present (Psych) Course 2 Consultations: Consultation #1: Dr. Michael-accepts to NPU Vital Signs: Vital signs: Vital Signs Temperature 97.3 F L 11/08/24 20:24 Pulse Rate 83 11/08/24 20:24 Respiratory Rate 17 11/08/24 20:24 Blood Pressure 107/68 11/08/24 20:24 Pulse Oximetry 99 11/08/24 20:24 Oxygen Delivery Me thod Room Air 11/08/24 20:24 MDM - Psych Medical Decision Making Patient being admitted to NPU to Dr. Michael. She is placed on a 96-hour hold. Lab Data 11/04/24 11:52 11/04/24 11:52 Laboratory Results WBC 6.92 10^3/uL (3.29-11.43) 11/04/24 11:52 RBC 5.26 10^6/uL (3.85-5.65) 11/04/24 11:52 Hgb 14.40 g/dL (11.27-16.99) 11/04/24 11:52 Hct 44.2 % (36-47) 11/04/24 11:52 MCV 84.0 fl (85-98) L 11/04/24 11:52 MCH 27.4 pg (27-33) 11/04/24 11:52 MCHC 32.6 g/dL (30-55) 11/04/24 11:52 RDW 13.1 % (12.1-15.1) 11/04/24 11:52 Plt Count 358 10^3/cmm (157-399) 11/04/24 11:52 MPV 10.2 fL (7.4-10.4) 11/04/24 11:52 Neut % (Auto) 62.3 % 11/04/24 11:52 Lymph % (Auto) 26.2 % 11/04/24 11:52 [place] % (Auto) 8.8 % 11/04/24 11:52 Eos % (Auto) 1.7 % 11/04/24 11:52 Baso % (Auto) 0.7 % 11/04/24 11:52 Neut # (Auto) 4.31 10^3/uL (1.8-7.7) 11/04/24 11:52 Lymph # (Auto) 1.8 10^3/uL (0.8-4.8) 11/04/24 11:52 [place] # (Auto) 0.6 10^3/uL (0.2-0.9) 11/04/24 11:52 Eos # (Auto) 0.1 10^3/uL (0.0-0.8) 11/04/24 11:52 Baso # (Auto) 0.1 10^3/uL (0.0-0.1) 11/04/24 11:52 Nucleated RBC % (auto) 0 % 11/04/24 11:52 Nucleated RBCs # 0.0 /100WBC 11/04/24 11:52 Sodium 138 mmol/L (136-145) 11/04/24 11:52 Potassium 3.9 mmol/L (3.5-5.1) 11/04/24 11:52 Chloride 102 mmol/L (98-107) 11/04/24 11:52 Carbon Dioxide 18 mmol/L (22-29) L 11/04/24 11:52 Anion Gap 21.9 (5-19) H 11/04/24 11:52 BUN 6 mg/dL (6-20) 11/04/24 11:52 Creatinine 0.9 mg/dL (0.5-0.9) 11/04/24 11:52 GFR Calculation 78.3 mL/min (90-130) L 11/04/24 11:52 Glucose 104 mg/dL (65-115) 11/04/24 11:52 Calculated Osmolality 284 mOsm/kg (285-295) L 11/04/24 11:52 Calcium 9.4 mg/dL (8.5-10.5) 11/04/24 11:52 Total Bilirubin 0.4 mg/dL (0.15-1.2) 11/04/24 11:52 AST 13 U/L (0-32) 11/04/24 11:52 ALT 18 U/L (0-33) 11/04/24 11:52 Alkaline Phosphatase 99 U/L (35-105) 11/04/24 11:52 Total Protein 7.9 g/dL (6.6-8.7) 11/04/24 11:52 Albumin 4.3 g/dL (3.5-5.2) 11/04/24 11:52 Globulin 3.6 g/dL (1.3-4.6) 11/04/24 11:52 HCG, Qual Negative (Negative) 11/04/24 11:52 Salicylates < 0.3 mg/dL (3-10) L 11/04/24 11:52 Urine Opiates Screen Negative ng/mL (Negative) 11/04/24 11:48 Acetaminophen < 5.0 ug/mL (10-30) L 11/04/24 11:52 Ur Barbiturates Screen Negative ng/mL (Negative) 11/04/24 11:48 Ur Phencyclidine Scrn Negative ng/mL (Negative) 11/04/24 11:48 Ur Amphetamines Screen Negative ng/mL (Negative) 11/04/24 11:48 U Benzodiazepines Scrn Negative ng/mL (Negative) 11/04/24 11:48 Urine Cocaine Screen Negative ng/mL (Negative) 11/04/24 11:48 U Marijuana (THC) Screen Positive ng/mL (Negative) H 11/04/24 11:48 Ethyl Alcohol < 10 mg/dL (0-10) 11/04/24 11:52 No radiology studies performed this visit Discharge Plan Discharge Patient Disposition: Admitted As Inpatient Admit Provider: Parth Michael Clinical Impression: Acute psychosis, Non-compliance, Suicidal ideation Condition: Stable Coding Level of Care Code ED Sales Officer for [facility] Fwd Documented by User: Marino Siu DO 11/09/24 06:07 HPI - Psych 2 General: Chief Complaint: Psychiatric Symptoms Stated Complaint: MHE Time Seen by Provider: 11/04/24 11:29 Related Data Previous Rx's ?Medication ?Instructions ?Recorded norgestimate 0.25 mg-ethinyl 1 tab PO DAILY #84 tabs 0 11/27/23 estradiol 35 mcg tablet (Sprintec (28)) olanzapine 5 mg disintegrating 5 mg PO Q4H PRN 5 tablet Agitation/Psychosis 30 days #30 tabs paliperidone palmitate 234 mg/1.5 234 mg (1.5 mL) IM Q 30D 30 days 11/03/24 mL intramuscular syringe #1.5 mL Allergies Allergy/AdvReac Type Severity Reaction Status Date / Time hydrocortisone Allergy rash Verified 10/11/24 10:42 haloperidol AdvReac Severe Unconscious Verified 10/11/24 10:42 Milk Containing Products AdvReac Severe ADR-Flatule Verified 10/11/24 10:42 (Dairy) (Milk Containing nce Products) PFSH ED 2 PFSH: Medical History Schizophrenia Insomnia H/O medication noncompliance Psychiatric disturbance Bipolar 1 disorder with psychosis History of use of contraceptive intrauterine device (IUD) Psychiatric care 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 Family History Other CAD (coronary artery disease) Diabetes Psychiatric illness Social History Smoking and tobacco/nicotine status: current every day tobacco/nicotine user (vapes) Quit status (tobacco/nicotine): has quit using Former quit date comment: recent Alcohol intake: former Substance/Drug Use: former Adopted: No Caregiver/support person: No Lives independently: Yes Household members: family Housing: House Marital status: Single Number of children: 0 Highest education level completed: High School Graduate Current occupational status: unemployed Pets and animals: Yes Pets & animals: cat(s), dog(s) and bird(s) Leisure activites: art and other Leisure activities details: Social Media Sexually active: No Do you think of yourself as: Straight/Heterosexual Current gender identity: Female Meagan/Roman Catholic: Congregational Special meagan needs: No Agree to transfusion: Yes Course 2 Vital Signs: Vital signs: Vital Signs Temperature 97.3 F L 11/08/24 20:24 Pulse Rate 83 11/08/24 20:24 Respiratory Rate 17 11/08/24 20:24 Blood Pressure 107/68 11/08/24 20:24 Pulse Oximetry 99 11/08/24 20:24 Oxygen Delivery Me thod Room Air 11/08/24 20:24 MDM - Psych Medical Decision Making Patient being admitted to NPU to Dr. Michael. She is placed on a 96-hour hold. Chart reviewed and patient discussed with midlevel. Agree with assessment and plan. Medical Records I reviewed the patient's medical records. Lab Data I reviewed the patient's lab results. 11/04/24 11:52 11/04/24 11:52 Laboratory Results WBC 6.92 10^3/uL (3.29-11.43) 11/04/24 11:52 RBC 5.26 10^6/uL (3.85-5.65) 11/04/24 11:52 Hgb 14.40 g/dL (11.27-16.99) 11/04/24 11:52 Hct 44.2 % (36-47) 11/04/24 11:52 MCV 84.0 fl (85-98) L 11/04/24 11:52 MCH 27.4 pg (27-33) 11/04/24 11:52 MCHC 32.6 g/dL (30-55) 11/04/24 11:52 RDW 13.1 % (12.1-15.1) 11/04/24 11:52 Plt Count 358 10^3/cmm (157-399) 11/04/24 11:52 MPV 10.2 fL (7.4-10.4) 11/04/24 11:52 Neut % (Auto) 62.3 % 11/04/24 11:52 Lymph % (Auto) 26.2 % 11/04/24 11:52 [place] % (Auto) 8.8 % 11/04/24 11:52 Eos % (Auto) 1.7 % 11/04/24 11:52 Baso % (Auto) 0.7 % 11/04/24 11:52 Neut # (Auto) 4.31 10^3/uL (1.8-7.7) 11/04/24 11:52 Lymph # (Auto) 1.8 10^3/uL (0.8-4.8) 11/04/24 11:52 [place] # (Auto) 0.6 10^3/uL (0.2-0.9) 11/04/24 11:52 Eos # (Auto) 0.1 10^3/uL (0.0-0.8) 11/04/24 11:52 Baso # (Auto) 0.1 10^3/uL (0.0-0.1) 11/04/24 11:52 Nucleated RBC % (auto) 0 % 11/04/24 11:52 Nucleated RBCs # 0.0 /100WBC 11/04/24 11:52 Sodium 138 mmol/L (136-145) 11/04/24 11:52 Potassium 3.9 mmol/L (3.5-5.1) 11/04/24 11:52 Chloride 102 mmol/L (98-107) 11/04/24 11:52 Carbon Dioxide 18 mmol/L (22-29) L 11/04/24 11:52 Anion Gap 21.9 (5-19) H 11/04/24 11:52 BUN 6 mg/dL (6-20) 11/04/24 11:52 Creatinine 0.9 mg/dL (0.5-0.9) 11/04/24 11:52 GFR Calculation 78.3 mL/min (90-130) L 11/04/24 11:52 Glucose 104 mg/dL (65-115) 11/04/24 11:52 Calculated Osmolality 284 mOsm/kg (285-295) L 11/04/24 11:52 Calcium 9.4 mg/dL (8.5-10.5) 11/04/24 11:52 Total Bilirubin 0.4 mg/dL (0.15-1.2) 11/04/24 11:52 AST 13 U/L (0-32) 11/04/24 11:52 ALT 18 U/L (0-33) 11/04/24 11:52 Alkaline Phosphatase 99 U/L (35-105) 11/04/24 11:52 Total Protein 7.9 g/dL (6.6-8.7) 11/04/24 11:52 Albumin 4.3 g/dL (3.5-5.2) 11/04/24 11:52 Globulin 3.6 g/dL (1.3-4.6) 11/04/24 11:52 HCG, Qual Negative (Negative) 11/04/24 11:52 Salicylates < 0.3 mg/dL (3-10) L 11/04/24 11:52 Urine Opiates Screen Negative ng/mL (Negative) 11/04/24 11:48 Acetaminophen < 5.0 ug/mL (10-30) L 11/04/24 11:52 Ur Barbiturates Screen Negative ng/mL (Negative) 11/04/24 11:48 Ur Phencyclidine Scrn Negative ng/mL (Negative) 11/04/24 11:48 Ur Amphetamines Screen Negative ng/mL (Negative) 11/04/24 11:48 U Benzodiazepines Scrn Negative ng/mL (Negative) 11/04/24 11:48 Urine Cocaine Screen Negative ng/mL (Negative) 11/04/24 11:48 U Marijuana (THC) Screen Positive ng/mL (Negative) H 11/04/24 11:48 Ethyl Alcohol < 10 mg/dL (0-10) 11/04/24 11:52 Discharge Plan Discharge Patient Disposition: Admitted As Inpatient Admit Provider: Parth Michael Clinical Impression: Acute psychosis, Non-compliance, Suicidal ideation Condition: Stable Coding Level of Care Code ED Sales Officer for Simone Arreguin
[2024-11-04 11:54] VITALS: BP 137/108; PULSE 88; RESP 17; TEMP 36.4; O2SAT 97
[2024-11-04 12:06] LABS: Basophils # 0.1 10^3/uL (0.0-0.1); Basophils % 0.7 %; Eosinophils # 0.1 10^3/uL (0.0-0.8); Eosinophils % 1.7 %; Hematocrit 44.2 % (36-47); Lymphocytes # 1.8 10^3/uL (0.8-4.8); Lymphocytes % 26.2 %; Mean Corpuscular HGB Conc 32.6 g/dL (30-55); Mean Corpuscular Hemoglobin 27.4 pg (27-33); Mean Platelet Volume 10.2 fL (7.4-10.4); Monocytes # 0.6 10^3/uL (0.2-0.9); Monocytes % 8.8 %; Neutrophils # 4.31 10^3/uL (1.8-7.7); Neutrophils % 62.3 %; Nucleated Red Blood Cells % 0 %; Platelet Count 358 10^3/cmm (157-399); Red Blood Count 5.26 10^6/uL (3.85-5.65); Red Cell Distribution Width 13.1 % (12.1-15.1); White Blood Count 6.92 10^3/uL (3.29-11.43)
[2024-11-04] MEDS: OLANZapine 10 mg VIAL IM (12:14)
[2024-11-04 12:18] LABS: HCG, Serum Qual Negative (Negative)
[2024-11-04 12:24] LABS: Alanine Aminotransferase 18 U/L (0-33); Albumin Level 4.3 g/dL (3.5-5.2); Alkaline Phosphatase 99 U/L (35-105); Anion Gap 21.9 (5-19); Aspartate Amino Transferase 13 U/L (0-32); Blood Urea Nitrogen 6 mg/dL (6-20); Calcium 9.4 mg/dL (8.5-10.5); Carbon Dioxide 18 mmol/L (22-29); Chloride 102 mmol/L (98-107); Globulin 3.6 g/dL (1.3-4.6); Glomerular Filtration Rate 78.3 mL/min (90-130); Glucose 104 mg/dL (65-115); Osmolality Calculated 284 mOsm/kg (285-295); Potassium 3.9 mmol/L (3.5-5.1); Sodium 138 mmol/L (136-145); Total Bilirubin 0.4 mg/dL (0.15-1.2); Total Protein 7.9 g/dL (6.6-8.7)
[2024-11-04 12:25] LABS: Acetaminophen < 5.0 ug/mL (10-30); Alcohol Level < 10 mg/dL (0-10); Salicylate < 0.3 mg/dL (3-10)
--- NOTE | 2024-11-04 12:28 | PC.PHAR ---
Pt has several meds on her external med list that were filled 08/08/24 for 30 day supply-filled only once. They are: Divalproex 500 er bid, Benztropine 1mg daily, Hydroxyzine Pamoate 25mg cap. 1-2 tid prn,and Ramelteon 8mg at hs prn. I did not add them to her med list since they are almost 90 days out.
[2024-11-04 12:31] LABS: Amphetamines Screen Urine Negative (Negative); Barbiturates Screen Urine Negative (Negative); Benzodiazepines Screen Urine Negative (Negative); Cocaine Screen Urine Negative (Negative); Opiate Screen Urine Negative (Negative); PCP Screen Urine Negative (Negative); THC Screen Urine Positive (Negative)
[2024-11-04 13:21] VITALS: BP 135/92; PULSE 84; O2SAT 98
[2024-11-04 13:32] VITALS: BP 124/83; PULSE 90; RESP 16; TEMP 36.9; O2SAT 99
[2024-11-04] MEDS: OLANZapine 5 mg ODT PO (17:59)
--- NOTE | 2024-11-04 18:00 | PC.NURSE ---
PRN ZYPREXA ZYDIS 5 MG GIVEN PO SUBLINGUAL PER PT C/O AGITATION/ANXIETY. SAYING TO STAFF I WANT TO BREAK THE WINDOW NOW WHILE LAUGHING TO STAFF. STAFF HAS TO REDIRECT OFTEN, PATIENT THEN TOOK A UNIT APPROVED PEN AND WAS PUTTING IT IN HER MOUTH FAKE CHEWING ON IT. TOOK MED WITHOUT INCIDENT. WILL CONT TO MONITOR
[2024-11-04] MEDS: nicotine 2 mg Gum BUCCAL ×2 (18:55→19:33)
[2024-11-04 22:00] VITALS: PULSE 107; RESP 18; TEMP 36.5; O2SAT 97
[2024-11-05 06:00] VITALS: BP 130/86; PULSE 119; RESP 18; O2SAT 96
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
[2024-11-05] MEDS: nicotine 2 mg Gum BUCCAL ×4 (08:25→18:06)
[2024-11-05] MEDS: ziprasidone hcl 40 mg Capsule PO ×2 (08:25→19:52)
[2024-11-05] MEDS: OLANZapine 5 mg ODT PO ×2 (09:07→17:55)
--- NOTE | 2024-11-05 09:27 | PC.NURSE ---
Morning assessment patient intrusive. patient saying such things as, Can I punch you . Patient asks, Are you snow white? Patient says that I need to kill myself, can I have a knife now Patient yelling in the halls, patient annoying other patients on the unit. Patient agreeable to taking PRN medication to help bring her down. Concern for her safety from other patients who are voicing irritability and frustration.
--- NOTE | 2024-11-05 09:56 | PC.NURSE ---
Patient at window, grabbed a paper and started to eat it. Stated that she likes to eat paper. Staff had patient give us paper; patient consented
[2024-11-05] MEDS: acetaminophen 325 mg Tablet 650 MG PO (10:37)
[2024-11-05] MEDS: hyDROXYzine 25 mg Capsule 50 MG PO ×2 (10:37→19:02)
--- NOTE | 2024-11-05 10:39 | PC.NURSE ---
Addendum entered by Linda Joyce RN 11/05/24 10:40: Administered vistaril 50mg PO to patient. Patient fixated on the show Once Upon a [employer] Original Note: Patient aggravating patients. Patient has been witnessed hitting herself in the head. Patient is redirectable for short periods of time.
[2024-11-05 14:00] VITALS: BP 135/76; PULSE 94; RESP 17; TEMP 36.5; O2SAT 97
--- NOTE | 2024-11-05 19:06 | PC.NURSE ---
Patient at window, asking staff random questions, such as Are you a man? Patient asking fellow patients questions as well, such as Have you ever lost a baby? and Have you ever had a diaper rash? This nurse administered vistaril 50mg PO to patient. After taking the medication, patient then put the paper water cup in her mouth and chewed on it. This nurse had to demand for patient to hand over the cup multiple times. Patient is loud and intrusive.
[2024-11-05] MEDS: LORazepam 2 mg Tablet PO (19:51)
[2024-11-05] MEDS: diphenhydrAMINE 50 mg Capsule PO (19:52)
[2024-11-05] MEDS: nicotine 4 mg lozenge MUCOUS MEM (20:55)
[2024-11-05 21:39] VITALS: BP 133/87; PULSE 93; RESP 18; TEMP 36.4; O2SAT 98
[2024-11-06 05:54] VITALS: BMI 40.8
[2024-11-06 06:00] VITALS: RESP 18
--- NOTE | 2024-11-06 06:26 | PC.NURSE ---
Patient refused vitals.Charge nurse notified.
[2024-11-06] MEDS: OLANZapine 5 mg ODT PO ×2 (09:17→20:32)
[2024-11-06] MEDS: acetaminophen 325 mg Tablet 650 MG PO (10:14)
[2024-11-06] MEDS: nicotine 2 mg Gum BUCCAL ×2 (10:18→14:54)
[2024-11-06] MEDS: paliperidone palmitate 234 mg Syringe IM (12:38)
[2024-11-06] MEDS: hyDROXYzine 25 mg Capsule 50 MG PO ×2 (12:41→21:35)
--- NOTE | 2024-11-06 13:36 | PC.NURSE ---
Invega 234mg/1.5mL Administered invega sustenna into patient's right deltoid muscle. No adverse reactions Lot: [id number] EXP: [id number]
[2024-11-06 14:00] VITALS: BP 135/87; PULSE 92; RESP 18; TEMP 36.4; O2SAT 95
[2024-11-06] MEDS: ziprasidone hcl 40 mg Capsule PO (15:12)
--- NOTE | 2024-11-06 17:17 | P.NPUPN_ITS ---
Subjective NPU 2 Subjective: 24-year-old female with psychosis admitt ed with bizarre delusions. The patient had received her second intramuscular Invega today 156 mg. Patient had reported that the underwriter mortgage loan of this note was Jocelyne browning and asked if my leg was cut off whether he would regenerate. The patient had felt that she was a reptile like creature and stated that if her leg did fall off that a new one would come and replacement of it. She had continued to relate to the underwriter mortgage loan of this note that her mother was responsible for her being here and stated that she was helpless without her. She had reported a history of noncompliance with her medication regimen. She had acknowledged the use of marijuana prior to admission. She continued to have brief periods of agitation requiring as needed medications. Mental Status Exam 2 MSE Comments: This is an obese versus morbidly obese white female in hospital scrubs with adequate grooming and limited eye contact. No abnormal movements except for mild psychomotor retardation. She was cooperative with exam in no acute distress. Speech was decreased in rate and volume. Mood described as okay. Her affect was mood incongruent and bizarre. Thought process was linear initially but derailed later. Thought content: Patient denied suicidal or homicidal ideation but did identify that she had some aggressive interactions with her mother. Bizarre delusions about being a reptile that could regenerate her body parts. Attention and concentration appeared mostly intact and memory was somewhat reliable but none were formally tested. Alert and oriented x3. Insight and judgment are impaired. impulse control is limited. Vitals/I&O/Wt Last Vital Signs Temp 97.5 F L 11/06/24 14:00 Pulse 92 11/06/24 14:00 Resp 18 11/06/24 14:00 BP 135/87 11/06/24 14:00 Pulse Ox 95 11/06/24 14:00 O2 Del Method Room Air 11/05/24 21:39 Weight last 48 hrs Weight 118.104 kg Data NPU 11/04/24 11:52 11/04/24 11:52 A&P Assessment and plan (1) Acute psychosis: (2) Suicidal ideation: (3) Drug overdose, intentional: (4) Bipolar 1 disorder: (5) Cannabis use disorder: (6) Parent-child relational problem: Plan This is a 24-year-old white female who was seen in the past with a history of significant mental health challenges including question of bipolar disorder, cluster B pathology, and significant suicidal tendencies, last seen in September of this year who presents appearing odd and bizarre but somewhat having a cluster B vibe to it due for her next injection. 1.? Continue current medication. Will make sure she has not gotten her long- acting injectable and restart as soon as possible. Consider other medications. 2.? Continue every 15 minute checks for safety. 3.? Encourage individual, group and milieu therapies. 4.? Encourage sober living treatment after discharge at the highest level of care to which she is willing to commit. 5. Obtain collateral information from outpatient team to understand what transpired between her September discharge when she left on the Invega and now when she presents odd and bizarre but likely due for her injection. Restart oral invega 3mg tonight. PDMP PDMP Reviewed: Not Reviewed Involuntary Hold Information 2 96 Hour Hold: 96 Hour Involuntary Admission: Yes 96 Hour Hold Ending Date: 11/10/24 96 Hour Hold Ending Time: 11:45 Other Hold: Hold End Date: 11/10/24 Attestations NPU 2 Medical Necessity Statement*: Inpatient hospitalization is medically necessary and the clinically appropriate intervention at this time. We will monitor medications and make changes as indicated. The patient's likely length of stay is 5-7 days. Coding Level of Care Code Acute Code for [facility] Fwd Diagnoses Acute psychosis F23 Suicidal ideation R45.851 Drug overdose, intentional T50.902A Bipolar 1 disorder F31.9 Cannabis use disorder F12.90 Parent-child relational problem Z62.820
[2024-11-06] MEDS: paliperidone ER 3 mg Tablet PO (18:17)
[2024-11-06] MEDS: nicotine 4 mg lozenge MUCOUS MEM ×2 (18:19→20:32)
[2024-11-06 20:16] VITALS: BP 119/72; PULSE 92; RESP 18; TEMP 36.3; O2SAT 99
[2024-11-06] MEDS: trazodone 50 mg Tablet PO ×2 (20:32→21:35)
[2024-11-07] MEDS: OLANZapine 5 mg ODT PO ×3 (05:18→20:12)
[2024-11-07 06:00] VITALS: RESP 18
--- NOTE | 2024-11-07 06:37 | PC.NURSE ---
Patient refused vitals. Nurse notified.
[2024-11-07] MEDS: hyDROXYzine 25 mg Capsule 50 MG PO (08:08)
[2024-11-07] MEDS: ziprasidone hcl 40 mg Capsule PO ×2 (08:08→20:12)
[2024-11-07] MEDS: paliperidone ER 3 mg Tablet PO (08:08)
[2024-11-07] MEDS: nicotine 4 mg lozenge MUCOUS MEM (08:09)
--- NOTE | 2024-11-07 08:18 | PC.NURSE ---
AT NURSES STATION TAKING MEDICATIONS. PT CONTINUES TO BE INTRUSIVE AND IMPULSIVE. CONTINUES TO MAKE ODD STATEMENTS TO STAFF SAYING ARE YOU ALIVE AM I ALIVE. PT WILL THEN LAUGH INAPPROPRIATELY THEN WALK AWAY. ANXIETY RATED 15/07 AND DEPRESSION 09/06. PT UNABLE TO FOLLOW DIRECTIONS AT TIMES. MAKES NON SPECIFIC SOMATIC COMPLAINTS THEN DISMISSES THEM STATING I DIDN'T SAY THAT.' DENIES PAIN. DENIES SI/HI AND AVH AT THIS TIME. AT TIMES IS OBSERVED RESPONDING TO EXTERNAL STIMULI. SUPPORT VOICED.
[2024-11-07] MEDS: nicotine 2 mg Gum BUCCAL ×2 (12:14→18:43)
[2024-11-07 14:00] VITALS: BP 129/89; PULSE 102; RESP 17; TEMP 36.4; O2SAT 97
--- NOTE | 2024-11-07 16:36 | P.NPUPN_ITS ---
Subjective NPU 2 Subjective: 24-year-old female with psychosis admitt ed with bizarre delusions. Patient had continued to appear confused. She had episodes where she was loudly proclaiming that her mother was somehow trying to harm her here despite her mother not being present. Patient had stated that she had felt like staff here was trying to harm her. She had not been aggressive on the milieu. She had isolated herself. She had reported difficulties with falling asleep. She stated that she did not like to take medications. She had stated that she would return home when she was ready. Mental Status Exam 2 MSE Comments: This is an obese versus morbidly obese white female in hospital scrubs with poor. grooming and limited eye contact. No abnormal movements except for mild psychomotor retardation. She was cooperative with exam in no acute distress. Speech was decreased in rate with brief periods of increase productivity and decreased volume. Mood described as allright. Her affect was mood incongruent and bizarre. Thought process was mostly linear. Thought content: Patient denied suicidal or homicidal ideation but did identify that she had some aggressive interactions with her mother. Bizarre delusions about staff here being her mother. Attention and concentration appeared mostly intact and memory was somewhat reliable but none were formally tested. Alert and oriented x3. Insight and judgment are impaired. impulse control is limited. Intelligence appeared commensurate with mild cognitive impairment. Vitals/I&O/Wt Last Vital Signs Temp 97.4 F L 11/06/24 20:16 Pulse 92 11/06/24 20:16 Resp 18 11/07/24 06:00 BP 119/72 11/06/24 20:16 Pulse Ox 99 11/06/24 20:16 O2 Del Method Room Air 11/06/24 20:16 Weight last 48 hrs Weight 118.104 kg Data NPU 11/04/24 11:52 11/04/24 11:52 A&P Assessment and plan (1) Acute psychosis: (2) Suicidal ideation: (3) Drug overdose, intentional: (4) Bipolar 1 disorder: (5) Cannabis use disorder: (6) Parent-child relational problem: Plan This is a 24-year-old white female who was seen in the past with a history of significant mental health challenges including question of bipolar disorder, cluster B pathology, and significant suicidal tendencies, last seen in September of this year who presents appearing odd and bizarre but somewhat having a cluster B vibe to it due for her next injection. 1.? Patient given her Paliperidone 234mg IM on 11/06/24. 2.? Continue every 15 minute checks for safety. 3.? Encourage individual, group and milieu therapies. 4.? Encourage sober living treatment after discharge at the highest level of care to which she is willing to commit. 5. Obtain collateral information from outpatient team to understand what transpired between her September discharge when she left on the Invega and now when she presents odd and bizarre but likely due for her injection. Continue oral invega 3mg daily. PDMP PDMP Reviewed: Not Reviewed Involuntary Hold Information 2 96 Hour Hold: 96 Hour Involuntary Admission: Yes 96 Hour Hold Ending Date: 11/10/24 96 Hour Hold Ending Time: 11:45 Other Hold: Hold End Date: 11/10/24 Attestations NPU 2 Medical Necessity Statement*: Inpatient hospitalization is medically necessary and the clinically appropriate intervention at this time. We will monitor medications and make changes as indicated. The patient's likely length of stay is 5-7 days. Coding Level of Care Code Acute Code for [facility] Fwd Diagnoses Acute psychosis F23 Suicidal ideation R45.851 Drug overdose, intentional T50.902A Bipolar 1 disorder F31.9 Cannabis use disorder F12.90 Parent-child relational problem Z62.820
[2024-11-07 19:54] VITALS: BP 139/91; PULSE 116; RESP 18; TEMP 36.3; O2SAT 98
[2024-11-07] MEDS: trazodone 50 mg Tablet PO (20:12)
--- NOTE | 2024-11-08 06:42 | PC.NURSE ---
pt resting vs not collected per charge resp 16
[2024-11-08] MEDS: paliperidone ER 3 mg Tablet PO (09:25)
[2024-11-08] MEDS: nicotine 2 mg Gum BUCCAL (09:25)
[2024-11-08] MEDS: ondansetron 4 MG Tablet PO ×2 (09:31→18:08)
[2024-11-08] MEDS: ziprasidone hcl 40 mg Capsule PO ×2 (09:46→21:18)
[2024-11-08] MEDS: hyDROXYzine 25 mg Capsule 50 MG PO (11:39)
[2024-11-08] MEDS: acetaminophen 325 mg Tablet 650 MG PO (11:40)
[2024-11-08 14:00] VITALS: BP 91/57; PULSE 90; RESP 18; TEMP 36.6; O2SAT 97
--- NOTE | 2024-11-08 18:11 | P.NPUPN_ITS ---
Subjective NPU 2 Subjective: 24-year-old female with psychosis admitt ed with bizarre delusions. The patient reported that she had signed to deal with the devil and did not know when she had done that. She had continued to express that the inspector automatic typewriter of this note was somehow able to access her mind and read her thoughts. She had stated that her mother could somehow also communicate with her while she was here in the hospital despite her not having been present. She had minimized the use of illicit drugs. She continued to report no side effects from her medications and asked the inspector automatic typewriter of this note what part of the universe was my eventual home. She had reported fatigue at times but other times had periods of increased energy appreciated on the unit. Mental Status Exam 2 MSE Comments: This is an obese versus morbidly obese white female in hospital scrubs with poor grooming and limited eye contact. No abnormal movements except for mild psychomotor retardation. She was cooperative with exam in no acute distress. Speech was decreased in rate with brief periods of increase productivity and decreased volume. Mood described as okay. Her affect was mood incongruent and bizarre. Thought process was mostly linear. Thought content: Patient denied suicidal or homicidal ideation but did identify that she had some aggressive interactions with her mother. Bizarre delusions with ideas of reference and thought broadcasting also appreciated. Attention and concentration appeared mostly intact and memory was somewhat reliable but none were formally tested. Alert and oriented x3. Insight and judgment are impaired. impulse control is limited. Intelligence appeared commensurate with mild cognitive impairment. Vitals/I&O/Wt Last Vital Signs Temp 97.9 F 11/08/24 14:00 Pulse 90 11/08/24 14:00 Resp 18 11/08/24 14:00 BP 91/57 11/08/24 14:00 Pulse Ox 97 11/08/24 14:00 O2 Del Method Room Air 11/07/24 19:54 Data NPU 11/04/24 11:52 11/04/24 11:52 A&P Assessment and plan (1) Acute psychosis: (2) Suicidal ideation: (3) Drug overdose, intentional: (4) Bipolar 1 disorder: (5) Cannabis use disorder: (6) Parent-child relational problem: Plan This is a 24-year-old white female who was seen in the past with a history of significant mental health challenges including question of bipolar disorder, cluster B pathology, and significant suicidal tendencies, last seen in September of this year who presents appearing odd and bizarre but somewhat having a cluster B vibe to it due for her next injection. 1.? Patient given her Paliperidone 234mg IM on 11/06/24. 2.? Continue every 15 minute checks for safety. 3.? Encourage individual, group and milieu therapies. 4.? Encourage sober living treatment after discharge at the highest level of care to which she is willing to commit. 5. Obtain collateral information from outpatient team to understand what transpired between her September discharge when she left on the Invega and now when she presents odd and bizarre but likely due for her injection. Continue oral invega 3mg daily. PDMP PDMP Reviewed: Not Reviewed Involuntary Hold Information 2 96 Hour Hold: 96 Hour Involuntary Admission: Yes 96 Hour Hold Ending Date: 11/10/24 96 Hour Hold Ending Time: 11:45 Other Hold: Hold End Date: 11/10/24 Attestations NPU 2 Medical Necessity Statement*: Inpatient hospitalization is medically necessary and the clinically appropriate intervention at this time. We will monitor medications and make changes as indicated. The patient's likely length of stay is 5-7 days. Coding Level of Care Code Acute Code for g Fwd Diagnoses Acute psychosis F23 Suicidal ideation R45.851 Drug overdose, intentional T50.902A Bipolar 1 disorder F31.9 Cannabis use disorder F12.90 Parent-child relational problem Z62.820
[2024-11-08 20:24] VITALS: BP 107/68; PULSE 83; RESP 17; TEMP 36.3; O2SAT 99
[2024-11-08] MEDS: trazodone 50 mg Tablet PO (21:18)
[2024-11-08] MEDS: OLANZapine 5 mg ODT PO (21:18)
--- NOTE | 2024-11-09 06:28 | PC.NURSE ---
vs not collected per charge resp 16
[2024-11-09] MEDS: paliperidone ER 3 mg Tablet PO (08:36)
[2024-11-09 14:00] VITALS: BP 131/82; PULSE 84; RESP 17; TEMP 36.6; O2SAT 96
--- NOTE | 2024-11-09 14:54 | P.NPUPN_ITS ---
Subjective NPU 2 Subjective: 24-year-old female with psychosis admitt ed with bizarre delusions. The patient reported that she was doing okay today. She had stated that she was feeling tired. She had stated that she did not wish to live at home. She stated that she wanted to go to a different place to live. She had reported adequate sleep. She continued to appear to engage in some attention seeking behavior often making unusual comments and attempt to gather the attention of staff. Mental Status Exam 2 MSE Comments: This is an obese versus morbidly obese white female in hospital scrubs with poor grooming and limited eye contact. No abnormal movements except for mild psychomotor retardation. She was cooperative with exam in no acute distress. Speech was decreased in rate with periods of normal productivity. Mood described as okay. Her affect was restricted. Thought process was mostly linear. Thought content: Patient denied suicidal or homicidal ideation. No delusional thinking endorsed. Attention and concentration appeared mostly intact and memory was somewhat reliable but none were formally tested. Alert and oriented x3. Insight and judgment are impaired. impulse control is limited. Intelligence appeared commensurate with mild cognitive impairment. Vitals/I&O/Wt Last Vital Signs Temp 97.3 F L 11/08/24 20:24 Pulse 83 11/08/24 20:24 Resp 17 11/08/24 20:24 BP 107/68 11/08/24 20:24 Pulse Ox 99 11/08/24 20:24 O2 Del Method Room Air 11/08/24 20:24 Data NPU 11/04/24 11:52 11/04/24 11:52 A&P Assessment and plan (1) Acute psychosis: (2) Suicidal ideation: (3) Drug overdose, intentional: (4) Bipolar 1 disorder: (5) Cannabis use disorder: (6) Parent-child relational problem: Plan This is a 24-year-old white female who was seen in the past with a history of significant mental health challenges including question of bipolar disorder, cluster B pathology, and significant suicidal tendencies, last seen in September of this year who presents appearing odd and bizarre but somewhat having a cluster B vibe to it due for her next injection. 1.? Patient given her Paliperidone 234mg IM on 11/06/24. 2.? Continue every 15 minute checks for safety. 3.? Encourage individual, group and milieu therapies. 4.? Encourage sober living treatment after discharge at the highest level of care to which she is willing to commit. 5. Obtain collateral information from outpatient team to understand what transpired between her September discharge when she left on the [place] and now when she presents odd and bizarre but likely due for her injection. Discontinue oral invega. PDMP PDMP Reviewed: Not Reviewed Involuntary Hold Information 2 96 Hour Hold: 96 Hour Involuntary Admission: Yes 96 Hour Hold Ending Date: 11/10/24 96 Hour Hold Ending Time: 11:45 Other Hold: Hold End Date: 11/10/24 Attestations NPU 2 Medical Necessity Statement*: Inpatient hospitalization is medically necessary and the clinically appropriate intervention at this time. We will monitor medications and make changes as indicated. The patient's likely length of stay is 1-2 days. Coding Level of Care Code Acute Code for g Fwd Diagnoses Acute psychosis F23 Suicidal ideation R45.851 Drug overdose, intentional T50.902A Bipolar 1 disorder F31.9 Cannabis use disorder F12.90 Parent-child relational problem Z62.820
[2024-11-09] MEDS: hyDROXYzine 25 mg Capsule 50 MG PO (15:27)
--- NOTE | 2024-11-09 16:17 | PC.NURSE ---
Addendum entered and electronically signed by Yesenia Bradley RN 11/09/24 16:57: With security and HS present, we went through the patient's room to make sure there were no other pills hidden. Nothing of importance was found in the room. Original Note: Patient came to nurses station asking for something for anxiety. Vistaril 50mg given PO. approximately 20 minutes later a different patient came to the nurses station and said miranda gave me a pill to take, and i took it . This entertainment reporter went to speak to Miranda. Miranda states she did not give her a pill. Upon further questions, miranda states that she coughed up one of the 2 pills that she took. States she placed the pill in the windowsill. States the other patient came in, grabbed the pill and took it. Instructed patient that if that ever happens again; she needs the pill directly to the staff and not leave it out in her room. Patient verbalizes understanding.
--- NOTE | 2024-11-09 20:17 | PC.NURSE ---
IN BED RESTING. OBSERVED SPEAKING TO UNSEEN OTHERS. DENIES PAIN. DENIES SI/HI AND AVH AT THIS TIME. RATES ANXIETY AND DEPRESSION 04/06. PT IS TO HAVE GEODON 40 MG AND TRAZODONE 50 MG. PT CONTINUES TO BE IMPULSIVE AND INTRUSIVE AT TIMES. SUPPORT VOICED.
[2024-11-09] MEDS: trazodone 50 mg Tablet PO ×2 (20:21→23:16)
[2024-11-09] MEDS: ziprasidone hcl 40 mg Capsule PO (20:21)
[2024-11-09 20:30] VITALS: BP 94/56; PULSE 78; RESP 16; TEMP 36.5; O2SAT 98
[2024-11-09] MEDS: OLANZapine 5 mg ODT PO (23:16)
[2024-11-10 06:00] VITALS: BP 102/65; PULSE 80; RESP 20; TEMP 36.7; O2SAT 98
[2024-11-10] MEDS: acetaminophen 325 mg Tablet 650 MG PO (12:44)
[2024-11-10 13:06] VITALS: BP 102/65; PULSE 80; RESP 20; TEMP 36.6; O2SAT 98
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
== END 2024-11-10 16:50 | disposition home or self-care (01) | DRG 885 ==
LOC: ER 12:27 → NP 13:11
PROVIDERS: Admitting Provider Psychiatry & Neurology Psychiatry; Emergency Provider Physician Assistant; PCP Family Medicine; Visit Provider Psychiatry & Neurology Psychiatry
DX: F20.9 Schizophrenia, unspecified (principal); R45.851 Suicidal ideations; Z68.41 Body mass index [BMI] 40.0-44.9, adult; F31.9 Bipolar disorder, unspecified; F12.90 Cannabis use, unspecified, uncomplicated; Z63.8 Other specified problems related to primary support group; Z62.820 Parent-biological child conflict; Z91.51 Personal history of suicidal behavior; E66.01 Morbid (severe) obesity due to excess calories; G47.00 Insomnia, unspecified; Z97.5 Presence of (intrauterine) contraceptive device; F10.11 Alcohol abuse, in remission; G31.84 Mild cognitive impairment of uncertain or unknown etiology
CPT/HCPCS: 36415; 80053; 80306; 80307; 84703; 85025; 96372; 97150; 97165; 99285; J3490; Q0162; Q0163

== ENCOUNTER → 2024-12-12 11:03 | Outpatient (BNVA) | payer BC, SELFPAY ==
[2024-03-22 13:38] VITALS: BP 133/89; BMI 42.1
== END ==
PROVIDERS: PCP Family Medicine; Visit Provider Family Medicine
DX: Z12.4 Encounter for screening for malignant neoplasm of cervix (principal)
CPT/HCPCS: 87624

== ENCOUNTER → 2024-12-15 11:23 | Outpatient (BNVA) | payer BC, SELFPAY ==
[2024-03-22 13:38] VITALS: BP 133/89; BMI 42.1
== END ==
PROVIDERS: PCP Family Medicine; Referring Provider Family Medicine; Visit Provider Family Medicine
DX: R06.02 Shortness of breath (principal)
CPT/HCPCS: 71046

== ENCOUNTER 2025-01-11 22:11 | Inpatient (IN) | payer BC, SELFPAY ==
[2024-03-22 13:38] VITALS: BP 133/89; BMI 42.1
[2025-01-11 22:11] VITALS: BP 113/72; PULSE 66; RESP 18; TEMP 36.7; O2SAT 97; BMI 39.1
--- NOTE | 2025-01-11 22:35 | PC.NURSE ---
96 Hour Involuntary Hold Patient Rights have been reviewed with the patient and a copy of the same has been given to her. Agency Trainer Alyssa was present at bedside at the time of presentation of Rights.
[2025-01-11 22:38] LABS: Basophils # 0.1 10^3/uL (0.0-0.1); Basophils % 0.6 %; Eosinophils # 0.2 10^3/uL (0.0-0.8); Eosinophils % 1.4 %; Hematocrit 44.7 % (36-47); Mean Corpuscular HGB Conc 32.2 g/dL (30-55); Mean Corpuscular Hemoglobin 27.4 pg (27-33); Mean Corpuscular Volume 85.1 fl (85-98); Mean Platelet Volume 10.8 fL (7.4-10.4); Monocytes # 0.7 10^3/uL (0.2-0.9); Neutrophils # 6.49 10^3/uL (1.8-7.7); Neutrophils % 61.7 %; Nucleated Red Blood Cells % 0 %; Platelet Count 305 10^3/cmm (157-399); Red Blood Count 5.25 10^6/uL (3.85-5.65); Red Cell Distribution Width 14.3 % (12.1-15.1)
[2025-01-11 22:42] LABS: Bilirubin Urine 1+ (Negative); Blood Urine Negative (Negative); Glucose Urine UA Negative (Normal); Ketones Urine Trace (Negative); Leukocyte Esterase Urine 1+ (Negative); Nitrate Urine Negative (Negative); Protein Urine 1+ (Negative); Urine Appearance Cloudy (CLEAR); pH Urine 5.5 (5-7)
[2025-01-11 22:44] LABS: HCG Qualitative Urine. Negative (Negative)
[2025-01-11 22:47] LABS: Add Urine Microscopic? YES; Bacteria Urine 4+ /hpf; Hyaline Casts Urine 7.01 /lpf; Squamous Epithelial Cell Urine 21-50 /hpf (0-5); Universal Test for UA Present (0); WBC Urine 51-100 /hpf (0-5)
[2025-01-11 22:48] LABS: Amphetamines Screen Urine Negative (Negative); Barbiturates Screen Urine Negative (Negative); Benzodiazepines Screen Urine Negative (Negative); Cocaine Screen Urine Negative (Negative); Opiate Screen Urine Negative (Negative); PCP Screen Urine Negative (Negative); THC Screen Urine Positive (Negative)
[2025-01-11 22:54] LABS: Alanine Aminotransferase 19 U/L (0-33); Albumin Level 4.3 g/dL (3.5-5.2); Alkaline Phosphatase 86 U/L (35-105); Anion Gap 17.8 (5-19); Aspartate Amino Transferase 14 U/L (0-32); Blood Urea Nitrogen 3 mg/dL (6-20); Calcium 9.3 mg/dL (8.5-10.5); Carbon Dioxide 21 mmol/L (22-29); Chloride 105 mmol/L (98-107); Globulin 3.2 g/dL (1.3-4.6); Glomerular Filtration Rate 89.7 mL/min (90-130); Glucose 86 mg/dL (65-115); Osmolality Calculated 286 mOsm/kg (285-295); Potassium 3.8 mmol/L (3.5-5.1); Sodium 140 mmol/L (136-145); Total Bilirubin 0.8 mg/dL (0.15-1.2); Total Protein 7.5 g/dL (6.6-8.7)
[2025-01-11 22:57] LABS: Alcohol Level < 10 mg/dL (0-10); Salicylate < 0.3 mg/dL (3-10)
[2025-01-11 22:58] LABS: Specific Gravity, Urine 1.041 (1.005-1.030); UA Slide Review UA Slide Review Perf; Urine Color Dark Yellow (Yellow)
[2025-01-11 22:59] LABS: Add Urine Culture? No
[2025-01-11] MEDS: OLANZapine 10 mg ODT PO (23:05)
--- NOTE | 2025-01-12 00:45 | PC.NURSE ---
RN asked MD about urine sample. MD verbal confirmation there is no signs of infection and is likely d/t contamination.
[2025-01-12 00:48] VITALS: BP 135/80; PULSE 71; RESP 18; TEMP 36.8; O2SAT 99
--- NOTE | 2025-01-12 01:25 | PC.ADMIT ---
[email or web address] Laura Lucas Admission Note: The patient,Miranda Fong,24 y/o, was given written information regarding hospital policies, unit procedures and contact persons. Patient's smoking status: current every day smoker. Vital Signs - 8 hr 01/11/25 22:11 01/12/25 00:51 Temperature 98.0 F Pulse Rate 66 Respiratory Rate 18 Blood Pressure 113/72 Pulse Oximetry 97 Oxygen Delivery Method Room Air Room Air Pt. came into ER stating she was suicidal. Placed on 96 hr hold. From report given pt. is calm and cooperative. Signee asked pt. what was going on to bring her in tonight and she stated she was hiding in the bathroom, when asked why she stated she felt safe in the BR. She was afraid of the invisible people they like to steal from her. Pt. was asked if she had relationship problems and she stated yes, she has an invisible boyfriend, but he doesn't talk much, basically he tells her what to do. Pt. states she lives in a mobile home on the same property as her mother, but there is no electricity or running water. Pt. stated she does not deal with the money aspect of things her mother does. Pt. was tired during the assessment and stated she just wanted to go to sleep.
--- NOTE | 2025-01-12 05:23 | ED.C_ITS ---
HPI - Psych 2 General: Chief Complaint: Psychiatric Symptoms Stated Complaint: si Time Seen by Provider: 01/11/25 22:16 History of Present Illness: Patient is a 24-year-old female brought to the emergency room for psychiatric help. She states that she hears voices constantly telling her mean things. Though she denies overt SI or HI, she states that her Invega shots only last for roughly 2 weeks after which time she starts to hear voices more and more frequently. She states that she is having trouble deciding what is real and what is hallucinatory. She denies fever, chest pain, shortness of breath, lightheadedness, visual disturbance, abdominal pain, nausea, vomiting, and has no other acute complaints. Related Data Home Medications ?Medication ?Instructions ?Recorded ?Confirmed paliperidone palmitate 234 mg/1.5 See Rx Instructions .Route .COMPLEX 01/12/25 01/12/25 mL intramuscular syringe (Invega Sustenna) Previous Rx's ?Medication ?Instructions ?Recorded norgestimate 0.25 mg-ethinyl 1 tab PO DAILY #84 tabs 0 11/27/23 estradiol 35 mcg tablet (Sprintec (28)) paliperidone palmitate 234 mg/1.5 234 mg (1.5 mL) IM Q 30D 30 days 11/10/24 mL intramuscular syringe #1.5 mL paliperidone 3 mg tablet,extended 3 mg PO DAILY PRN ps ychosis or 01/02/25 release 24 hr (Invega) agitation #30 tabs Allergies Allergy/AdvReac Type Severity Reaction Status Date / Time hydrocortisone Allergy rash Verified 01/11/25 22:34 haloperidol AdvReac Severe Unconscious Verified 01/11/25 22:34 Milk Containing Products AdvReac Severe ADR-Flatule Verified 01/11/25 22:34 (Dairy) (Milk Containing nce Products) [facility] ED 2 PFSH: Medical History Schizophrenia Insomnia H/O medication noncompliance Psychiatric disturbance Bipolar 1 disorder with psychosis History of use of contraceptive intrauterine device (IUD) Psychiatric care 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 Family History Other CAD (coronary artery disease) Diabetes Psychiatric illness Social History (Reviewed 11/04/24 @ 11:50 by SANYA Chavez Smoking and tobacco/nicotine status: current every day tobacco/nicotine user Quit status (tobacco/nicotine): has quit using Former quit date comment: recent Alcohol intake: former Substance/Drug Use: former Adopted: No Caregiver/support person: No Lives independently: Yes Household members: family Housing: House Marital status: Single Number of children: 0 Highest education level completed: High School Graduate Current occupational status: unemployed Pets and animals: Yes Pets & animals: cat(s), dog(s) and bird(s) Leisure activites: art and other Leisure activities details: Social Media Sexually active: No Do you think of yourself as: Straight/Heterosexual Current gender identity: Female Meagan/Catholic: Anabaptist Special meagan needs: No Agree to transfusion: Yes Female Reproductive History: Date of last menstrual period: 12/28/24 S pontaneous abortions: No Physical Exam 2 Const: COMMON NORMALS: no acute distress, patient oriented x3 and alert HENMT: COMMON NORMALS: normocephalic and atraumatic HEAD & SCALP: n ormocephalic and atraumatic Eye: COMMON NORMALS: Equal, round and reactive pupils present, EOMs intact bilaterally and no scleral icterus PUPIL: Yes Equal, round and reactive pupils present Resp: COMMON NORMALS: normal respiratory effort and No retractions Cardio: COMMON NORMALS: regular rate, regular rhythm and No murmurs present (Cardio) RATE: regular rate RHYTHM: regular rhythm GI: COMMON NORMALS: Normal to inspection, nondistended, normoactive bowel sounds present, Soft to palpation and non-tender PALPATION: Yes Soft to palpation Neuro: COMMON NORMALS: patient oriented x3 SENSORIUM/ORIENTATION: Yes alert Psych: OTHER: Admits auditory hallucinations and history of self-harm. Denies current SI or HI. Skin: COMMON NORMALS: no rashes or lesions noted GENERAL SKIN EXAM: no rashes or lesions noted Course 2 Vital Signs: Vital signs: Vital Signs Temperature 98.3 F 01/12/25 00:48 Pulse Rate 71 01/12/25 00:48 Respiratory Rate 18 01/12/25 00:48 Blood Pressure 135/80 01/12/25 00:48 Pulse Oximetry 99 01/12/25 00:48 Oxygen Delivery Me thod Room Air 01/12/25 00:51 MDM - Psych Medical Decision Making In summary, patient is a 24-year-old female who would like to be admitted for stabilization and consideration for medication optimization. She does not feel that her Invega is treating her symptoms sufficiently. Symptoms improved with Zyprexa. She will be admitted to the inpatient psychiatric unit for further observation care. Lab Data 01/11/25 22:32 01/11/25 22:32 Laboratory Results WBC 10.50 10^3/uL (3.29-11.43) 01/11/25: RBC 5.25 10^6/uL (3.85-5.65) 01/11/25: Hgb 14.40 g/dL (11.27-16.99) 01/11/25: Hct 44.7 % (36-47) 01/11/25: MCV 85.1 fl (85-98) 01/11/25: MCH 27.4 pg (27-33) 01/11/25: MCHC 32.2 g/dL (30-55) 01/11/25: RDW 14.3 % (12.1-15.1) 01/11/25: Plt Count 305 10^3/cmm (157-399) 01/11/25: MPV 10.8 fL (7.4-10.4) H 01/11/25 22: Neut % (Auto) 61.7 % 01/11/25: Lymph % (Auto) 29.0 % 01/11/25: [place] % (Auto) 7.0 % 01/11/25: Eos % (Auto) 1.4 % 01/11/25: Baso % (Auto) 0.6 % 01/11/25: Neut # (Auto) 6.49 10^3/uL (1.8-7.7) 01/11/25: Lymph # (Auto) 3.0 10^3/uL (0.8-4.8) 01/11/25: [place] # (Auto) 0.7 10^3/uL (0.2-0.9) 01/11/25 22: Eos # (Auto) 0.2 10^3/uL (0.0-0.8) 01/11/25 22:32 Baso # (Auto) 0.1 10^3/uL (0.0-0.1) 01/11/25 22:32 Nucleated RBC % (auto) 0 % 01/11/25 22: Nucleated RBCs # 0.0 /100WBC 01/11/25 22:32 Sodium 140 mmol/L (136-145) 01/11/25 22:32 Potassium 3.8 mmol/L (3.5-5.1) 01/11/25 22:32 Chloride 105 mmol/L (98-107) 01/11/25 22:32 Carbon Dioxide 21 mmol/L (22-29) L 01/11/25 22:32 Anion Gap 17.8 (5-19) 01/11/25 22:32 BUN 3 mg/dL (6-20) L 01/11/25 22:32 Creatinine 0.8 mg/dL (0.5-0.9) 01/11/25 22:32 GFR Calculation 89.7 mL/min (90-130) L 01/11/25 22:32 Glucose 86 mg/dL (65-115) 01/11/25 22:32 Calculated Osmolality 286 mOsm/kg (285-295) 01/11/25 22:32 Calcium 9.3 mg/dL (8.5-10.5) 01/11/25 22:32 Total Bilirubin 0.8 mg/dL (0.15-1.2) 01/11/25 22:32 AST 14 U/L (0-32) 01/11/25 22: ALT 19 U/L (0-33) 01/11/25 22:32 Alkaline Phosphatase 86 U/L (35-105) 01/11/25 22:32 Total Protein 7.5 g/dL (6.6-8.7) 01/11/25 22:32 Albumin 4.3 g/dL (3.5-5.2) 01/11/25 22: Globulin 3.2 g/dL (1.3-4.6) 01/11/25 22:32 HCG, Qual Negative (Negative) 01/11/25 22:20 Urine Color Dark yellow (Yellow) A 01/11/25 22:20 Urine Appearance Cloudy (CLEAR) A 04/16/25 22:20 Urine pH 5.5 (5-7) 01/11/25 22:20 Ur Specific [place] 1.041 (1.005-1.030) H 01/11/25 22:20 Urine Protein 1+ (Negative) A 01/11/25 22:20 Urine Glucose (UA) Negative (Normal) 01/11/25 22:20 Urine Ketones Trace (Negative) 01/11/25 22:20 Urine Blood Negative (Negative) 01/11/25 22:20 Urine Nitrate Negative (Negative) 01/11/25:20 Urine Bilirubin 1+ (Negative) H 01/11/25 22:20 Urine Urobilinogen 1.0 mg/dL (Negative) 01/11/25 22:20 Ur Leukocyte Esterase 1+ (Negative) A 01/11/25:20 Urine RBC 3-5 /hpf (0-2) 01/11/25 22:20 Urine WBC 51-100 /hpf (0-5) H 01/11/25 22:20 Ur Squamous Epith Cells 21-50 /hpf (0-5) H 01/11/25 22:20 Amorphous Sediment Not Reportable 01/11/25 22:20 Urine Bacteria 4+ /hpf (NONE) H 01/11/25 22:20 Hyaline Casts 7.01 /lpf 01/11/25 22:20 Salicylates < 0.3 mg/dL (3-10) L 01/11/25 22:32 Urine Opiates Screen Negative ng/mL (Negative) 01/11/25 22:20 Acetaminophen 8.0 ug/mL (10-30) L 01/11/25 22:32 Ur Barbiturates Screen Negative ng/mL (Negative) 01/11/25 22:20 Ur Phencyclidine Scrn Negative ng/mL (Negative) 01/11/25 22:20 Ur Amphetamines Screen Negative ng/mL (Negative) 01/11/25 22:20 U Benzodiazepines Scrn Negative ng/mL (Negative) 01/11/25 22:20 Urine Cocaine Screen Negative ng/mL (Negative) 01/11/25 22:20 U Marijuana (THC) Screen Positive ng/mL (Negative) H 01/11/25 22:20 Ethyl Alcohol < 10 mg/dL (0-10) 01/11/25 22:32 No radiology studies performed this visit Discharge Plan Discharge Patient Disposition: Admitted As Inpatient Admit Provider: Parth Michael Clinical Impression: Auditory hallucinations Condition: Stable Coding Level of Care Code ED Senior Benefits Specialist for Simone Arreguin
[2025-01-12 06:00] VITALS: BP 109/70; PULSE 55; RESP 16; O2SAT 96
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
--- NOTE | 2025-01-12 11:21 | PC.NURSE ---
nutrition called about lunch menu today containing milk product (gravy), this air pollution control engineer spoke with pt who stated she was no longer allergic to milk anymore. when this blog writer ask pt what gravy did to her pt stated it will hurt my stomach but i want good food while i am here so it doesnt bother me anymore.
[2025-01-12 14:00] VITALS: BP 87/52; PULSE 65; RESP 16; O2SAT 98
[2025-01-12] MEDS: quetiapine 100 mg Tablet 200 MG PO (20:44)
[2025-01-12] MEDS: OLANZapine 5 mg ODT PO (20:48)
[2025-01-12 21:16] VITALS: BP 118/64; PULSE 60; RESP 16; TEMP 37.1; O2SAT 96
[2025-01-13 06:00] VITALS: BP 82/55; PULSE 56; RESP 17; TEMP 36.5; O2SAT 96
[2025-01-13 13:59] VITALS: BP 111/69; PULSE 73; RESP 16; TEMP 36.6; O2SAT 98
--- NOTE | 2025-01-13 15:06 | P.NPUPN_ITS ---
Subjective NPU 2 Subjective: Patient presented today reporting that things are going okay. She reports that the brunt of her difficulty is trying to manage her mother's expectations. She reports that she tries to keep her place together but that her mother calls her all the time to come clean her place up. She reports that some of these additional pressures and burdens from her mother to be overwhelming. She talked about the fact that she feels like her medication wears off in the third week after her injection. Otherwise she denied any side effects of medication. Mental Status Exam 2 MSE Comments: This is an obese versus morbidly obese white female in hospital scrubs with poor grooming and no eye contact. No abnormal movements except for moderate psychomotor agitation. She was Uncooperative with exam in moderate distress. Speech was diminshed in rate, and diminished in volume today. Mood described as not so good. Affect:blunted. Thought process was nonlinear and disorganized. Thought content: She endorsed suicidal ideation, and denied homicidal ideation. She endorsed auditory hallucinations and did appear to be responding to internal stimuli. Attention and concentration appeared impaired and memory was unreliable but none were formally tested. Alert and oriented x [address]. Insight, judgment and impulse control are all impaired. Vitals/I&O/Wt Last Vital Signs Temp 97.9 F 01/13/25 13:59 Pulse 73 01/13/25 13:59 Resp 16 01/13/25 13:59 BP 111/69 01/13/25 13:59 Pulse Ox 98 01/13/25 13:59 O2 Del Method Room Air 01/13/25 13:59 Weight last 48 hrs Weight 113.398 kg Data NPU 01/11/25 22:32 01/11/25 22:32 A&P Assessment and plan (1) Schizophrenia: (2) Suicidal ideation: (3) Drug overdose, intentional: (4) Bipolar 1 disorder: (5) Cannabis use disorder: (6) Parent-child relational problem: Plan This is a 24-year-old white female who was seen in the past with a history of significant mental health challenges including likely schizophrenia with etiology likely contributed by substance abuse currently compliant with invega but still appearing psychotic. 1.? Patient was given her Paliperidone 234mg IM on 01/04/25. Will add Seroquel 200mg to target psychosis. May need to consider making the Invega injection every 3 weeks. 2.? Continue every 15 minute checks for safety. 3.? Encourage individual, group and milieu therapies. 4.? Encourage sober living treatment after discharge at the highest level of care to which she is willing to commit. 5. Will continue to gather collateral information. PDMP PDMP Reviewed: Not Reviewed Involuntary Hold Information 2 Hold Status: Legal Status: 96 Hour Hold Date/Time Hold Expires: 01/17/25 @ 22:30 96 Hour Hold: 96 Hour Involuntary Admission: Yes Other Hold: Hold End Date: 11/10/24 Attestations NPU 2 Medical Necessity Statement*: Inpatient hospitalization is medically necessary and the clinically appropriate intervention at this time. We will initiate/monitor medications and make changes as indicated.? The patient?s likely length of stay is 5-7 days. ? Coding Level of Care Code Acute Code for g Fwd Diagnoses Schizophrenia F20.9 Suicidal ideation R45.851 Drug overdose, intentional T50.902A Bipolar 1 disorder F31.9 Cannabis use disorder F12.90 Parent-child relational problem Z62.820
[2025-01-13] MEDS: blistex lip oint 7 gm Tube 1 APPLIC TOPICAL (16:54)
[2025-01-13] MEDS: quetiapine 100 mg Tablet 200 MG PO (19:51)
[2025-01-13] MEDS: OLANZapine 5 mg ODT PO (20:47)
[2025-01-13 21:08] VITALS: BP 98/57; PULSE 49; RESP 17; TEMP 36.7; O2SAT 98
[2025-01-14 06:00] VITALS: BP 87/53; PULSE 53; RESP 16; O2SAT 99
[2025-01-14 14:00] VITALS: BP 107/70; PULSE 122; RESP 17; TEMP 36.9; O2SAT 98
--- NOTE | 2025-01-14 14:09 | P.NPUPN_ITS ---
Subjective NPU 2 Subjective: Patient presented today reporting that things are going better. She has been able to focus better she reports and has been reading this book. She reports that some of her irritability is decreasing which makes her feel optimistic. She denied any side effects of the medication. Mental Status Exam 2 MSE Comments: This is an obese versus morbidly obese white female in hospital scrubs with poor grooming and no eye contact. No abnormal movements except for moderate psychomotor agitation. She was more cooperative with exam in mild distress. Speech was more normal in rate, and diminished in volume today. Mood described as a little better. Affect:blunted. Thought process was nonlinear and disorganized. Thought content: She endorsed suicidal ideation, and denied homicidal ideation. She endorsed auditory hallucinations and did appear to be responding to internal stimuli. Attention and concentration appeared impaired and memory was unreliable but none were formally tested. Alert and oriented x [address]. Insight, judgment and impulse control are all impaired. Vitals/I&O/Wt Last Vital Signs Temp 98.0 F 01/13/25 21:08 Pulse 53 L 01/14/25 06:00 Resp 16 01/14/25 06:00 BP 87/53 01/14/25 06:00 Pulse Ox 99 01/14/25 06:00 O2 Del Method Room Air 01/13/25 13:59 Data NPU 01/11/25 22:32 01/11/25 22:32 A&P Assessment and plan (1) Schizophrenia: (2) Suicidal ideation: (3) Drug overdose, intentional: (4) Bipolar 1 disorder: (5) Cannabis use disorder: (6) Parent-child relational problem: Plan This is a 24-year-old white female who was seen in the past with a history of significant mental health challenges including likely schizophrenia with etiology likely contributed by substance abuse currently compliant with invega but still appearing psychotic. 1.? Patient was given her Paliperidone 234mg IM on 01/04/25. Will add Seroquel 200mg to target psychosis. May need to consider making the Invega injection every 3 weeks. 2.? Continue every 15 minute checks for safety. 3.? Encourage individual, group and milieu therapies. 4.? Encourage sober living treatment after discharge at the highest level of care to which she is willing to commit. 5. Will continue to gather collateral information. PDMP PDMP Reviewed: Not Reviewed Involuntary Hold Information 2 Hold Status: Legal Status: 96 Hour Hold Date/Time Hold Expires: 01/17/25 @ 22:30 96 Hour Hold: 96 Hour Involuntary Admission: Yes Other Hold: Hold End Date: 11/10/24 Attestations NPU 2 Medical Necessity Statement*: Inpatient hospitalization is medically necessary and the clinically appropriate intervention at this time. We will initiate/monitor medications and make changes as indicated.? The patient?s likely length of stay is 4-6 days. ? Coding Level of Care Code Acute Code for g Fwd Diagnoses Schizophrenia F20.9 Suicidal ideation R45.851 Drug overdose, intentional T50.902A Bipolar 1 disorder F31.9 Cannabis use disorder F12.90 Parent-child relational problem Z62.820
[2025-01-14] MEDS: OLANZapine 5 mg ODT PO (16:25)
[2025-01-14] MEDS: quetiapine 100 mg Tablet 200 MG PO (20:16)
[2025-01-14 21:11] VITALS: BP 117/79; PULSE 66; RESP 18; TEMP 36.3; O2SAT 97
[2025-01-15 06:00] VITALS: BP 110/70; PULSE 50; RESP 16; O2SAT 99
--- NOTE | 2025-01-15 07:45 | P.NPUPN_ITS ---
Subjective NPU 2 Subjective: Patient presented today reporting that things are going fine. She reports that she lives in a tiny house. But does not have water and that the electricity is through an extension to another building and is only 1 outlet. She reports that she is working with Housing [employer]'s and is trying to get into a more permanent place but that she likes living alone to some degree. She lives in very close proximity to multiple family members on independent homes on the property. She reports that she is feeling better and is hopeful that she will be able to leave when the 96-hour hold is up. We discussed that being a possibility and agreed to work with the social work team to look at follow-up appointments and trying to continue to move her towards a greater independence and less inpatient stays. She denies any side effects of the medication. Mental Status Exam 2 MSE Comments: This is an obese versus morbidly obese white female in hospital scrubs with poor grooming and no eye contact. No abnormal movements except for mild psychomotor agitation. She was cooperative with exam in mild distress. Speech was more normal in rate, and diminished in volume today. Mood described as a little better. Affect:blunted. Thought process was nonlinear and disorganized. Thought content: She endorsed suicidal ideation, and denied homicidal ideation. She endorsed auditory hallucinations and did appear to be responding to internal stimuli. Attention and concentration appeared impaired and memory was unreliable but none were formally tested. Alert and oriented x [address]. Insight, judgment and impulse control are all impaired. Vitals/I&O/Wt Last Vital Signs Temp 97.3 F L 01/14/25 21:11 Pulse 50 L 01/15/25 06:00 Resp 16 01/15/25 06:00 BP 110/70 01/15/25 06:00 Pulse Ox 99 01/15/25 06:00 O2 Del Method HAG 01/15/25 06:00 01/14/25 01/15/25 01/15/25 22:59 06:59 14:59 Intake Total 0 / 0 Balance 0 / 0 Weight last 48 hrs Weight 115.575 kg Data NPU 01/11/25 22:32 01/11/25 22:32 A&P Assessment and plan (1) Schizophrenia: (2) Suicidal ideation: (3) Drug overdose, intentional: (4) Bipolar 1 disorder: (5) Cannabis use disorder: (6) Parent-child relational problem: Plan This is a 24-year-old white female who was seen in the past with a history of significant mental health challenges including likely schizophrenia with etiology likely contributed by substance abuse currently compliant with invega but still appearing psychotic. 1.? Patient was given her Paliperidone 234mg IM on 01/04/25. Will add Seroquel 200mg to target psychosis. May need to consider making the Invega injection every 3 weeks. 2.? Continue every 15 minute checks for safety. 3.? Encourage individual, group and milieu therapies. 4.? Encourage sober living treatment after discharge at the highest level of care to which she is willing to commit. 5. Will continue to gather collateral information. PDMP PDMP Reviewed: Not Reviewed Involuntary Hold Information 2 Hold Status: Legal Status: 96 Hour Hold Date/Time Hold Expires: 01/17/25 @ 22:30 96 Hour Hold: 96 Hour Involuntary Admission: Yes Other Hold: Hold End Date: 11/10/24 Attestations NPU 2 Medical Necessity Statement*: Inpatient hospitalization is medically necessary and the clinically appropriate intervention at this time. We will initiate/monitor medications and make changes as indicated.? The patient?s likely length of stay is 2-4 days. ? Coding Level of Care Code Acute Code for g Fwd Diagnoses Schizophrenia F20.9 Suicidal ideation R45.851 Drug overdose, intentional T50.902A Bipolar 1 disorder F31.9 Cannabis use disorder F12.90 Parent-child relational problem Z62.820
[2025-01-15 14:00] VITALS: BP 116/66; PULSE 80; RESP 18; O2SAT 98
[2025-01-15] MEDS: OLANZapine 5 mg ODT PO (17:31)
[2025-01-15] MEDS: quetiapine 100 mg Tablet 200 MG PO (20:08)
[2025-01-15 20:45] VITALS: BP 123/72; PULSE 75; RESP 18; O2SAT 99
[2025-01-16 06:00] VITALS: BP 106/75; PULSE 83; RESP 18; O2SAT 97
--- NOTE | 2025-01-16 13:51 | P.NPUPN_ITS ---
Subjective NPU 2 Subjective: Patient presented today reporting that things are going okay. She reports that she has a plan for what she can do from the standpoint of her living arrangement and she is working with the social work team to get assistance with that plan. She cannot return to her tiny home. Initially and then move onto the other option soon. We discussed the tentative plan for discharge tomorrow and she denied any side effects of her medication. Mental Status Exam 2 MSE Comments: This is an obese versus morbidly obese white female in hospital scrubs with poor grooming and no eye contact. No abnormal movements except for mild psychomotor agitation. She was cooperative with exam in mild distress. Speech was more normal in rate, and diminished in volume today. Mood described as a little better. Affect:blunted. Thought process was nonlinear and disorganized. Thought content: She endorsed suicidal ideation, and denied homicidal ideation. She endorsed auditory hallucinations and did appear to be responding to internal stimuli. Attention and concentration appeared impaired and memory was unreliable but none were formally tested. Alert and oriented x [address]. Insight, judgment and impulse control are all impaired. Vitals/I&O/Wt Last Vital Signs Temp 97.3 F L 01/14/25 21:11 Pulse 83 01/16/25 06:00 Resp 18 01/16/25 06:00 BP 106/75 01/16/25 06:00 Pulse Ox 97 01/16/25 06:00 O2 Del Method Room Air 01/15/25 14:00 Weight last 48 hrs Weight 115.575 kg Data NPU 01/11/25 22:32 01/11/25 22:32 A&P Assessment and plan (1) Schizophrenia: (2) Suicidal ideation: (3) Drug overdose, intentional: (4) Bipolar 1 disorder: (5) Cannabis use disorder: (6) Parent-child relational problem: Plan This is a 24-year-old white female who was seen in the past with a history of significant mental health challenges including likely schizophrenia with etiology likely contributed by substance abuse currently compliant with invega but still appearing psychotic. 1.? Patient was given her Paliperidone 234mg IM on 01/04/25. Will add Seroquel 200mg to target psychosis. May need to consider making the Invega injection every 3 weeks. 2.? Continue every 15 minute checks for safety. 3.? Encourage individual, group and milieu therapies. 4.? Encourage sober living treatment after discharge at the highest level of care to which she is willing to commit. 5. Will continue to gather collateral information. PDMP PDMP Reviewed: Not Reviewed Involuntary Hold Information 2 Hold Status: Legal Status: 96 Hour Hold Date/Time Hold Expires: 01/17/25 @ 22:30 96 Hour Hold: 96 Hour Involuntary Admission: Yes Other Hold: Hold End Date: 11/10/24 Attestations NPU 2 Medical Necessity Statement*: Inpatient hospitalization is medically necessary and the clinically appropriate intervention at this time. We will initiate/monitor medications and make changes as indicated.? The patient?s likely length of stay is 1-3 days. ? Coding Level of Care Code Acute Code for g Fwd Diagnoses Schizophrenia F20.9 Suicidal ideation R45.851 Drug overdose, intentional T50.902A Bipolar 1 disorder F31.9 Cannabis use disorder F12.90 Parent-child relational problem Z62.820
[2025-01-16 14:00] VITALS: BP 113/76; PULSE 77; RESP 16; TEMP 36.6; O2SAT 98
[2025-01-16] MEDS: quetiapine 100 mg Tablet 200 MG PO (19:33)
[2025-01-16 21:10] VITALS: BP 95/59; PULSE 63; RESP 18; TEMP 36.9; O2SAT 98
[2025-01-17 06:00] VITALS: BP 88/59; PULSE 60; RESP 16; TEMP 37; O2SAT 99
--- NOTE | 2025-01-17 08:13 | P.NPUDS_ITS ---
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 she did get into some addictive behavior secondary to the looseness of control. She alluded to some possible trauma and PTSD type symptoms but did not discuss them with clearly enough to draw an understanding. She did graduate from high school. She endorses being bisexual with a long relationship being 2 years. She has never been , she has never had children, she has never been in the , and she endorses being Jewish. Her longest was 3 months. She reports he lives in a camper with a younger sister outside of family members home. Legal history: Denied. Medical history: Please see ED note for full details but endorses being on control pills. docusate sodium 10 0 mg capsule 100 mg PO BID PRN Constipation 05/27/22 11/22/22 Unknown History lumateperone 42 mg capsule 42 mg PO DAILY #3 0 caps 10/29/22 11/22/22 Unknown Rx (Caplyta) Hospital Course Discharge Summary: During the hospitalization, patient had routine laboratory studies which were within normal limits except for few outliers. Additionally there was a general medical evaluation which was also within normal limits and revealed no new acute processes. At the time of discharge, lethality was denied and psychosis was resolving. Mood and anxiety were well managed. Patient endorsed a plan to avoid all drugs of abuse and follow-up with the aftercare recommendations of the treatment team. Patient was evaluated and deemed to be absent credible lethality, and had achieved the maximum benefit from an inpatient hospitalization, so was discharged. She had appeared floridly manic and appeared significantly less psychotic with a reduction in ta with the initiation of invega sustenna after first initiating the oral invega. She was agreeable to receiving invega sustenna on a monthly basis upon discharge while continuing to take her depakote. Hospital Course Hospital Course She slowly acclimated to the individual, group and milieu therapies. She presented reporting significant difficulties in her life including psychosocial challenge of having a significant conflict with her mother that ended up with her feeling unsafe and coming to the hospital. It is unclear how consistent she had been with her medication but we restarted her medication and made the recommendation that she work with her outpatient team and consider possibly moving her Invega injection to every 3 weeks. She received her last injection on 01/04/2025. She worked with the social work team for appropriate follow-up appointments and outpatient resources. They worked on assisting her with her plan to obtain alternative living arrangements given the difficulties that are currently in play with her tiny home. She demonstrated significant improvement and was able to contract for safety outside of the hospital prior to discharge. During the hospitalization, the patient had routine laboratory studies which were within normal limits, except for a few outliers. Additionally, the patient had a general medical evaluation which was within normal limits and revealed no new acute processes. Discharge Summary At the time of discharge the patient denied all lethality, was absent psychosis, and mood and anxiety were well managed. The patient endorsed a plan to avoid all drugs of abuse and to follow-up with outpatient services, as recommended. The patient was evaluated and deemed to be absent credible lethality, and had achieved the maximum benefit from an inpatient hospitalization, and so she was discharged. Involuntary Hold Information Hold Status: Legal Status: 96 Hour Hold Date/Time Hold Expires: 01/17/25 @ 22:30 96 Hour Hold: 96 Hour Involuntary Admission: Yes Other Hold: Hold End Date: 11/10/24 Mental Status Exam MSE Comments: This is an obese versus morbidly obese white female in hospital scrubs with improving grooming and no eye contact. No abnormal movements. She was cooperative with exam in mild distress. Speech was more normal in rate, and diminished in volume today. Mood described as a little better. Affect: Congruent thought process was nonlinear and disorganized. Thought content: She denied suicidal ideation, and denied homicidal ideation. She denied auditory hallucinations and did not appear to be responding to internal stimuli. Attention and concentration appeared intact and memory was reliable but none were formally tested. Alert and oriented x [address]. Insight, judgment and impulse control are all improving d. Discharge Data Studies Completed and Pending: Laboratory Results WBC 10.50 10^3/uL (3. 29-11.43) 01/11/25 22:32 RBC 5.25 10^6/uL (3.8 5-5.65) 01/11/25 22:32 Hgb 14.40 g/dL (11.27 -16.99) 01/11/25 22:32 Hct 44.7 % (36-47) 01/11/25 22:32 MCV 85.1 fl (85-98) 01/11/25 22:32 MCH 27.4 pg (27-33) 01/11/25 22:32 MCHC 32.2 g/dL (30-55) 01/11/25 22:32 RDW 14.3 % (12.1-15.1 ) 01/11/25 22:32 Plt Count 305 10^3/cmm (157 -399) 01/11/25 22:32 MPV 10.8 fL (7.4-10.4 ) H 01/11/25 22:32 Neut % (Auto) 61.7 % 01/11/25 22:32 Lymph % (Auto) 29.0 % 01/11/25 22:32 [place] % (Auto) 7.0 % 01/11/25: Eos % (Auto) 1.4 % 01/11/25: Baso % (Auto) 0.6 % 01/11/25: Neut # (Auto) 6.49 10^3/uL (1.8 -7.7) 01/11/25: Lymph # (Auto) 3.0 10^3/uL (0.8- 4.8) 01/11/25: [place] # (Auto) 0.7 10^3/uL (0.2- 0.9) 01/11/25: Eos # (Auto) 0.2 10^3/uL (0.0- 0.8) 01/11/25: Baso # (Auto) 0.1 10^3/uL (0.0- 0.1) 01/11/25: Nucleated RBC % (a uto) 0 % 01/11/25: Nucleated RBCs # 0.0 /100WBC 01/11/25: Sodium 140 mmol/L (136-1 45) 01/11/25: Potassium 3.8 mmol/L (3.5-5 .1) 01/11/25: Chloride 105 mmol/L (98-10 7) 01/11/25: Carbon Dioxide 21 mmol/L (22-29) L 01/11/25:32 Anion Gap 17.8 (5-19) 01/11/25: BUN 3 mg/dL (6-20) L 01/11/25: Creatinine 0.8 mg/dL (0.5-0. 9) 01/11/25 22: GFR Calculation 89.7 mL/min (90-1 30) L 01/11/25: Glucose 86 mg/dL (65-115) 01/11/25: Calculated Osmolal ity 286 mOsm/kg (285- 295) 01/11/25: Calcium 9.3 mg/dL (8.5-10 .5) 01/11/25:32 Total Bilirubin 0.8 mg/dL (0.15-1 .2) 04/16/25 22:32 AST 14 U/L (0-32) 01/11/25 22:32 ALT 19 U/L (0-33) 01/11/25 22:32 Alkaline Phosphata se 86 U/L (35-105) 01/11/25 22:32 Total Protein 7.5 g/dL (6.6-8.7 ) 01/11/25 22:32 Albumin 4.3 g/dL (3.5-5.2 ) 01/11/25: Globulin 3.2 g/dL (1.3-4.6 ) 01/11/25 22:32 HCG, Qual Negative (Negati ve) 01/11/25 22:20 Urine Color Dark yellow (Yel low) A 01/11/25: Urine Appearance Cloudy (CLEAR) A 01/11/25: Urine pH 5.5 (5-7) 01/11/25 22:20 Ur Specific Gravit y 1.041 (1.005-1.0 30) H 01/11/25 22:20 Urine Protein 1+ (Negative) A 01/11/25 22:20 Urine Glucose (UA) Negative (Normal ) 01/11/25 22:20 Urine Ketones Trace (Negative) 01/11/25 22:20 Urine Blood Negative (Negati ve) 01/11/25 22:20 Urine Nitrate Negative (Negati ve) 01/11/25 22:20 Urine Bilirubin 1+ (Negative) H 01/11/25 22:20 Urine Urobilinogen 1.0 mg/dL (Negati ve) 01/11/25 22:20 Ur Leukocyte Joanna ase 1+ (Negative) A 01/11/25 22:20 Urine RBC 3-5 /hpf (0-2) 01/11/25 22:20 Urine WBC 51-100 /hpf (0-5) H 01/11/25 22:20 Ur Squamous Epith Cells 21-50 /hpf (0-5) H 01/11/25 22:20 Amorphous Sediment Not Reportable 01/11/25 22:20 Urine Bacteria 4+ /hpf (NONE) H 01/11/25 22:20 Hyaline Casts 7.01 /lpf 01/11/25 22:20 Salicylates < 0.3 mg/dL (3-10 ) L 04/16/25 22:32 Urine Opiates Scre en Negative ng/mL (N egative) 01/11/25 22:20 Acetaminophen 8.0 ug/mL (10-30) L 01/11/25 22:32 Ur Barbiturates Sc reen Negative ng/mL (N egative) 01/11/25 22:20 Ur Phencyclidine S crn Negative ng/mL (N egative) 01/11/25 22:20 Ur Amphetamines Sc reen Negative ng/mL (N egative) 01/11/25 22:20 U Benzodiazepines Scrn Negative ng/mL (N egative) 01/11/25 22:20 Urine Cocaine Scre en Negative ng/mL (N egative) 01/11/25 22:20 U Marijuana (THC) Screen Positive ng/mL (N egative) H 01/11/25 22:20 Ethyl Alcohol < 10 mg/dL (0-10) 01/11/25 22:32 Vitals: Last Vital Signs Temp 98.6 F 01/17/25 06:00 Pulse 60 01/17/25 06:00 Resp 16 01/17/25 06:00 BP 88/59 01/17/25 06:00 Pulse Ox 99 01/17/25 06:00 O2 Del Method Room Air 01/17/25 06:00 Discharge Plan Discharge Patient Disposition: Home Condition: Stable Prescriptions: New quetiapine 200 mg tablet 200 mg PO BEDTIME 30 Days Qty: 30 1RF Continued norgestimate-ethinyl estradiol [Sprintec (28)] 0.25-35 mg-mcg tablet 1 tab PO DAILY Qty: 84 3RF paliperidone palmitate 234 mg/1.5 mL syringe 234 mg IM Q30D 30 Days Qty: 1.5 2RF Rx Instructions: 01/04/25 last dose Discontinued paliperidone [Invega] 3 mg tablet extended release 24hr 3 mg PO DAILY PRN (Reason: psychosis or agitation) Qty: 30 3RF Invega Sustenna 234 mg/1.5 mL syringe See Rx Instructions .ROUTE .COMPLEX Rx Instructions: give 1 x monthly IM Discharge Orders: Discharge Order (Routine); Ordered 01/17/25 Ordered By: Parth Michael Referrals: Latisha Sesay PMHNP [Staff Physician] - 01/19/25 3:15 pm (Follow up) Carmen Michael MD [Primary Care Provider] - 03/16/25 10:15 am (Follow up) Discharge Diet: Regular Discharge Activity: Resume usual activity Patient Instructions: Opioid Safety Discharge Attestations NPU Time Spent in Discharge Care*: less than 30 min Specific Discharge Activities: Specific discharge activities: educating patient, discussing with [employer]/social workers/dc planners, documenting/other paperwork and evaluating patient/reviewing data Coding Level of Care Code Acute Code for Chg Fwd Diagnoses Schizophrenia F20.9 Suicidal ideation R45.851 Drug overdose, intentional T50.902A Bipolar 1 disorder F31.9 Cannabis use disorder F12.90 Parent-child relational problem Z62.820
[2025-01-17 12:01] VITALS: BP 123/80; PULSE 100; RESP 16; TEMP 36.3; O2SAT 99
[2025-01-17 12:03] VITALS: BP 123/80; PULSE 100; RESP 16; TEMP 36.3; O2SAT 99
== END 2025-01-17 17:35 | disposition home or self-care (01) | DRG 885 ==
LOC: ER 01-12 00:12 → NP 01-12 00:29
PROVIDERS: Admitting Provider Psychiatry & Neurology Psychiatry; Emergency Provider Student in an Organized Health Care Education/Training Program; PCP Family Medicine; Visit Provider Psychiatry & Neurology Psychiatry
DX: F25.0 Schizoaffective disorder, bipolar type (principal); R45.851 Suicidal ideations; Z59.12 Inadequate housing utilities; F12.90 Cannabis use, unspecified, uncomplicated; Z62.820 Parent-biological child conflict; E66.9 Obesity, unspecified; Z68.39 Body mass index [BMI] 39.0-39.9, adult; G47.00 Insomnia, unspecified; F10.11 Alcohol abuse, in remission; Z87.891 Personal history of nicotine dependence
CPT/HCPCS: 80053; 80306; 80307; 81001; 81025; 85025; 97150; 97165; 99285; J9999

== ENCOUNTER 2025-03-03 13:23 | Inpatient (IN) | payer BC, MEDICAID, SELFPAY ==
[2024-03-22 13:38] VITALS: BP 133/89; BMI 42.1
[2025-03-03 13:26] VITALS: BP 133/79; PULSE 84; RESP 19; TEMP 37.2; O2SAT 98; BMI 40.7
[2025-03-03 14:22] LABS: HCG Qualitative Urine. Negative (Negative)
[2025-03-03 14:23] LABS: Basophils % 0.5 %; Eosinophils # 0.2 10^3/uL (0.0-0.8); Eosinophils % 1.9 %; Hematocrit 46.1 % (36-47); Lymphocytes # 2.1 10^3/uL (0.8-4.8); Lymphocytes % 24.2 %; Mean Corpuscular HGB Conc 31.7 g/dL (30-55); Mean Corpuscular Hemoglobin 27.2 pg (27-33); Mean Platelet Volume 10.4 fL (7.4-10.4); Monocytes # 0.6 10^3/uL (0.2-0.9); Monocytes % 6.3 %; Neutrophils % 66.8 %; Nucleated Red Blood Cells % 0 %; Platelet Count 296 10^3/cmm (157-399); Red Blood Count 5.36 10^6/uL (3.85-5.65); Red Cell Distribution Width 13.6 % (12.1-15.1); White Blood Count 8.84 10^3/uL (3.29-11.43)
[2025-03-03 14:36] LABS: Bilirubin Urine Negative (Negative); Blood Urine 3+ (Negative); Glucose Urine UA Negative (Normal); Ketones Urine Trace (Negative); Leukocyte Esterase Urine Negative (Negative); Nitrate Urine Negative (Negative); Protein Urine Negative (Negative); Specific Gravity, Urine 1.013 (1.005-1.030); Urine Appearance Clear (CLEAR); Urine Color Yellow (Yellow)
[2025-03-03] MEDS: nicotine 21 mg Patch 1 PATCH TRANSDERMA (14:39)
[2025-03-03 14:41] LABS: Add Urine Microscopic? YES; Bacteria Urine None Seen /hpf; Squamous Epithelial Cell Urine 0-5 /hpf (0-5); WBC Urine 0-5 /hpf (0-5)
[2025-03-03 14:45] LABS: Amphetamines Screen Urine Negative (Negative); Barbiturates Screen Urine Negative (Negative); Benzodiazepines Screen Urine Negative (Negative); Cocaine Screen Urine Negative (Negative); Opiate Screen Urine Negative (Negative); PCP Screen Urine Negative (Negative); THC Screen Urine Positive (Negative)
[2025-03-03 14:48] LABS: Alanine Aminotransferase 11 U/L (0-33); Albumin Level 4.2 g/dL (3.5-5.2); Alkaline Phosphatase 85 U/L (35-105); Anion Gap 14.9 (5-19); Aspartate Amino Transferase 12 U/L (0-32); Blood Urea Nitrogen 5 mg/dL (6-20); Calcium 9.2 mg/dL (8.5-10.5); Carbon Dioxide 20 mmol/L (22-29); Chloride 105 mmol/L (98-107); Creatinine Clr Calc Pharmacy 146.5035; Globulin 3.3 g/dL (1.3-4.6); Glomerular Filtration Rate 89.7 mL/min (90-130); Glucose 95 mg/dL (65-115); Osmolality Calculated 279 mOsm/kg (285-295); Potassium 3.9 mmol/L (3.5-5.1); Sodium 136 mmol/L (136-145); Total Bilirubin 0.5 mg/dL (0.15-1.2); Total Protein 7.5 g/dL (6.6-8.7)
[2025-03-03 14:49] LABS: Lithium 0.1 mmol/L (0.6-1.2)
[2025-03-03 14:51] LABS: Acetaminophen < 5.0 ug/mL (10-30); Alcohol Level < 10 mg/dL (0-10); Salicylate < 0.3 mg/dL (3-10)
[2025-03-03] MEDS: OLANZapine 10 mg ODT PO (15:55)
--- NOTE | 2025-03-03 16:36 | W.ED.PSYCHS ---
HPI - Psych General: Chief Complaint: Psychiatric Symptoms Stated Complaint: auditory hallucinations Time Seen by Provider: 03/03/25 13:42 History of Present Illness: Patient is a female presenting to the ED for psychiatric evaluation. Patient reports experiencing multiple distinct personalities, specifically describing '5-6 people running through my mind.' She identifies four personalities controlled by 'Poppy, ' a fifth personality named 'Miranda' whom she describes as a spiritual being connected to God, and a sixth representing her 'homegirls.' Patient demonstrates confucianism preoccupation, describing direct communication with God and the Holy Spirit. Patient reports living with her mother at [address] [place] [address], though states she was supposed to be in [place] with friends. She expresses belief that her mother deceived her about a weekend trip to [place]. Patient endorses using alcohol, marijuana, and cigarettes. She receives monthly paliperidone injections but reports difficulty with medication compliance due to resistance from her different personalities. Patient endorses suicidal ideations when feeling 'disrespected' or experiencing emotional pain, stating she wants to 'take myself off the planet.' She also expresses homicidal ideations when feeling disrespected. Previous diagnoses include schizophrenia and bipolar disorder, though patient self-diagnoses with borderline personality disorder. Patient denies current hallucinations, stating she prayed for God to 'take the demons away.' Related Data Home Medications ?Medication ?Instructions ?Recorded ?Confirmed paliperidone 3 mg tablet,extended 3 mg PO DAILY 03/03/25 03/03/25 release 24 hr Previous Rx's ?Medication ?Instructions ?Recorded paliperidone palmitate 234 mg/1.5 234 mg (1.5 mL) IM Q30D 30 days 02/03/25 mL intramuscular syringe #1.5 mL quetiapine 200 mg tablet 200 mg PO BEDTIME 30 days #30 tabs 02/03/25 Allergies Allergy/AdvReac Type Severity Reaction Status Date / Time hydrocortisone Allergy rash Verified 03/03/25 09:51 haloperidol AdvReac Severe Unconscious Verified 03/03/25 09:51 Milk Containing Products AdvReac Severe ADR-Flatule Verified 03/03/25 09:51 (Dairy) (Milk Containing nce Products) [facility] ED PFSH: Medical History Schizophrenia Insomnia H/O medication noncompliance Psychiatric disturbance Bipolar 1 disorder with psychosis History of use of contraceptive intrauterine device (IUD) Psychiatric care 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 Family History Other CAD (coronary artery disease) Diabetes Psychiatric illness Social History Smoking and tobacco/nicotine status: current every day tobacco/nicotine user Quit status (tobacco/nicotine): has quit using Former quit date comment: recent Alcohol intake: former Substance/Drug Use: former Adopted: No Caregiver/support person: No Lives independently: Yes Household members: family Housing: House Marital status: Single Number of children: 0 Highest education level completed: High School Graduate Current occupational status: unemployed Pets and animals: Yes Pets & animals: cat(s), dog(s) and bird(s) Leisure activites: art and other Leisure activities details: Social Media Sexually active: No Do you think of yourself as: Straight/Heterosexual Current gender identity: Female Meagan/Religious: Uatsdin Special meagan needs: No Agree to transfusion: Yes Female Reproductive History: Spontaneous abortions: No Course Vital Signs: Vital signs: Vital Signs Temperature 98.9 F 03/03/25 13:26 Pulse Rate 84 03/03/25 13:26 Respiratory Rate 19 H 03/03/25 13:26 Blood Pressure 133/79 03/03/25 13:26 Pulse Oximetry 98 03/03/25 13:26 Oxygen Delivery Me thod Room Air 03/03/25 13:26 MDM - Psych Medical Decision Making ROS: Constitutional: Denies fever, chills, weight changes Psychiatric: Positive for multiple personalities, suicidal ideation, homicidal ideation, confucianism preoccupation All other systems reviewed and negative MEDICATIONS AND ALLERGIES: Medications: - Paliperidone - monthly injection Allergies: - No known drug allergies PAST HISTORICAL DATA: PMH: - Schizophrenia - Bipolar disorder - Possible borderline personality disorder PSH: - None reported Social History: - Lives with mother - Currently unemployed due to medical restrictions - Active substance use including alcohol, marijuana, and tobacco PHYSICAL EXAM: General: Alert, oriented to person only, in no acute distress HEENT: Head normocephalic and atraumatic. Mucous membranes moist Neck: Supple Respiratory: No increased work of breathing, No wheezing Cardiac: Regular rate and rhythm, 2+ pulses in all extremities Abdomen: Soft, non-distended, no rebound or guarding Neuro: Cranial nerves grossly intact, no focal motor or sensory deficits noted Psychiatric: Disheveled appearance, pressured speech, tangential thought process, confucianism preoccupation, multiple distinct personalities present, impaired insight and judgment INITIAL IMPRESSION AND PLAN: Given the history and presentation, the primary working diagnosis is Acute Psychosis with medication non-compliance. Additional considerations include Schizophrenia, Bipolar Disorder with psychotic features, and Borderline Personality Disorder. Based on this initial impression, psychiatric consultation was obtained and admission to inpatient psychiatric unit was recommended. CONSIDERED BUT NOT PERFORMED: Outpatient management CONSIDERED but NOT DONE due to acute safety concerns, extreme ta with acute psychosis and active suicidal/homicidal ideations. FINAL IMPRESSION: Based on all the above, my clinical impression is most compatible with Acute Psychosis with medication non-compliance, complicated by active suicidal and homicidal ideations. The clinical picture is not currently suggestive of primary substance-induced psychosis or acute medical condition requiring emergency intervention. Although other conditions were also considered, they were deemed unlikely based on the clinical information available. CLINICAL DISPOSITION: The patient's current condition is unstable in my estimation and the most appropriate and indicated disposition at this time is admission to inpatient psychiatric unit. Rationale for admission: Patient demonstrates acute psychosis with active suicidal and homicidal ideations, medication non-compliance, and impaired insight/judgment. She lacks capacity for safe decision-making and requires structured environment for stabilization and medication management. RISK STRATIFICATION AND CLINICAL DECISION RULES APPLIED: [place] Suicide Severity Rating Scale applied - Patient screens positive for both suicidal ideation and intent, requiring immediate psychiatric intervention CASE SUMMARY: Patient presented to ED with acute psychosis characterized by multiple distinct personalities, confucianism preoccupation, and medication non-compliance with monthly paliperidone injections. History of schizophrenia and bipolar disorder. Patient endorsed both suicidal and homicidal ideations when feeling disrespected. After psychiatric consultation with Dr. Santana, who was familiar with the patient, admission to inpatient psychiatric unit was recommended for stabilization and safety. Lab Data I reviewed the patient's lab results. 03/03/25 14:05 03/03/25 14:05 Laboratory Results WBC 8.84 10^3/uL (3.29-11.43) 03/03/25 14:05 RBC 5.36 10^6/uL (3.85-5.65) 03/03/25 14:05 Hgb 14.60 g/dL (11.27-16.99) 03/03/25 14:05 Hct 46.1 % (36-47) 03/03/25 14:05 MCV 86.0 fl (85-98) 03/03/25 14:05 MCH 27.2 pg (27-33) 03/03/25 14:05 MCHC 31.7 g/dL (30-55) 03/03/25 14:05 RDW 13.6 % (12.1-15.1) 03/03/25 14:05 Plt Count 296 10^3/cmm (157-399) 03/03/25 14:05 MPV 10.4 fL (7.4-10.4) 03/03/25 14:05 Neut % (Auto) 66.8 % 03/03/25 14:05 Lymph % (Auto) 24.2 % 03/03/25 14:05 [place] % (Auto) 6.3 % 03/03/25 14:05 Eos % (Auto) 1.9 % 03/03/25 14:05 Baso % (Auto) 0.5 % 03/03/25 14:05 Neut # (Auto) 5.90 10^3/uL (1.8-7.7) 03/03/25 14:05 Lymph # (Auto) 2.1 10^3/uL (0.8-4.8) 03/03/25 14:05 [place] # (Auto) 0.6 10^3/uL (0.2-0.9) 03/03/25 14:05 Eos # (Auto) 0.2 10^3/uL (0.0-0.8) 03/03/25 14:05 Baso # (Auto) 0.0 10^3/uL (0.0-0.1) 03/03/25 14:05 Nucleated RBC % (auto) 0 % 03/03/25 14:05 Nucleated RBCs # 0.0 /100WBC 03/03/25 14:05 Sodium 136 mmol/L (136-145) 03/03/25 14:05 Potassium 3.9 mmol/L (3.5-5.1) 03/03/25 14:05 Chloride 105 mmol/L (98-107) 03/03/25 14:05 Carbon Dioxide 20 mmol/L (22-29) L 03/03/25 14:05 Anion Gap 14.9 (5-19) 03/03/25 14:05 BUN 5 mg/dL (6-20) L 03/03/25 14:05 Creatinine 0.8 mg/dL (0.5-0.9) 03/03/25 14:05 GFR Calculation 89.7 mL/min (90-130) L 03/03/25 14:05 Glucose 95 mg/dL (65-115) 03/03/25 14:05 Calculated Osmolality 279 mOsm/kg (285-295) L 03/03/25 14:05 Calcium 9.2 mg/dL (8.5-10.5) 03/03/25 14:05 Total Bilirubin 0.5 mg/dL (0.15-1.2) 03/03/25 14:05 AST 12 U/L (0-32) 03/03/25 14:05 ALT 11 U/L (0-33) 03/03/25 14:05 Alkaline Phosphatase 85 U/L (35-105) 03/03/25 14:05 Total Protein 7.5 g/dL (6.6-8.7) 03/03/25 14:05 Albumin 4.2 g/dL (3.5-5.2) 03/03/25 14:05 Globulin 3.3 g/dL (1.3-4.6) 03/03/25 14:05 TSH 0.60 uIU/mL (0.27-4.20) 03/03/25 14:05 HCG, Qual Negative (Negative) 03/03/25 13:48 Urine Color Yellow (Yellow) 03/03/25 13:48 Urine Appearance Clear (CLEAR) 03/03/25 13:48 Urine pH 6.0 (5-7) 03/03/25 13:48 Ur Specific [place] 1.013 (1.005-1.030) 03/03/25 13:48 Urine Protein Negative (Negative) 03/03/25 13:48 Urine Glucose (UA) Negative (Normal) 03/03/25 13:48 Urine Ketones Trace (Negative) 03/03/25 13:48 Urine Blood 3+ (Negative) A 03/03/25 13:48 Urine Nitrate Negative (Negative) 03/03/25 13:48 Urine Bilirubin Negative (Negative) 03/03/25 13:48 Urine Urobilinogen 1.0 mg/dL (Negative) 03/03/25 13:48 Ur Leukocyte Esterase Negative (Negative) 03/03/25 13:48 Urine RBC 6-10 /hpf (0-2) 03/03/25 13:48 Urine WBC 0-5 /hpf (0-5) 03/03/25 13:48 Ur Squamous Epith Cells 0-5 /hpf (0-5) 03/03/25 13:48 Amorphous Sediment Not Reportable 03/03/25 13:48 Urine Bacteria None seen /hpf (NONE) 03/03/25 13:48 Hyaline Casts 0.40 /lpf 03/03/25 13:48 Salicylates < 0.3 mg/dL (3-10) L 03/03/25 14:05 Urine Opiates Screen Negative ng/mL (Negative) 03/03/25 13:48 Acetaminophen < 5.0 ug/mL (10-30) L 03/03/25 14:05 Ur Barbiturates Screen Negative ng/mL (Negative) 03/03/25 13:48 Ur Phencyclidine Scrn Negative ng/mL (Negative) 03/03/25 13:48 Ur Amphetamines Screen Negative ng/mL (Negative) 03/03/25 13:48 U Benzodiazepines Scrn Negative ng/mL (Negative) 03/03/25 13:48 [place] 0.1 mmol/L (0.6-1.2) L 03/03/25 14:05 Urine Cocaine Screen Negative ng/mL (Negative) 03/03/25 13:48 U Marijuana (THC) Screen Positive ng/mL (Negative) H 03/03/25 13:48 Ethyl Alcohol < 10 mg/dL (0-10) 03/03/25 14:05 No radiology studies performed this visit Discharge Plan Discharge Patient Disposition: Admitted As Inpatient Clinical Impression: Acute psychosis, Schizophrenia, Ta Condition: Stable Coding Level of Care Code ED Courtesy Bus Driver for Simone Arreguin
[2025-03-03] MEDS: ziprasidone 20 mg/mL SDV IM (16:54)
--- NOTE | 2025-03-03 16:55 | PC.PHAR ---
Verified last fill with [facility].
--- NOTE | 2025-03-03 17:00 | PC.NURSE ---
96 hour hold rights read and reviewed with patient. Ludwig from security present during reading of rights. Patient is currently exhibiting signs of acute psychosis, she is not speaking and acting appropriately at this time. This nurse did read patient her rights she stated I will not do anything you guys tell me to do at all and you cant make me. This nurse did attempt to given patient a copy of her rights.
[2025-03-03 19:40] VITALS: BP 131/71; PULSE 74; RESP 16; O2SAT 98
[2025-03-03] MEDS: hyDROXYzine 25 mg Capsule 50 MG PO (20:20)
[2025-03-03] MEDS: trazodone 50 mg Tablet PO (20:20)
[2025-03-03 20:52] VITALS: BP 110/68; PULSE 63; RESP 19; TEMP 37.2; O2SAT 98
--- NOTE | 2025-03-04 06:45 | PC.NURSE ---
vs not completed per charge nurse resp 16
[2025-03-04] MEDS: nicotine 2 mg Gum BUCCAL ×3 (11:27→19:40)
[2025-03-04 14:00] VITALS: BP 99/64; PULSE 68; RESP 18; TEMP 36.6; O2SAT 95
--- NOTE | 2025-03-04 15:42 | W.PM.NPUH&PS ---
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 does not alcohol somewhat regularly she denies smoking marijuana or any other illicit drugs. She never been to rehab and denied having a DUI. She reports that the reason why she is here is at her family's behest as she continued to have voices in her head reports that she feels like somebody is going to kill her. She reports that the voices tell her the people are after her that are going to kill her. We discussed the risk-benefit and alternatives of starting Abilify and she understood agreed to proceed as is documented in this note. Psychiatric history: As above. Substance abuse history: As above. Family history: Endorses mental health issues on her mother side, addiction issues on her father side denies any suicide attempts or completions in her family which is aware of. Developmental history: There were no problems with the , or delivery, learned to walk and talk and met developmental milestones on time, and denies need for speech therapy, learning support, emotional support or special education classes. She did later report that she might have been a slow reader. Psychosocial history: She reports that her mother and father were together when she was born and that she has 2 younger sisters that are a product of that same union. She states is a half sibling through her father but avoid and her mother did have another child was stillborn. She reports her childhood was good she denies any emotional, physical or sexual abuse. She does report that when her parents split her dad was overly protective and her mom more or less allowed her to do whatever she wanted. She reports that she did get into some addictive behavior secondary to the looseness of control. She alluded to some possible trauma and PTSD type symptoms but did not discuss them with clearly enough to draw an understanding. She did graduate from high school. She endorses being bisexual with a long relationship being 2 years. She has never been , she has never had children, she has never been in the , and she endorses being [employer]. Her longest was 3 months. She reports he lives in a camper with a younger sister outside of family members home. Legal history: Denied. Medical history: Please see ED note for full details but endorses being on control pills. Discharge Summary: During the hospitalization, patient had routine laboratory studies which were within normal limits except for few outliers. Additionally there was a general medical evaluation which was also within normal limits and revealed no new acute processes. At the time of discharge, lethality was denied and psychosis was resolving. Mood and anxiety were well managed. Patient endorsed a plan to avoid all drugs of abuse and follow-up with the aftercare recommendations of the treatment team. Patient was evaluated and deemed to be absent credible lethality, and had achieved the maximum benefit from an inpatient hospitalization, so was discharged. She had appeared floridly manic and appeared significantly less psychotic with a reduction in ta with the initiation of invega sustenna after first initiating the oral invega. She was agreeable to receiving invega sustenna on a monthly basis upon discharge while continuing to take her depakote. Hospital Course Hospital Course She slowly acclimated to the individual, group and milieu therapies. She presented reporting significant difficulties in her life including psychosocial challenge of having a significant conflict with her mother that ended up with her feeling unsafe and coming to the hospital. It is unclear how consistent she had been with her medication but we restarted her medication and made the recommendation that she work with her outpatient team and consider possibly moving her Invega injection to every 3 weeks. She received her last injection on 01/04/2025. She worked with the social work team for appropriate follow-up appointments and outpatient resources. They worked on assisting her with her plan to obtain alternative living arrangements given the difficulties that are currently in play with her tiny home. She demonstrated significant improvement and was able to contract for safety outside of the hospital prior to discharge. During the hospitalization, the patient had routine laboratory studies which were within normal limits, except for a few outliers. Additionally, the patient had a general medical evaluation which was within normal limits and revealed no new acute processes. Discharge Summary At the time of discharge the patient denied all lethality, was absent psychosis, and mood and anxiety were well managed. The patient endorsed a plan to avoid all drugs of abuse and to follow-up with outpatient services, as recommended. The patient was evaluated and deemed to be absent credible lethality, and had achieved the maximum benefit from an inpatient hospitalization, and so she was discharged. Meds NPU Home Medications ?Medication ?Instructions ?Recorded ?Confirmed ?Last Taken ?Type paliperidone palmitate 234 mg/1.5 234 mg (1.5 mL) IM Q30D 30 days 02/03/25 03/03/25 02/03/25 Rx mL intramuscular syringe #1.5 mL quetiapine 200 mg tablet 200 mg PO BEDTIME 30 days #30 tabs 02/03/25 03/03/25 Unknown Rx paliperidone 3 mg tablet,extended 3 mg PO DAILY PRN Psychosis and or 03/03/25 03/03/25 Unknown History release 24 hr agitation Allergies Allergy/AdvReac Type Severity Reaction Status Date / Time hydrocortisone Allergy rash Verified 03/03/25 09:51 haloperidol AdvReac Severe Unconscious Verified 03/03/25 09:51 Milk Containing Products AdvReac Severe ADR-Flatule Verified 03/03/25 09:51 (Dairy) (Milk Containing nce Products) PFSH NPU PFSH: Medical History Schizophrenia Insomnia H/O medication noncompliance Psychiatric disturbance Bipolar 1 disorder with psychosis History of use of contraceptive intrauterine device (IUD) Psychiatric care 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 Family History Other CAD (coronary artery disease) Diabetes Psychiatric illness Social History Smoking and tobacco/nicotine status: current every day tobacco/nicotine user Quit status (tobacco/nicotine): has quit using Former quit date comment: recent Alcohol intake: former Substance/Drug Use: former Adopted: No Caregiver/support person: No Lives independently: Yes Household members: family Housing: House Marital status: Single Number of children: 0 Highest education level completed: High School Graduate Current occupational status: unemployed Pets and animals: Yes Pets & animals: cat(s), dog(s) and bird(s) Leisure activites: art and other Leisure activities details: Social Media Sexually active: No Do you think of yourself as: Straight/Heterosexual Current gender identity: Female Meagan/Episcopalian: Zoroastrian Special meagan needs: No Agree to transfusion: Yes Female Reproductive History: Spontaneous abortions: No Mental Status Exam MSE Comments: This is a morbidly obese white female in hospital scrubs with poor grooming and good eye contact. No abnormal movements except for moderate psychomotor agitation. She was cooperative with exam in signficant distress. Speech was normal in rate, and increased in volume. Mood described as bad Affect:labile. Thought process was nonlinear and disorganized. Thought content: She endorsed no suicidal ideation, and denied homicidal ideation. She endorsed auditory hallucinations and there was evidence of bizarre delusions. There was belief of ideas of reference and telepathy. Attention and concentration was impaired and memory was unreliable but none were formally tested. Alert and oriented x [address]. Insight, judgment and impulse control are all impaired. Vitals/I&O/Wt Last Vital Signs Temp 98.9 F 03/03/25 20:52 Pulse 63 03/03/25 20:52 Resp 19 H 03/03/25 20:52 BP 110/68 03/03/25 20:52 Pulse Ox 98 03/03/25 20:52 O2 Del Method Room Air 03/03/25 20:52 Weight last 48 hrs Weight 117.934 kg Data NPU 03/03/25 14:05 03/03/25 14:05 A&P Assessment and plan (1) Schizophrenia: (2) Bipolar 1 disorder: (3) Cannabis use disorder: (4) Parent-child relational problem: Plan This is a 24-year-old white female who was seen in the past with a history of significant mental health challenges including likely schizophrenia with etiology likely contributed by past substance abuse currently noncompliant with invega IM and oral seroquel and appearing quite psychotic at this time. 1.? Invega 234mg IM to be given today. We may need to consider making the Invega injection every 3 weeks. Restart Seroquel at 300mg at night. 2.? Continue every 15 minute checks for safety. 3.? Encourage individual, group and milieu therapies. 4.? Encourage sober living treatment after discharge at the highest level of care to which she is willing to commit. 5. Will continue to gather collateral information. PDMP PDMP Reviewed: Not Reviewed Involuntary Hold Information Hold Status: Legal Status: 96 Hour Hold Date/Time Hold Expires: 03/09/2025 1645 96 Hour Hold: 96 Hour Involuntary Admission: Yes Other Hold: Hold End Date: 11/10/24 Attestations NPU Medical Necessity Statement*: Inpatient hospitalization is medically necessary and deemed to be the clinically appropriate intervention at this time. Medications will be adjusted and initiated as indicated.? The patient will be hospitalized for at least 2 midnights.? The patient?s likely length of stay is 7-9 days. ? Coding Level of Care Code Acute Code for Chg Fwd Diagnoses Schizophrenia F20.9 Bipolar 1 disorder F31.9 Cannabis use disorder F12.90 Parent-child relational problem Z62.820
[2025-03-04] MEDS: paliperidone palmitate 234 mg Syringe IM (17:36)
[2025-03-04] MEDS: trazodone 50 mg Tablet PO (19:41)
[2025-03-04] MEDS: quetiapine 300 mg Tablet PO (19:41)
[2025-03-04 19:45] VITALS: BP 111/71; PULSE 105; RESP 18; TEMP 36.7; O2SAT 98
--- NOTE | 2025-03-05 05:40 | PC.NURSE ---
Patient has been cooperative with care. She has mostly isolated to her room this shift. She denied SI/HI AVH. Her affect was bewildered and bland at times. She exhibited flight of ideas and responded to internal stimuli. She received PRN trazadone and Vistaril and has slept most of this shift.
[2025-03-05 06:00] VITALS: RESP 18; BMI 40.7
--- NOTE | 2025-03-05 06:14 | PC.NURSE ---
Patient refused nurse notified.
[2025-03-05] MEDS: hyDROXYzine 25 mg Capsule 50 MG PO (09:23)
[2025-03-05] MEDS: nicotine 2 mg Gum BUCCAL ×4 (10:01→18:09)
--- NOTE | 2025-03-05 13:26 | PC.NURSE ---
left leg restraint removed at 1327
[2025-03-05 14:00] VITALS: BP 124/82; PULSE 110; RESP 16; TEMP 36.4; O2SAT 96
[2025-03-05 20:07] VITALS: BP 128/89; PULSE 120; RESP 19; TEMP 36.6; O2SAT 95
[2025-03-05] MEDS: quetiapine 300 mg Tablet PO (20:16)
[2025-03-05] MEDS: nicotine 4 mg lozenge MUCOUS MEM ×2 (20:16→22:09)
[2025-03-06] MEDS: nicotine 4 mg lozenge MUCOUS MEM (03:58)
[2025-03-06] MEDS: hyDROXYzine 25 mg Capsule 50 MG PO (08:05)
[2025-03-06] MEDS: OLANZapine 5 mg ODT PO (08:06)
[2025-03-06 13:42] VITALS: BP 116/80; PULSE 85; RESP 17; TEMP 36.4; O2SAT 98
[2025-03-06] MEDS: diphenhydrAMINE 50 mg/mL SDV 1mL IM (15:45)
[2025-03-06] MEDS: LORazepam 2 mg/mL INJ 1 mL IM (15:45)
--- NOTE | 2025-03-06 15:45 | PC.NURSE ---
PRN ATIVAN/BENADRYL ATIVAN 2 MG GIVEN IM IN LEFT DELTOID ALONG WITH BENADRYL 50 MG IM IN RIGHT DELTOID PER PT C/O INCREASED ANXIETY/AGITATION/AGGRESSION. PATIENT UPSET SHE ISN'T BEING DISCHARGED RIGHT THIS SECOND LIKE SHE WANTS. CONFRONTATIONAL WITH STAFF/PHYSICIAN. DEMANDING TO LEAVE UNIT. HIT GLASS AT NURSES STATION SEVERAL TIMES, THE PUSHING ON LOCKED WOODEN DOOR BY NURSES STATION SEVERAL TIMES. SECURITY ALREADY TO UNIT, ASSISTED TO BENCH IN HALLWAY, REDIRECTED BY STAFF, AGREEABLE TO TAKING INJECTIONS FOR BEHAVIORS. TOOK INJECTIONS WITHOUT INCIDENT. WILL CONT TO MONITOR FOR DESIRED MED EFFECTIVENESS.
--- NOTE | 2025-03-06 15:52 | PC.NURSE ---
Behavior: Pt up near nurses station crying w/ c/o wanting to leave right at this moment . Pt attempted to push at the door and hit the glass at the nurses station window several times. Security present to the unit and along side rn relief charge/staff helped pt to the bench to receive injections. Pt was given 2mg Ativan IM in left deltoid and 50mg Benadryl IM in right deltoid. Pt took medications w/out issues. Pt laid down in bed after injections, RR even and unlabored.
--- NOTE | 2025-03-06 16:11 | P.NPUPN_ITS ---
Subjective NPU 2 Subjective: 24-year-old female with schizophrenia ad mitted with disorganized behavior and disorganized thinking along with auditory hallucinations. Patient had continued to report that she was speaking to others telepathically. She states that her in my head has indicated to me that he wants me to come to [place] to establish our new life together. She had been intrusive throughout the day and was difficult to redirect. She continued to report having special abilities. She she stated that her homies are taking me to [place] today . Mental Status Exam 2 MSE Comments: This is a morbidly obese white female in hospital scrubs with poor grooming and good eye contact. No abnormal movements except for moderate psychomotor agitation. She was cooperative with exam in signficant distress. Speech was normal in rate, and increased in volume. Mood described as terrible Affect:labile. Thought process was nonlinear and disorganized. There was evidence of derailment. Thought content: She endorsed no suicidal ideation, and denied homicidal ideation. She endorsed auditory hallucinations and there was evidence of bizarre delusions. There was belief of ideas of reference and telepathic abilities. Attention and concentration was impaired and memory was unreliable but none were formally tested. Alert and oriented x [address]. Insight, judgment and impulse control are all impaired. Vitals/I&O/Wt Last Vital Signs Temp 97.6 F 03/06/25 13:42 Pulse 85 03/06/25 13:42 Resp 17 03/06/25 13:42 BP 116/80 03/06/25 13:42 Pulse Ox 98 03/06/25 13:42 O2 Del Method Room Air 03/05/25 20:07 Weight last 48 hrs Weight 118.047 kg Data NPU 03/03/25 14:05 03/03/25 14:05 A&P Assessment and plan (1) Schizophrenia: (2) Bipolar 1 disorder: (3) Cannabis use disorder: (4) Parent-child relational problem: Plan This is a 24-year-old white female who was seen in the past with a history of significant mental health challenges including likely schizophrenia with etiology likely contributed by past substance abuse currently noncompliant with invega IM and oral seroquel and appearing quite psychotic at this time. 1.? Invega 234mg IM to be given today. We may need to consider making the Invega injection every 3 weeks. Increase Seroquel to 400mg at night. Consider addition of lithium or depakote. 2.? Continue every 15 minute checks for safety. 3.? Encourage individual, group and milieu therapies. 4.? Encourage sober living treatment after discharge at the highest level of care to which she is willing to commit. 5. Will continue to gather collateral information. PDMP PDMP Reviewed: Not Reviewed Involuntary Hold Information 2 Hold Status: Legal Status: 96 Hour Hold Date/Time Hold Expires: 03/09/2025 1645 96 Hour Hold: 96 Hour Involuntary Admission: Yes Other Hold: Hold End Date: 11/10/24 Attestations NPU 2 Medical Necessity Statement*: Inpatient hospitalization is medically necessary and deemed to be the clinically appropriate intervention at this time. Medications will be adjusted and initiated as indicated.? The patient?s likely length of stay is 7-9 days. ? Coding Level of Care Code Acute Code for Chg Fwd Diagnoses Schizophrenia F20.9 Bipolar 1 disorder F31.9 Cannabis use disorder F12.90 Parent-child relational problem Z62.820
[2025-03-06 19:17] VITALS: BP 117/52; PULSE 86; RESP 18; TEMP 36.6; O2SAT 96
[2025-03-06] MEDS: quetiapine 300 mg Tablet PO (20:19)
[2025-03-06] MEDS: trazodone 50 mg Tablet PO (23:32)
[2025-03-07 06:00] VITALS: PULSE 65; RESP 18; O2SAT 98
--- NOTE | 2025-03-07 06:10 | PC.NURSE ---
Patient refused blood pressure nurse was notified.
[2025-03-07] MEDS: nicotine 4 mg lozenge MUCOUS MEM ×3 (09:55→19:05)
--- NOTE | 2025-03-07 13:17 | P.NPUPN_ITS ---
Subjective NPU 2 Subjective: 24-year-old female with schizophrenia ad mitted with disorganized behavior and disorganized thinking along with auditory hallucinations. The patient had continued to endorse having special abilities and thomas. She had reported that she had slept better. She had been able to attend groups. She appeared less agitated. She had stated that she would not be needing to take the shot next month as she states that she would be in [place] to meet with her ex- boyfriend who she had contacted telepathically to communicate with him that they needed to get back together. The patient reported that she was desiring nicotine gum and a nicotine lozenge but proceeded to attempt to drop the nicotine lozenge in her coffee in an attempt to see if she could get high from it per patient. She had continued to report that her home ease were scheduled to pick her up today. Mental Status Exam 2 MSE Comments: This is a morbidly obese white female in hospital scrubs with poor grooming and good eye contact. No abnormal movements except for moderate psychomotor agitation. She was cooperative with exam in signficant distress. Speech was normal in rate, and increased in volume. Mood described as okay Affect: bizarre but euthymic Thought process was initially linear but derailed later. Thought content: She endorsed no suicidal ideation, and denied homicidal ideation. She endorsed auditory hallucinations and there was evidence of bizarre delusions. There was belief of ideas of reference and telepathic abilities. Attention and concentration was impaired and memory was unreliable but none were formally tested. Alert and oriented x [address]. Insight, judgment and impulse control are all impaired. Vitals/I&O/Wt Last Vital Signs Temp 97.9 F 03/06/25 19:17 Pulse 65 03/07/25 06:00 Resp 18 03/07/25 06:00 BP 117/52 03/06/25 19:17 Pulse Ox 98 03/07/25 06:00 O2 Del Method Room Air 03/07/25 06:00 Data NPU 03/03/25 14:05 03/03/25 14:05 A&P Assessment and plan (1) Schizophrenia: (2) Bipolar 1 disorder: (3) Cannabis use disorder: (4) Parent-child relational problem: Plan This is a 24-year-old white female who was seen in the past with a history of significant mental health challenges including likely schizophrenia with etiology likely contributed by past substance abuse currently noncompliant with invega IM and oral seroquel and appearing quite psychotic at this time. 1.? Invega 234mg IM to be given today. We may need to consider making the Invega injection every 3 weeks. Increase Seroquel to 400mg at night. Consider addition of lithium or depakote. 2.? Continue every 15 minute checks for safety. 3.? Encourage individual, group and milieu therapies. 4.? Encourage sober living treatment after discharge at the highest level of care to which she is willing to commit. 5. Will continue to gather collateral information. PDMP PDMP Reviewed: Not Reviewed Involuntary Hold Information 2 Hold Status: Legal Status: 96 Hour Hold Date/Time Hold Expires: 03/09/25 @16:45 96 Hour Hold: 96 Hour Involuntary Admission: Yes Other Hold: Hold End Date: 11/10/24 Attestations NPU 2 Medical Necessity Statement*: Inpatient hospitalization is medically necessary and deemed to be the clinically appropriate intervention at this time. Medications will be adjusted and initiated as indicated.? The patient?s likely length of stay is 5-7 days. ? Coding Level of Care Code Acute Code for g Fwd Diagnoses Schizophrenia F20.9 Bipolar 1 disorder F31.9 Cannabis use disorder F12.90 Parent-child relational problem Z62.820
[2025-03-07 14:00] VITALS: BP 125/79; PULSE 128; RESP 16; TEMP 36.6; O2SAT 98
[2025-03-07] MEDS: acetaminophen 325 mg Tablet 650 MG PO (18:19)
[2025-03-07] MEDS: quetiapine 100 mg Tablet 400 MG PO (19:05)
[2025-03-07 19:42] VITALS: BP 128/82; PULSE 71; RESP 18; TEMP 36.7; O2SAT 97
[2025-03-08 05:57] VITALS: BP 103/60; PULSE 51; RESP 16; O2SAT 97
[2025-03-08 14:00] VITALS: RESP 18
--- NOTE | 2025-03-08 14:42 | P.NPUPN_ITS ---
Subjective NPU 2 Subjective: 24-year-old female with schizophrenia ad mitted with disorganized behavior and disorganized thinking along with auditory hallucinations. The patient continued to have unusual thoughts stating that she had plans to live with her ex- boyfriend in [place] and stated that her homies were coming to pick her up soon . She reported that she did not wish to speak with her mother and asked when she would be allowed to go home. The patient had been somewhat isolative on the milieu. She was able to attend groups but appeared to be distracted. She had continued to report having special abilities including the power to read other peoples minds and to communicate with people from long distances using her mind. She denied any depressed mood at this time. Mental Status Exam 2 MSE Comments: This is a morbidly obese white female in hospital scrubs with adequate grooming and improved eye contact. No abnormal movements except for moderate psychomotor agitation. She was cooperative with exam in moderate distress. Speech was normal in rate, and increased in volume. Mood described as fine Affect: odd and subdued. Thought process was linear and goal directed. Thought content: She endorsed no suicidal ideation, and denied homicidal ideation. She endorsed auditory hallucinations and there was evidence of bizarre delusions. There was belief of ideas of reference and telepathic abilities. Attention and concentration was impaired and memory was unreliable but none were formally tested. Alert and oriented x [address]. Insight, judgment and impulse control are all impaired. Vitals/I&O/Wt Last Vital Signs Temp 98.1 F 03/07/25 19:42 Pulse 51 L 03/08/25 05:57 Resp 16 03/08/25 05:57 BP 103/60 03/08/25 05:57 Pulse Ox 97 03/08/25 05:57 O2 Del Method Room Air 03/07/25 19:42 Data NPU 03/03/25 14:05 03/03/25 14:05 A&P Assessment and plan (1) Schizophrenia: (2) Bipolar 1 disorder: (3) Cannabis use disorder: (4) Parent-child relational problem: Plan This is a 24-year-old white female who was seen in the past with a history of significant mental health challenges including likely schizophrenia with etiology likely contributed by past substance abuse currently noncompliant with invega IM and oral seroquel and appearing quite psychotic at this time. 1.? Invega 234mg IM to be given on day of admission. We may need to consider making the Invega injection every 3 weeks. Continue Seroquel to 400mg at night. Consider addition of lithium or depakote. 2.? Continue every 15 minute checks for safety. 3.? Encourage individual, group and milieu therapies. 4.? Encourage sober living treatment after discharge at the highest level of care to which she is willing to commit. 5. Will continue to gather collateral information. PDMP PDMP Reviewed: Not Reviewed Involuntary Hold Information 2 Hold Status: Legal Status: 96 Hour Hold Date/Time Hold Expires: 03/09/25 @16:45 96 Hour Hold: 96 Hour Involuntary Admission: Yes Other Hold: Hold End Date: 11/10/24 Attestations NPU 2 Medical Necessity Statement*: Inpatient hospitalization is medically necessary and deemed to be the clinically appropriate intervention at this time. Medications will be adjusted and initiated as indicated.? The patient?s likely length of stay is 5-7 days. ? Coding Level of Care Code Acute Code for [facility] Fwd Diagnoses Schizophrenia F20.9 Bipolar 1 disorder F31.9 Cannabis use disorder F12.90 Parent-child relational problem Z62.820
[2025-03-08] MEDS: nicotine 4 mg lozenge MUCOUS MEM ×2 (15:10→17:02)
[2025-03-08 19:29] VITALS: BP 133/81; PULSE 98; RESP 18; TEMP 36.9; O2SAT 93
[2025-03-08] MEDS: quetiapine 100 mg Tablet 400 MG PO (19:47)
[2025-03-09 06:00] VITALS: BP 97/70; PULSE 58; RESP 16; O2SAT 99
[2025-03-09] MEDS: nicotine 4 mg lozenge MUCOUS MEM ×5 (10:52→21:16)
--- NOTE | 2025-03-09 12:41 | P.NPUPN_ITS ---
Subjective NPU 2 Subjective: 24-year-old female with schizophrenia ad mitted with disorganized behavior and disorganized thinking along with auditory hallucinations. The patient continued to endorse having thomas of telepathy. She reported that she did not wish to return home. She had reported that she was sleeping better. She had stated that she been planning on having her friends pick her up soon and take her to her ex-boyfriend to live in [place]. She had admitted that she had not had any physical contact or contact on the phone with her ex-boyfriend but had rather spoken to them telepathically. She reported no side effects from the increase in Seroquel. Mental Status Exam 2 MSE Comments: This is a morbidly obese white female in hospital scrubs with adequate grooming and improved eye contact. No abnormal movements except for moderate psychomotor agitation. She was cooperative with exam in moderate distress. Speech was normal in rate, and normal in volume. Mood described as okay Affect: odd and subdued. Thought process was linear and goal directed. Thought content: She endorsed no suicidal ideation, and denied homicidal ideation. She denied auditory hallucinations and denied visual hallucinations. She continued to endorse thought insertion and telepathy. Attention and concentration was impaired and memory was unreliable but none were formally tested. Alert and oriented x [address]. Insight, judgment and impulse control are all impaired. Vitals/I&O/Wt Last Vital Signs Temp 98.4 F 03/08/25 19:29 Pulse 58 L 03/09/25 06:00 Resp 16 03/09/25 06:00 BP 97/70 03/09/25 06:00 Pulse Ox 99 03/09/25 06:00 O2 Del Method Room Air 03/07/25 19:42 Data NPU 03/03/25 14:05 03/03/25 14:05 A&P Assessment and plan (1) Schizophrenia: (2) Bipolar 1 disorder: (3) Cannabis use disorder: (4) Parent-child relational problem: Plan This is a 24-year-old white female who was seen in the past with a history of significant mental health challenges including likely schizophrenia with etiology likely contributed by past substance abuse currently noncompliant with invega IM and oral seroquel and appearing quite psychotic at this time. 1.? Invega 234mg IM given on day of admission. We may need to consider making the Invega injection every 3 weeks. Continue Seroquel to 400mg at night. Consider addition of lithium or depakote. 2.? Continue every 15 minute checks for safety. 3.? Encourage individual, group and milieu therapies. 4.? Encourage sober living treatment after discharge at the highest level of care to which she is willing to commit. 5. Will continue to gather collateral information. 21 day hold filed. PDMP PDMP Reviewed: Not Reviewed Involuntary Hold Information 2 Hold Status: Legal Status: 96 Hour Hold Date/Time Hold Expires: 03/12/25 @16:45 96 Hour Hold: 96 Hour Involuntary Admission: Yes Other Hold: Hold End Date: 11/10/24 Attestations NPU 2 Medical Necessity Statement*: Inpatient hospitalization is medically necessary and deemed to be the clinically appropriate intervention at this time. Medications will be adjusted and initiated as indicated.? The patient?s likely length of stay is 5-7 days. ? Coding Level of Care Code Acute Code for [facility] Fwd Diagnoses Schizophrenia F20.9 Bipolar 1 disorder F31.9 Cannabis use disorder F12.90 Parent-child relational problem Z62.825
[2025-03-09 14:00] VITALS: BP 123/83; PULSE 95; RESP 16
[2025-03-09] MEDS: hyDROXYzine 25 mg Capsule 50 MG PO (18:14)
[2025-03-09] MEDS: ondansetron 4 MG Tablet PO (19:24)
[2025-03-09] MEDS: quetiapine 100 mg Tablet 400 MG PO (21:16)
[2025-03-09 22:00] VITALS: BP 128/85; PULSE 114; RESP 20; TEMP 37.1; O2SAT 98
[2025-03-10 06:00] VITALS: BP 97/61; PULSE 65; RESP 16; O2SAT 98
--- NOTE | 2025-03-10 10:27 | P.NPUPN_ITS ---
Subjective NPU 2 Subjective: Patient presented today reporting that she is not doing great. She reports that she has been expecting her mother to come but that her mother stood her up. She reports that she is frustrated because her mother is always getting on her about paying her bills but then is not supporting her and doing that because they needed to work on getting her money off of her phone. She additionally endorsed that her mother is saying that she needs to pay her back for all the things she has done since she was born and that thought is overwhelming. She reports trying to find some alternative living arrangements and feeling like the medication is working okay but having some concerns about the way it makes her feel. She denied any additional side effects to her medication. Mental Status Exam 2 MSE Comments: This is an obese versus morbidly obese white female in hospital scrubs with poor grooming and no eye contact. No abnormal movements except for mild psychomotor agitation. She was cooperative with exam in mild distress. Speech was mostly normal rate and volume today. Mood described as not great. Affect: Congruent and slightly subdued. Thought process was linear. Thought content: She denied suicidal and homicidal ideation but endorsed significant frustration with her mother. She endorsed auditory hallucinations but did not appear to be responding to internal stimuli. Attention and concentration appeared intact and memory was mostly reliable but none were formally tested. Alert and oriented x [address]. Insight, judgment and impulse control are all limited versus impaired. Vitals/I&O/Wt Last Vital Signs Temp 98.8 F 03/09/25 22:00 Pulse 65 03/10/25 06:00 Resp 16 03/10/25 06:00 BP 97/61 03/10/25 06:00 Pulse Ox 98 03/10/25 06:00 O2 Del Method Room Air 03/09/25 22:00 Data NPU 03/03/25 14:05 03/03/25 14:05 A&P Assessment and plan (1) Schizophrenia: (2) Bipolar 1 disorder: (3) Cannabis use disorder: (4) Parent-child relational problem: Plan This is a 24-year-old white female who was seen in the past with a history of significant mental health challenges including likely schizophrenia with etiology likely contributed by past substance abuse currently noncompliant with invega IM and oral seroquel and appearing quite psychotic at this time. 1.? Invega 234mg IM given on day of admission. We may need to consider making the Invega injection every 3 weeks. Continue Seroquel to 400mg at night. Consider addition of lithium or depakote. 2.? Continue every 15 minute checks for safety. 3.? Encourage individual, group and milieu therapies. 4.? Encourage sober living treatment after discharge at the highest level of care to which she is willing to commit. 5. Will continue to gather collateral information. 21 day hold filed. PDMP PDMP Reviewed: Not Reviewed Involuntary Hold Information 2 Hold Status: Legal Status: 96 Hour Hold Date/Time Hold Expires: 03/12/25 @16:45 96 Hour Hold: 96 Hour Involuntary Admission: Yes Other Hold: Hold End Date: 11/10/24 Attestations NPU 2 Medical Necessity Statement*: Inpatient hospitalization is medically necessary and the clinically appropriate intervention at this time. We will initiate/monitor medications and make changes as indicated.? The patient?s likely length of stay is 4-6 days. Coding Level of Care Code Acute Code for [facility] Fwd Diagnoses Schizophrenia F20.9 Bipolar 1 disorder F31.9 Cannabis use disorder F12.90 Parent-child relational problem Z62.820
[2025-03-10 14:00] VITALS: BP 91/57; PULSE 69; RESP 16; TEMP 36.7
[2025-03-10] MEDS: hyDROXYzine 25 mg Capsule 50 MG PO (15:15)
[2025-03-10] MEDS: nicotine 4 mg lozenge MUCOUS MEM (15:16)
[2025-03-10] MEDS: quetiapine 100 mg Tablet 400 MG PO (19:52)
[2025-03-10 21:08] VITALS: BP 87/55; PULSE 64; RESP 16; TEMP 36.4; O2SAT 98
[2025-03-11 06:00] VITALS: BP 87/51; PULSE 62; RESP 16; O2SAT 97
[2025-03-11 14:00] VITALS: BP 98/61; PULSE 68; RESP 16; TEMP 36.9; O2SAT 95
[2025-03-11] MEDS: nicotine 4 mg lozenge MUCOUS MEM ×2 (17:12→19:26)
--- NOTE | 2025-03-11 18:38 | P.NPUPN_ITS ---
Subjective NPU 2 Subjective: Patient presented today reporting that she would discharge and go to a longterm. We discussed her limited success with those kinds of plans. She then switched to focus and said the biggest concern she has right now she wants to have a cigarette. We discussed that nicotine cravings is not the last reason that we should do an early discharge or discharge without a plan. She denied any side effects or medication. Mental Status Exam 2 MSE Comments: This is an obese versus morbidly obese white female in hospital scrubs with poor grooming and no eye contact. No abnormal movements except for mild psychomotor agitation. She was cooperative with exam in mild distress. Speech was mostly normal rate and volume today. Mood described as not great. Affect: Congruent and slightly subdued. Thought process was linear. Thought content: She denied suicidal and homicidal ideation but endorsed significant frustration with her mother. She endorsed auditory hallucinations but did not appear to be responding to internal stimuli. Attention and concentration appeared intact and memory was mostly reliable but none were formally tested. Alert and oriented x [address]. Insight, judgment and impulse control are all limited versus impaired. Vitals/I&O/Wt Last Vital Signs Temp 98.4 F 03/11/25 14:00 Pulse 68 03/11/25 14:00 Resp 16 03/11/25 14:00 BP 98/61 03/11/25 14:00 Pulse Ox 95 03/11/25 14:00 O2 Del Method Room Air 03/11/25 14:00 Data NPU 03/03/25 14:05 03/03/25 14:05 A&P PDMP PDMP Reviewed: Not Reviewed Involuntary Hold Information 2 Hold Status: Legal Status: 96 Hour Hold Date/Time Hold Expires: 03/12/25 @16:45 96 Hour Hold: 96 Hour Involuntary Admission: Yes Other Hold: Hold End Date: 11/10/24 Attestations NPU 2 Medical Necessity Statement*: Inpatient hospitalization is medically necessary and the clinically appropriate intervention at this time. We will initiate/monitor medications and make changes as indicated.? The patient?s likely length of stay is 3-5 days. Coding Level of Care Code Acute Code for [facility]
[2025-03-11] MEDS: hyDROXYzine 25 mg Capsule 50 MG PO (19:26)
[2025-03-11] MEDS: quetiapine 100 mg Tablet 400 MG PO (20:02)
[2025-03-11] MEDS: trazodone 50 mg Tablet PO (20:37)
[2025-03-11] MEDS: OLANZapine 5 mg ODT PO (20:37)
[2025-03-11 20:45] VITALS: BP 141/76; PULSE 93; RESP 18; TEMP 36.4; O2SAT 98
[2025-03-12 06:00] VITALS: BP 87/55; PULSE 56; RESP 16; O2SAT 97
[2025-03-12 14:00] VITALS: BP 95/58; PULSE 80; RESP 16; TEMP 36.9; O2SAT 95
[2025-03-12] MEDS: nicotine 4 mg lozenge MUCOUS MEM ×2 (17:06→19:57)
--- NOTE | 2025-03-12 18:51 | P.NPUPN_ITS ---
Subjective NPU 2 Subjective: Patient presented today reporting that things are going all right. She seems to be vacillating between feeling that a plan of going back to mom would be okay and wanting to consider going to a senior care. We discussed where she would go if she left and she discussed the fact that her mother wants her to come home but that her biggest frustration is that mom does not really let her do anything and so she stuck out on the property. We agreed we would speak to mom when the treatment team comes in tomorrow to get a sense of where things really are to make a decision about discharge and going to the 21-day hold hearing. She denied any side effects of the medication. Mental Status Exam 2 MSE Comments: This is an obese versus morbidly obese white female in hospital scrubs with poor grooming and no eye contact. No abnormal movements except for mild psychomotor retardation. She was cooperative with exam in mild distress. Speech was mostly normal rate and volume today. Mood described as a little better but I want a cigarette. Affect: Congruent and slightly subdued. Thought process was linear. Thought content: She denied suicidal and homicidal ideation. She denied current auditory or visual hallucinations hallucinations. Attention and concentration appeared intact and memory was mostly reliable but none were formally tested. Alert and oriented x [address]. Insight, judgment and impulse control are all limited. Vitals/I&O/Wt Last Vital Signs Temp 98.5 F 03/12/25 20:51 Pulse 92 03/12/25 20:51 Resp 18 03/12/25 20:51 BP 110/69 03/12/25 20:51 Pulse Ox 97 03/12/25 20:51 O2 Del Method Room Air 03/11/25 14:00 Weight last 48 hrs Weight 113.035 kg Data NPU 03/03/25 14:05 03/03/25 14:05 A&P Assessment and plan (1) Schizophrenia: (2) Bipolar 1 disorder: (3) Cannabis use disorder: (4) Parent-child relational problem: Plan This is a 24-year-old white female who was seen in the past with a history of significant mental health challenges including likely schizophrenia with etiology likely contributed by past substance abuse currently noncompliant with invega IM and oral seroquel and appearing quite psychotic at this time. 1.? Invega 234mg IM given on day of admission. We may need to consider making the Invega injection every 3 weeks. Continue Seroquel to 400mg at night. Consider addition of lithium or depakote. 2.? Continue every 15 minute checks for safety. 3.? Encourage individual, group and milieu therapies. 4.? Encourage sober living treatment after discharge at the highest level of care to which she is willing to commit. 5. Will continue to gather collateral information. 21 day hold filed. Hearing tomorrow but will consider not having hearing after speaking to mother. PDMP PDMP Reviewed: Not Reviewed Involuntary Hold Information 2 Hold Status: Legal Status: 96 Hour Hold Date/Time Hold Expires: 03/12/25 @16:45 96 Hour Hold: 96 Hour Involuntary Admission: Yes Other Hold: Hold End Date: 11/10/24 Attestations NPU 2 Medical Necessity Statement*: Inpatient hospitalization is medically necessary and the clinically appropriate intervention at this time. We will initiate/monitor medications and make changes as indicated.? The patient?s likely length of stay is 2-4 days. Length of stay will be determined by whether pursue 21-day hold hearing today. Coding Level of Care Code Acute Code for [facility] Fwd Diagnoses Schizophrenia F20.9 Bipolar 1 disorder F31.9 Cannabis use disorder F12.90 Parent-child relational problem Z62.820
[2025-03-12] MEDS: OLANZapine 5 mg ODT PO (19:57)
[2025-03-12] MEDS: quetiapine 100 mg Tablet 400 MG PO (19:57)
[2025-03-12] MEDS: trazodone 50 mg Tablet PO (19:57)
[2025-03-12 20:51] VITALS: BP 110/69; PULSE 92; RESP 18; TEMP 36.9; O2SAT 97
[2025-03-13 06:00] VITALS: BP 96/64; PULSE 57; RESP 16; O2SAT 98
[2025-03-13 14:00] VITALS: BP 114/85; PULSE 92; RESP 16; TEMP 36.7; O2SAT 97
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
[2025-03-13] MEDS: quetiapine 100 mg Tablet 400 MG PO (19:27)
[2025-03-13] MEDS: nicotine 4 mg lozenge MUCOUS MEM (19:27)
[2025-03-13 20:08] VITALS: BP 117/77; PULSE 107; RESP 16; TEMP 36.7; O2SAT 99
[2025-03-14 06:00] VITALS: BP 90/50; PULSE 60; RESP 16; O2SAT 93
--- NOTE | 2025-03-14 06:07 | P.NPUPN_ITS ---
Subjective NPU 2 Subjective: Patient presented today reporting that things are going okay. She identified that she needed to be in the hospital but was not desirous of that as an outcome. Now she is not identifying smoking is the need for discharge but just feeling like she wants to get out. She does endorse some improvement in her symptoms and her mother is supposed to be visiting on Thursday we talked about mom seeing her in person and agreeing that if mom felt she was ready that Thursday might be the first inflection point for discharge. She denied any side effects to her medication. Mental Status Exam 2 MSE Comments: This is an obese versus morbidly obese white female in hospital scrubs with poor grooming and no eye contact. No abnormal movements except for mild psychomotor retardation. She was cooperative with exam in mild distress. Speech was mostly normal rate and volume today. Mood described as a little better but I want a cigarette. Affect: Congruent and slightly subdued. Thought process was linear. Thought content: She denied suicidal and homicidal ideation. She denied current auditory or visual hallucinations hallucinations. Attention and concentration appeared intact and memory was mostly reliable but none were formally tested. Alert and oriented x [address]. Insight, judgment and impulse control are all limited. Vitals/I&O/Wt Last Vital Signs Temp 97.9 F 03/14/25 19:45 Pulse 97 03/14/25 19:45 Resp 20 H 03/14/25 19:45 BP 130/93 03/14/25 19:45 Pulse Ox 97 03/14/25 19:45 O2 Del Method Room Air 03/14/25 19:45 Data NPU 03/03/25 14:05 03/03/25 14:05 A&P Assessment and plan (1) Schizophrenia: (2) Bipolar 1 disorder: (3) Cannabis use disorder: (4) Parent-child relational problem: Plan This is a 24-year-old white female who was seen in the past with a history of significant mental health challenges including likely schizophrenia with etiology likely contributed by past substance abuse currently noncompliant with invega IM and oral seroquel and appearing quite psychotic at this time. 1.? Invega 234mg IM given on day of admission. We may need to consider making the Invega injection every 3 weeks. Continue Seroquel to 400mg at night. Consider addition of lithium or depakote. 2.? Continue every 15 minute checks for safety. 3.? Encourage individual, group and milieu therapies. 4.? Encourage sober living treatment after discharge at the highest level of care to which she is willing to commit. 5. Will continue to gather collateral information. 21 day hold filed. Hearing today at 3 PM. Spoke with mother who agrees that additional time is needed but she agreed there has been improvement in that 21 days would not be necessary. Patient placed on 21-day hold 03/13/2025. But may discharge as soon as Thursday. PDMP PDMP Reviewed: Not Reviewed Involuntary Hold Information 2 Hold Status: Legal Status: 21 Day Hold Date/Time Hold Expires: court 96 Hour Hold: 96 Hour Involuntary Admission: Yes Other Hold: Hold End Date: 11/10/24 Attestations NPU 2 Medical Necessity Statement*: Inpatient hospitalization is medically necessary and the clinically appropriate intervention at this time. We will initiate/monitor medications and make changes as indicated.? The patient?s likely length of stay is 2-4 days. Coding Level of Care Code Acute Code for [facility] Fwd Diagnoses Schizophrenia F20.9 Bipolar 1 disorder F31.9 Cannabis use disorder F12.90 Parent-child relational problem Z62.820
[2025-03-14] MEDS: nicotine 4 mg lozenge MUCOUS MEM ×4 (13:14→19:33)
[2025-03-14 13:38] VITALS: BP 111/63; PULSE 63; RESP 16; TEMP 36.6
[2025-03-14] MEDS: OLANZapine 5 mg ODT PO (15:09)
[2025-03-14] MEDS: quetiapine 100 mg Tablet 400 MG PO (19:31)
[2025-03-14 19:45] VITALS: BP 130/93; PULSE 97; RESP 20; TEMP 36.6; O2SAT 97
[2025-03-15 06:00] VITALS: BP 94/61; PULSE 56; RESP 16; O2SAT 95
[2025-03-15] MEDS: hyDROXYzine 25 mg Capsule 50 MG PO (12:16)
[2025-03-15] MEDS: nicotine 4 mg lozenge MUCOUS MEM ×3 (13:50→17:40)
[2025-03-15 14:00] VITALS: BP 141/73; PULSE 100; RESP 18; TEMP 37
--- NOTE | 2025-03-15 18:08 | W.PM.NPUPNS ---
Subjective NPU Subjective: Patient presented today reporting that she is doing okay. She is starting to focus on what discharge might look like and is hopeful for discharge with mom on Thursday but was lobbying for maybe her mother to come over and pick her up on . We discussed sticking with the plan and she was fine with that position. We also discussed that it is possible she may be here until Thursday or through the weekend but that Thursday would be the first point that would seem reasonable after mom has some input. She denied any side effects to the medication. Mental Status Exam MSE Comments: This is an obese versus morbidly obese white female in hospital scrubs with poor grooming and no eye contact. No abnormal movements except for mild psychomotor retardation. She was cooperative with exam in mild distress. Speech was mostly normal rate and volume today. Mood described as feeling better affect: Congruent and. Thought process was linear. Thought content: She denied suicidal and homicidal ideation. She denied current auditory or visual hallucinations hallucinations. Attention and concentration appeared intact and memory was mostly reliable but none were formally tested. Alert and oriented x 3. Insight, judgment and impulse control are all limited. Vitals/I&O/Wt Last Vital Signs Temp 98.0 F 03/15/25 20:09 Pulse 99 03/15/25 20:09 Resp 18 03/15/25 20:09 BP 140/88 03/15/25 20:09 Pulse Ox 96 03/15/25 20:09 O2 Del Method Room Air 03/15/25 14:00 Data NPU 03/03/25 14:05 03/03/25 14:05 A&P Assessment and plan (1) Schizophrenia: (2) Bipolar 1 disorder: (3) Cannabis use disorder: (4) Parent-child relational problem: Plan This is a 24-year-old white female who was seen in the past with a history of significant mental health challenges including likely schizophrenia with etiology likely contributed by past substance abuse currently noncompliant with invega IM and oral seroquel and appearing quite psychotic at this time. 1.? Invega 234mg IM given on day of admission. We may need to consider making the Invega injection every 3 weeks. Continue Seroquel to 400mg at night. Consider addition of lithium or depakote. 2.? Continue every 15 minute checks for safety. 3.? Encourage individual, group and milieu therapies. 4.? Encourage sober living treatment after discharge at the highest level of care to which she is willing to commit. 5. Will continue to gather collateral information. 21 day hold filed. Hearing today at 3 PM. Spoke with mother who agrees that additional time is needed but she agreed there has been improvement in that 21 days would not be necessary. Patient placed on 21-day hold 03/13/2025. But may discharge as soon as Thursday. PDMP PDMP Reviewed: Not Reviewed Involuntary Hold Information Hold Status: Legal Status: Hold Date/Time Hold Expires: day court 96 Hour Hold: 96 Hour Involuntary Admission: Yes Other Hold: Hold End Date: 11/10/24 Attestations NPU Medical Necessity Statement*: Inpatient hospitalization is medically necessary and the clinically appropriate intervention at this time. We will initiate/monitor medications and make changes as indicated.? The patient?s likely length of stay is 2-4 days. Coding Level of Care Code Acute Code for [facility] Fwd Diagnoses Schizophrenia F20.9 Bipolar 1 disorder F31.9 Cannabis use disorder F12.90 Parent-child relational problem Z62.820
[2025-03-15 20:09] VITALS: BP 140/88; PULSE 99; RESP 18; TEMP 36.7; O2SAT 96
[2025-03-15] MEDS: trazodone 50 mg Tablet PO (20:32)
[2025-03-15] MEDS: quetiapine 100 mg Tablet 400 MG PO (20:32)
[2025-03-16 06:00] VITALS: BP 98/60; PULSE 56; RESP 16; O2SAT 96
[2025-03-16 14:00] VITALS: BP 113/80; PULSE 91; RESP 18; TEMP 36.7; O2SAT 98
--- NOTE | 2025-03-16 17:50 | W.PM.NPUPNS ---
Subjective NPU Subjective: Patient presented today reporting that things were going fine from her perspective. She denied any major concerns in regards to her situation moving forward. She reports that she spoke to her mother and her mother was very optimistic about tomorrow but she did try to lobby for discharge today saying that her mother would be willing to pick her up. We discussed the plan as we have laid it out and so she endorsed being fine with that plan and look forward to discharge tomorrow. She denied any side effects to her medication. Mental Status Exam MSE Comments: This is an obese versus morbidly obese white female in hospital scrubs with poor grooming and no eye contact. No abnormal movements except for mild psychomotor retardation. She was cooperative with exam in mild distress. Speech was mostly normal rate and volume today. Mood described as feeling better affect: Congruent and. Thought process was linear. Thought content: She denied suicidal and homicidal ideation. She denied current auditory or visual hallucinations hallucinations. Attention and concentration appeared intact and memory was mostly reliable but none were formally tested. Alert and oriented x 3. Insight, judgment and impulse control are all limited. Vitals/I&O/Wt Last Vital Signs Temp 98.0 F 03/16/25 14:00 Pulse 91 03/16/25 14:00 Resp 18 03/16/25 14:00 BP 113/80 03/16/25 14:00 Pulse Ox 98 03/16/25 14:00 O2 Del Method Room Air 03/16/25 14:00 03/16/25 14:59 Intake Total 240 / 240 Balance 240 / 240 Data NPU 03/03/25 14:05 03/03/25 14:05 A&P Assessment and plan (1) Schizophrenia: (2) Bipolar 1 disorder: (3) Cannabis use disorder: (4) Parent-child relational problem: Plan This is a 24-year-old white female who was seen in the past with a history of significant mental health challenges including likely schizophrenia with etiology likely contributed by past substance abuse currently noncompliant with invega IM and oral seroquel and appearing quite psychotic at this time. 1.? Invega 234mg IM given on day of admission. We may need to consider making the Invega injection every 3 weeks. Continue Seroquel to 400mg at night. Consider addition of lithium or depakote. 2.? Continue every 15 minute checks for safety. 3.? Encourage individual, group and milieu therapies. 4.? Encourage sober living treatment after discharge at the highest level of care to which she is willing to commit. 5. Will continue to gather collateral information. 21 day hold filed. Hearing today at 3 PM. Spoke with mother who agrees that additional time is needed but she agreed there has been improvement in that 21 days would not be necessary. Patient placed on 21-day hold 03/13/2025. But may discharge as soon as Thursday. PDMP PDMP Reviewed: Not Reviewed Involuntary Hold Information Hold Status: Legal Status: 21 Day Hold Date/Time Hold Expires: court 96 Hour Hold: 96 Hour Involuntary Admission: Yes Other Hold: Hold End Date: 11/10/24 Attestations NPU Medical Necessity Statement*: Inpatient hospitalization is medically necessary and the clinically appropriate intervention at this time. We will initiate/monitor medications and make changes as indicated.? The patient?s likely length of stay is 1-3 days. Coding Level of Care Code Acute Code for [facility] Fwd Diagnoses Schizophrenia F20.9 Bipolar 1 disorder F31.9 Cannabis use disorder F12.90 Parent-child relational problem Z62.820
[2025-03-16] MEDS: trazodone 50 mg Tablet PO (19:33)
[2025-03-16] MEDS: quetiapine 100 mg Tablet 400 MG PO (19:33)
[2025-03-16] MEDS: hyDROXYzine 25 mg Capsule 50 MG PO (19:33)
[2025-03-16 19:41] VITALS: BP 131/81; PULSE 92; RESP 17; TEMP 36.9; O2SAT 98
[2025-03-17 05:01] VITALS: BP 130/91; PULSE 76; RESP 20; TEMP 36.3; O2SAT 98
[2025-03-17 14:00] VITALS: BP 106/61; PULSE 75; RESP 16; TEMP 36.8; O2SAT 98
--- NOTE | 2025-03-17 15:12 | W.PM.NPUDCS ---
Diagnoses at Discharge Discharge Diagnosis (1) Schizophrenia: Status: Acute (2) Bipolar 1 disorder: Status: Acute Permanent problem details: with psychosis (3) Cannabis use disorder: Status: Acute (4) Parent-child relational problem: Status: Acute Reason for Visit Reason for Visit: auditory hallucinations Involuntary Hold Information Hold Status: Legal Status: Hold Date/Time Hold Expires: court 96 Hour Hold: 96 Hour Involuntary Admission: Yes Other Hold: Hold End Date: 11/10/24 Discharge Data Studies Completed and Pending: Pending at discharge Category Date Time Status HCG Qualitative U rine. Routine Lab 03/16/25 18:27 Ordered Laboratory Results WBC 8.84 10^3/uL (3.2 9-11.43) 03/03/25 14:05 RBC 5.36 10^6/uL (3.8 5-5.65) 03/03/25 14:05 Hgb 14.60 g/dL (11.27 -16.99) 03/03/25 14:05 Hct 46.1 % (36-47) 03/03/25 14:05 MCV 86.0 fl (85-98) 03/03/25 14:05 MCH 27.2 pg (27-33) 03/03/25 14:05 MCHC 31.7 g/dL (30-55) 03/03/25 14:05 RDW 13.6 % (12.1-15.1 ) 03/03/25 14:05 Plt Count 296 10^3/cmm (157 -399) 03/03/25 14:05 MPV 10.4 fL (7.4-10.4 ) 03/03/25 14:05 Neut % (Auto) 66.8 % 03/03/25 14:05 Lymph % (Auto) 24.2 % 03/03/25 14:05 [place] % (Auto) 6.3 % 03/03/25 14:05 Eos % (Auto) 1.9 % 03/03/25 14:05 Baso % (Auto) 0.5 % 03/03/25 14:05 Neut # (Auto) 5.90 10^3/uL (1.8 -7.7) 03/03/25 14:05 Lymph # (Auto) 2.1 10^3/uL (0.8- 4.8) 03/03/25 14:05 [place] # (Auto) 0.6 10^3/uL (0.2- 0.9) 03/03/25 14:05 Eos # (Auto) 0.2 10^3/uL (0.0- 0.8) 03/03/25 14:05 Baso # (Auto) 0.0 10^3/uL (0.0- 0.1) 03/03/25 14:05 Nucleated RBC % (a uto) 0 % 03/03/25 14:05 Nucleated RBCs # 0.0 /100WBC 03/03/25 14:05 Sodium 136 mmol/L (136-1 45) 03/03/25 14:05 Potassium 3.9 mmol/L (3.5-5 .1) 03/03/25 14:05 Chloride 105 mmol/L (98-10 7) 03/03/25 14:05 Carbon Dioxide 20 mmol/L (22-29) L 03/03/25 14:05 Anion Gap 14.9 (5-19) 03/03/25 14:05 BUN 5 mg/dL (6-20) L 03/03/25 14:05 Creatinine 0.8 mg/dL (0.5-0. 9) 03/03/25 14:05 GFR Calculation 89.7 mL/min (90-1 30) L 03/03/25 14:05 Glucose 95 mg/dL (65-115) 03/03/25 14:05 Calculated Osmolal ity 279 mOsm/kg (285- 295) L 03/03/25 14:05 Calcium 9.2 mg/dL (8.5-10 .5) 03/03/25 14:05 Total Bilirubin 0.5 mg/dL (0.15-1 .2) 03/03/25 14:05 AST 12 U/L (0-32) 03/03/25 14:05 ALT 11 U/L (0-33) 03/03/25 14:05 Alkaline Phosphata se 85 U/L (35-105) 03/03/25 14:05 Total Protein 7.5 g/dL (6.6-8.7 ) 03/03/25 14:05 Albumin 4.2 g/dL (3.5-5.2 ) 03/03/25 14:05 Globulin 3.3 g/dL (1.3-4.6 ) 03/03/25 14:05 TSH 0.60 uIU/mL (0.27 -4.20) 03/03/25 14:05 HCG, Qual Negative (Negati ve) 03/03/25 13:48 Urine Color Yellow (Yellow) 03/03/25 13:48 Urine Appearance Clear (CLEAR) 03/03/25 13:48 Urine pH 6.0 (5-7) 03/03/25 13:48 Ur Specific Gravit y 1.013 (1.005-1.0 30) 03/03/25 13:48 Urine Protein Negative (Negati ve) 03/03/25 13:48 Urine Glucose (UA) Negative (Normal ) 03/03/25 13:48 Urine Ketones Trace (Negative) 03/03/25 13:48 Urine Blood 3+ (Negative) A 03/03/25 13:48 Urine Nitrate Negative (Negati ve) 03/03/25 13:48 Urine Bilirubin Negative (Negati ve) 03/03/25 13:48 Urine Urobilinogen 1.0 mg/dL (Negati ve) 03/03/25 13:48 Ur Leukocyte Joanna ase Negative (Negati ve) 03/03/25 13:48 Urine RBC 6-10 /hpf (0-2) 03/03/25 13:48 Urine WBC 0-5 /hpf (0-5) 03/03/25 13:48 Ur Squamous Epith Cells 0-5 /hpf (0-5) 03/03/25 13:48 Amorphous Sediment Not Reportable 03/03/25 13:48 Urine Bacteria None seen /hpf (N ONE) 03/03/25 13:48 Hyaline Casts 0.40 /lpf 03/03/25 13:48 Salicylates < 0.3 mg/dL (3-10 ) L 03/03/25 14:05 Urine Opiates Scre en Negative ng/mL (N egative) 03/03/25 13:48 Acetaminophen < 5.0 ug/mL (10-3 0) L 03/03/25 14:05 Ur Barbiturates Sc reen Negative ng/mL (N egative) 03/03/25 13:48 Ur Phencyclidine S crn Negative ng/mL (N egative) 03/03/25 13:48 Ur Amphetamines Sc reen Negative ng/mL (N egative) 03/03/25 13:48 U Benzodiazepines Scrn Negative ng/mL (N egative) 03/03/25 13:48 [place] 0.1 mmol/L (0.6-1 .2) L 03/03/25 14:05 Urine Cocaine Scre en Negative ng/mL (N egative) 03/03/25 13:48 U Marijuana (THC) Screen Positive ng/mL (N egative) H 03/03/25 13:48 Ethyl Alcohol < 10 mg/dL (0-10) 03/03/25 14:05 Vitals: Last Vital Signs Temp 98.2 F 03/17/25 14:00 Pulse 75 03/17/25 14:00 Resp 16 03/17/25 14:00 BP 106/61 03/17/25 14:00 Pulse Ox 98 03/17/25 14:00 O2 Del Method Room Air 03/17/25 14:00 Discharge Plan Discharge Patient Disposition: Home Condition: Stable Prescriptions: New hydroxyzine pamoate 25 mg Capsule 50 mg PO Q6H PRN (Reason: Anxiety) 30 Days Qty: 120 1RF quetiapine 400 mg tablet 400 mg PO BEDTIME 30 Days Qty: 30 1RF trazodone 50 mg Tablet 50 mg PO BEDTIME PRN (Reason: Sleep) 30 Days Qty: 380 1RF Continued paliperidone 3 mg tablet extended release 24hr 3 mg PO DAILY PRN (Reason: Psychosis and or agitation ) 30 Days Qty: 30 1RF Changed paliperidone palmitate 234 mg/1.5 mL syringe 234 mg IM Q21D 21 Days Qty: 1.5 3RF Rx Instructions: 03/25/25 next injection. Discontinued quetiapine 200 mg tablet 200 mg PO BEDTIME 30 Days Qty: 30 3RF Discharge Orders: Discharge Order (Routine); Ordered 03/17/25 Ordered By: Parth Michael [facility] - 03/21/25 10:15 am Latisha Sesay PMHNP [Staff Physician, Psychiatry] Carmen Michael MD [Primary Care Provider, Family Practice] - 03/13/25 10:15 am Discharge Diet: Regular Discharge Activity: Resume usual activity Patient Instructions: Opioid Safety Discharge Attestations NPU Time Spent in Discharge Care*: less than 30 min Specific Discharge Activities: Specific discharge activities: educating patient, discussing with supervisor case loading/social workers/dc planners, documenting/other paperwork and evaluating patient/reviewing data Coding Level of Care Code Acute Code for [facility] Fwd Diagnoses Schizophrenia F20.9 Bipolar 1 disorder F31.9 Cannabis use disorder F12.90 Parent-child relational problem Z62.820
[2025-03-17 15:26] VITALS: BP 106/61; PULSE 75; RESP 16; TEMP 36.8; O2SAT 98
== END 2025-03-17 15:55 | disposition home or self-care (01) | DRG 885 ==
LOC: ER 16:53 → NP 17:13
PROVIDERS: Admitting Provider Psychiatry & Neurology Psychiatry; Emergency Provider Student in an Organized Health Care Education/Training Program; PCP Family Medicine; Visit Provider Psychiatry & Neurology Psychiatry
DX: F20.9 Schizophrenia, unspecified (principal); Z68.41 Body mass index [BMI] 40.0-44.9, adult; F31.9 Bipolar disorder, unspecified; Z62.820 Parent-biological child conflict; E66.01 Morbid (severe) obesity due to excess calories; F17.200 Nicotine dependence, unspecified, uncomplicated; Z91.148 Patient's other noncompliance with medication regimen for other reason
CPT/HCPCS: 36415; 80053; 80178; 80306; 80307; 81001; 81025; 84443; 85025; 96372; 97150; 97165; 99285; 99291; J1200; J2060; J3486; J9999; Q0162

== ENCOUNTER → 2025-05-09 11:03 | Outpatient (BNVA) | payer BC, SELFPAY ==
[2024-03-22 13:38] VITALS: BP 133/89; BMI 42.1
== END ==
PROVIDERS: PCP Family Medicine; Visit Provider Family Medicine
DX: N92.6 Irregular menstruation, unspecified (principal)
CPT/HCPCS: 81025

== ENCOUNTER 2025-07-13 21:33 | Inpatient (IN) | payer SELFPAY ==
[2024-03-22 13:38] VITALS: BP 133/89; BMI 42.1
[2025-07-13 21:40] VITALS: BP 123/82; PULSE 105; RESP 16; TEMP 37.1; O2SAT 97
--- OUTSIDE RECORDS SUMMARY | 2025-07-13 21:42 | XMS_ITS | Clinical Summary ---
Author Organization [facility] Address [address] [place] [address] Phone Care Team Providers Care Regional Project Manager Name Role Phone Unavailable Primary Care Provider Unavailabl e Encounters Date Type Department Care Team Description 06/13/2025 External Device Data [facility] ABSTRACTION Provider, Abstract 04/12/2025 External Device Data [facility] ABSTRACTION Provider, Abstract 04/12/2025 External Device Data [facility] ABSTRACTION Provider, Abstract from Last 3 Months Social History Tobacco Use Types Packs/Day Years Used Date Smoking Tobacco: Never Assessed Comments Unknown Sex and Gender Information Value Date Recorded Sex Assigned at Not on file Legal Sex Female 1:47 PM CDT Gender Identity Not on file Sexual Orientation Not on file Plan of Treatment Health Maintenance Due Date Last Done Comments CHLAMYDIA SCREENING (ANNUAL) 11-24 YEARS 2013 HPV VACCINES (1 - 3-dose series) 2017 DTAP/TDAP/TD VACCINES (1 - Tdap) 2021 HEPATITIS B VACCINES (1 of 3 - 19+ 3-dose series) 06/28 CERVICAL CANCER SCREENING 2023 HPV/Cotest (21-29) 2023 PAP SMEAR 2023 INFLUENZA VACCINE (#1) 2025 Insurance [facility] MEDICAID
--- NOTE | 2025-07-13 22:36 | ECG_ITS ---
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 Measurements Intervals [place] Rate: 85 P: 52 CA: 177 QRS: 58 QRSD: 101 T: 48 QT: 359 QTc: 429 Interpretive Statements SINUS RHYTHM POSSIBLE LEFT ATRIAL ENLARGEMENT [-0.1mV P-WAVE IN V1/V2] MINIMAL ST DEPRESSION [0.025+ mV ST DEPRESSION] Compared to ECG 11/21/2022 21:51:40 ST (T wave) deviation now present Sinus bradycardia no longer present Intraventricular conduction delay no longer present Electronically Signed On 07-15-2025 12:09:11 CDT by Patrick Dominique M.D. [email or web address]
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
[2025-07-13 23:13] LABS: Hematocrit 40.1 % (36-47); Hemoglobin 13.30 g/dL (11.27-16.99); Mean Corpuscular HGB Conc 33.2 g/dL (30-55); Mean Corpuscular Hemoglobin 28.5 pg (27-33); Mean Corpuscular Volume 86.1 fl (85-98); Nucleated Red Blood Cells % 0 %; Platelet Count 304 10^3/cmm (157-399); Red Blood Count 4.66 10^6/uL (3.85-5.65); White Blood Count 10.14 10^3/uL (3.29-11.43)
[2025-07-13 23:25] LABS: HCG, Serum Qual Negative (Negative)
[2025-07-13 23:25] LABS: PCP Screen Urine Negative (Negative)
[2025-07-13 23:31] LABS: Alanine Aminotransferase 13 U/L (0-33); Albumin Level 4.1 g/dL (3.5-5.2); Alkaline Phosphatase 82 U/L (35-105); Anion Gap 17.9 (5-19); Aspartate Amino Transferase 13 U/L (0-32); Blood Urea Nitrogen 4 mg/dL (6-20); Calcium 9.4 mg/dL (8.5-10.5); Carbon Dioxide 22 mmol/L (22-29); Chloride 103 mmol/L (98-107); Globulin 2.7 g/dL (1.3-4.6); Glucose 114 mg/dL (65-115); Osmolality Calculated 286 mOsm/kg (285-295); Potassium 3.9 mmol/L (3.5-5.1); Sodium 139 mmol/L (136-145); Total Protein 6.8 g/dL (6.6-8.7)
--- NOTE | 2025-07-13 23:32 | PC.NURSE ---
96 Hour Involuntary Hold Patient Rights have been reviewed with the patient and a copy of the same has been provided to her. Baby Sitter rBonson Washington was present at bedside during the presentation of Rights.
[2025-07-13 23:38] LABS: Acetaminophen < 5.0 ug/mL (10-30); Alcohol Level < 10 mg/dL (0-10); Salicylate < 0.3 mg/dL (3-10)
[2025-07-14 00:45] VITALS: BP 120/78; PULSE 88; RESP 17; TEMP 36.7; O2SAT 97
[2025-07-14 00:58] VITALS: BP 120/78; PULSE 88; RESP 17; TEMP 36.7; O2SAT 97
[2025-07-14 06:00] VITALS: BP 105/64; PULSE 92; RESP 19; TEMP 37.2; O2SAT 95
--- NOTE | 2025-07-14 07:44 | P.NPUHP_ITS ---
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 inpatient and they changed things that had been helping but probably needed just to be increased. She reports that over the last 3 days leading up to the hospitalization she was feeling increasingly suicidal. She was drinking, took some pills including lithium, and had cut herself superficially. She reports that she has had at least 22 suicide attempts in her life. She reports that she has had follow-up in [place]. She reports she has been on lots of different medications. She reports that she is down to 1 cigarette or a couple puffs a day. She reports she tried to stop drinking alcohol but does not drink much. She reports she smokes marijuana daily. She reports that she does not use any other illicit drugs and that has been the case for over a year but back when she was using methamphetamine and opiates for the problem. She reports she thinks she does have 1 DUI but denied other charges. She reports she is been having challenges since she was a teen that she has had a history of cutting. She reports that recently she and her mom have had conflicts because she struggles with her behavior. She reports that her mother endorses that she is more aggressive than she should be. She reports that recently she has been staying with her mom's ex because she and her mom cannot get along. She reports she is having some legal problems and that she has an outstanding warrant from not showing up to court about 4 times. She continues to report being heterosexual with her longest relationship being off and on for 3 years. Never been , has not had children never been in the and reports she is affiliated with the [employer]. She is not currently working. An excerpt of her last hospitalization here in March 2021 is included below for context. We discussed the risk benefits and alternatives of resuming some Seroquel at night to help with sleep and to start Invega as a mood stabilizer before considering an antidepressant. Per her 04/21/2021 [facility] inpatient psychiatric evaluation: History of Present Illness Miranda Fong is a 20 year old female who presented to the emergency department with the following report: Chief Complaint: Psychiatric Symptoms Stated Complaint: SI Time Seen by Provider: 04/20/21 21:32 History of Present Illness: HPI Narrative: 20-year-old female comes in today with complaints of depression, suicidal thoughts, hearing voices and seeing people watching her. Patient reports that she has been hearing the voices that have been telling her that they are going to get her and cut her in half with a chainsaw and other various torture. Patient has been started on citalopram 1 month ago and Seroquel 1 week ago for complaints of depression. Patient reports that the voices have been going on for 1 to 2 months. Patient has recently moved to [place] from [facility] 2 months ago to live near her biological grandparents. Patient has been on sertraline in the past but was taken off of the medication due to taking too many of the pills as she states it. Patient is also has had 1 state last August while in [facility] for suicidal thoughts in which she stayed overnight in the hospital. Patient has poor eye contact during interview. Associated symptoms: Reports auditory hallucinations, visual hallucinations, delusions, depression and suicidal ideation. She was admitted to the neuropsychiatric unit for definitive treatment of those issues. Patient presents today reporting she is never been in a psychiatric hospital but has been in outpatient services. She had medications before including Seroquel but she denies ever having Abilify. She endorses having a suicide attempt but it was unclear whether she meant September of this year or 2019. She reports that she vapes but does not alcohol somewhat regularly she denies smoking marijuana or any other illicit drugs. She never been to rehab and denied having a DUI. She reports that the reason why she is here is at her family's behest as she continued to have voices in her head reports that she feels like somebody is going to kill her. She reports that the voices tell her the people are after her that are going to kill her. We discussed the risk- benefit and alternatives of starting Abilify and she understood agreed to proceed as is documented in this note. Psychiatric history: As above. Substance abuse history: As above. Family history: Endorses mental health issues on her mother side, addiction issues on her father side denies any suicide attempts or completions in her family which is aware of. Developmental history: There were no problems with the , or delivery, learned to walk and talk and met developmental milestones on time, and denies need for speech therapy, learning support, emotional support or special education classes. She did later report that she might have been a slow reader. Psychosocial history: She reports that her mother and father were together when she was born and that she has 2 younger sisters that are a product of that same union. She states is a half sibling through her father but avoid and her mother did have another child was stillborn. She reports her childhood was good she denies any emotional, physical or sexual abuse. She does report that when her parents split her dad was overly protective and her mom more or less allowed her to do whatever she wanted. She reports that she did get into some addictive behavior secondary to the looseness of control. She alluded to some possible trauma and PTSD type symptoms but did not discuss them with clearly enough to draw an understanding. She did graduate from high school. She endorses being bisexual with a long relationship being 2 years. She has never been , she has never had children, she has never been in the , and she endorses being Yazidism. Her longest was 3 months. She reports he lives in a camper with a younger sister outside of family members home. Legal history: Denied. Medical history: Please see ED note for full details but endorses being on control pills. Hospital Course She slowly acclimated to the individual, group and milieu therapies. She presented reporting significant difficulties in her life which has been fairly common in her presentation including psychosocial challenge of having a significant conflict with her mother. Additionally some issues regarding her being stuck at home and not having an opportunity to do things. Significant concerns exist because she is on the verge of getting her Social Security benefits from being disabled there are great concerns that she will be victimized as people have already started asking her about her money and trying to get her to send money to them even though she has not received it yet. Additionally still having some difficulty with her psychotic symptoms. She was continued on her home medications but her Seroquel was increased to 400 mg p.o. nightly. And her Invega Sustenna injection was increased to every 3 weeks. This was something that had been desired in the past but had not occurred once she left the hospital. We worked with her mother and outpatient providers to make sure they understood that this plan. She was on a 96-hour hold which then became a 21-day hold. The increase in her Seroquel increase in the Invega as well as continuing her home meds, the absence of drugs of abuse specifically cannabis at this time, and the treatment milieu led to a very positive response. Guardianship is something that is supposed to be pursued and the treatment team is very supportive of this plan. Her next injection for this issue 21-day Invega Sustenna would be 03/25/2025. She worked with the social work team for appropriate follow-up appointments and outpatient resources. She demonstrated significant improvement and was able to contract for safety outside of the hospital prior to discharge. During the hospitalization, the patient had routine laboratory studies which were within normal limits, except for a few outliers. Additionally, the patient had a general medical evaluation which was within normal limits and revealed no new acute processes. Discharge Summary At the time of discharge the patient denied psychosis or lethality and her psychosis appeared to be resolving. Mood and anxiety were well managed. The patient endorsed a plan to avoid all drugs of abuse and to follow-up with outpatient services, as recommended. The patient was evaluated and deemed to be absent credible lethality, and had achieved the maximum benefit from an inpatient hospitalization, so was discharged. Meds NPU Home Medications ?Medication ?Instructions ?Recorded ?Confirmed ?Last Taken ?Type norgestimate 0.25 mg-ethinyl 1 tab PO DAILY #84 tabs 0 05/18/25 07/14/25 Unknown Rx estradiol 0.035 mg tablet (Sprintec (28)) hydroxyzine pamoate 25 mg capsule 50 mg (2 x 25 mg) PO Q6H PRN 05/26/25 07/14/25 Unknown Rx Anxiety 30 days #120 caps paliperidone palmitate 234 mg/1.5 234 mg (1.5 mL) IM Q 21D 21 days 05/26/25 07/14/25 Unknown Rx mL intramuscular syringe #1.5 mL trazodone 50 mg tablet 50 mg PO BEDTIME PRN Sleep 3 0 days 05/26/25 07/14/25 Unknown Rx #30 tabs paliperidone 3 mg tablet,extended 3 mg PO DAILY 07/14/25 Unknown History release 24 hr (Invega) quetiapine 400 mg tablet (Seroquel) 400 mg PO BEDTIME 07/14/25 07/14/25 Unknown History Allergies Allergy/AdvReac Type Severity Reaction Status Date / Time hydrocortisone Allergy rash Verified 07/06/25 11:57 haloperidol AdvReac Severe Unconscious Verified 07/06/25 11:57 Milk Containing Products AdvReac Severe ADR-Flatule Verified 07/06/25 11:57 (Dairy) (Milk Containing nce Products) PFSH NPU 2 PFSH: Medical History Schizophrenia Insomnia H/O medication noncompliance Psychiatric disturbance Bipolar 1 disorder with psychosis History of use of contraceptive intrauterine device (IUD) Psychiatric care 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 Family History Other CAD (coronary artery disease) Diabetes Psychiatric illness Social History Smoking and tobacco/nicotine status: current every day tobacco/nicotine user Quit status (tobacco/nicotine): has quit using Former quit date comment: recent Alcohol intake: former Substance/Drug Use: former Adopted: No Caregiver/support person: No Lives independently: Yes Household members: family Housing: House Marital status: Single Number of children: 0 Highest education level completed: High School Graduate Current occupational status: unemployed Pets and animals: Yes Pets & animals: cat(s), dog(s) and bird(s) Leisure activites: art and other Leisure activities details: Social Media Sexually active: No Do you think of yourself as: Straight/Heterosexual Current gender identity: Female Meagan/Judaism: Taoism Special meagan needs: No Agree to transfusion: Yes Female Reproductive History: Spontaneous abortions: No Mental Status Exam 2 MSE Comments: This is a morbidly obese white female in hospital scrubs with poor grooming and good eye contact. Collared in things and also some dark colors in a very flamboyant style. No abnormal movements except for moderate psychomotor agitation. She was cooperative with exam in signficant distress. Speech was normal in rate, and increased in volume. Mood described as mad about being here, affect:labile. Thought process was nonlinear and disorganized. Thought content: She denied suicidal ideation, and denied homicidal ideation. She she denied any delusions or auditory or visual hallucinations but also was very focused on not being here and wanting to leave the area as soon as possible. Attention and concentration was mostly intact and memory was appeared reliable but none were formally tested. Alert and oriented x [address]. Insight, judgment and impulse control are all impaired. Vitals/I&O/Wt Last Vital Signs Temp 98.9 F 07/14/25 06:00 Pulse 92 07/14/25 06:00 Resp 19 H 07/14/25 06:00 BP 105/64 07/14/25 06:00 Pulse Ox 95 07/14/25 06:00 O2 Del Method Room Air 07/14/25 06:00 07/13/25 07/14/25 07/14/25 22:59 06:59 14:59 Intake Total 0 / 0 Balance 0 / 0 Data NPU 07/13/25 22:55 07/13/25 22:55 A&P Assessment and plan 1. Schizophrenia: 2. Bipolar 1 disorder: 3. Cannabis use disorder: 4. Parent-child relational problem: Plan: This is a 25-year-old white female who was seen in the past with a history of significant mental health challenges including likely schizophrenia with etiology likely contributed by past substance abuse again noncompliant with invega IM and oral seroquel and appearing psychotic at this time. 1.? Consider restarting medication. 2.? Continue every 15 minute checks for safety. 3.? Encourage individual, group and milieu therapies. 4.? Encourage sober living treatment after discharge at the highest level of care to which she is willing to commit. 5. Will continue to gather collateral information. PDMP PDMP Reviewed: Not Reviewed Involuntary Hold Information 2 Hold Status: Legal Status: 96 Hour Hold Date/Time Hold Expires: 1 @23:00 96 Hour Hold: 96 Hour Involuntary Admission: Yes Other Hold: Hold End Date: 11/10/24 Attestations NPU 2 Medical Necessity Statement*: Inpatient hospitalization is medically necessary and the clinically appropriate intervention at this time. We will monitor/initiate medications and make changes as indicated. The patient will be hospitalized for at least 2 midnights.? The patient?s likely length of stay is 7-9 days. ? Coding Level of Care Code Acute Code for [facility] Fwd Diagnoses Schizophrenia F20.9 Bipolar 1 disorder F31.9 Cannabis use disorder F12.90 Parent-child relational problem Z62.820
--- NOTE | 2025-07-14 12:53 | PC.OT ---
OT evaluation attempted with pt sleeping soundly; will attempt again at later time.
[2025-07-14 14:00] VITALS: BP 98/65; PULSE 82; RESP 18; TEMP 36.8; O2SAT 96
[2025-07-14] MEDS: paliperidone palmitate 234 mg Syringe IM (16:39)
[2025-07-14 20:39] VITALS: BP 96/49; PULSE 56; RESP 18; TEMP 36.4; O2SAT 98
--- NOTE | 2025-07-15 06:43 | PC.NURSE ---
vitals not completed per nurse to let pt sleep. resp 16
--- NOTE | 2025-07-15 08:51 | P.NPUPN_ITS ---
Subjective NPU 2 Subjective: Patient presented today reporting that things are going all right. She identified that she was open to restarting her medication after saying she would not. She did have some medications that help with her anxiety and we discussed the risks, benefits and alternatives of adding Neurontin 100 mg p.o. 3 times daily and she understood and agreed to proceed as is documented in this note. She continues to say that her mom was just picking on her and that she wants to leave town at the end of the month or before the end of the month. She denied any side effects to her medication. Mental Status Exam 2 MSE Comments: This is a morbidly obese white female in hospital scrubs with poor grooming and good eye contact. Collared in things and also some dark colors in a very flamboyant style. No abnormal movements except for moderate psychomotor agitation. She was cooperative with exam in signficant distress. Speech was normal in rate, and increased in volume. Mood described as mad about being here, affect:labile. Thought process was nonlinear and disorganized. Thought content: She denied suicidal ideation, and denied homicidal ideation. She she denied any delusions or auditory or visual hallucinations but also was very focused on not being here and wanting to leave the area as soon as possible. Attention and concentration was mostly intact and memory was appeared reliable but none were formally tested. Alert and oriented x [address]. Insight, judgment and impulse control are all impaired. Vitals/I&O/Wt Last Vital Signs Temp 97.6 F 07/14/25 20:39 Pulse 56 L 07/14/25 20:39 Resp 18 07/14/25 20:39 BP 96/49 07/14/25 20:39 Pulse Ox 98 07/14/25 20:39 O2 Del Method Room Air 07/14/25 20:39 Data NPU 07/13/25 22:55 07/13/25 22:55 A&P Assessment and plan 1. Schizophrenia: 2. Bipolar 1 disorder: 3. Cannabis use disorder: 4. Parent-child relational problem: Plan: This is a 25-year-old white female who was seen in the past with a history of significant mental health challenges including likely schizophrenia with etiology likely contributed by past substance abuse again noncompliant with invega IM and oral seroquel and appearing psychotic at this time. 1.? We started medication. Add Neurontin 100 mg p.o. 3 times daily. 2.? Continue every 15 minute checks for safety. 3.? Encourage individual, group and milieu therapies. 4.? Encourage sober living treatment after discharge at the highest level of care to which she is willing to commit. 5. Will continue to gather collateral information. PDMP PDMP Reviewed: Not Reviewed Involuntary Hold Information 2 Hold Status: Legal Status: 96 Hour Hold Date/Time Hold Expires: 1 @23:00 96 Hour Hold: 96 Hour Involuntary Admission: Yes Other Hold: Hold End Date: 11/10/24 Attestations NPU 2 Medical Necessity Statement*: Inpatient hospitalization is medically necessary and the clinically appropriate intervention at this time. We will monitor/initiate medications and make changes as indicated. The patient?s likely length of stay is 6-8 days. ? Coding Level of Care Code Acute Code for [facility] Fwd Diagnoses Schizophrenia F20.9 Bipolar 1 disorder F31.9 Cannabis use disorder F12.90 Parent-child relational problem Z62.820
[2025-07-15 12:09] VITALS: BP 96/54; PULSE 55; RESP 16; TEMP 36.8; O2SAT 97
[2025-07-15 19:40] VITALS: BP 106/71; PULSE 64; RESP 16; TEMP 36.5; O2SAT 97
[2025-07-15 20:14] VITALS: BMI 42.1
[2025-07-16] MEDS: LORazepam 1 MG/0.5 ML injection 2 MG IM ×2 (03:23→10:27)
[2025-07-16] MEDS: diphenhydrAMINE 50 mg/mL SDV 1mL IM ×2 (03:24→10:28)
--- NOTE | 2025-07-16 03:29 | PC.NURSE ---
Patient has had a very difficult time getting and or staying asleep this shift. She began to become loud and mildly agitated which, in turn she began to wake multiple patients throughout the unit. This is after exhausting all of the available PO PRN medications for sleep, anxiety and agitation. After discussing the available options for her at this time. She was willing to be given IM Benadryl 50mg and IM Atavan 2mg IM. Patient is currently laying in bed quietly post IM medication administration.
[2025-07-16 06:00] VITALS: BP 136/98; PULSE 95; RESP 18; TEMP 37.2; O2SAT 98
--- NOTE | 2025-07-16 10:45 | PC.NURSE ---
Patient has been having flight of ideas pressured speech, and delusions. Patient reports I see colors and there is cocoa in my face. when I'm with my mom I pass out and sleep for half a year to a year. Patient has been anxious most of the morning and report received that she was awake all night with anxiety. Lorazepam 2 mg given IM left gluteal and diphenhydramine 50 mg IM right glutea. Patient toleraed well and is now playing board games.
--- NOTE | 2025-07-16 10:52 | PC.NURSE ---
pt states that sometimes she passes out and it takes her 6months to 2 years to wake up and the reason it does is because she has to filter through all the people that is inside her to finally get to herself.
[2025-07-16 14:00] VITALS: BP 127/79; PULSE 101; RESP 18; TEMP 36.7; O2SAT 98
--- NOTE | 2025-07-16 16:47 | P.NPUPN_ITS ---
Subjective NPU 2 Subjective: 25-year-old female with a unspecified pe rsonality disorder along with psychosis admitted with bizarre behavior and difficulties with sleep. The patient had limited amount of sleep on the unit. The patient had reported that she was feeling great. She reported that she wanted to help everyone here with all of her problems. She reported that she had lots of ideas of how to make things better. She wanted to buy a television and place applications on the television to help others. She stated that she needed to find a project and reported that she was reporting that her mind was catching up to her brain. Mental Status Exam 2 MSE Comments: This is a morbidly obese white female in hospital scrubs with poor grooming and good eye contact. She had red hair and also some dark colors in a very flamboyant style. No abnormal involuntary motor movements except for moderate psychomotor agitation. She was cooperative with exam in signficant distress. Speech was more productive with increased rate, and increased in volume. Mood described as great., Her affect was labile with periods of euphoria noted.. Thought process was nonlinear and disorganized. Thought content: She denied suicidal ideation, and denied homicidal ideation. She she denied any delusions or auditory or visual hallucinations but also was very focused on not being here and wanting to leave the area as soon as possible. Attention and concentration was mostly intact and memory was appeared reliable but none were formally tested. Alert and oriented x [address]. Insight, judgment and impulse control are all impaired. Vitals/I&O/Wt Last Vital Signs Temp 98.0 F 07/16/25 14:00 Pulse 101 H 07/16/25 14:00 Resp 18 07/16/25 14:00 BP 127/79 07/16/25 14:00 Pulse Ox 98 07/16/25 14:00 O2 Del Method Room Air 07/16/25 14:00 07/16/25 07/16/25 07/16/25 06:59 14:59 22:59 Intake Total 0 / 0 Balance 0 / 0 Weight last 48 hrs Weight 122.13 kg Data NPU 07/13/25 22:55 07/13/25 22:55 A&P Assessment and plan 1. Schizophrenia: 2. Bipolar 1 disorder: 3. Cannabis use disorder: 4. Parent-child relational problem: Plan: This is a 25-year-old white female who was seen in the past with a history of significant mental health challenges including likely schizophrenia with etiology likely contributed by past substance abuse again noncompliant with invega IM and oral seroquel and appearing psychotic at this time. 1. Continue Neurontin 100 mg p.o. 3 times daily. Increase Invega to 6mg at night. Continue Seroquel at 400mg at night. 2.? Continue every 15 minute checks for safety. 3.? Encourage individual, group and milieu therapies. 4.? Encourage sober living treatment after discharge at the highest level of care to which she is willing to commit. 5. Will continue to gather collateral information. PDMP PDMP Reviewed: Not Reviewed Involuntary Hold Information 2 Hold Status: Legal Status: 96 Hour Hold Date/Time Hold Expires: 1 @23:00 96 Hour Hold: 96 Hour Involuntary Admission: Yes Other Hold: Hold End Date: 11/10/24 Attestations NPU 2 Medical Necessity Statement*: Inpatient hospitalization is medically necessary and the clinically appropriate intervention at this time. We will monitor/initiate medications and make changes as indicated. The patient?s likely length of stay is 6-8 days. ? Coding Level of Care Code Acute Code for [facility] Fwd Diagnoses Schizophrenia F20.9 Bipolar 1 disorder F31.9 Cannabis use disorder F12.90 Parent-child relational problem Z62.820
--- NOTE | 2025-07-16 17:41 | PC.NURSE ---
Pt. was at the nurses station mumbling and could not be understood, then said well I already forgot what I was up here for thanks alot and hit the glass with her fist.
[2025-07-16 20:06] VITALS: BP 152/93; PULSE 99; RESP 19; TEMP 36.7; O2SAT 99
[2025-07-16] MEDS: paliperidone ER 6 mg Tablet PO (20:08)
--- NOTE | 2025-07-17 06:50 | PC.NURSE ---
vs not completed per nurse resp 16
--- NOTE | 2025-07-17 12:39 | PC.NURSE ---
Dr. Rojas gave verbal order to put in the order for Invega 156mg IM. To be given on 07/19/25.
--- NOTE | 2025-07-17 13:40 | P.NPUPN_ITS ---
Subjective NPU 2 Subjective: 25-year-old female with a unspecified pe rsonality disorder, ta, along with psychosis admitted with bizarre behavior and difficulties with sleep. The patient remained somewhat grandiose. She had been intrusive and reported that she was feeling great. She had acknowledged having not taken her intramuscular Invega since February 2025. The patient reports that she had simply been trying to introduce herself to all of the neighbors around her and reports that the mother became upset over this. She had acknowledged having periods of decreased need for sleep. She had reported that she was feeling great . Mental Status Exam 2 MSE Comments: This is a morbidly obese white female in hospital scrubs with poor grooming and good eye contact. She had red hair and also some dark colors in a very flamboyant style. No abnormal involuntary motor movements except for moderate psychomotor agitation. She was cooperative with exam in signficant distress. Speech was more productive with increased rate, and increased in volume. Mood described as great. Her affect was labile with periods of euphoria noted.. Thought process was nonlinear, illogical and disorganized. Thought content: She denied suicidal ideation, and denied homicidal ideation. She she denied any delusions or auditory or visual hallucinations but also was very focused on not being here and wanting to leave the area as soon as possible. Attention and concentration was mostly intact and memory was appeared reliable but none were formally tested. Alert and oriented x to person and place and time today. Insight, judgment and impulse control are all impaired. Vitals/I&O/Wt Last Vital Signs Temp 98.1 F 07/16/25 20:06 Pulse 99 07/16/25 20:06 Resp 19 H 07/16/25 20:06 BP 152/93 07/16/25 20:06 Pulse Ox 99 07/16/25 20:06 O2 Del Method Room Air 07/16/25 20:06 Weight last 48 hrs Weight 122.13 kg Data NPU 07/13/25 22:55 07/13/25 22:55 A&P Assessment and plan 1. Schizophrenia: 2. Bipolar 1 disorder: 3. Cannabis use disorder: 4. Parent-child relational problem: Plan: This is a 25-year-old white female who was seen in the past with a history of significant mental health challenges including likely schizophrenia with etiology likely contributed by past substance abuse again noncompliant with invega IM and oral seroquel and appearing psychotic at this time. 1. Continue Neurontin 100 mg p.o. 3 times daily. Continue Invega to 6mg at night. Continue Seroquel at 400mg at night. Next IM invega 156mg due on 07/19/25. 2.? Continue every 15 minute checks for safety. 3.? Encourage individual, group and milieu therapies. 4.? Encourage sober living treatment after discharge at the highest level of care to which she is willing to commit. 5. Patient continues to appear manic. PDMP PDMP Reviewed: Not Reviewed Involuntary Hold Information 2 Hold Status: Legal Status: 96 Hour Hold Date/Time Hold Expires: 1 @23:00 96 Hour Hold: 96 Hour Involuntary Admission: Yes Other Hold: Hold End Date: 11/10/24 Attestations NPU 2 Medical Necessity Statement*: Inpatient hospitalization is medically necessary and the clinically appropriate intervention at this time. We will monitor/initiate medications and make changes as indicated. The patient?s likely length of stay is 4-6 days. ? Coding Level of Care Code Acute Code for [facility] Fwd Diagnoses Schizophrenia F20.9 Bipolar 1 disorder F31.9 Cannabis use disorder F12.90 Parent-child relational problem Z62.820
[2025-07-17 13:50] VITALS: BP 128/86; PULSE 113; RESP 16; TEMP 36.8; O2SAT 98
[2025-07-17] MEDS: paliperidone ER 6 mg Tablet PO (20:04)
[2025-07-17 20:35] VITALS: BP 131/77; PULSE 100; RESP 18; TEMP 36.3; O2SAT 98
[2025-07-18 05:58] VITALS: BP 134/93; PULSE 108; RESP 17; TEMP 36.3; O2SAT 98
[2025-07-18 13:16] VITALS: BP 113/75; PULSE 118; RESP 18; TEMP 36.4; O2SAT 98
--- NOTE | 2025-07-18 16:41 | P.NPUPN_ITS ---
Subjective NPU 2 Subjective: 25-year-old female with a unspecified pe rsonality disorder, ta, along with psychosis admitted with bizarre behavior and difficulties with sleep. The patient had reported that she was feeling more tired. The patient reported no thoughts currently of harming herself or others. She had denied any hallucinations at this time. She had reported that she was feeling cold today. She had stated that she has a new boyfriend that she met here on the unit. She reported that she planned on getting together with him when she leaves here. She reports that she is living by herself in her own apartment. Mental Status Exam 2 MSE Comments: This is a morbidly obese white female in hospital scrubs with some improved grooming and good eye contact. She had red hair and also some dark colors in a very flamboyant style. No abnormal involuntary motor movements except for mild psychomotor retardation. She was cooperative with exam in signficant distress. Speech was more productive with normal rate, and normal in volume. Mood described as good. Her affect was more restricted today in range. Thought process was linear,logical and goal directed. Thought content: She denied suicidal ideation, and denied homicidal ideation. She she denied any delusions or auditory or visual hallucinations today. Attention and concentration was mostly intact and memory was appeared reliable but none were formally tested. Alert and oriented x to person and place and time today. Insight was poor. Her judgment and impulse control are impaired. Vitals/I&O/Wt Last Vital Signs Temp 97.6 F 07/18/25 13:16 Pulse 118 H 07/18/25 13:16 Resp 18 07/18/25 13:16 BP 113/75 07/18/25 13:16 Pulse Ox 98 07/18/25 13:16 O2 Del Method Room Air 07/18/25 13:16 Data NPU 07/13/25 22:55 07/13/25 22:55 A&P Assessment and plan 1. Schizophrenia: 2. Bipolar 1 disorder: 3. Cannabis use disorder: 4. Parent-child relational problem: Plan: This is a 25-year-old white female who was seen in the past with a history of significant mental health challenges including likely schizophrenia with etiology likely contributed by past substance abuse again noncompliant with invega IM and oral seroquel and appearing psychotic at this time. 1. Continue Neurontin 100 mg p.o. 3 times daily. Continue Invega to 6mg at night. Continue Seroquel at 400mg at night. Next IM invega 156mg due on 07/19/25. 2.? Continue every 15 minute checks for safety. 3.? Encourage individual, group and milieu therapies. 4.? Encourage sober living treatment after discharge at the highest level of care to which she is willing to commit. 5. Patient appearing less grandiose currently. PDMP PDMP Reviewed: Not Reviewed Involuntary Hold Information 2 Hold Status: Legal Status: 96 Hour Hold Date/Time Hold Expires: 1 @23:00 96 Hour Hold: 96 Hour Involuntary Admission: Yes Other Hold: Hold End Date: 11/10/24 Attestations NPU 2 Medical Necessity Statement*: Inpatient hospitalization is medically necessary and the clinically appropriate intervention at this time. We will monitor/initiate medications and make changes as indicated. The patient?s likely length of stay is 2-3 days. ? Coding Level of Care Code Acute Code for [facility] Fwd Diagnoses Schizophrenia F20.9 Bipolar 1 disorder F31.9 Cannabis use disorder F12.90 Parent-child relational problem Z62.820
[2025-07-18 19:20] VITALS: BP 131/83; PULSE 84; RESP 18; TEMP 37; O2SAT 99
[2025-07-18] MEDS: paliperidone ER 6 mg Tablet PO (20:03)
[2025-07-19 06:00] VITALS: BP 123/73; PULSE 76; RESP 17; TEMP 36.6; O2SAT 98
[2025-07-19] MEDS: paliperidone palmitate 156 mg Syringe IM (09:30)
--- NOTE | 2025-07-19 12:10 | P.NPUDS_ITS ---
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 that someone stopped her medication. She reports that she last went to [facility] inpatient and they changed things that had been helping but probably needed just to be increased. She reports that over the last 3 days leading up to the hospitalization she was feeling increasingly suicidal. She was drinking, took some pills including lithium, and had cut herself superficially. She reports that she has had at least 22 suicide attempts in her life. She reports that she has had follow-up in [place]. She reports she has been on lots of different medications. She reports that she is down to 1 cigarette or a couple puffs a day. She reports she tried to stop drinking alcohol but does not drink much. She reports she smokes marijuana daily. She reports that she does not use any other illicit drugs and that has been the case for over a year but back when she was using methamphetamine and opiates for the problem. She reports she thinks she does have 1 DUI but denied other charges. She reports she is been having challenges since she was a teen that she has had a history of cutting. She reports that recently she and her mom have had conflicts because she struggles with her behavior. She reports that her mother endorses that she is more aggressive than she should be. She reports that recently she has been staying with her mom's ex because she and her mom cannot get along. She reports she is having some legal problems and that she has an outstanding warrant from not showing up to court about 4 times. She continues to report being heterosexual with her longest relationship being off and on for 3 years. Never been , has not had children never been in the and reports she is affiliated with the [employer]. She is not currently working. An excerpt of her last hospitalization here in March 2021 is included below for context. We discussed the risk benefits and alternatives of resuming some Seroquel at night to help with sleep and to start Invega as a mood stabilizer before considering an antidepressant. Per her 04/21/2021 [facility] inpatient psychiatric evaluation: History of Present Illness Miranda Fong is a 20 year old female who presented to the emergency department with the following report: Chief Complaint: Psychiatric Symptoms Stated Complaint: SI Time Seen by Provider: 04/20/21 21:32 History of Present Illness: HPI Narrative: 20-year-old female comes in today with complaints of depression, suicidal thoughts, hearing voices and seeing people watching her. Patient reports that she has been hearing the voices that have been telling her that they are going to get her and cut her in half with a chainsaw and other various torture. Patient has been started on citalopram 1 month ago and Seroquel 1 week ago for complaints of depression. Patient reports that the voices have been going on for 1 to 2 months. Patient has recently moved to [place] from [facility] 2 months ago to live near her biological grandparents. Patient has been on sertraline in the past but was taken off of the medication due to taking too many of the pills as she states it. Patient is also has had 1 state last August while in [facility] for suicidal thoughts in which she stayed overnight in the hospital. Patient has poor eye contact during interview. Associated symptoms: Reports auditory hallucinations, visual hallucinations, delusions, depression and suicidal ideation. She was admitted to the neuropsychiatric unit for definitive treatment of those issues. Patient presents today reporting she is never been in a psychiatric hospital but has been in outpatient services. She had medications before including Seroquel but she denies ever having Abilify. She endorses having a suicide attempt but it was unclear whether she meant September of this year or 2019. She reports that she vapes but does not alcohol somewhat regularly she denies smoking marijuana or any other illicit drugs. She never been to rehab and denied having a DUI. She reports that the reason why she is here is at her family's behest as she continued to have voices in her head reports that she feels like somebody is going to kill her. She reports that the voices tell her the people are after her that are going to kill her. We discussed the risk- benefit and alternatives of starting Abilify and she understood agreed to proc eed as is documented in this note. Psychiatric history: As above. Substance abuse history: As above. Family history: Endorses mental health issues on her mother side, addiction issues on her father side denies any suicide attempts or completions in her family which is aware of. Developmental history: There were no problems with the , or delivery, learned to walk and talk and met developmental milestones on time, and denies need for speech therapy, learning support, emotional support or special education classes. She did later report that she might have been a slow reader. Psychosocial history: She reports that her mother and father were together when she was born and that she has 2 younger sisters that are a product of that same union. She states is a half sibling through her father but avoid and her mother did have another child was stillborn. She reports her childhood was good she denies any emotional, physical or sexual abuse. She does report that when her parents split her dad was overly protective and her mom more or less allowed her to do whatever she wanted. She reports that she did get into some addictive behavior secondary to the looseness of control. She alluded to some possible trauma and PTSD type symptoms but did not discuss them with clearly enough to draw an understanding. She did graduate from high school. She endorses being bisexual with a long relationship being 2 years. She has never been , she has never had children, she has never been in the , and she endorses being [employer]. Her longest was 3 months. She reports he lives in a camper with a younger sister outside of family members home. Legal history: Denied. Medical history: Please see ED note for full details but endorses being on control pills. Hospital Course She slowly acclimated to the individual, group and milieu therapies. She presented reporting significant difficulties in her life which has been fairly common in her presentation including psychosocial challenge of having a significant conflict with her mother. Additionally some issues regarding her being stuck at home and not having an opportunity to do things. Significant concerns exist because she is on the verge of getting her Social Security benefits from being disabled there are great concerns that she will be victimized as people have already started asking her about her money and trying to get her to send money to them even though she has not received it yet. Additionally still having some difficulty with her psychotic symptoms. She was continued on her home medications but her Seroquel was increased to 400 mg p.o. nightly. And her Invega Sustenna injection was increased to every 3 weeks. This was something that had been desired in the past but had not occurred once she left the hospital. We worked with her mother and outpatient providers to make sure they understood that this plan. She was on a 96-hour hold which then became a 21-day hold. The increase in her Seroquel increase in the Invega as well as continuing her home meds, the absence of drugs of abuse specifically cannabis at this time, and the treatment milieu led to a very positive response. Guardianship is something that is supposed to be pursued and the treatment team is very supportive of this plan. Her next injection for this issue 21-day Invega Sustenna would be 03/25/2025. She worked with the social work team for appropriate follow-up appointments and outpatient resources. She demonstrated significant improvement and was able to contract for safety outside of the hospital prior to discharge. During the hospitalization, the patient had routine laboratory studies which were within normal limits, except for a few outliers. Additionally, the patient had a general medical evaluation which was within normal limits and revealed no new acute processes. Discharge Summary At the time of discharge the patient denied psychosis or lethality and her psychosis appeared to be resolving. Mood and anxiety were well managed. The patient endorsed a plan to avoid all drugs of abuse and to follow-up with outpatient services, as recommended. The patient was evaluated and deemed to be absent credible lethality, and had achieved the maximum benefit from an inpatient hospitalization, so was discharged. Hospital Course Hospital Course During the hospitalization, the patient had routine laboratory studies which were within normal limits except for a few outliers. Patient had been without her psychotropic medications for several months including not having taken her intramuscular Invega in over 4 months. She was restarted on Invega Sustenna 234 mg on 07/14/2025. She was also given Invega Sustenna 156 mg on 07/19/2025. She was restarted on Seroquel which was increased to 400 mg at night. Furthermore, oral paliperidone was started to help with her ta and psychosis and titrated up to 6 mg daily at the time of discharge. She had endorsed hallucinations and appeared to be responding to internal stimuli initially but eventually her symptoms appeared to resolve with these medications. Additionally, there was a general medical evaluation which was also within normal limits and revealed no new acute processes.? At the time of discharge, lethality was denied and psyc hosis was resolving.? Mood and anxiety were well managed.? The patient endorsed a plan to avoid all drugs of abuse and follow up with the aftercare recommendations of the treatment team.? The patient was evaluated and deemed to be absent credible lethality and had achieved the maximum benefit from an inpatient hospitalization, and so was discharged Involuntary Hold Information Hold Status: Legal Status: Hold Date/Time Hold Expires: 21 filed 96 Hour Hold: 96 Hour Involuntary Admission: Yes Other Hold: Hold End Date: 11/10/24 Mental Status Exam MSE Comments: This is a morbidly obese white female in hospital scrubs with some improved grooming and good eye contact. She had red hair and also some dark colors in a very flamboyant style. No abnormal involuntary motor movements except for mild psychomotor retardation. She was cooperative with no acute distress. Speech was normal in rate rhythm and prosody. Mood described as good. Her affect was euthymic. Thought process was linear,logical and goal directed. Thought content: She denied suicidal ideation, and denied homicidal ideation. There was no evidence of any delusional thinking. She did not appear to be responding to internal stimuli. She denied any auditory or visual hallucinations today. Attention and concentration was intact and memory was appeared reliable but none were formally tested. Alert and oriented x to person and place and time today. Insight was poor. Her judgment and impulse control were improved on discharge. Discharge Data Studies Completed and Pending: Laboratory Results WBC 10.14 10^3/uL (3. 29-11.43) 07/13/25 22:55 RBC 4.66 10^6/uL (3.8 5-5.65) 07/13/25 22:55 Hgb 13.30 g/dL (11.27 -16.99) 07/13/25 22:55 Hct 40.1 % (36-47) 07/13/25 22:55 MCV 86.1 fl (85-98) 07/13/25 22:55 MCH 28.5 pg (27-33) 07/13/25:55 MCHC 33.2 g/dL (30-55) 07/13/25 22:55 RDW 13.7 % (12.1-15.1 ) 07/13/25 22:55 Plt Count 304 10^3/cmm (157 -399) 07/13/25 22:55 MPV 10.7 fL (7.4-10.4 ) H 07/13/25 22:55 Neut % (Auto) 71.3 % 07/13/25 22:55 Lymph % (Auto) 18.4 % 07/13/25 22:55 Leslie % (Auto) 7.4 % 07/13/25 22:55 Eos % (Auto) 2.3 % 07/13/25 22:55 Baso % (Auto) 0.3 % 07/13/25 22:55 Neut # (Auto) 7.23 10^3/uL (1.8 -7.7) 07/13/25 22:55 Lymph # (Auto) 1.9 10^3/uL (0.8- 4.8) 07/13/25 22:55 Leslie # (Auto) 0.8 10^3/uL (0.2- 0.9) 07/13/25 22:55 Eos # (Auto) 0.2 10^3/uL (0.0- 0.8) 07/13/25 22:55 Baso # (Auto) 0.0 10^3/uL (0.0- 0.1) 07/13/25 22:55 Nucleated RBC % (a uto) 0 % 07/13/25 22:55 Nucleated RBCs # 0.0 /100WBC 07/13/25 22:55 Sodium 139 mmol/L (136-1 45) 07/13/25 22:55 Potassium 3.9 mmol/L (3.5-5 .1) 07/13/25 22:55 Chloride 103 mmol/L (98-10 7) 07/13/25 22:55 Carbon Dioxide 22 mmol/L (22-29) 07/13/25 22:55 Anion Gap 17.9 (5-19) 07/13/25 22:55 BUN 4 mg/dL (6-20) L 07/13/25 22:55 Creatinine 0.6 mg/dL (0.5-0. 9) 07/13/25 22:55 GFR Calculation 123.9 mL/min (90- 130) 07/13/25 22:55 Glucose 114 mg/dL (65-115 ) 07/13/25 22:55 Calculated Osmolal ity 286 mOsm/kg (285- 295) 07/13/25 22:55 Calcium 9.4 mg/dL (8.5-10 .5) 07/13/25 22:55 Total Bilirubin 0.3 mg/dL (0.15-1 .2) 07/13/25 22:55 AST 13 U/L (0-32) 07/13/25 22:55 ALT 13 U/L (0-33) 07/13/25 22:55 Alkaline Phosphata se 82 U/L (35-105) 07/13/25 22:55 Total Protein 6.8 g/dL (6.6-8.7 ) 07/13/25 22:55 Albumin 4.1 g/dL (3.5-5.2 ) 07/13/25 22:55 Globulin 2.7 g/dL (1.3-4.6 ) 07/13/25 22:55 HCG, Qual Negative (Negati ve) 07/13/25 22:55 Salicylates < 0.3 mg/dL (3-10 ) L 07/13/25 22:55 Urine Opiates Scre en Negative ng/mL (N egative) 07/13/25 23:02 Acetaminophen < 5.0 ug/mL (10-3 0) L 07/13/25 22:55 Ur Barbiturates Sc reen Negative ng/mL (N egative) 07/13/25 23:02 Ur Phencyclidine S crn Negative ng/mL (N egative) 07/13/25 23:02 Ur Amphetamines Sc reen Negative ng/mL (N egative) 07/13/25 23:02 U Benzodiazepines Scrn Negative ng/mL (N egative) 07/13/25 23:02 Urine Cocaine Scre en Negative ng/mL (N egative) 07/13/25 23:02 U Marijuana (THC) Screen Positive ng/mL (N egative) H 07/13/25 23:02 Ethyl Alcohol < 10 mg/dL (0-10) 07/13/25 22:55 Vitals: Last Vital Signs Temp 97.9 F 07/19/25 06:00 Pulse 76 07/19/25 06:00 Resp 17 07/19/25 06:00 BP 123/73 07/19/25 06:00 Pulse Ox 98 07/19/25 06:00 O2 Del Method Room Air 07/19/25 06:00 Discharge Plan Discharge Patient Disposition: Home Condition: Stable Prescriptions: New paliperidone 6 mg Tablet Extended Release 24hr 6 mg PO 2100 10 Days Qty: 10 0RF Rx Instructions: take for 10 days then discontinue gabapentin 100 mg Capsule 100 mg PO TID 30 Days Qty: 90 1RF Continued hydroxyzine pamoate 25 mg capsule 50 mg PO Q6H PRN (Reason: Anxiety) 30 Days Qty: 120 3RF norgestimate-ethinyl estradiol [Sprintec (28)] 0.25-0.035 mg tablet 1 tab PO DAILY Qty: 84 1RF trazodone 50 mg tablet 50 mg PO BEDTIME PRN (Reason: Sleep) 30 Days Qty: 30 1RF Changed quetiapine [Seroquel] 400 mg tablet 400 mg PO BEDTIME Qty: 30 1RF Invega Sustenna 156 mg/mL syringe 156 mg IM Q30D Qty: 1 2RF Rx Instructions: Next IM shot due 08/17/25 Discontinued paliperidone [Invega] 3 mg tablet extended release 24hr 3 mg PO DAILY Discharge Order = DC NOW: Discharge Order (Routine); Ordered 07/19/25 Ordered By: Seth Rojas Referrals: Latisha Sesay PMHNP [Staff Physician, Psychiatry] - 07/21/25 8:45 am Carmen Michael MD [Primary Care Provider, Family Practice] Discharge Diet: Usual diet Discharge Activity: Resume usual activity Patient Instructions: Gabapentin (By mouth), Paliperidone (By injection) (Invega Sustenna, Invega Trinza, Invega..., Bipolar Disorder (GEN), Help Prevent Suicide (GEN), Opioid Safety, Patient Portal & Felicia Instructions Discharge Attestations NPU Time Spent in Discharge Care*: less than 30 min Specific Discharge Activities: Specific discharge activities: educating patient, discussing with medical case manager/social workers/dc planners and documenting/other paperwork Coding Level of Care Code Acute Code for Chg Fwd Diagnoses Schizophrenia F20.9 Bipolar 1 disorder F31.9 Cannabis use disorder F12.90 Parent-child relational problem Z62.823
[2025-07-19 13:38] VITALS: BP 123/73; PULSE 76; RESP 17; TEMP 36.6; O2SAT 98
== END 2025-07-19 14:18 | disposition home or self-care (01) | DRG 885 ==
LOC: ER 23:21 → NP 23:31
PROVIDERS: Admitting Provider Psychiatry & Neurology Psychiatry; Emergency Provider Physician Assistant; PCP Family Medicine; Visit Provider Psychiatry & Neurology Psychiatry
DX: F20.9 Schizophrenia, unspecified (principal); R45.851 Suicidal ideations; Z68.41 Body mass index [BMI] 40.0-44.9, adult; F31.9 Bipolar disorder, unspecified; Z62.820 Parent-biological child conflict; T43.596A Underdosing of other antipsychotics and neuroleptics, initial encounter; Y92.9 Unspecified place or not applicable; E66.01 Morbid (severe) obesity due to excess calories
CPT/HCPCS: 36415; 80053; 80306; 80307; 84703; 85025; 93005; 96372; 97150; 97165; 99285; J1200; J2060; J9999

== ENCOUNTER 2025-08-10 15:17 | Inpatient (IN) | payer MEDICAID, SELFPAY ==
[2024-03-22 13:38] VITALS: BP 133/89; BMI 42.1
--- NOTE | 2025-08-10 15:23 | ED.C_ITS ---
HPI - Psych 2 General: Chief Complaint: Psychiatric Symptoms Stated Complaint: MHE Time Seen by Provider: 08/10/25 15:20 History of Present Illness: 25-year-old female with a history of delvis izophrenia, bipolar disorder, substance- induced mood disorder and alcohol abuse who presents to the emergency room with psychiatric complaints. She is quite manic and hearing voices. She has a monthly Invega shot but apparently has not been working as long and only lasted about 2 weeks this last time. She just got the shot again yesterday but is manic and schizophrenic feeling today. She is requesting admission. Mom is with her and feels like she needs this as well. Related Data Previous Rx's ?Medication ?Instructions ?Recorded gabapentin 100 mg capsule 100 mg PO TID 30 days #90 ca ps 08/09/25 hydroxyzine pamoate 25 mg capsule 50 mg (2 x 25 mg) PO Q6H PRN 08/09/25 Anxiety 30 days #120 caps paliperidone palmitate 234 mg/1.5 234 mg (1.5 mL) IM Q 21D 21 days 08/09/25 mL intramuscular syringe #1.5 mL quetiapine 400 mg tablet (Seroquel) 400 mg PO BEDTIME #30 tabs 08/09/25 trazodone 50 mg tablet 50 mg PO BEDTIME PRN Sleep 3 0 days 08/09/25 #30 tabs cephalexin 500 mg tablet 500 mg PO TID 7 days #21 tab s 08/10/25 Allergies Allergy/AdvReac Type Severity Reaction Status Date / Time hydrocortisone Allergy rash Verified 08/09/25 12:12 haloperidol AdvReac Severe Unconscious Verified 08/09/25 12:12 Milk Containing Products AdvReac Severe ADR-Flatule Verified 08/09/25 12:12 (Dairy) (Milk Containing nce Products) Review of Systems 2 General: Reports: ROS unobtainable due to mental status PFSH ED 2 PFSH: Medical History (Updated 08/10/25 @ 18:39 by Darshana Rodriguez MD) Schizophrenia Insomnia H/O medication noncompliance Psychiatric disturbance Bipolar 1 disorder with psychosis History of use of contraceptive intrauterine device (IUD) Psychiatric care 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 Family History Other CAD (coronary artery disease) Diabetes Psychiatric illness Social History Smoking and tobacco/nicotine status: current every day tobacco/nicotine user Quit status (tobacco/nicotine): has quit using Former quit date comment: recent Alcohol intake: former Substance/Drug Use: former Adopted: No Caregiver/support person: No Lives independently: Yes Household members: family Housing: House Marital status: Single Number of children: 0 Highest education level completed: High School Graduate Current occupational status: unemployed Pets and animals: Yes Pets & animals: cat(s), dog(s) and bird(s) Leisure activites: art and other Leisure activities details: Social Media Sexually active: No Do you think of yourself as: Straight/Heterosexual Current gender identity: Female Meagan/Confucianist: Taoism Special meagan needs: No Agree to transfusion: Yes Female Reproductive History: Spontaneous abortions: No Physical Exam 2 Narrative: EXAM NARRATIVE: General: Alert. no acute distress Skin: Warm, dry Head: Normocephalic, atraumatic. Neck: Supple, trachea midline. Eye: Extraocular movements are intact. Ears, nose, mouth and throat: Oral mucosa moist. Cardiovascular: Regular rate and rhythm, Normal peripheral perfusion. Respiratory: Lungs are clear to auscultation, respirations are non-labored, breath sounds are equal, Symmetrical chest wall expansion. Gastrointestinal: Soft, Nontender, Non distended Musculoskeletal: Normal ROM, no deformity. Neurological: Not Alert and oriented, No focal neurological deficit observed. Psychiatric: confused, agitated. flight of ideas Course 2 Vital Signs: Vital signs: Vital Signs Temperature 98.2 F 08/10/25 15:32 Pulse Rate 101 H 08/10/25 15:32 Respiratory Rate 18 08/10/25 15:32 Blood Pressure 152/87 08/10/25 15:32 Pulse Oximetry 97 08/10/25 15:32 Oxygen Delivery Me thod Room Air 08/10/25 15:32 MDM - Psych Medical Decision Making Medical decision making: Patient's reason for coming to the emergency room: Psychosis, hallucinations Social determinants: Patient is disabled. Accompanied by her mother I reviewed the patient's medical record. Patient had a recent admission to the psychiatric facility I reviewed the patient's current home meds Patient receives Invega shots. Alternate historians: Mother provides most of the history. Differential diagnosis for patient with reported psychosis with plan for psychiatric admission including but not limited to and based on the above HPI, review of systems and physical exam: concerns for infection, alcohol intoxication, cardiac issues or other medical problems prior to psychiatric admission. Orders placed to evaluate differential diagnosis based on the above differential, HPI and physical exam labwork, ekg ordered to evaluate the pathologies and to clear the patient medically prior to psychiatric admission EKG: Time 1633. Rate 72. Normal sinus rhythm, No ST-T changes, no ectopy, normal [place] & QRS intervals, This was reviewed and interpreted by myself the ER physician At 1640. Lab Review: Laboratory results were reviewed and interpreted by myself the emergency room physician. - Medically cleared. - EKG shows no ischemic changes. - Blood alcohol level is negative, as well as salicylate and Tylenol. - Drug screen is positive for marijuana - Patient has urinary tract infection - No anemia. - BUN and creatinine are within normal limits. Assessment of risk: - Level of risk: Moderate risk patient. - Was hospitalization considered? Patient is being hospitalized Consultation: I spoke with Dr. Michael who agrees to admission. Assessment and plan: Psychosis Hallucinations Schizophrenia Urinary tract infection ?First dose Keflex. 500 mg 3 times daily x 7 days. ? Geodon and Ativan IM in the emergency room. -Admission to neuropsychiatric unit for continued evaluation and treatment. - All lab work was reviewed and interpreted personally by myself, the ER physician - Evaluation and treatment of this problem were appropriate in the emergency setting Lab Data 08/10/25 16:04 08/10/25 16:04 Laboratory Results WBC 9.00 10^3/uL (3.29-11.43) 08/10/25 16:04 RBC 4.95 10^6/uL (3.85-5.65) 08/10/25 16:04 Hgb 13.90 g/dL (11.27-16.99) 08/10/25 16:04 Hct 42.0 % (36-47) 08/10/25 16:04 MCV 84.8 fl (85-98) L 08/10/25 16:04 MCH 28.1 pg (27-33) 08/10/25 16:04 MCHC 33.1 g/dL (30-55) 08/10/25 16:04 RDW 13.5 % (12.1-15.1) 08/10/25 16:04 Plt Count 330 10^3/cmm (157-399) 08/10/25 16:04 MPV 9.9 fL (7.4-10.4) 08/10/25 16:04 Neut % (Auto) 68.4 % 08/10/25 16:04 Lymph % (Auto) 22.7 % 08/10/25 16:04 [place] % (Auto) 5.7 % 08/10/25 16:04 Eos % (Auto) 2.7 % 08/10/25 16:04 Baso % (Auto) 0.4 % 08/10/25 16:04 Neut # (Auto) 6.16 10^3/uL (1.8-7.7) 08/10/25 16:04 Lymph # (Auto) 2.0 10^3/uL (0.8-4.8) 08/10/25 16:04 [place] # (Auto) 0.5 10^3/uL (0.2-0.9) 08/10/25 16:04 Eos # (Auto) 0.2 10^3/uL (0.0-0.8) 08/10/25 16:04 Baso # (Auto) 0.0 10^3/uL (0.0-0.1) 08/10/25 16:04 Nucleated RBC % (auto) 0 % 08/10/25 16:04 Nucleated RBCs # 0.0 /100WBC 08/10/25 16:04 Sodium 137 mmol/L (136-145) 08/10/25 16:04 Potassium 3.7 mmol/L (3.5-5.1) 08/10/25 16:04 Chloride 103 mmol/L (98-107) 08/10/25 16:04 Carbon Dioxide 22 mmol/L (22-29) 08/10/25 16:04 Anion Gap 15.7 (5-19) 08/10/25 16:04 BUN 5 mg/dL (6-20) L 08/10/25 16:04 Creatinine 0.7 mg/dL (0.5-0.9) 08/10/25 16:04 GFR Calculation 103.7 mL/min (90-130) 08/10/25 16:04 Glucose 96 mg/dL (65-115) 08/10/25 16:04 Calculated Osmolality 281 mOsm/kg (285-295) L 08/10/25 16:04 Calcium 9.1 mg/dL (8.5-10.5) 08/10/25 16:04 Total Bilirubin 0.5 mg/dL (0.15-1.2) 08/10/25 16:04 AST 15 U/L (0-32) 08/10/25 16:04 ALT 14 U/L (0-33) 08/10/25 16:04 Alkaline Phosphatase 90 U/L (35-105) 08/10/25 16:04 Total Protein 7.7 g/dL (6.6-8.7) 08/10/25 16:04 Albumin 4.3 g/dL (3.5-5.2) 08/10/25 16:04 Globulin 3.4 g/dL (1.3-4.6) 08/10/25 16:04 TSH 1.48 uIU/mL (0.27-4.20) 08/10/25 16:04 HCG, Qual Negative (Negative) 08/10/25 15:55 Urine Color Yellow (Yellow) 08/10/25 15:55 Urine Appearance Cloudy (CLEAR) A 08/10/25 15:55 Urine pH 7.0 (5-7) 08/10/25 15:55 Ur Specific [place] 1.026 (1.005-1.030) 08/10/25 15:55 Urine Protein 1+ (Negative) A 08/10/25 15:55 Urine Glucose (UA) Negative (Normal) 08/10/25 15:55 Urine Ketones Trace (Negative) 08/10/25 15:55 Urine Blood Negative (Negative) 08/10/25 15:55 Urine Nitrate Negative (Negative) 08/10/25 15:55 Urine Bilirubin Negative (Negative) 08/10/25 15:55 Urine Urobilinogen 1.0 mg/dL (Negative) 08/10/25 15:55 Ur Leukocyte Esterase 2+ (Negative) A 08/10/25 15:55 Urine RBC 0-2 /hpf (0-2) 08/10/25 15:55 Urine WBC 51-100 /hpf (0-5) H 08/10/25 15:55 Ur Squamous Epith Cells 21-50 /hpf (0-5) H 08/10/25 15:55 Amorphous Sediment Not Reportable 08/10/25 15:55 Urine Bacteria 2+ /hpf (NONE) H 08/10/25 15:55 Hyaline Casts 10.73 /lpf 08/10/25 15:55 Salicylates < 0.3 mg/dL (3-10) L 08/10/25 16:04 Urine Opiates Screen Negative ng/mL (Negative) 08/10/25 15:55 Acetaminophen < 5.0 ug/mL (10-30) L 08/10/25 16:04 Ur Barbiturates Screen Negative ng/mL (Negative) 08/10/25 15:55 Ur Phencyclidine Scrn Negative ng/mL (Negative) 08/10/25 15:55 Ur Amphetamines Screen Negative ng/mL (Negative) 08/10/25 15:55 U Benzodiazepines Scrn Negative ng/mL (Negative) 08/10/25 15:55 Urine Cocaine Screen Negative ng/mL (Negative) 08/10/25 15:55 U Marijuana (THC) Screen Positive ng/mL (Negative) H 08/10/25 15:55 Ethyl Alcohol < 10 mg/dL (0-10) 08/10/25 16:04 No radiology studies performed this visit Discharge Plan Discharge Patient Disposition: Admitted As Inpatient Admit Provider: Parth Michael Clinical Impression: Acute psychosis, Chronic schizophrenia, Bipolar disorder, Urinary tract infection Condition: Stable Coding Level of Care Code ED Fan Balancer for Simone Arreguin
--- OUTSIDE RECORDS SUMMARY | 2025-08-10 15:24 | XMS_ITS | Clinical Summary ---
Author Organization [facility] Address [address] [place] [address] Phone Care Team Providers Care Heat Treater Apprentice Name Role Phone Unavailable Primary Care Provider Unavailabl e Encounters Date Type Department Care Team Description 07/19/2025 External Device Data [facility] ABSTRACTION Provider, Abstract 06/13/2025 External Device Data [facility] ABSTRACTION Provider, [...] SMEAR 2023 INFLUENZA VACCINE (#1) 2025 [facility]
[2025-08-10 15:32] VITALS: BP 152/87; PULSE 101; RESP 18; TEMP 36.8; O2SAT 97
[2025-08-10 16:13] LABS: Hematocrit 42.0 % (36-47); Hemoglobin 13.90 g/dL (11.27-16.99); Mean Corpuscular HGB Conc 33.1 g/dL (30-55); Mean Corpuscular Hemoglobin 28.1 pg (27-33); Mean Corpuscular Volume 84.8 fl (85-98); Nucleated Red Blood Cells % 0 %; Platelet Count 330 10^3/cmm (157-399); Red Blood Count 4.95 10^6/uL (3.85-5.65); White Blood Count 9.00 10^3/uL (3.29-11.43)
--- NOTE | 2025-08-10 16:33 | ECG_ITS ---
[facility]: 2025-08[facility]10 Pat Name: Miranda Fong Department: Room: Gender: Female Vamp Presser: : 2000 Requested By: Darshana Peralta Order Number: [id number] Wu MD: Patrick Dominique M.D. Measurements Intervals [place] Rate: 72 P: 59 PA: 199 QRS: 65 QRSD: 102 T: 43 QT: 368 QTc: 403 Interpretive Statements SINUS RHYTHM Compared to ECG 07/13/2025 22:36:05 ST (T wave) deviation no longer present Electronically Signed On 08-11-2025 13:07:32 DAY TREATMENT CLINICIAN/ART THERAPIST by Patrick Dominique M.D. [email or web address]
[2025-08-10] MEDS: LORazepam 2 mg/mL INJ 1 mL IM (17:04)
[2025-08-10] MEDS: water for injection-sterile 10 ML (17:04)
[2025-08-10 17:11] LABS: Glucose Urine UA Negative (Normal); Nitrate Urine Negative (Negative); Specific Gravity, Urine 1.026 (1.005-1.030)
[2025-08-10 17:16] LABS: PCP Screen Urine Negative (Negative)
[2025-08-10 17:19] LABS: Add Urine Microscopic? YES
[2025-08-10 17:31] LABS: UA Slide Review UA Slide Review Perf
[2025-08-10 18:19] LABS: HCG Qualitative Urine. Negative (Negative)
--- NOTE | 2025-08-10 18:51 | PC.NURSE ---
Pt was read her 96 hour hold rights with security present
[2025-08-10 18:52] LABS: Alanine Aminotransferase 14 U/L (0-33); Albumin Level 4.3 g/dL (3.5-5.2); Alkaline Phosphatase 90 U/L (35-105); Anion Gap 15.7 (5-19); Aspartate Amino Transferase 15 U/L (0-32); Blood Urea Nitrogen 5 mg/dL (6-20); Calcium 9.1 mg/dL (8.5-10.5); Carbon Dioxide 22 mmol/L (22-29); Chloride 103 mmol/L (98-107); Globulin 3.4 g/dL (1.3-4.6); Glucose 96 mg/dL (65-115); Osmolality Calculated 281 mOsm/kg (285-295); Potassium 3.7 mmol/L (3.5-5.1); Sodium 137 mmol/L (136-145); Thyroid Stimulating Hormone 1.48 uIU/mL (0.27-4.20); Total Protein 7.7 g/dL (6.6-8.7)
[2025-08-10 18:54] LABS: Acetaminophen < 5.0 ug/mL (10-30); Alcohol Level < 10 mg/dL (0-10); Salicylate < 0.3 mg/dL (3-10)
[2025-08-10 19:56] VITALS: BP 145/92; PULSE 93; RESP 18; TEMP 36.4; O2SAT 95
[2025-08-10 20:49] VITALS: BP 145/92; PULSE 93; RESP 18; TEMP 36.4; O2SAT 95
[2025-08-11 06:00] VITALS: BP 89/55; PULSE 73; RESP 16; TEMP 37.1; O2SAT 97
--- NOTE | 2025-08-11 07:06 | P.NPUHP_ITS ---
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 currently living with her mother and their dogs. She was previously living at her mother's ex-boyfriend's house. She is not currently working and is in the process of applying for disability. She has lost her driving license due to a suspected drug-related incident. She has been smoking heavily (vaping) and recently started drinking alcohol again after two years of abstinence. She also reports using cannabis but has not used it for the past two months. She denies using other drugs such as cocaine or methamphetamine. Per her 12/09/2022 [facility] inpatient psychiatric discharge summary: Discharge Diagnosis (1) Acute psychosis: Status: Acute(2) Suicidal ideation: Status: Acute(3) Drug overdose, intentional: Status: Acute(4) Bipolar 1 disorder: Status: Acute Permanent problem details: with psychosis Reason for Visit Reason for Visit: PARANOID Brief History: History of Present Illness Miranda Fong is a 22 year old female who presented to the emergency department with the following report: Chief Complaint: Psychiatric Symptoms Stated Complaint: PARANOID Time Seen by Provider: 11/21/22 20:18 History of Present Illness: Ms. Fong is a 22-year-old lady with history of substance abuse and bipolar disorder presenting to the emergency department for suicidal ideation and paranoia. She reports increased suicidality including overdose on lithium 2 days ago and cutting herself superficially on the left anterior forearm and right thigh. She did these with hopes of dying. She became more upset this evening as her mother did not take her to dinner for some reason. Patient reports being concerned that somebody is bugged her phone and she is adversely involved with a gang who thinks she is in the [employer] gang and they have been tracking her. Intensity symptoms is moderate to severe. Course has worsened. No other specific changes in health, exacerbating, or alleviating factors identified. She was admitted to the neuropsychiatric unit for definitive treatment of those issues. She presents today reporting that she has been hospitalized at least 7 times. In [facility], [facility] and here. She reports that she had been on Seroquel and Vistaril but that someone stopped her medication. She reports that she last went to [facility] inpatient and they changed things that had been helping but probably needed just to be increased. She reports that over the last 3 days leading up to the hospitalization she was feeling increasingly suicidal. She was drinking, took some pills including lithium, and had cut herself superficially. She reports that she has had at least 22 suicide attempts in her life. She reports that she has had follow-up in [place]. She reports she has been on lots of different medications. She reports that she is down to 1 cigarette or a couple puffs a day. She reports she tried to stop drinking alcohol but does not drink much. She reports she smokes marijuana daily. She reports that she does not use any other illicit drugs and that has been the case for over a year but back when she was using methamphetamine and opiates for the problem. She reports she thinks she does have 1 DUI but denied other charges. She reports she is been having challenges since she was a teen that she has had a history of cutting. She reports that recently she and her mom have had conflicts because she struggles with her behavior. She reports that her mother endorses that she is more aggressive than she should be. She reports that recently she has been staying with her mom's ex because she and her mom cannot get along. She reports she is having some legal problems and that she has an outstanding warrant from not showing up to court about 4 times. She continues to report being heterosexual with her longest relationship being off and on for 3 years. Never been , has not had children never been in the and reports she is affiliated with the [employer]. She is not currently working. An excerpt of her last hospitalization here in March 2021 is included below for context. We discussed the risk benefits and alternatives of resuming some Seroquel at night to help with sleep and to start Invega as a mood stabilizer before considering an antidepressant. Per her 04/21/2021 [facility] inpatient psychiatric evaluation: History of Present Illness Miranda Fong is a 20 year old female who presented to the emergency department with the following report: Chief Complaint: Psychiatric Symptoms Stated Complaint: SI Time Seen by Provider: 04/20/21 21:32 History of Present Illness: HPI Narrative: 20-year-old female comes in today with complaints of depression, suicidal thoughts, hearing voices and seeing people watching her. Patient reports that she has been hearing the voices that have been telling her that they are going to get her and cut her in half with a chainsaw and other various torture. Patient has been started on citalopram 1 month ago and Seroquel 1 week ago for complaints of depression. Patient reports that the voices have been going on for 1 to 2 months. Patient has recently moved to [place] from [facility] 2 months ago to live near her biological grandparents. Patient has been on sertraline in the past but was taken off of the medication due to taking too many of the pills as she states it. Patient is also has had 1 state last August while in [facility] for suicidal thoughts in which she stayed overnight in the hospital. Patient has poor eye contact during interview. Associated symptoms: Reports auditory hallucinations, visual hallucinations, delusions, depression and suicidal ideation. She was admitted to the neuropsychiatric unit for definitive treatment of those issues. Patient presents today reporting she is never been in a psychiatric hospital but has been in outpatient services. She had medications before including Seroquel but she denies ever having Abilify. She endorses having a suicide attempt but it was unclear whether she meant September of this year or 2019. She reports that she vapes but does not alcohol somewhat regularly she denies smoking marijuana or any other illicit drugs. She never been to rehab and denied having a DUI. She reports that the reason why she is here is at her family's behest as she continued to have voices in her head reports that she feels like somebody is going to kill her. She reports that the voices tell her the people are after her that are going to kill her. We discussed the risk- benefit and alternatives of starting Abilify and she understood agreed to proceed as is documented in this note. Psychiatric history: As above. Substance abuse history: As above. Family history: Endorses mental health issues on her mother side, addiction issues on her father side denies any suicide attempts or completions in her family which is aware of. Developmental history: There were no problems with the , or delivery, learned to walk and talk and met developmental milestones on time, and denies need for speech therapy, learning support, emotional support or special education classes. She did later report that she might have been a slow reader. Psychosocial history: She reports that her mother and father were together when she was born and that she has 2 younger sisters that are a product of that same union. She states is a half sibling through her father but avoid and her mother did have another child was stillborn. She reports her childhood was good she denies any emotional, physical or sexual abuse. She does report that when her parents split her dad was overly protective and her mom more or less allowed her to do whatever she wanted. She reports that she did get into some addictive behavior secondary to the looseness of control. She alluded to some possible trauma and PTSD type symptoms but did not discuss them with clearly enough to draw an understanding. She did graduate from high school. She endorses being bisexual with a long relationship being 2 years. She has never been , she has never had children, she has never been in the , and she endorses being Mu-Ism. Her longest was 3 months. She reports he lives in a camper with a younger sister outside of family members home. Legal history: Denied. Medical history: Please see ED note for full details but endorses being on control pills. Hospital Course She slowly acclimated to the individual, group and milieu therapies. She presented reporting significant difficulties in her life which has been fairly common in her presentation including psychosocial challenge of having a significant conflict with her mother. Additionally some issues regarding her being stuck at home and not having an opportunity to do things. Significant concerns exist because she is on the verge of getting her Social Security benefits from being disabled there are great concerns that she will be victimized as people have already started asking her about her money and trying to get her to send money to them even though she has not received it yet. Additionally still having some difficulty with her psychotic symptoms. She was continued on her home medications but her Seroquel was increased to 400 mg p.o. nightly. And her Invega Sustenna injection was increased to every 3 weeks. This was something that had been desired in the past but had not occurred once she left the hospital. We worked with her mother and outpatient providers to make sure they understood that this plan. She was on a 96-hour hold which then became a 21-day hold. The increase in her Seroquel increase in the Invega as well as continuing her home meds, the absence of drugs of abuse specifically cannabis at this time, and the treatment milieu led to a very positive response. Guardianship is something that is supposed to be pursued and the treatment team is very supportive of this plan. Her next injection for this issue 21-day Invega Sustenna would be 03/25/2025. She worked with the social work team for appropriate follow-up appointments and outpatient resources. She demonstrated significant improvement and was able to contract for safety outside of the hospital prior to discharge. During the hospitalization, the patient had routine laboratory studies which were within normal limits, except for a few outliers. Additionally, the patient had a general medical evaluation which was within normal limits and revealed no new acute processes. Discharge Summary At the time of discharge the patient denied psychosis or lethality and her psychosis appeared to be resolving. Mood and anxiety were well managed. The patient endorsed a plan to avoid all drugs of abuse and to follow-up with outpatient services, as recommended. The patient was evaluated and deemed to be absent credible lethality, and had achieved the maximum benefit from an inpatient hospitalization, so was discharged. Hospital Course During the hospitalization, the patient had routine laboratory studies which were within normal limits except for a few outliers. Patient had been without her psychotropic medications for several months including not having taken her intramuscular Invega in over 4 months. She was restarted on Invega Sustenna 234 mg on 07/14/2025. She was also given Invega Sustenna 156 mg on 07/19/2025. She was restarted on Seroquel which was increased to 400 mg at night. Furthermore, oral paliperidone was started to help with her ta and psychosis and titrated up to 6 mg daily at the time of discharge. She had endorsed hallucinations and appeared to be responding to internal stimuli initially but eventually her symptoms appeared to resolve with these medications. Additionally, there was a general medical evaluation which was also within normal limits and revealed no new acute processes. At the time of discharge, lethality was denied and psychosis was resolving. Mood and anxiety were well managed. The patient endorsed a plan to avoid all drugs of abuse and follow up with the aftercare recommendations of the treatment team. The patient was evaluated and deemed to be absent credible lethality and had achieved the maximum benefit from an inpatient hospitalization, and so was discharged Meds NPU Home Medications ?Medication ?Instructions ?Recorded ?Confirmed ?Last Taken ?Type gabapentin 100 mg capsule 100 mg PO TID 30 days #90 ca ps 08/09/25 08/10/25 Unknown Rx hydroxyzine pamoate 25 mg capsule 50 mg (2 x 25 mg) PO Q6H PRN 08/09/25 08/10/25 Unknown Rx Anxiety 30 days #120 caps paliperidone palmitate 234 mg/1.5 234 mg (1.5 mL) IM Q 21D 21 days 08/09/25 08/11/25 2 Days Ago Rx mL intramuscular syringe #1.5 mL ~08/09/25 234 mg quetiapine 400 mg tablet (Seroquel) 400 mg PO BEDTIME #30 tabs 08/09/25 08/10/25 Unknown Rx trazodone 50 mg tablet 50 mg PO BEDTIME PRN Sleep 3 0 days 08/09/25 08/10/25 Unknown Rx #30 tabs Allergies Allergy/AdvReac Type Severity Reaction Status Date / Time hydrocortisone Allergy rash Verified 08/09/25 12:12 haloperidol AdvReac Severe Unconscious Verified 08/09/25 12:12 Milk Containing Products AdvReac Severe ADR-Flatule Verified 08/09/25 12:12 (Dairy) (Milk Containing nce Products) PFSH NPU 2 PFSH: Medical History (Updated 08/10/25 @ 18:39 by Darshana Rodriguez MD) Schizophrenia Insomnia H/O medication noncompliance Psychiatric disturbance Bipolar 1 disorder with psychosis History of use of contraceptive intrauterine device (IUD) Psychiatric care 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 Family History Other CAD (coronary artery disease) Diabetes Psychiatric illness Social History Smoking and tobacco/nicotine status: current every day tobacco/nicotine user Quit status (tobacco/nicotine): has quit using Former quit date comment: recent Alcohol intake: former Substance/Drug Use: former Adopted: No Caregiver/support person: No Lives independently: Yes Household members: family Housing: House Marital status: Single Number of children: 0 Highest education level completed: High School Graduate Current occupational status: unemployed Pets and animals: Yes Pets & animals: cat(s), dog(s) and bird(s) Leisure activites: art and other Leisure activities details: Social Media Sexually active: No Do you think of yourself as: Straight/Heterosexual Current gender identity: Female Meagan/Orthodoxy: Pentecostalism Special meagan needs: No Agree to transfusion: Yes Female Reproductive History: Spontaneous abortions: No Mental Status Exam 2 MSE Comments: This is an obese white female in hospital scrubs with poor grooming and good eye contact. Hair brightly colored in a very flamboyant style. No abnormal movements except for moderate psychomotor agitation. She was cooperative with exam in mild distress. Speech was normal in rate, and increased in volume. Mood described as I am fine my mom needed a break, affect: Appeared mostly euthymic and congruent. Thought process was linear and mostly organized. Thought content: She denied suicidal Or homicidal ideation. She she denied any delusions or auditory or visual hallucinations.. Attention and concentration was mostly intact and memory was appeared reliable but none were formally tested. Alert and oriented t. Patient o person and place. Insight, judgment and impulse control are all limited versus impaired. Vitals/I&O/Wt Last Vital Signs Temp 98.8 F 08/11/25 06:00 Pulse 73 08/11/25 06:00 Resp 16 08/11/25 06:00 BP 89/55 08/11/25 06:00 Pulse Ox 97 08/11/25 06:00 O2 Del Method Room Air 08/11/25 06:00 08/10/25 08/11/25 08/11/25 22:59 06:59 14:59 Intake Total Balance Weight last 48 hrs Weight 113.398 kg Data NPU 08/10/25 16:04 08/10/25 16:04 A&P Assessment and plan 1. Schizophrenia: 2. Bipolar 1 disorder: 3. Cannabis use disorder: 4. Parent-child relational problem: Plan: This is a 25-year-old white female who was seen in the past with a history of significant mental health challenges including with schizophrenia versus bipolar disorder with etiology likely exacerbated by past substance abuse presenting again noncompliant with medication with reports of psychosis positive for cannabis. 1.? Consider restarting medication. 2.? Continue every 15 minute checks for safety. 3.? Encourage individual, group and milieu therapies. 4.? Encourage sober living treatment after discharge at the highest level of care to which she is willing to commit. 5. Will continue to gather collateral information. 6. Observe against the backdrop of the 96-hour hold. PDMP PDMP Reviewed: Not Reviewed Involuntary Hold Information 2 Hold Status: Legal Status: 96 Hour Hold 96 Hour Hold: 96 Hour Involuntary Admission: Yes Other Hold: Hold End Date: 11/10/24 Attestations NPU 2 Medical Necessity Statement*: Inpatient hospitalization is medically necessary and the clinically appropriate intervention at this time. We will monitor/initiate medications and make changes as indicated. The patient will be hospitalized for at least 2 midnights.? The patient?s likely length of stay is 5-7 days. ? Coding Level of Care Code Acute Code for Chg Fwd Diagnoses Schizophrenia F20.9 Bipolar 1 disorder F31.9 Cannabis use disorder F12.90 Parent-child relational problem Z62.820
[2025-08-11 14:00] VITALS: BP 106/70; PULSE 83; RESP 20; TEMP 36.5; O2SAT 96
[2025-08-11 20:32] VITALS: BP 136/87; PULSE 120; RESP 18; TEMP 36.6; O2SAT 97
[2025-08-12 06:00] VITALS: BP 156/90; PULSE 113; RESP 18; TEMP 36.2; O2SAT 94
--- NOTE | 2025-08-12 08:38 | PC.NURSE ---
Patient request for senna d/t constipation and request IBU for generalized body aches. Patient reports that you need to call Krishna at [facility]. Shes on the wall and takes care of my brain bleed and neuropathways.
--- NOTE | 2025-08-12 11:10 | P.NPUPN_ITS ---
Subjective NPU 2 Subjective: Patient presented today reporting that things are going fine. She denied having any major issues and was deliberating on whether or not she would be fine with continuing to be Invega which she was last discharged on the injection. Otherwise she reports that she is fine and does not think she needs to be in the hospital for long period she denied any side effects to the medication. Mental Status Exam 2 MSE Comments: This is an obese white female in hospital scrubs with poor grooming and good eye contact. Hair brightly colored in a very flamboyant style. No abnormal movements except for moderate psychomotor agitation. She was cooperative with exam in mild distress. Speech was normal in rate, and increased in volume. Mood described as I am fine my mom needed a break, affect: Appeared mostly euthymic and congruent. Thought process was linear and mostly organized. Thought content: She denied suicidal Or homicidal ideation. She she denied any delusions or auditory or visual hallucinations.. Attention and concentration was mostly intact and memory was appeared reliable but none were formally tested. Alert and oriented t. Patient o person and place. Insight, judgment and impulse control are all limited versus impaired. Vitals/I&O/Wt Last Vital Signs Temp 97.1 F L 08/12/25 06:00 Pulse 113 H 08/12/25 06:00 Resp 18 08/12/25 06:00 BP 156/90 08/12/25 06:00 Pulse Ox 94 08/12/25 06:00 O2 Del Method Room Air 08/12/25 06:00 Weight last 48 hrs Weight 113.398 kg Data NPU 08/10/25 16:04 08/10/25 16:04 Micro: Microbiology 08/10/25 15:55 Urine Culture - Final Urine,Clean Catch Microbiology 08/10/25 15:55 Urine,Clean Catch Urine Culture - Final A&P Assessment and plan 1. Schizophrenia: 2. Bipolar 1 disorder: 3. Cannabis use disorder: 4. Parent-child relational problem: Plan: This is a 25-year-old white female who was seen in the past with a history of significant mental health challenges including with schizophrenia versus bipolar disorder with etiology likely exacerbated by past substance abuse presenting again noncompliant with medication with reports of psychosis positive for cannabis. 1.? Consider restarting medication. 2.? Continue every 15 minute checks for safety. 3.? Encourage individual, group and milieu therapies. 4.? Encourage sober living treatment after discharge at the highest level of care to which she is willing to commit. 5. Will continue to gather collateral information. 6. Observe against the backdrop of the 96-hour hold. PDMP PDMP Reviewed: Not Reviewed Involuntary Hold Information 2 Hold Status: Legal Status: 96 Hour Hold 96 Hour Hold: 96 Hour Involuntary Admission: Yes Other Hold: Hold End Date: 11/10/24 Attestations NPU 2 Medical Necessity Statement*: Inpatient hospitalization is medically necessary and the clinically appropriate intervention at this time. We will monitor/initiate medications and make changes as indicated. The patient?s likely length of stay is 4-6 days. ? Coding Level of Care Code Acute Code for g Fwd Diagnoses Schizophrenia F20.9 Bipolar 1 disorder F31.9 Cannabis use disorder F12.90 Parent-child relational problem Z62.820
[2025-08-12 14:28] VITALS: BP 149/88; PULSE 119; RESP 18; TEMP 36.6; O2SAT 97
[2025-08-12 21:02] VITALS: BP 135/93; PULSE 95; RESP 18; TEMP 36.6; O2SAT 98
[2025-08-13 06:00] VITALS: BP 147/106; PULSE 101; RESP 18; O2SAT 97; BMI 42.2
--- NOTE | 2025-08-13 08:10 | P.NPUPN_ITS ---
Subjective NPU 2 Subjective: Patient presented today reporting that things are going better. We discussed that the plan date of her injection is actually at the beginning of the week and so Dr. Rojas who was here when she got her last injection will be here tomorrow and manage that process. She continues to deny that there is an anything major going on outpatient. She continues to endorse a willingness to continue with medication. She denied any side effects to the medication. Mental Status Exam 2 MSE Comments: This is an obese white female in hospital scrubs with poor grooming and good eye contact. Hair brightly colored in a very flamboyant style. No abnormal movements except for moderate psychomotor agitation. She was cooperative with exam in mild distress. Speech was normal in rate, and increased in volume. Mood described as I am fine my mom needed a break, affect: Appeared mostly euthymic and congruent. Thought process was linear and mostly organized. Thought content: She denied suicidal Or homicidal ideation. She she denied any delusions or auditory or visual hallucinations.. Attention and concentration was mostly intact and memory was appeared reliable but none were formally tested. Alert and oriented t. Patient o person and place. Insight, judgment and impulse control are all limited versus impaired. Vitals/I&O/Wt Last Vital Signs Temp 97.8 F 08/12/25 21:02 Pulse 101 H 08/13/25 06:00 Resp 18 08/13/25 06:00 BP 147/106 08/13/25 06:00 Pulse Ox 97 08/13/25 06:00 O2 Del Method Room Air 08/13/25 06:00 Weight last 48 hrs Weight 122.243 kg Data NPU 08/10/25 16:04 08/10/25 16:04 Micro: Microbiology 08/10/25 15:55 Urine Culture - Final Urine,Clean Catch Microbiology 08/10/25 15:55 Urine,Clean Catch Urine Culture - Final A&P Assessment and plan 1. Schizophrenia: 2. Bipolar 1 disorder: 3. Cannabis use disorder: 4. Parent-child relational problem: Plan: This is a 25-year-old white female who was seen in the past with a history of significant mental health challenges including with schizophrenia versus bipolar disorder with etiology likely exacerbated by past substance abuse presenting again noncompliant with medication with reports of psychosis positive for cannabis. 1.? Restarted medication. Invega injection due 08/17/2025. 2.? Continue every 15 minute checks for safety. 3.? Encourage individual, group and milieu therapies. 4.? Encourage sober living treatment after discharge at the highest level of care to which she is willing to commit. 5. Will continue to gather collateral information. 6. Observe against the backdrop of the 96-hour hold. PDMP PDMP Reviewed: Not Reviewed Involuntary Hold Information 2 Hold Status: Legal Status: 96 Hour Hold 96 Hour Hold: 96 Hour Involuntary Admission: Yes Other Hold: Hold End Date: 11/10/24 Attestations NPU 2 Medical Necessity Statement*: Inpatient hospitalization is medically necessary and the clinically appropriate intervention at this time. We will monitor/initiate medications and make changes as indicated. The patient?s likely length of stay is 3-5 days. ? Coding Level of Care Code Acute Code for g Fwd Diagnoses Schizophrenia F20.9 Bipolar 1 disorder F31.9 Cannabis use disorder F12.90 Parent-child relational problem Z62.820
[2025-08-13 13:44] VITALS: BP 121/72; PULSE 90; RESP 18; TEMP 36.8; O2SAT 97
[2025-08-13 20:20] VITALS: BP 150/86; PULSE 111; RESP 19; O2SAT 94
[2025-08-14 06:00] VITALS: BP 124/91; PULSE 87; RESP 19; O2SAT 98
--- NOTE | 2025-08-14 08:05 | PC.NURSE ---
PRN GEODON & VISTARIL GEODON 40 MG GIVEN PO WITH VISTARIL 50 MG PO PER PT C/O INCREASED ANXIETY. WILL CONT TO MONITOR
[2025-08-14 14:00] VITALS: RESP 20
--- NOTE | 2025-08-14 14:31 | PC.NURSE ---
pt refused vitals nursed notififed
--- NOTE | 2025-08-14 17:11 | P.NPUPN_ITS ---
Subjective NPU 2 Subjective: 25-year-old female presented with ta and psychosis currently on a monthly paliperidone injection. The patient had reported that she had not been compliant with her Seroquel at night. She had reported that she had felt much better when taking Geodon. 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 She reports that she had 2 husbands and 8 boyfriends. She reports that she felt that she also wanted to go to college at [employer]. She had reported having periods of time where she had not slept very well. She had reported diminished appetite. The patient reported no thoughts of hurting herself or others. Mental Status Exam 2 MSE Comments: This is an obese white female in hospital scrubs with poor grooming and good eye contact. Hair brightly colored in a very flamboyant style. No abnormal movements except for moderate psychomotor agitation. She was cooperative with exam in mild distress. Speech was normal in rate, and increased in volume. Mood described as great. Her affect was euphoric and mood congruent. Thought process was circumstantial at times. Thought content: she denied suicidal or homicidal ideation. She denied any delusions or auditory or visual hallucinations. There was signficant ideas of reference. Attention and concentration was mostly intact and memory was appeared reliable but none were formally tested. Alert and oriented to person and place and time. Insight, judgment and impulse control are all limited versus impaired. Vitals/I&O/Wt Last Vital Signs Temp 98.3 F 08/13/25 13:44 Pulse 87 08/14/25 06:00 Resp 20 H 08/14/25 14:00 BP 124/91 08/14/25 06:00 Pulse Ox 98 08/14/25 06:00 O2 Del Method Room Air 08/14/25 06:00 Weight last 48 hrs Weight 122.243 kg Data NPU 08/10/25 16:04 08/10/25 16:04 A&P Assessment and plan 1. Schizophrenia: 2. Bipolar 1 disorder: 3. Cannabis use disorder: 4. Parent-child relational problem: Plan: This is a 25-year-old white female who was seen in the past with a history of significant mental health challenges including with schizophrenia versus bipolar disorder with etiology likely exacerbated by past substance abuse presenting again noncompliant with medication with reports of psychosis positive for cannabis. 1.? Continue Seroquel 400mg at night. Invega injection due 08/17/2025. 2.? Continue every 15 minute checks for safety. 3.? Encourage individual, group and milieu therapies. 4.? Encourage sober living treatment after discharge at the highest level of care to which she is willing to commit. 5. Will continue to gather collateral information. 6. Observe against the backdrop of the 96-hour hold. PDMP PDMP Reviewed: Not Reviewed Involuntary Hold Information 2 Hold Status: Legal Status: 96 Hour Hold Date/Time Hold Expires: 9 6^08/16/25@1815 96 Hour Hold: 96 Hour Involuntary Admission: Yes Other Hold: Hold End Date: 11/10/24 Attestations NPU 2 Medical Necessity Statement*: Inpatient hospitalization is medically necessary and the clinically appropriate intervention at this time. We will monitor/initiate medications and make changes as indicated. The patient?s likely length of stay is 3-5 days. ? Coding Level of Care Code Acute Code for g Fwd Diagnoses Schizophrenia F20.9 Bipolar 1 disorder F31.9 Cannabis use disorder F12.90 Parent-child relational problem Z62.820
[2025-08-14 20:55] VITALS: BP 126/87; PULSE 91; RESP 19; TEMP 36.6; O2SAT 95
[2025-08-15 06:00] VITALS: BP 112/67; PULSE 97; RESP 18; TEMP 36.8; O2SAT 99
[2025-08-15 14:00] VITALS: BP 122/83; PULSE 102; RESP 16; TEMP 36.6; O2SAT 97
--- NOTE | 2025-08-15 17:34 | P.NPUPN_ITS ---
Subjective NPU 2 Subjective: 25-year-old female presented with ta and psychosis currently on a monthly paliperidone injection along with seroquel 400mg at night. The patient had reported that her thoughts continued to race at times. She had endorsed a significant use of cannabis and reported that she was unsure as to the longest amount of time she had gone without the use of cannabis. She had reported that she had used cannabis DAPT in propane for years and reported that it had hallucinogenic properties. She had admitted to significant decline from the use of cannabis but did not wish to consider reduction or stoppage and cannabis use as she had stated that she would consider going to cannabis gummy bears orally. Patient reported no side effects from her medication regimen. She had reported adequate sleep last night. She had been less intrusive on the unit. Mental Status Exam 2 MSE Comments: This is an obese white female in hospital scrubs with poor grooming and good eye contact. Hair brightly colored in a very flamboyant style. No abnormal movements except for moderate psychomotor agitation. She was cooperative with exam in mild distress. Speech was normal in rate, and increased in volume. Mood described as good. Her affect was steadier. Thought process was more linear today. Thought content: she denied suicidal or homicidal ideation. She denied any delusions or auditory or visual hallucinations. There was signficant ideas of reference. Attention and concentration was mostly intact and memory was appeared reliable but none were formally tested. Alert and oriented to person and place and time. Insight, judgment and impulse control are all limited versus impaired. Vitals/I&O/Wt Last Vital Signs Temp 98 F 08/15/25 14:00 Pulse 102 H 08/15/25 14:00 Resp 16 08/15/25 14:00 BP 122/83 08/15/25 14:00 Pulse Ox 97 08/15/25 14:00 O2 Del Method Room Air 08/15/25 06:00 Data NPU 08/10/25 16:04 08/10/25 16:04 A&P Assessment and plan 1. Schizophrenia: 2. Bipolar 1 disorder: 3. Cannabis use disorder: 4. Parent-child relational problem: Plan: This is a 25-year-old white female who was seen in the past with a history of significant mental health challenges including with schizophrenia versus bipolar disorder with etiology likely exacerbated by past substance abuse presenting again noncompliant with medication with reports of psychosis positive for cannabis. 1.? Continue Seroquel 400mg at night. Invega injection due 08/17/2025. 2.? Continue every 15 minute checks for safety. 3.? Encourage individual, group and milieu therapies. 4.? Encourage sober living treatment after discharge at the highest level of care to which she is willing to commit. 5. Will continue to gather collateral information. 6. Observe against the backdrop of the 96-hour hold due to shannon. PDMP PDMP Reviewed: Not Reviewed Involuntary Hold Information 2 Hold Status: Legal Status: 96 Hour Hold Date/Time Hold Expires: 9 6^08/16/25@1815 96 Hour Hold: 96 Hour Involuntary Admission: Yes Other Hold: Hold End Date: 11/10/24 Attestations NPU 2 Medical Necessity Statement*: Inpatient hospitalization is medically necessary and the clinically appropriate intervention at this time. We will monitor/initiate medications and make changes as indicated. The patient?s likely length of stay is 2-3 days. ? Coding Level of Care Code Acute Code for [facility] Fwd Diagnoses Schizophrenia F20.9 Bipolar 1 disorder F31.9 Cannabis use disorder F12.90 Parent-child relational problem Z62.820
[2025-08-15 20:10] VITALS: BP 133/82; PULSE 105; RESP 18; TEMP 37.1; O2SAT 97
[2025-08-16 06:00] VITALS: BP 113/76; PULSE 87; RESP 16; TEMP 36.5; O2SAT 97
[2025-08-16 14:00] VITALS: BP 115/78; PULSE 96; RESP 17; TEMP 37.3; O2SAT 98
--- NOTE | 2025-08-16 15:14 | P.NPUDS_ITS ---
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 medications have been effective but seem less so recently due to increased stressors in her life. Social history Patient is currently living with her mother and their dogs. She was previously living at her mother's ex-boyfriend's house. She is not currently working and is in the process of applying for disability. She has lost her driving license due to a suspected drug-related incident. She has been smoking heavily (vaping) and recently started drinking alcohol again after two years of abstinence. She also reports using cannabis but has not used it for the past two months. She denies using other drugs such as cocaine or methamphetamine. Per her 12/09/2022 [facility] inpatient psychiatric discharge summary: Discharge Diagnosis (1) Acute psychosis: Status: Acute (2) Suicidal ideation: Status: Acute(3) Drug overdose, intentional: Status: Acute(4) Bipolar 1 disorder: Status: Acute Permanent problem details: with psychosis Reason for Visit Reason for Visit: PARANOID Brief History: History of Present Illness Miranda Fong is a 22 year old female who presented to the emergency department with the following report: Chief Complaint: Psychiatric Symptoms Stated Complaint: PARANOID Time Seen by Provider: 11/21/22 20:18 History of Present Illness: Ms. Fong is a 22-year-old lady with history of substance abuse and bipolar disorder presenting to the emergency department for suicidal ideation and paranoia. She reports increased suicidality including overdose on lithium 2 days ago and cutting herself superficially on the left anterior forearm and right thigh. She did these with hopes of dying. She became more upset this evening as her mother did not take her to dinner for some reason. Patient reports being concerned that somebody is bugged her phone and she is adversely involved with a gang who thinks she is in the [employer] gang and they have been tracking her. Intensity symptoms is moderate to severe. Course has worsened. No other specific changes in health, exacerbating, or alleviating factors identified. She was admitted to the neuropsychiatric unit for definitive treatment of those issues. She presents today reporting that she has been hospitalized at least 7 times. In [facility], [facility] and here. She reports that she had been on Seroquel and Vistaril but that someone stopped her medication. She reports that she last went to [facility] inpatient and they changed things that had been helping but probably needed just to be increased. She reports that over the last 3 days leading up to the hospitalization she was feeling increasingly suicidal. She was drinking, took some pills including lithium, and had cut herself superficially. She reports that she has had at least 22 suicide attempts in her life. She reports that she has had follow-up in [place]. She reports she has been on lots of different medications. She reports that she is down to 1 cigarette or a couple puffs a day. She reports she tried to stop drinking alcohol but does not drink much. She reports she smokes marijuana daily. She reports that she does not use any other illicit drugs and that has been the case for over a year but back when she was using methamphetamine and opiates for the problem. She reports she thinks she does have 1 DUI but denied other charges. She reports she is been having challenges since she was a teen that she has had a history of cutting. She reports that recently she and her mom have had conflicts because she struggles with her behavior. She reports that her mother endorses that she is more aggressive than she should be. She reports that recently she has been staying with her mom's ex because she and her mom cannot get along. She reports she is having some legal problems and that she has an outstanding warrant from not showing up to court about 4 times. She continues to report being heterosexual with her longest relationship being off and on for 3 years. Never been , has not had children never been in the and reports she is affiliated with the [employer]. She is not currently working. An excerpt of her last hospitalization here in March 2021 is included below for context. We discussed the risk benefits and alternatives of resuming some Seroquel at night to help with sleep and to start Invega as a mood stabilizer before considering an antidepressant. Per her 04/21/2021 [facility] inpatient psychiatric evaluation: History of Present Illness Miranda Fong is a 20 year old female who presented to the emergency department with the following report: Chief Complaint: Psychiatric Symptoms Stated Complaint: SI Time Seen by Provider: 04/20/21 21:32 History of Present Illness: HPI Narrative: 20-year-old female comes in today with complaints of depression, suicidal thoughts, hearing voices and seeing people watching her. Patient reports that she has been hearing the voices that have been telling her that they are going to get her and cut her in half with a chainsaw and other various torture. Patient has been started on citalopram 1 month ago and Seroquel 1 week ago for complaints of depression. Patient reports that the voices have been going on for 1 to 2 months. Patient has recently moved to [place] from [facility] 2 months ago to live near her biological grandparents. Patient has been on sertraline in the past but was taken off of the medication due to taking too many of the pills as she states it. Patient is also has had 1 state last August while in [place] [facility] for suicidal thoughts in which she stayed overnight in the hospital. Patient has poor eye contact during interview. Associated symptoms: Reports auditory hallucinations, visual hallucinations, delusions, depression and suicidal ideation. She was admitted to the neuropsychiatric unit for definitive treatment of those issues. Patient presents today reporting she is never been in a psychiatric hospital but has been in outpatient services. She had medications before including Seroquel but she denies ever having Abilify. She endorses having a suicide attempt but it was unclear whether she meant September of this year or 2019. She reports that she vapes but does not alcohol somewhat regularly she denies smoking marijuana or any other illicit drugs. She never been to rehab and denied having a DUI. She reports that the reason why she is here is at her family's behest as she continued to have voices in her head reports that she feels like somebody is going to kill her. She reports that the voices tell her the people are after her that are going to kill her. We discussed the risk- benefit and alternatives of starting Abilify and she understood agreed to proceed as is documented in this note. Psychiatric history: As above. Substance abuse history: As above. Family history: Endorses mental health issues on her mother side, addiction issues on her father side denies any suicide attempts or completions in her family which is aware of. Developmental history: There were no problems with the , or delivery, learned to walk and talk and met developmental milestones on time, and denies need for speech therapy, learning support, emotional support or special education classes. She did later report that she might have been a slow reader. Psychosocial history: She reports that her mother and father were together when she was born and that she has 2 younger sisters that are a product of that same union. She states is a half sibling through her father but avoid and her mother did have another child was stillborn. She reports her childhood was good she denies any emotional, physical or sexual abuse. She does report that when her parents split her dad was overly protective and her mom more or less allowed her to do whatever she wanted. She reports that she did get into some addictive behavior secondary to the looseness of control. She alluded to some possible trauma and PTSD type symptoms but did not discuss them with clearly enough to draw an understanding. She did graduate from high school. She endorses being bisexual with a long relationship being 2 years. She has never been , she has never had children, she has never been in the , and she endorses being Jain. Her longest was 3 months. She reports he lives in a camper with a younger sister outside of family members home. Legal history: Denied. Medical history: Please see ED note for full details but endorses being on control pills. Hospital Course She slowly acclimated to the individual, group and milieu therapies. She presented reporting significant difficulties in her life which has been fairly common in her presentation including psychosocial challenge of having a significant conflict with her mother. Additionally some issues regarding her being stuck at home and not having an opportunity to do things. Significant concerns exist because she is on the verge of getting her Social Security benefits from being disabled there are great concerns that she will be victimized as people have already started asking her about her money and trying to get her to send money to them even though she has not received it yet. Additionally still having some difficulty with her psychotic symptoms. She was continued on her home medications but her Seroquel was increased to 400 mg p.o. nightly. And her Invega Sustenna injection was increased to every 3 weeks. This was something that had been desired in the past but had not occurred once she left the hospital. We worked with her mother and outpatient providers to make sure they understood that this plan. She was on a 96-hour hold which then became a 21-day hold. The increase in her Seroquel increase in the Invega as well as continuing her home meds, the absence of drugs of abuse specifically cannabis at this time, and the treatment milieu led to a very positive response. Guardianship is something that is supposed to be pursued and the treatment team is very supportive of this plan. Her next injection for this issue 21-day Invega Sustenna would be 03/25/2025. She worked with the social work team for appropriate follow-up appointments and outpatient resources. She demonstrated significant improvement and was able to contract for safety outside of the hospital prior to discharge. During the hospitalization, the patient had routine laboratory studies which were within normal limits, except for a few outliers. Additionally, the patient had a general medical evaluation which was within normal limits and revealed no new acute processes. Discharge Summary At the time of discharge the patient denied psychosis or lethality and her psychosis appeared to be resolving. Mood and anxiety were well managed. The patient endorsed a plan to avoid all drugs of abuse and to follow-up with outpatient services, as recommended. The patient was evaluated and deemed to be absent credible lethality, and had achieved the maximum benefit from an i npatient hospitalization, so was discharged. Hospital Course During the hospitalization, the patient had routine laboratory studies which were within normal limits except for a few outliers. Patient had been without her psychotropic medications for several months including not having taken her intramuscular Invega in over 4 months. She was restarted on Invega Sustenna 234 mg on 07/14/2025. She was also given Invega Sustenna 156 mg on 07/19/2025. She was restarted on Seroquel which was increased to 400 mg at night. Furthermore, oral paliperidone was started to help with her ta and psychosis and titrated up to 6 mg daily at the time of discharge. She had endorsed hallucinations and appeared to be responding to internal stimuli initially but eventually her symptoms appeared to resolve with these medications. Additionally, there was a general medical evaluation which was also within normal limits and revealed no new acute processes. At the time of discharge, lethality was denied and psychosis was resolving. Mood and anxiety were well managed. The patient endorsed a plan to avoid all drugs of abuse and follow up with the aftercare recommendations of the treatment team. The patient was evaluated and deemed to be absent credible lethality and had achieved the maximum benefit from an inpatient hospitalization, and so was discharged Hospital Course Hospital Course The patient was restarted on Seroquel at 400 mg at night which the patient had acknowledged that she had not been compliant with on an outpatient basis. Just prior to her hospitalization, she had received her IM Invega 234 mg on 08/09/2025. During the hospitalization, the patient had routine laboratory studies which were within normal limits except for a few outliers.? Additionally, there was a general medical evaluation which was also within normal limits and revealed no new acute processes.? At the time of discharge, lethality was denied and psychosis was resolving.? Mood and anxiety were well managed.? The patient endorsed a plan to avoid all drugs of abuse and follow up with the aftercare recommendations of the treatment team.? The patient was evaluated and deemed to be absent credible lethality and had achieved the maximum benefit from an inpatient hospitalization, and so was discharged.? She remained hesitant about discontinuing her use of THC as this data analyst report writer had suggested that this may be contributing to her mood fluctuations and psychosis. It was recommended that the patient continue to receive IM Invega 234 mg every 3 weeks. Gabapentin was tapered and discontinued on discharge. The patient's mother was agreeable to considering filing for guardianship. Involuntary Hold Information Hold Status: Legal Status: 96 Hour Hold Date/Time Hold Expires: 96^08/16/25@1815 96 Hour Hold: 96 Hour Involuntary Admission: Yes Other Hold: Hold End Date: 11/10/24 Mental Status Exam MSE Comments: This is an obese white female in hospital scrubs with poor grooming and good eye contact. Hair brightly colored in a very flamboyant style. No abnormal movements except for moderate psychomotor agitation. She was cooperative with exam in no acute distress. Speech was normal in rate, and normal in volume. Mood described as good. Her affect was euthymic. Thought process was linear and logical. Thought content: she denied suicidal or homicidal ideation. She denied any delusions or auditory or visual hallucinations. There was no evidence of delusional thinking or ideas of reference. Attention and concentration was mostly intact and memory was appeared reliable but none were formally tested. She was Alert and oriented to person and place and time. Insight is limited. Her judgment and impulse control were improved on discharge. Discharge Data Studies Completed and Pending: Laboratory Results WBC 9.00 10^3/uL (3.2 9-11.43) 08/10/25 16:04 RBC 4.95 10^6/uL (3.8 5-5.65) 08/10/25 16:04 Hgb 13.90 g/dL (11.27 -16.99) 08/10/25 16:04 Hct 42.0 % (36-47) 08/10/25 16:04 MCV 84.8 fl (85-98) L 08/10/25 16:04 MCH 28.1 pg (27-33) 08/10/25 16:04 MCHC 33.1 g/dL (30-55) 08/10/25 16:04 RDW 13.5 % (12.1-15.1 ) 08/10/25 16:04 Plt Count 330 10^3/cmm (157 -399) 08/10/25 16:04 MPV 9.9 fL (7.4-10.4) 08/10/25 16:04 Neut % (Auto) 68.4 % 08/10/25 16:04 Lymph % (Auto) 22.7 % 08/10/25 16:04 [place]ajo % (Auto) 5.7 % 08/10/25 16:04 Eos % (Auto) 2.7 % 08/10/25 16:04 Baso % (Auto) 0.4 % 08/10/25 16:04 Neut # (Auto) 6.16 10^3/uL (1.8 -7.7) 08/10/25 16:04 Lymph # (Auto) 2.0 10^3/uL (0.8- 4.8) 08/10/25 16:04 [place] # (Auto) 0.5 10^3/uL (0.2- 0.9) 08/10/25 16:04 Eos # (Auto) 0.2 10^3/uL (0.0- 0.8) 08/10/25 16:04 Baso # (Auto) 0.0 10^3/uL (0.0- 0.1) 08/10/25 16:04 Nucleated RBC % (a uto) 0 % 08/10/25 16:04 Nucleated RBCs # 0.0 /100WBC 08/10/25 16:04 Sodium 137 mmol/L (136-1 45) 08/10/25 16:04 Potassium 3.7 mmol/L (3.5-5 .1) 08/10/25 16:04 Chloride 103 mmol/L (98-10 7) 08/10/25 16:04 Carbon Dioxide 22 mmol/L (22-29) 08/10/25 16:04 Anion Gap 15.7 (5-19) 08/10/25 16:04 BUN 5 mg/dL (6-20) L 08/10/25 16:04 Creatinine 0.7 mg/dL (0.5-0. 9) 08/10/25 16:04 GFR Calculation 103.7 mL/min (90- 130) 08/10/25 16:04 Glucose 96 mg/dL (65-115) 08/10/25 16:04 Calculated Osmolal ity 281 mOsm/kg (285- 295) L 08/10/25 16:04 Calcium 9.1 mg/dL (8.5-10 .5) 08/10/25 16:04 Total Bilirubin 0.5 mg/dL (0.15-1 .2) 08/10/25 16:04 AST 15 U/L (0-32) 08/10/25 16:04 ALT 14 U/L (0-33) 08/10/25 16:04 Alkaline Phosphata se 90 U/L (35-105) 08/10/25 16:04 Total Protein 7.7 g/dL (6.6-8.7 ) 08/10/25 16:04 Albumin 4.3 g/dL (3.5-5.2 ) 08/10/25 16:04 Globulin 3.4 g/dL (1.3-4.6 ) 08/10/25 16:04 TSH 1.48 uIU/mL (0.27 -4.20) 08/10/25 16:04 HCG, Qual Negative (Negati ve) 08/10/25 15:55 Urine Color Yellow (Yellow) 08/10/25 15:55 Urine Appearance Cloudy (CLEAR) A 08/10/25 15:55 Urine pH 7.0 (5-7) 08/10/25 15:55 Ur Specific Gravit y 1.026 (1.005-1.0 30) 08/10/25 15:55 Urine Protein 1+ (Negative) A 08/10/25 15:55 Urine Glucose (UA) Negative (Normal ) 08/10/25 15:55 Urine Ketones Trace (Negative) 08/10/25 15:55 Urine Blood Negative (Negati ve) 08/10/25 15:55 Urine Nitrate Negative (Negati ve) 08/10/25 15:55 Urine Bilirubin Negative (Negati ve) 08/10/25 15:55 Urine Urobilinogen 1.0 mg/dL (Negati ve) 08/10/25 15:55 Ur Leukocyte Joanna ase 2+ (Negative) A 08/10/25 15:55 Urine RBC 0-2 /hpf (0-2) 08/10/25 15:55 Urine WBC 51-100 /hpf (0-5) H 08/10/25 15:55 Ur Squamous Epith Cells 21-50 /hpf (0-5) H 08/10/25 15:55 Amorphous Sediment Not Reportable 08/10/25 15:55 Urine Bacteria 2+ /hpf (NONE) H 08/10/25 15:55 Hyaline Casts 10.73 /lpf 08/10/25 15:55 Salicylates < 0.3 mg/dL (3-10 ) L 08/10/25 16:04 Urine Opiates Scre en Negative ng/mL (N egative) 08/10/25 15:55 Acetaminophen < 5.0 ug/mL (10-3 0) L 08/10/25 16:04 Ur Barbiturates Sc reen Negative ng/mL (N egative) 08/10/25 15:55 Ur Phencyclidine S crn Negative ng/mL (N egative) 08/10/25 15:55 Ur Amphetamines Sc reen Negative ng/mL (N egative) 08/10/25 15:55 U Benzodiazepines Scrn Negative ng/mL (N egative) 08/10/25 15:55 Urine Cocaine Scre en Negative ng/mL (N egative) 08/10/25 15:55 U Marijuana (THC) Screen Positive ng/mL (N egative) H 08/10/25 15:55 Ethyl Alcohol < 10 mg/dL (0-10) 08/10/25 16:04 Vitals: Last Vital Signs Temp 99.1 F 08/16/25 14:00 Pulse 96 08/16/25 14:00 Resp 17 08/16/25 14:00 BP 115/78 08/16/25 14:00 Pulse Ox 98 08/16/25 14:00 O2 Del Method Room Air 08/16/25 06:00 Discharge Plan Discharge Patient Disposition: Home Condition: Stable Prescriptions: New quetiapine [Seroquel] 400 mg tablet 400 mg PO 2100 Qty: 7 0RF Continued hydroxyzine pamoate 25 mg capsule 50 mg PO Q6H PRN (Reason: Anxiety) 30 Days Qty: 120 3RF trazodone 50 mg tablet 50 mg PO BEDTIME PRN (Reason: Sleep) 30 Days Qty: 30 1RF quetiapine [Seroquel] 400 mg tablet 400 mg PO BEDTIME 30 Days Qty: 30 3RF paliperidone palmitate 234 mg/1.5 mL syringe 234 mg IM Q21D 21 Days Qty: 1.5 3RF Rx Instructions: Next dose due 08/30/25 Discontinued paliperidone palmitate 234 mg/1.5 mL syringe 234 mg IM Q21D 21 Days Qty: 1.5 3RF Rx Instructions: Next dose due 09/01/25 gabapentin 100 mg capsule 100 mg PO TID 30 Days Qty: 90 3RF Discharge Order = DC NOW: Discharge Order (Routine); Ordered 08/16/25 Ordered By: Seth Rojas Referrals: Latisha Sesay PMHNP [Staff Physician, Psychiatry] - 08/23/25 11:45 am Referral Note: follow up Irving Sam, [facility] [Support Specialist, [facility]] - 1-3 days Referral Note: [facility] will be contacting you. Carmen Michael MD [Primary Care Provider, Family Practice] Discharge Diet: Usual diet Discharge Activity: Resume usual activity Patient Instructions: Quetiapine (By mouth), Schizophrenia (DC), Opioid Safety, Pain Management, Patient Portal & Felicia Instructions Discharge Attestations NPU Time Spent in Discharge Care*: less than 30 min Specific Discharge Activities: Specific discharge activities: educating patient, discussing with case folder/social workers/dc planners and evaluating patient/reviewing data Coding Level of Care Code Acute Code for Chg Fwd Diagnoses Schizophrenia F20.9 Bipolar 1 disorder F31.9 Cannabis use disorder F12.90 Parent-child relational problem Z62.827
[2025-08-16 16:09] VITALS: BP 115/78; PULSE 96; RESP 17; TEMP 37.3; O2SAT 98
== END 2025-08-16 16:25 | disposition home or self-care (01) | DRG 750 ==
LOC: ER 17:54 → NP 18:39
PROVIDERS: Admitting Provider Psychiatry & Neurology Psychiatry; Emergency Provider Emergency Medicine; PCP Family Medicine; Visit Provider Psychiatry & Neurology Psychiatry
DX: F20.9 Schizophrenia, unspecified (principal); F31.9 Bipolar disorder, unspecified; E66.9 Obesity, unspecified; Z68.41 Body mass index [BMI] 40.0-44.9, adult; F17.200 Nicotine dependence, unspecified, uncomplicated; G47.00 Insomnia, unspecified; Z62.820 Parent-biological child conflict; Z91.148 Patient's other noncompliance with medication regimen for other reason
CPT/HCPCS: 36415; 80053; 80306; 80307; 81001; 81025; 84443; 85025; 87086; 93005; 96372; 97150; 97165; 99285; J2060; J3486; J9999